=== PATIENT | male | born 1980 | race Caucasian/White ===

== ENCOUNTER 2021-08-11 08:06 | Emergency (ER) | payer MEDICAID, SELFPAY ==
--- NOTE | ~2021-08-11 | CT_ITS ---
EXAMINATION: CT ABDOMEN AND PELVIS WITHOUT CONTRAST CLINICAL INFORMATION: Evaluate for colovesicular fistula or abscess COMPARISON: None TECHNIQUE: Multidetector volumetric imaging was performed from the superior aspect of the liver through the pubic symphysis. Sagittal and coronal reformatted images were obtained on the technologist's workstation. This CT examination was performed using dose optimization techniques as appropriate, variously including the following: *Automated exposure control *Adjustment of mA and/or kV according to patient size (this includes techniques or standardized protocols for targeted exams where dose is matched to indication/reason for exam; i.e. extremities or head) *Use of iterative reconstruction technique DLP: 367 mGy-cm FINDINGS: LUNG BASES: The visualized lung bases are unremarkable. LIVER, GALLBLADDER, AND BILIARY TREE: The liver is normal in size, shape, and attenuation. No focal hepatic lesion or biliary ductal dilatation is present. The gallbladder is unremarkable with no evidence of radiopaque gallstones, gallbladder wall thickening, or obvious pericholecystic inflammatory changes. PANCREAS: Unremarkable. SPLEEN: Unremarkable. ADRENAL GLANDS: Unremarkable. KIDNEYS AND URETERS: The kidneys are normal in size, shape, and attenuation. No hydronephrosis, hydroureter, or calculi seen. No perinephric stranding. BLADDER: There is focal abnormal wall thickening of the left dome of the bladder. This is continuous with a 3.5 cm air-fluid level questionable for an abscess that abuts the proximal left colon. There is air in the bladder concerning for colovesicular fistula. GASTROINTESTINAL TRACT: There is abnormal wall thickening of the proximal sigmoid colon, for example axial image 56 series 3.. There is stranding of the surrounding fat. This abuts the left dome of the bladder. There is an air or air fluid collection seen in this region measuring 3.5 cm for example axial image 60 series 3 questionable for an abscess or contained perforation. This has a linear tract that extends anteriorly abutting the left rectus muscle, for example axial image 58 series 3. There is stool throughout the colon suggestive of constipation. The appendix is normal. The stomach and small bowel are normal. This is continuous with abnormal wall thickening of the left superior bladder wall. There is a small amount of air in the bladder suggestive of a colovesicular fistula. No free air. No ascites. ABDOMINAL WALL: No significant hernia is appreciated. LYMPH NODES: Normal. VASCULAR: Unremarkable. PELVIC VISCERA: Unremarkable. OSSEOUS STRUCTURES: There is spondylolysis and mild grade 1 spondylolisthesis at L5-S1. CT/CT abdomen pelvis wo con IMPRESSION: Abnormal wall thickening of the sigmoid colon. Colitis, diverticulitis and colon mass should be considered. Adjacent 3.5 cm likely abscess or contained perforation which abuts the left dome of the bladder. There is focal wall thickening of the left dome of the bladder and upper left lateral bladder wall and small amount of air in the bladder suggestive of a colovesicular fistula. Constipation. Fleischner guidelines were followed.
[2021-08-11 08:29] VITALS: BP 137/91; PULSE 105; RESP 16; O2SAT 98
[2021-08-11 09:27] VITALS: BP 120/90; PULSE 105; RESP 20; TEMP 36.8; O2SAT 99; BMI 20.7
[2021-08-11 09:40] LABS: Appearance Urine CLOUDY; Color Urine YELLOW; Glucose Urine UA NEG (NEG); Leukocyte Esterase Urine 3+ (NEG); Nitrite Urine POS (NEG); PH 6.5 (5.0-8.0); Specific Gravity - Urine 1.025 (1.005-1.025); UACC Culture Trigger YES; Urine Blood 3+ (NEG); Urine Ketones NEG (NEG); Urine Protein 2+ MG/DL (NEG-TRACE)
[2021-08-11] MEDS: 0.9 % Sodium Chloride 1,000 ML 999 ML IV (09:41)
--- NOTE | 2021-08-11 09:45 | ED.GENADULT ---
HPI - General Adult General Chief complaint: Skin/Abscess/Foreign Body Stated complaint: abscess Time Seen by Provider: 08/11/21 08:45 Source: patient Mode of arrival: ambulatory History of Present Illness HPI narrative: 41-year-old male with a past medical history of colon-bladder fistula S/P drainage in [place], [place] on 08/02/2021, presenting to ED complaining of persistent/worsening abdominal pain, and subjective fever last night. Admits arrived home from [place] on Tuesday, has been noncompliant with antibiotics and pain medication as lost in transit. Denies chills, nausea/vomiting, diarrhea, bloody BMs, melena, dysuria/hematuria Onset (ago): day(s) Related Data Previous Rx's Medication Instructions Recorded amoxicillin 875 mg-potassium 1 tab PO BID 7 Days #14 tab 08/11/21 clavulanate 125 mg tablet Allergies Allergy/AdvReac Type Severity Reaction Status Date / Time No Known Allergies Allergy Verified 08/11/21 08:54 Review of Systems Review of Systems: Constitutional: +subj Fever, No Chills, No Fatigue, No Malaise ENT/Mouth: No Hearing loss, No Ear Pain, No Nasal Congestion, No sore throat, No Rhinorrhea, No Swallowing Difficulty Eyes: No Eye Pain, No Swelling, No Redness Cardiovascular: No Chest Pain, No SOB, No Edema, No Palpitations Respiratory: No Cough, No Sputum, No Wheezing, No Smoke Exposure, No Dyspnea Gastrointestinal: No Nausea, No Vomiting, No Diarrhea, No Constipation, + Abdominal pain, No Hematochezia, No Melena Genitourinary: No irregular bleeding, No Dysuria, No Urinary Frequency, No Hematuria, No Urinary Incontinence/retention, No Flank Pain, No Urinary Flow Changes Musculoskeletal: No joint pain, No Myalgias, No Joint Swelling Skin: No Skin Lesions, No rash Neuro: No Weakness, No Numbness, No Headache Yes all other systems are reviewed and are negative PMFSH Past Medical History Attestation statement: The following information was validated with the patient. Social History Social History Patient Tobacco Use Status: Current everyday Tobacco user Smoked in Last 30 Days: Yes Advance Directives: No Advance Directives Information Provided: No Physical Exam ED Vital Signs: Vital Signs - 24 hr 08/11/21 08:29 05/17/22 09:27 Temperature 98.2 F Pulse Rate 105 H 105 H Respiratory Rate 16 20 Blood Pressure 137/91 H 120/90 H Pulse Oximetry 98 99 BMI result Body Mass Index 20.7 Const General: cooperative, healthy appearing and no acute distress Orientation/consciousness: patient oriented x3 Limitations: no limitations HENMT Head: Yes normal to inspection and Yes atraumatic Ears: hearing grossly normal bilaterally General nose exam: Normal external nose present Face and sinus: Yes normal facial exam Eyes General: appearance normal, both eyes and all related structures EOM: EOMs intact bilaterally Neck Neck: Yes normal visual inspection and Yes no meningeal signs Resp Effort & Inspection: normal respiratory effort and no respiratory distress Auscultation: clear to auscultation bilaterally Cardio Rate: regular rate Heart sounds: S1 normal heart sound present and S2 normal heart sound present GI Other: + small healing surgical site noted to right suprapubic region without surrounding erythema/fluctuance or induration Inspection: Yes normal to inspection Palpation (GI): Soft to palpation, Tenderness to palpation present (GI) suprapubicly; Negative for with no rebound tenderness, no guarding and not rigid General: Yes no CVA tenderness Back/Spine/Pelvis Back: no CVA tenderness Skin Rashes: no rashes Wounds: no wounds Neuro General: patient oriented x3, tone normal and no meningeal signs Gait exam (Neuro): Normal gait present Extrem General: Yes normal to inspection Course Course Course Narrative: -1023--obtain records from [facility], patient presented on 07/23/2021 with abdominal pain, history of diverticular disease and ETOH, 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 Concurrently was treated for EtOH withdrawal. Patient was taken to or for IR drainage on 07/24, cultures grew E coli, Clostridium tertium and strepanginosus and was kramer positive. Repeat CT on 07/29 showed resolution of pelvic fluid collection. ASIA drain was removed on 07/30 and he was transition to Augmentin on 07/31. General surgery recommended outpatient colorectal surgery follow-up for resection of the sigmoid colon and closure of colorectal fistula. Patient was discharged on 08/02 -noted leukocytosis 15.3 (WBC count 9.8 on 08/01). Lactic acid negative. Labs otherwise unremarkable. -UA infected CT abdomen pelvis wo con IMPRESSION: Abnormal wall thickening of the sigmoid colon. Colitis, diverticulitis and colon mass should be considered. Adjacent 3.5 cm likely abscess or contained perforation which abuts the left dome of the bladder. There is focal wall thickening of the left dome of the bladder and upper left lateral bladder wall and small amount of air in the bladder suggestive of a colovesicular fistula. Constipation. ? >> surgery Dr. Cooper consulted -Dr. Cooper spoke with radiologist Dr. Jimenez who thinks more IBD/ inflammatory related without drainable collection at this time. Will admit to hospitalist for GI consultation/ colonoscopy for further diagnosis -[id number]-- patient refusing to stay as wants to go smoke cigarette, had lengthy discussion with patient & mother about risks of leaving including , permanent damage/ disability, pain and sepsis, etc. He is A&O x3 competent to make decisions and will sign out AMA. States he will to return tomorrow. Will discharge with Augmentin in the meantime Medical Decision Making MDM Narrative Medical decision making narrative: 41-year-old male with a past medical history of colon-bladder fistula S/P drainage in [place], [place] on 08/02/2021, presenting to ED complaining of persistent/worsening abdominal pain, and subjective fever last night. On exam tachycardic likely from pain, abdomen soft with suprapubic tenderness, no rebound or guarding. No evidence of infection to surgical area. Concern for reaccumulation of abscess/fistula vs post surgical issue vs UTI vs ?diverticulitis or appendicitis. Will request records from [facility] in [place] Plan: Labs, UA, lactic/blood cultures, IVF, pain medication, CT AP Medical Records Medical records reviewed: Yes I reviewed the patient's medical records. Lab Data Lab results reviewed: Yes I reviewed the patient's lab results. Result diagrams: 08/11/21 09:42 08/11/21 09:42 Labs: Lab Results 08/11/21 08/11/21 08/11/21 Range/Units 09:08 09:30 09:30 WBC (4.8-10.8) X10*3/uL RBC (4.60-5.80) X10*6/uL Hgb (14.0-18.0) g/dl Hct (42.0-52.0) % MCV (80.0-98.0) fL MCH (27.0-33.0) pg MCHC (31.0-36.0) g/dl RDW (11.0-16.0) % Plt Count (160-400) X10*3/uL MPV (9.4-12.4) fL Immature Gran % (Auto) (0.0-0.4) % Neut % (Auto) (45-73) % Lymph % (Auto) (20-40) % [place] % (Auto) (2-11) % Eos % (Auto) (0-4) % Baso % (Auto) (0-2) % Lymph # (Auto) (1.2-4.9) X10*3/uL [place] # (Auto) (0.1-1.2) X10*3/uL Eos # (Auto) (0.0-0.4) X10*3/uL Baso # (Auto) (0.0-0.2) X10*3/uL Abs Immat Gran (auto) (0.00-0.03) X10*3/uL Absolute Neuts (auto) (2.0-8.3) x10*3/uL Absolute Nucleated RBC (0.0-0.012) X10*3/uL Nucleated RBC % (auto) (0.0-0.2) /100WBC Sodium (135-145) mmol/L Potassium (3.3-5.1) mmol/L Chloride (96-108) mmol/L Carbon Dioxide (22-29) mmol/L Anion Gap (12-20) BUN (9-16) mg/dL Creatinine (0.5-1.4) mg/dL Estim Creat Clear Calc Estimated GFR Random Glucose (60-115) mg/dL Lactic Acid 1.0 (0.5-2.0) mmol/L Calcium (8.4-10.2) mg/dL Magnesium (1.6-2.6) mg/dL Total Bilirubin (0.0-1.0) mg/dL Direct Bilirubin (0.0-0.5) mg/dL AST (5-37) U/L ALT (0-40) U/L Alkaline Phosphatase (39-117) U/L Total Protein (6.5-8.0) g/dL Albumin (3.5-5.0) g/dL Lipase (8-78) U/L Urine Color YELLOW Urine Appearance CLOUDY Urine pH 6.5 (5.0-8.0) Ur Specific [place] 1.025 (1.005-1.025) Urine Protein 2+ H (NEG-TRACE) MG/DL Urine Glucose (UA) NEG (NEG) MG/DL Urine Ketones NEG (NEG) MG/DL Urine Blood 3+ H (NEG) Urine Nitrite POS H (NEG) Ur Leukocyte Esterase 3+ H (NEG) Urine RBC TNTC H (0) /HPF Urine WBC TNTC H (0-4) /HPF Ur Squamous Epith Cells NONE /LPF Urine Bacteria TRACE /LPF Urine Opiates Screen (Not Detect) Urine Fentanyl Screen (Not Detect) Ur Barbiturates Screen (Not Detect) Ur Phencyclidine Scrn (Not Detect) Ur Amphetamines Screen (Not Detect) U Benzodiazepines Scrn (Not Detect) Urine Cocaine Screen (Not Detect) U Marijuana (THC) Screen (Not Detect) Ethyl Alcohol mg/dL COVID-19 (SAFIA) Negative (Negative) COVID-19 Clin Com See Note 08/11/21 08/11/21 08/11/21 Range/Units 09:30 09:42 09:42 WBC 15.3 H (4.8-10.8) X10*3/uL RBC 4.48 L (4.60-5.80) X10*6/uL Hgb 12.8 L (14.0-18.0) g/dl Hct 38.3 L (42.0-52.0) % MCV 85.5 (80.0-98.0) fL MCH 28.6 (27.0-33.0) pg MCHC 33.4 (31.0-36.0) g/dl RDW 15.0 (11.0-16.0) % Plt Count 398 (160-400) X10*3/uL MPV 9.7 (9.4-12.4) fL Immature Gran % (Auto) 0.4 (0.0-0.4) % Neut % (Auto) 79.4 H (45-73) % Lymph % (Auto) 10.2 L (20-40) % [place] % (Auto) 9.1 (2-11) % Eos % (Auto) 0.7 (0-4) % Baso % (Auto) 0.2 (0-2) % Lymph # (Auto) 1.6 (1.2-4.9) X10*3/uL [place] # (Auto) 1.4 H (0.1-1.2) X10*3/uL Eos # (Auto) 0.1 (0.0-0.4) X10*3/uL Baso # (Auto) 0.0 (0.0-0.2) X10*3/uL Abs Immat Gran (auto) 0.06 H (0.00-0.03) X10*3/uL Absolute Neuts (auto) 12.2 H (2.0-8.3) x10*3/uL Absolute Nucleated RBC 0.000 (0.0-0.012) X10*3/uL Nucleated RBC % (auto) 0.0 (0.0-0.2) /100WBC Sodium 136 (135-145) mmol/L Potassium 4.3 (3.3-5.1) mmol/L Chloride 104 (96-108) mmol/L Carbon Dioxide 23 (22-29) mmol/L Anion Gap 13 (12-20) BUN 6 L (9-16) mg/dL Creatinine 0.64 (0.5-1.4) mg/dL Estim Creat Clear Calc 139.1 Estimated GFR > 60 Random Glucose 123 H (60-115) mg/dL Lactic Acid (0.5-2.0) mmol/L Calcium 9.3 (8.4-10.2) mg/dL Magnesium 2.2 (1.6-2.6) mg/dL Total Bilirubin 0.8 (0.0-1.0) mg/dL Direct Bilirubin 0.2 (0.0-0.5) mg/dL AST 14 (5-37) U/L ALT 15 (0-40) U/L Alkaline Phosphatase 96 (39-117) U/L Total Protein 6.9 (6.5-8.0) g/dL Albumin 3.6 (3.5-5.0) g/dL Lipase 44 (8-78) U/L Urine Color Urine Appearance Urine pH (5.0-8.0) Ur Specific [place] (1.005-1.025) Urine Protein (NEG-TRACE) MG/DL Urine Glucose (UA) (NEG) MG/DL Urine Ketones (NEG) MG/DL Urine Blood (NEG) Urine Nitrite (NEG) Ur Leukocyte Esterase (NEG) Urine RBC (0) /HPF Urine WBC (0-4) /HPF Ur Squamous Epith Cells /LPF Urine Bacteria /LPF Urine Opiates Screen Not Detected (Not Detect) Urine Fentanyl Screen Not Detected (Not Detect) Ur Barbiturates Screen Not Detected (Not Detect) Ur Phencyclidine Scrn Not Detected (Not Detect) Ur Amphetamines Screen Not Detected (Not Detect) U Benzodiazepines Scrn Not Detected (Not Detect) Urine Cocaine Screen Not Detected (Not Detect) U Marijuana (THC) Screen POSITIVE H (Not Detect) Ethyl Alcohol mg/dL COVID-19 (SAFIA) (Negative) COVID-19 Clin Com 08/11/21 Range/Units 09:42 WBC (4.8-10.8) X10*3/uL RBC (4.60-5.80) X10*6/uL Hgb (14.0-18.0) g/dl Hct (42.0-52.0) % MCV (80.0-98.0) fL MCH (27.0-33.0) pg MCHC (31.0-36.0) g/dl RDW (11.0-16.0) % Plt Count (160-400) X10*3/uL MPV (9.4-12.4) fL Immature Gran % (Auto) (0.0-0.4) % Neut % (Auto) (45-73) % Lymph % (Auto) (20-40) % [place] % (Auto) (2-11) % Eos % (Auto) (0-4) % Baso % (Auto) (0-2) % Lymph # (Auto) (1.2-4.9) X10*3/uL [place] # (Auto) (0.1-1.2) X10*3/uL Eos # (Auto) (0.0-0.4) X10*3/uL Baso # (Auto) (0.0-0.2) X10*3/uL Abs Immat Gran (auto) (0.00-0.03) X10*3/uL Absolute Neuts (auto) (2.0-8.3) x10*3/uL Absolute Nucleated RBC (0.0-0.012) X10*3/uL Nucleated RBC % (auto) (0.0-0.2) /100WBC Sodium (135-145) mmol/L Potassium (3.3-5.1) mmol/L Chloride (96-108) mmol/L Carbon Dioxide (22-29) mmol/L Anion Gap (12-20) BUN (9-16) mg/dL Creatinine (0.5-1.4) mg/dL Estim Creat Clear Calc Estimated GFR Random Glucose (60-115) mg/dL Lactic Acid (0.5-2.0) mmol/L Calcium (8.4-10.2) mg/dL Magnesium (1.6-2.6) mg/dL Total Bilirubin (0.0-1.0) mg/dL Direct Bilirubin (0.0-0.5) mg/dL AST (5-37) U/L ALT (0-40) U/L Alkaline Phosphatase (39-117) U/L Total Protein (6.5-8.0) g/dL Albumin (3.5-5.0) g/dL Lipase (8-78) U/L Urine Color Urine Appearance Urine pH (5.0-8.0) Ur Specific [place] (1.005-1.025) Urine Protein (NEG-TRACE) MG/DL Urine Glucose (UA) (NEG) MG/DL Urine Ketones (NEG) MG/DL Urine Blood (NEG) Urine Nitrite (NEG) Ur Leukocyte Esterase (NEG) Urine RBC (0) /HPF Urine WBC (0-4) /HPF Ur Squamous Epith Cells /LPF Urine Bacteria /LPF Urine Opiates Screen (Not Detect) Urine Fentanyl Screen (Not Detect) Ur Barbiturates Screen (Not Detect) Ur Phencyclidine Scrn (Not Detect) Ur Amphetamines Screen (Not Detect) U Benzodiazepines Scrn (Not Detect) Urine Cocaine Screen (Not Detect) U Marijuana (THC) Screen (Not Detect) Ethyl Alcohol < 10 mg/dL COVID-19 (SAFIA) (Negative) COVID-19 Clin Com Critical Care Time Critical Care Time Critical Care Time: Yes Total Critical Care Time: 35 Attestation: I have personally provided critical care time exclusive of time spent on separately billable procedures. Time includes review of lab data, radiology results, discussion with consultants, and monitoring for potential decompensation. Intervention performed as documented. Discharge Plan Discharge Clinical Impression: [place]-vesical fistula, Acute UTI, Abscess Patient Disposition: Home, Self-Care Instructions: Gastrointestinal Fistula (DC) Additional Instructions: You have a fistula from your colon to her bladder which you are aware of. There was concern for extending infection. It was recommended that he be admitted to the hospital for further management/imaging studies. You are leaving against medical advice, the risks of leaving include permanent damage, , sepsis, permanent disability, and pain. Your always welcome to return to the emergency department. I encourage you to take the antibiotic sent to the pharmacy. If symptoms persist or worsen please return to the ED immediately Prescriptions: New amoxicillin-pot clavulanate 875-125 mg tablet 1 tab PO BID 7 Days Qty: 14 0RF Referrals: Manuel Cooper MD [Physician] - Sara Chavez MD [Physician] - Stand Alone Forms: Against Medical Advice
[2021-08-11 09:49] LABS: MANUAL DIFF FLAG NO
[2021-08-11 09:51] LABS: Basophils Percent Auto 0.2 % (0-2); Eosinophils Absolute Auto 0.1 X10*3/uL (0.0-0.4); Eosinophils Percent Auto 0.7 % (0-4); Hematocrit 38.3 % (42.0-52.0); Hemoglobin 12.8 g/dl (14.0-18.0); Imm Gran Abs Auto 0.06 X10*3/uL (0.00-0.03); Imm Gran Pct Auto 0.4 % (0.0-0.4); Lymphocytes Absolute Auto 1.6 X10*3/uL (1.2-4.9); Lymphocytes Percent Auto 10.2 % (20-40); Mean Corpuscular HGB Conc 33.4 g/dl (31.0-36.0); Mean Corpuscular Hemoglobin 28.6 pg (27.0-33.0); Mean Corpuscular Volume 85.5 fL (80.0-98.0); Mean Platelet Volume 9.7 fL (9.4-12.4); Monocytes Absolute Auto 1.4 X10*3/uL (0.1-1.2); Monocytes Percent Auto 9.1 % (2-11); Neutrophils Absolute Auto 12.2 x10*3/uL (2.0-8.3); Neutrophils Percent Auto 79.4 % (45-73); Platelet Count 398 X10*3/uL (160-400); Red Blood Count 4.48 X10*6/uL (4.60-5.80); White Blood Count 15.3 X10*3/uL (4.8-10.8)
[2021-08-11 09:54] LABS: RBC Urine TNTC /HPF (0); WBC Urine TNTC /HPF (0-4)
[2021-08-11 09:55] LABS: Bacteria Urine TRACE /LPF
[2021-08-11] MEDS: Morphine Sulfate 2 MG/ML CARTRIDGE IVPUSH (09:55)
[2021-08-11] MEDS: Piperacillin Sodium/Tazobactam 3.375 GM in 0.9 % Sodium Chloride 50 ML IV (09:55)
[2021-08-11 09:56] LABS: COVID-19 Test Negative (Negative); IDNOW Serial# 16C4AD1C
[2021-08-11 10:07] LABS: Alanine Aminotransferase 15 U/L (0-40); Albumin Level 3.6 g/dL (3.5-5.0); Alkaline Phosphatase 96 U/L (39-117); Anion Gap 13 (12-20); Aspartate Amino Transferase 14 U/L (5-37); Bilirubin Direct 0.2 mg/dL (0.0-0.5); Bilirubin Total 0.8 mg/dL (0.0-1.0); Blood Urea Nitrogen 6 mg/dL (9-16); Calcium 9.3 mg/dL (8.4-10.2); Carbon Dioxide 23 mmol/L (22-29); Chloride 104 mmol/L (96-108); Creatinine Clr Calc Pharmacy 139.1; Estimated Glomerular Filt Rate > 60; Glucose Random 123 mg/dL (60-115); Lipase 44 U/L (8-78); Magnesium 2.2 mg/dL (1.6-2.6); Potassium 4.3 mmol/L (3.3-5.1); Sodium 136 mmol/L (135-145); Total Protein 6.9 g/dL (6.5-8.0)
[2021-08-11 10:40] LABS: Ethanol < 10 mg/dL
[2021-08-11 10:57] LABS: Amphetamine Screen Urine Not Detected (Not Detect); Barbiturates, Urine Not Detected (Not Detect); Benzodiazepines Screen Urine Not Detected (Not Detect); Cannabinoid Screen Urine POSITIVE (Not Detect); Cocaine Screen Urine Not Detected (Not Detect); Fentanyl, urine Not Detected (Not Detect); Opiate Screen Urine Not Detected (Not Detect); Phencyclidine Screen Urine Not Detected (Not Detect)
[2021-08-11] MEDS: Nicotine 14 MG PATCH.TD24 TRANSDERMA (11:00)
--- NOTE | 2021-08-11 11:06 | PHA.MEDREC ---
Pharmacy Consult ? Medication Reconciliation Pharmacy has completed the medication reconciliation. Patient reports no medications at home. Maty Lanier, AureaD
== END 2021-08-11 14:00 | disposition left against medical advice (07) ==
PROVIDERS: Physician Assistant; Emergency Provider Emergency Medicine
DX: N39.0 Urinary tract infection, site not specified (principal); N32.1 Vesicointestinal fistula; R10.9 Unspecified abdominal pain; Z20.822 Contact with and (suspected) exposure to COVID-19; Z79.899 Other long term (current) drug therapy
CPT/HCPCS: 74176; 80048; 80076; 80307; 81001; 82077; 83605; 83690; 83735; 85025; 87040; 87086; 87088; 87186; 87635; 96365; 96375; 99284; 99291; J2270; J2543

== ENCOUNTER 2021-08-11 19:46 | Inpatient (IN) | payer MEDICAID, SELFPAY ==
--- NOTE | ~2021-08-11 | US_ITS ---
EXAMINATION: US SCROTUM CLINICAL INFORMATION: Pain and swelling. COMPARISON: None TECHNIQUE: A sonogram of the scrotum was performed assessing villagomez-scale appearance and color Doppler flow. Spectral Doppler analysis of the arterial and venous flow were performed in the testes bilaterally. FINDINGS: RIGHT: Right testicle measures 4.7 x 1.9 x 2.8 cm, volume 13.3 mL. No focal testicular parenchymal lesions are visualized. Spectral Doppler analysis of the arterial and venous flow is normal in the right testis. Right epididymal head is normal in size. Epididymal head cyst measures 0.2 cm. No right hydrocele or varicocele is seen. Right epididymal Doppler flow is normal. LEFT: Left testicle measures 4.5 x 2.8 x 2.9 cm, volume 18.3 mL. No focal testicular parenchymal lesions are visualized. Spectral Doppler analysis of the arterial and venous flow is normal in the left testis. Left epididymal head is normal in size. No varicocele. Small hydrocele is seen. Left epididymal Doppler flow is increased. US/US scrotum IMPRESSION: Left-sided epididymitis. No testicular torsion.
--- NOTE | ~2021-08-11 | US_ITS ---
EXAMINATION: US SCROTUM CLINICAL INFORMATION: Pain and swelling. COMPARISON: None TECHNIQUE: A sonogram of the scrotum was performed assessing villagomez-scale appearance and color Doppler flow. Spectral Doppler analysis of the arterial and venous flow were performed in the testes bilaterally. FINDINGS: RIGHT: Right testicle measures 4.7 x 1.9 x 2.8 cm, volume 13.3 mL. No focal testicular parenchymal lesions are visualized. Spectral Doppler analysis of the arterial and venous flow is normal in the right testis. Right epididymal head is normal in size. Epididymal head cyst measures 0.2 cm. No right hydrocele or varicocele is seen. Right epididymal Doppler flow is normal. LEFT: Left testicle measures 4.5 x 2.8 x 2.9 cm, volume 18.3 mL. No focal testicular parenchymal lesions are visualized. Spectral Doppler analysis of the arterial and venous flow is normal in the left testis. Left epididymal head is normal in size. No varicocele. Small hydrocele is seen. Left epididymal Doppler flow is increased. US/US scrotum doppler IMPRESSION: Left-sided epididymitis. No testicular torsion.
--- NOTE | ~2021-08-11 | CT_ITS ---
EXAMINATION: CT-GUIDED NEEDLE PLACEMENT FOR DRAINAGE CLINICAL INFORMATION: Air collection in the rectus muscle and pelvis adjacent to the urinary bladder. COMPARISON: CT abdomen AND pelvis 08/14/2021. TECHNIQUE: Following explaining CT fluoroscopy-guided abscess drainage procedure, benefits and risks, a written consent was obtained. Patient was placed supine on fluoroscopy table and preliminary CT imaging was obtained through the pelvis. An optimal site was selected along the previous catheter placement. The area was cleaned and draped in usual sterile manner. 1% lidocaine was injected at puncture site. A 5 [place] Yueh catheter was advanced into what appeared to be an abscess in the left pelvis. However, following small skin incisions with the Yueh catheter the needle tip appears to be along inferior tract of the previous catheter placement/linear gas. However, most of the abscess has not decompressed into the bladder with urine appearing murky with significant brown sediment. I presume the abscess decompressed into the bladder. Patient had significant pain in spite of conscious sedation. Placement of catheter was aborted as there was no abscess seen at the site of the tip of the catheter. Only a small amount of gas was seen. The bladder is decompressed following insertion of a Gold catheter. The exam was terminated. Simple dressing was applied at the puncture site. FINDINGS: Previously visualized small left pelvic abscess has spontaneously significantly improved or reduced into the urinary bladder. There is a small amount of gas seen in the previously noted abscess. The bladder is decompressed with a Gold catheter. CT/CT guided needle placement IMPRESSION: CT fluoroscopy-guided insertion of abscess drainage was aborted as the abscess had spontaneously reduced likely within the urinary bladder. The case was discussed with Dr. Manuel Cooper after the procedure.
--- NOTE | ~2021-08-11 | XR_ITS ---
EXAMINATION: XR CHEST CLINICAL INFORMATION: NG tube placement COMPARISON: CT abdomen from earlier today TECHNIQUE: Frontal view of the chest was obtained. FINDINGS: Enteric tube tip lies in the fundus of the stomach. Lung volumes are symmetric. There is streaky retrocardiac left basilar opacity favoring atelectasis. No additional consolidation bilaterally. No evidence of pneumothorax, pleural effusion, or pulmonary edema. The cardiomediastinal contour is unremarkable. No acute osseous findings are seen. XR/XR chest 1V IMPRESSION: Enteric tube tip in the fundus of the stomach.
--- NOTE | ~2021-08-11 | CT_ITS ---
EXAMINATION: CT ABDOMEN AND PELVIS WITHOUT CONTRAST CLINICAL INFORMATION: Pain post surgery COMPARISON: 08/14/2021 TECHNIQUE: Multidetector volumetric imaging was performed from the superior aspect of the liver through the pubic symphysis. Sagittal and coronal reformatted images were obtained on the technologist's workstation. This CT examination was performed using dose optimization techniques as appropriate, variously including the following: *Automated exposure control *Adjustment of mA and/or kV according to patient size (this includes techniques or standardized protocols for targeted exams where dose is matched to indication/reason for exam; i.e. extremities or head) *Use of iterative reconstruction technique DLP: 393 mGy-cm FINDINGS: LUNG BASES: Bibasilar subsegmental atelectasis. LIVER, GALLBLADDER, AND BILIARY TREE: The liver is normal in size, shape, and attenuation. No focal hepatic lesion or biliary ductal dilatation is present. Small amount of perihepatic fluid. The gallbladder is unremarkable with no evidence of radiopaque gallstones, gallbladder wall thickening, or obvious pericholecystic inflammatory changes. PANCREAS: Unremarkable. SPLEEN: Relatively diminutive in size, with small calcification noted. ADRENAL GLANDS: Unremarkable. KIDNEYS AND URETERS: The kidneys are normal in size, shape, and attenuation. No hydronephrosis, hydroureter, or calculi seen. No perinephric stranding. BLADDER: Decompressed with a Gold catheter and not adequately evaluated. GASTROINTESTINAL TRACT: There is prominent fluid distention of the stomach. Suture lines are identified in the small bowel of the central and right abdomen as well as in the sigmoid colon. There are multiple fluid-filled, dilated small bowel loops throughout much of the abdomen, with some interspersed loops which appear more collapsed. There are multiple foci of free air in keeping with recent surgery. Small amount of fluid is present in the dependent pelvis and paracolic gutters. Appendix appears nondilated. ABDOMINAL WALL: Right lower quadrant ileostomy noted. Postsurgical changes of the anterior abdominal wall with midline skin francesco. Small amount of gas is present along the rectus abdominis muscle, decreased from 08/14/2021. Underlying fluid is seen extending into the pelvis superior to the urinary bladder; on axial image 74/97 this measures approximately 9.4 x 4.6 cm. LYMPH NODES: No lymphadenopathy is seen, though assessment is limited in the absence of intravenous contrast. VASCULAR: Unremarkable. PELVIC VISCERA: Unremarkable. OSSEOUS STRUCTURES: Bilateral L5 pars defects. CT/CT abdomen pelvis wo con IMPRESSION: 1. Multiple dilated fluid-filled loops of small bowel. There are several interspersed loops of collapsed small bowel, with overall configuration raising concern for small bowel obstruction. 2. Region of fluid just deep to the lower anterior abdominal wall and extending superior to the urinary bladder measuring up to 9.4 cm. This may represent an abscess collection, with evaluation limited in the absence of intravenous contrast.
--- NOTE | ~2021-08-11 | CT_ITS ---
EXAMINATION: CT ABDOMEN AND PELVIS WITHOUT CONTRAST CLINICAL INFORMATION: Diverticulitis with increasing pain. Question perforation. Complaining of testicular pain. COMPARISON: 08/11/2021 TECHNIQUE: Multidetector volumetric imaging was performed from the superior aspect of the liver through the pubic symphysis. Sagittal and coronal reformatted images were obtained on the technologist's workstation. This CT examination was performed using dose optimization techniques as appropriate, variously including the following: *Automated exposure control *Adjustment of mA and/or kV according to patient size (this includes techniques or standardized protocols for targeted exams where dose is matched to indication/reason for exam; i.e. extremities or head) *Use of iterative reconstruction technique DLP: 463 mGy-cm FINDINGS: LUNG BASES: The visualized lung bases are unremarkable. LIVER, GALLBLADDER, AND BILIARY TREE: The liver is normal in size, shape, and attenuation. No focal hepatic lesion or biliary ductal dilatation is present. The gallbladder is unremarkable with no evidence of radiopaque gallstones, gallbladder wall thickening, or obvious pericholecystic inflammatory changes. PANCREAS: Unremarkable. SPLEEN: Calcified granuloma in the spleen. Normal size. ADRENAL GLANDS: Unremarkable. KIDNEYS AND URETERS: The kidneys are normal in size, shape, and attenuation. No hydronephrosis, hydroureter, or calculi seen. No perinephric stranding. BLADDER: Normally distended with wall thickening at the dome. Gas noted in the bladder lumen. GASTROINTESTINAL TRACT: The stomach is unremarkable. Normal caliber small bowel. There is no obstruction. What dilated: . This extends to an abnormal area in the sigmoid colon, where there is increased wall thickening from prior. Inferior to this abnormal segment of sigmoid colon there is again noted a collection which is incorporated to the superior aspect of the bladder wall. This measures approximately 3.6 x 2.6 x 3 cm. There is an air-fluid level. Tracking anteriorly from this collection there is a linear band of gas extending toward the anterior abdominal wall. This appearance is fairly similar to prior, although the anterior extension of gas now extends into the left rectus muscle, further progressed since previous. No free intraperitoneal air. Normal appendix. ABDOMINAL WALL: As stated above, tract of gas extending into the left rectus muscle. No abdominal wall hernia. LYMPH NODES: Normal. VASCULAR: Unremarkable. PELVIC VISCERA: The prostate and seminal vesicles are unremarkable. OSSEOUS STRUCTURES: No acute or suspicious osseous abnormality. Bilateral L5 pars defects. CT/CT abdomen pelvis wo con IMPRESSION: As seen previously, abnormal appearance of the sigmoid colon with focal prominent wall thickening. This may represent diverticulitis, although colonic mass is also a consideration. Adjacent fluid collection which involves the dome of the bladder. Gas within the bladder lumen suggests fistulization. There is increased gas tracking anteriorly into the rectus muscle. This could be associated with a draining tract if there was previous intervention. Fleischner guidelines were followed.
[2021-08-11 20:07] VITALS: BP 128/77; PULSE 118; RESP 20; TEMP 37; O2SAT 96; BMI 21.4
[2021-08-12 04:00] VITALS: BP 116/79; PULSE 65; RESP 16; TEMP 36.7; O2SAT 98
--- NOTE | 2021-08-12 05:18 | ED_ITS ---
HPI - Abdominal Pain General Chief Complaint: Abdominal Pain Stated Complaint: abd pain, lwt earlier Time Seen by Provider: 08/12/21 05:17 Source: patient Mode of arrival: ambulatory History of Present Illness HPI narrative: 41-year-old male re-presented after in entire workup yesterday and found to have an abscess within his abdomen, has been noncompliant with antibiotics, is an everyday drinker with his last drink yesterday. Patient said chills and worsening abdominal pain and plans to stick with definitive treatment through admission. Related Data Previous Rx's Medication Instructions Recorded amoxicillin 875 mg-potassium 1 tab PO BID 7 Days #14 tab 08/11/21 clavulanate 125 mg tablet Allergies Allergy/AdvReac Type Severity Reaction Status Date / Time No Known Allergies Allergy Verified 08/11/21 08:54 Review of Systems Review of Systems Pertinent positives and negatives as stated in HPI 10 point review of systems is otherwise negative. PMFSH Past Medical History Source: nursing notes reviewed Social History Social History Alcohol intake: current Alcohol intake frequency: 3 or more drinks per day Patient Tobacco Use Status: Current everyday Tobacco user Use of substances other than those prescribed or required for medical reasons: No Advance Directives: No Advance Directives Information Provided: Yes Physical Exam ED Vital Signs: Vital Signs - 24 hr 08/11/21 20:07 08/12/21 04:00 08/12/21 06:34 Temperature 98.6 F 98.1 F Pulse Rate 118 H 65 Respiratory Rate 20 16 15 Blood Pressure 128/77 116/79 Pulse Oximetry 96 98 BMI result Body Mass Index 21.4 Course Course Course Narrative: 41-year-old male who as decided to come in for definitive treatment of his intra-abdominal infection/urinary tract infection. He was given antibiotics and documentation was reviewed from prior visit yesterday. He was placed on a CIWA scale as well as an Ativan protocol and case was discussed with the inpatient hospitalist who accepts admission. I also reviewed the case briefly with Dr. Cooper who recommends evaluation for IBD. Patient was started on antibiotics and pain medication. 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 Concurrently was treated for EtOH withdrawal.? Patient was taken to or for IR drainage on 07/24, cultures grew E coli, Clostridium tertium and strepanginosus and was kramer positive.? Repeat CT on 07/29 showed resolution of pelvic fluid collection.? ASIA drain was removed on 07/30 and he was transition to Augmentin on 07/31.? General surgery recommended outpatient colorectal surgery follow-up for resection of the sigmoid colon and closure of colorectal fistula.? Patient was discharged on 08/02 0717: I spoke with Dr Asutin who accepts admission. Reevaluation(s) Reevaluation #1: Spoke with Dr Chavez and he will see patient and recommends CT enterogram. Time: 07:11 MDM - Abdominal Pain Lab Data Labs: Lab Results 08/12/21 08/12/21 08/12/21 Range/Units 05:39 05:39 05:42 Lactic Acid 0.7 (0.5-2.0) mmol/L COVID-19 (SAFIA) Negative (Negative) COVID-19 Clin Com See Note Influenza Type A (ELLEN) Negative (Negative) Influenza Type B (ELLEN) Negative (Negative) Influenza A & B Note See Note Discharge Plan Discharge Clinical Impression: Diverticulitis, Fistula, Abscess, Acute UTI Patient Disposition: Admitted As Inpatient Interventions: LWBS Worksheet Last Done: 08/12/21 02:34
[2021-08-12 05:59] LABS: Lactic Acid 0.7 mmol/L (0.5-2.0)
[2021-08-12 06:11] LABS: COVID-19 Test Negative (Negative); IDNOW Serial# 16C4AD1C; Influenza A Negative (Negative); Influenza B2 Negative (Negative)
[2021-08-12 06:34] VITALS: RESP 15
[2021-08-12] MEDS: HYDROmorphone HCl 0.5 MG/0.5 ML SYRINGE IVPUSH (06:34)
[2021-08-12] MEDS: 0.9 % Sodium Chloride 1,000 ML 999 ML IV (06:35)
[2021-08-12] MEDS: Piperacillin Sodium/Tazobactam 3.375 GM in 0.9 % Sodium Chloride 50 ML IV ×3 (06:35→18:16)
[2021-08-12 08:32] VITALS: BP 128/84; PULSE 88; O2SAT 98
[2021-08-12 09:00] LABS: MANUAL DIFF FLAG NO
--- NOTE | 2021-08-12 09:00 | P.HPHOSP_ITS ---
History of Present Illness Date of Service: 08/12/21 Chief Complaint: abdominal pain This is a 41 yo M with no prior medical history who presents to the hospital with on going abdominal pain of weeks to months duration but acutely worsened over the last several days. The patient describes the pain as diffuse but most prononuced below the umbilicus. He reports associated chills. He denies any nausea/vomiting/diarrhea but rather reports constipation. He also reports intermittent bloody stools but no hematemesis. He reports intermittent hemturia and frequent air after urnation. The patient presented to the ED on 08/11/21 and left AMA. He reports that he was not ready for admission at that time. In regards to the patient's symptoms, he reports that he initially started with urinary symptoms in May of this year. However, he ignored these initially. When he sought medical care -- he was diagnosed with a UTI and prescribed antibiotics which he took. However, his symptoms slowly progressed to abdomi nal symptoms and he began having persistent pain. Ultimately, at some point in June he was diagnosed to colovesciular fistula. This was in [facility]. 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 Concurrently was treated for EtOH withdrawal.? Patient was taken to or for IR drainage on 07/24, cultures grew E coli, Clostridium tertium and strepanginosus and was kramer positive.? Repeat CT on 07/29 showed resolution of pelvic fluid collection.? ASIA drain was removed on 07/30 and he was transition to Augmentin on 07/31.? General surgery recommended outpatient colorectal surgery follow-up for resection of the sigmoid colon and closure of colorectal fistula.? Patient was discharged on 08/02 Review of Systems Review of Systems: negative except HPI [facility] Medical History (Updated 08/12/21 @ 09:46 by Jb Mosley MD) Alcohol withdrawal seizure History of drainage of abscess Pertinent family history: No history of IBD in family Social History (Updated 08/12/21 @ 09:47 by Jb Mosley MD) Alcohol intake: current Alcohol intake frequency: 3 or more drinks per day Patient Tobacco Use Status: Current everyday Tobacco user Use of substances other than those prescribed or required for medical reasons: No Substance Use Type: Marijuana Advance Directives: No Advance Directives Information Provided: Yes Meds Allergies Allergy/AdvReac Type Severity Reaction Status Date / Time No Known Allergies Allergy Verified 08/11/21 08:54 Active Medications: Current Medications Acetaminophen (Acetaminophen 325 Mg Tablet) 650 mg PO Q6H PRN PRN Reason: Pain, Mild (Pain Scale 1-3) Enoxaparin Sodium (Enoxaparin Sodium 40 Mg/0.4 Ml Syringe) 40 mg SUBCUT Q24H KASHMIR Hydromorphone HCl (Hydromorphone Hcl 1 Mg/Ml Syringe) 1 mg IVPUSH Q4H PRN; Protocol PRN Reason: Pain, Severe (Pain Scale 7-10) Dextrose/Sodium Chloride (D5ns) 1,000 mls @ 100 mls/hr IVCONT .Q10H KASHMIR Piperacillin Sod/Tazobactam (Sod 3.375 gm/ Sodium Chloride) 50 mls @ 100 mls/hr IV Q6H [facility] Pharmacy Consult (Consult Rx Etoh Phenob Po Dose) 1 each MISCELLANE ONCE PRN; Protocol PRN Reason: Consult order Sodium Chloride (0.9 % Sodium Chloride Flush 3 Ml Syringe) 3 ml IVFLUSH QSHIFT [facility] Home Medications Medication Instructions Recorded Confirmed Last Taken Type No Known Home Meds 08/12/21 08/12/21 Unknown History Physical Exam Vital Signs and Narrative: Vital Signs: Last Vital Signs Temp 98.1 F 08/12/21 04:00 Pulse 88 08/12/21 08:32 Resp 15 08/12/21 06:34 BP 128/84 08/12/21 08:32 Pulse Ox 98 08/12/21 08:32 BMI result Body Mass Index 21.4 Const: Other: Constitutional - Awake and Alert, appears older than stated age Eyes - PERRLA, EOMI Cardiovascular - S1S2, RRR, No edema Respiratory - Normal lung expansion, Normal respiratory effort, No respiratory distress, CTA bilaterally Gastrointestinal - Diffusely tender without rebound or guarding - No CVA tenderness Extremities - no calf tenderness bilaterally, no swelling Musculoskeletal - Normal inspection, normal ROM Skin - Warm/Dry Neurological - Alert & oriented x3, No focal deficit Psychological - Appropriate affect Results Labs CBC and Chem 7: 08/12/21 08:55 08/12/21 08:55 Labs: Laboratory Results - last 24 hr 08/12/21 08/12/21 08/12/21 05:39 05:39 05:42 Lactic Acid 0.7 COVID-19 (SAFIA) Negative COVID-19 Clin Com See Note Influenza Type A (ELLEN) Negative Influenza Type B (ELLEN) Negative Influenza A & B Note See Note Assessment and Plan (1) Diverticulitis: Status: Acute Plan This is a 41 yo M with a recently history of intraabdominal abscess / colo- vesicular fistula treated with IV antibiotics / IR drainage (in [place], [place]) who presents today with worsening abdominal pain. His CT scan from 08/11 shows reaccumulation of his fluid collection. He will now be admitted for further treatment and management. 1. Intraabdominal fluid collection and likely colo-vesicular fistula evaluated by Gen surg with recs to eval for IBD empiric IV zosyn for now GI consult -- d/w Dr Lundberg -- recs IV abx/surg consult/npo; findings on CT unlik rowdy to represent Crohn's NPO - D5NS for now follow cultures d/w Gen surg -- will be evaluated by Dr. Yip 2. Alcohol abuse and dependence Reports he drinks as much as he can daily, with last drink the day prior to admission He has a prior history of withdrawal seizures Given ativan in the ED, will change to Phenobarbital -- 10mg/kg monitor lytes Full Code DVT pptx, Lovenox In light of the patient's complicated GI picture requiring treatment with IV antibiotics, IVF, NPO status + specialty consultation + concurrent treatment to prevent alcohol withdrawal, I anticipate the patient will need a medically necessary inpatient hospitalization which is likely to span at least 2 midnights. This cannot be completed in a less acute setting. Quality Stroke Does the patient have a stroke diagnosis?: No VTE Prior VTE?: No VTE Risk Level:: Medical - moderate - high VTE Device Contraindication: Treatment Not Indicated VTE Drug Contraindication: N/A - Med Ordered
[2021-08-12 09:02] LABS: Basophils Percent Auto 0.3 % (0-2); Eosinophils Absolute Auto 0.2 X10*3/uL (0.0-0.4); Hematocrit 37.4 % (42.0-52.0); Hemoglobin 12.1 g/dl (14.0-18.0); Imm Gran Abs Auto 0.04 X10*3/uL (0.00-0.03); Imm Gran Pct Auto 0.4 % (0.0-0.4); Lymphocytes Absolute Auto 1.4 X10*3/uL (1.2-4.9); Lymphocytes Percent Auto 14.6 % (20-40); Mean Corpuscular HGB Conc 32.4 g/dl (31.0-36.0); Mean Corpuscular Hemoglobin 28.1 pg (27.0-33.0); Mean Corpuscular Volume 86.8 fL (80.0-98.0); Mean Platelet Volume 9.1 fL (9.4-12.4); Monocytes Percent Auto 10.5 % (2-11); Neutrophils Absolute Auto 7.1 x10*3/uL (2.0-8.3); Neutrophils Percent Auto 72.2 % (45-73); Platelet Count 381 X10*3/uL (160-400); Red Blood Count 4.31 X10*6/uL (4.60-5.80); White Blood Count 9.9 X10*3/uL (4.8-10.8)
--- NOTE | 2021-08-12 09:02 | PHA.MEDREC ---
Pharmacy Consult ? Medication Reconciliation Pharmacy has completed the medication reconciliation Patient left and came back, never start the Augmentin. Maty Lanier, AureaD
[2021-08-12 09:22] LABS: Anion Gap 9 (12-20); Blood Urea Nitrogen 5 mg/dL (9-16); Calcium 8.9 mg/dL (8.4-10.2); Carbon Dioxide 28 mmol/L (22-29); Chloride 104 mmol/L (96-108); Creatinine Clr Calc Pharmacy 141.9; Estimated Glomerular Filt Rate > 60; Glucose Random 97 mg/dL (60-115); Potassium 4.2 mmol/L (3.3-5.1); Sodium 137 mmol/L (135-145)
[2021-08-12] MEDS: HYDROmorphone HCl 1 MG/ML SYRINGE IVPUSH ×3 (10:24→19:17)
[2021-08-12] MEDS: Enoxaparin Sodium 40 MG/0.4 ML SYRINGE SUBCUT (10:26)
[2021-08-12] MEDS: Dextrose 5 % and 0.9 % NaCl 1,000 ML 100 ML IVCONT ×2 (11:13→21:07)
--- NOTE | 2021-08-12 13:04 | PM.EVENT ---
Event Note Date of Service: 08/12/21 Event Note: GI Consult-Full note dictated-Hx via patient and EMR, CT reviewed with Dr. Jimenez Imp:Diverticulitis with colovesical fistula, previous abscess s/p recent percutaneous drainage, and residual inflammatory changes in the sigmoid colon. He continues with abdominal pain and significant tenderness on his exam. I suspect this represents diverticular disease with associated complicated diverticulitis. Given the clinical history and the remainder of the GI tract appearing normal, I doubt this represents Crohn's disease. Rec: IV antibiotics, NPO, surgery/ consult. Would not recommend any endoscopic intervention at this time. D/W Dr. Mosley. D/W patient. Please advise if I can be of any further assistance.Thanks
[2021-08-12 13:08] VITALS: BP 130/86; PULSE 87; RESP 13; O2SAT 99
[2021-08-12] MEDS: PHENobarbitaL 200 MG, PHENobarbitaL 15 MG 215 MG PO ×2 (13:10→17:04)
[2021-08-12 17:03] VITALS: BP 122/81; PULSE 93; RESP 18; TEMP 36.6; O2SAT 98
[2021-08-12] MEDS: 0.9 % Sodium Chloride Flush 3 ML SYRINGE IVFLUSH (17:04)
[2021-08-12] MEDS: Nicotine 21 MG PATCH.TD24 TRANSDERMA (19:17)
[2021-08-12] MEDS: PHENobarbitaL 15 MG TABLET 45 MG PO (21:09)
[2021-08-12 23:44] VITALS: BP 124/76; PULSE 78; RESP 18; TEMP 36.6; O2SAT 100
[2021-08-13] VITALS (7 sets, daily range): BP systolic 113–136; BP diastolic 78–91; PULSE 92–245; RESP 16–20; TEMP 36.3–37.1; O2SAT 96–100
[2021-08-13] MEDS: Piperacillin Sodium/Tazobactam 3.375 GM in 0.9 % Sodium Chloride 50 ML IV ×4 (00:06→16:53)
[2021-08-13] MEDS: HYDROmorphone HCl 1 MG/ML SYRINGE IVPUSH ×6 (00:12→20:30)
[2021-08-13] MEDS: Dextrose 5 % and 0.9 % NaCl 1,000 ML 100 ML IVCONT ×2 (06:25→17:07)
--- NOTE | 2021-08-13 06:37 | CONS_ITS ---
DATE OF SERVICE: 08/12/2021 REASON FOR CONSULTATION: Abdominal pain and diverticulitis. HISTORY OF PRESENT ILLNESS: This has been obtained from the patient and the medical record. The patient is a 41-year-old male with an underlying history of alcohol abuse, who had been hospitalized for the development of abdominal pain, a colovesical fistula, intraabdominal abscess, and apparent diverticulitis while in [place] in the latter part of June. He describes developing pneumaturia as well as some foul appearing urine. He initially was treated with outpatient antibiotics for a possible UTI. Due to the persistence of those symptoms as well as lower abdominal pain, he went to the local hospital in [place] and describes being medflighted to a larger hospital in [place], [place]. He describes a hospitalization there involving a percutaneous drainage for an abscess and 10 days in the hospital for treatment with antibiotics. He was seen by surgery and was then discharged on oral antibiotics. Their recommendation was that he should follow up with surgery for possible surgical resection of the sigmoid colon. The patient is originally from this area and he opted to take a 5 day bus trip from [place] back home and came to the ER here due to worsening abdominal pain and persistent symptoms including pneumaturia. He describes he has not been using the antibiotics that were given to him when he left the hospital in [place]. Prior to the past month or so, he denies having any particular GI problems. He does describe intermittent loose stool in relation to heavy drinking, but no other chronic diarrhea, hematochezia, nor melena. He denies any history of Crohn's disease in himself nor family members. He denies any other family history of inflammatory bowel disease nor GI malignancy. The patient describes a fairly good appetite in general prior to becoming ill. He denies any significant heartburn nor dysphagia. He denies any hematemesis nor coffee-grounds emesis. He does describe that his mother had diverticulitis. There is no other family history of diverticulitis, inflammatory bowel disease, nor GI malignancy. He denies any rashes, red or swollen joints, nor any eye problems. PRESENT MEDICATIONS: IV Zosyn, acetaminophen, Lovenox, Dilaudid p.r.n., lorazepam, phenobarbital, nicotine patch. PAST MEDICAL HISTORY: He denies any surgeries. Alcohol abuse. He denies any history of heart disease, diabetes, stroke. No lung disease. Recent problem with colovesical fistula and intraabdominal abscess in relation to what appears to be diverticulitis as described above. SOCIAL HISTORY: Alcohol abuse. He is a smoker. He does not use any drugs currently, but does describe a history of substance abuse including IV drugs in the past. FAMILY HISTORY: Mother with diverticulitis and alcohol abuse. There is no family history of Crohn's disease nor ulcerative colitis. REVIEW OF SYSTEMS: CONSTITUTIONAL: He has been feeling somewhat poorly in general with a diminished appetite. SKIN: No rash. No pruritus. CARDIAC: No chest pain. PULMONARY: No cough, no hemoptysis. GI: As above. URINARY: As above. PHYSICAL EXAMINATION: GENERAL: The patient is a thin, pleasant, alert, cooperative male. SKIN: Warm and dry. HEENT: Anicteric sclerae. NECK: Supple. CARDIAC: Tones S1, S2. ABDOMEN: Soft, nondistended. Bowel sounds are somewhat diminished. He does have a fairly diffuse tenderness in the lower abdomen with guarding and mild rebound, particularly in the suprapubic area. EXTREMITIES: Without edema. LABORATORY DATA: White blood cell count yesterday was 15.3 and today is 9.9. Hemoglobin 12.1, platelets 281,000. Normal electrolytes. BUN 5, creatinine 0.7. Total bilirubin 0.8, AST 14, ALT 15, alkaline phosphatase 96, albumin 3.6, lipase 44. COVID test is negative. IMAGING DATA: His CT scan of the abdomen from yesterday describes a normal-appearing liver without any sign of focal liver lesion or biliary disease. Gallbladder, pancreas, and spleen all appeared unremarkable. His kidneys appeared normal. There is abnormal wall thickening on the left side of the bladder that is adjacent to a 3.5 cm air fluid level, questionable for an abscess. There is air in the bladder raising the suspicion of a colovesical fistula. There was abnormal wall thickening in the proximal sigmoid colon with some surrounding stranding of the fat, raising suspicion for at least an abscess or contained perforation. The remainder of the GI tract including the more proximal colon, small bowel, and stomach all appeared normal. The appendix appeared normal. IMPRESSION: The patient is a 41-year-old male presenting with what appears to be a complicated diverticulitis including a colovesical fistula and intraabdominal abscess. Based on his clinical history and the CT scan finding revealing an otherwise normal-appearing GI tract including the the small bowel and proximal colon, I do not think we are dealing with Crohn's disease or any other inflammatory bowel disease. I do suspect this represents complicated diverticulitis. At this point, I would continue IV antibiotics and continue to keep him n.p.o. I would, however, obtain a consult from General Surgery as well as from Urology. I do suspect this will need some type of surgical intervention, possibly sooner than later given the abdominal tenderness on his exam and the severity of the findings on the CT scan. I would continue supportive care, otherwise and await the opinions from the Surgery and Urology. I would not recommend any type of endoscopic intervention at this time. This has been discussed with the patient in detail. This has been discussed with Dr. Mosley. Please advise if I can be of any further assistance during the hospitalization. Thank you for the consultation. MD JODY Lin/HEBER / [phone] [email or web address]
[2021-08-13 07:16] LABS: Hematocrit 37.1 % (42.0-52.0); Mean Corpuscular HGB Conc 32.3 g/dl (31.0-36.0); Mean Corpuscular Hemoglobin 28.2 pg (27.0-33.0); Mean Corpuscular Volume 87.1 fL (80.0-98.0); Mean Platelet Volume 9.6 fL (9.4-12.4); Platelet Count 424 X10*3/uL (160-400); Red Blood Count 4.26 X10*6/uL (4.60-5.80); Red Cell Distribution Width 14.6 % (11.0-16.0); White Blood Count 9.7 X10*3/uL (4.8-10.8)
[2021-08-13 07:23] LABS: Anion Gap 10 (12-20); Blood Urea Nitrogen 3 mg/dL (9-16); Calcium 9.2 mg/dL (8.4-10.2); Carbon Dioxide 28 mmol/L (22-29); Chloride 103 mmol/L (96-108); Creatinine Clr Calc Pharmacy 146.4; Estimated Glomerular Filt Rate > 60; Glucose Random 89 mg/dL (60-115); Potassium 4.7 mmol/L (3.3-5.1); Sodium 136 mmol/L (135-145)
--- NOTE | 2021-08-13 08:27 | P.CONGS_ITS ---
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 He was subsequently hospitalized on 08/02/2021 and underwent an interventional radiology drainage procedure of an abscess over the bladder on the left side. The patient was presumed to have had a perforated diverticulitis with abscess subsequent fistulization to the bladder. After proximally 4-5 days the drain was removed he was subsequently discharged home on oral antibiotics. Patient subsequently took a bus trip from [place] to [place]. During the trip however he lost his antibiotics was unable to continue the antibiotic therapy. He presented to the emergency department yesterday for further evaluation due to increased abdominal pain. Admission was recommended for IV antibiotics and possible surgical management however he subsequently signed out AMA. He agreed to take oral antibiotics but subsequently returned today with increased abdominal pain. He continues to report some gas per urine. He denies fever, chills, nausea, or vomiting. The pain is mainly in the left lower quadrant. His bowels have been moving any denies any bloody stools. CT of the abdomen and pelvis reveals a thickened segment of sigmoid colon with a air-fluid collection over the left dome of the bladder. He denies a previous history of colonoscopies or or other bowel problems. He denies a previous history of abdominal surgeries. Review of Systems Constitutional: Constitutional: Denies chills, Denies fever(s), Denies headache(s) and Denies poor appetite ENT: Denies dizziness and Denies headache(s) Cardiovascular: Cardiovascular: Denies chest pain, Denies rapid heart rate, Denies palpitations and Denies slow heart rate Respiratory: Respiratory: Denies chest congestion, Denies cough, Denies pain on inspiration and Denies wheezing Gastrointestinal: Gastrointestinal: Reports abdominal pain, Denies bloating, Denies change in stool character, Denies constipation, Denies diarrhea, Denies nausea, Denies vomiting and Denies hematemesis Genitourinary: Genitourinary: Reports dysuria Comments: Pneumaturia Musculoskeletal: Musculoskeletal: Denies back pain, Denies arthralgias, Denies joint swelling and Denies numbness Integumentary/Breasts: Skin/Breast: Denies change in pigmentation, Denies erythema and Denies rash Neurologic: Denies dizziness, Denies headache(s) and Denies numbness Psychiatric: Psychiatric: Denies anxiety and Denies depression Endocrine: Endocrine: Denies palpitations Hematologic/Lymphatic: Hematologic/Lymphatic: Denies easy bleeding, Denies easy bruising and Denies lymphadenopathy Allergic/Immunologic: Allergic/Immunologic: Denies wheezing PMFSH Past Medical History Medical History Alcohol withdrawal seizure History of drainage of abscess Social History Social History Household Members: None Housing: Homeless Do you presently have visiting nurse or other home services: No Alcohol intake: current Alcohol intake frequency: 3 or more drinks per day Patient Tobacco Use Status: Current everyday Tobacco user Tobacco use type: Cigarette Cigarette Packs Per Day: 2 Cigarettes Per Day: 40.0 Substance Use Type: Marijuana Meds Allergies Allergy/AdvReac Type Severity Reaction Status Date / Time No Known Allergies Allergy Verified 08/11/21 08:54 Active Medications: Current Medications Acetaminophen (Acetaminophen 325 Mg Tablet) 650 mg PO Q6H PRN PRN Reason: Pain, Mild (Pain Scale 1-3) Enoxaparin Sodium (Enoxaparin Sodium 40 Mg/0.4 Ml Syringe) 40 mg SUBCUT Q24H [facility] Last Admin: 08/12/21 10:26 Dose: 40 mg Documented by: Hydromorphone HCl (Hydromorphone Hcl 1 Mg/Ml Syringe) 1 mg IVPUSH Q4H PRN; Protocol PRN Reason: Pain, Severe (Pain Scale 7-10) Last Admin: 08/13/21 04:12 Dose: 1 mg Documented by: Dextrose/Sodium Chloride (D5ns) 1,000 mls @ 100 mls/hr IVCONT .Q10H [facility] Last Admin: 08/13/21 06:25 Dose: 100 mls/hr Documented by: Piperacillin Sod/Tazobactam (Sod 3.375 gm/ Sodium Chloride) 50 mls @ 100 mls/hr IV Q6H [facility] Last Infusion: 08/13/21 06:28 Dose: Infused Documented by: Nicotine (Nicotine 21 Mg Patch.Td24) 21 mg TRANSDERMA DAILY [facility] Last Admin: 08/12/21 19:17 Dose: 21 mg Documented by: Pharmacy Consult (Consult Rx Etoh Phenob Po Dose) 1 each MISCELLANE ONCE PRN; Protocol PRN Reason: Consult order Phenobarbital (Phenobarbital 15 Mg Tablet) 45 mg PO BID [facility]; Protocol Stop: 08/14/21 09:01 Last Admin: 08/12/21 21:09 Dose: 45 mg Documented by: Phenobarbital (Phenobarbital 30 Mg Tablet) 30 mg PO BID [facility]; Protocol Stop: 08/16/21 09:01 Phenobarbital (Phenobarbital 15 Mg Tablet) 15 mg PO DAILY [facility]; Protocol Stop: 08/18/21 09:01 Sodium Chloride (0.9 % Sodium Chloride Flush 3 Ml Syringe) 3 ml IVFLUSH QSHIFT [facility] Last Admin: 08/13/21 00:07 Dose: Not Given Documented by: Home Medications Medication Instructions Recorded Confirmed Last Taken Type No Known Home Meds 08/12/21 08/12/21 Unknown History Physical Exam Vital Signs: Vital Signs: Last Vital Signs Temp 98.7 F 08/13/21 07:08 Pulse 92 08/13/21 07:08 Resp 18 08/13/21 07:08 BP 133/84 08/13/21 07:08 Pulse Ox 99 08/13/21 07:08 BMI result Body Mass Index 21.4 Const: General: cooperative, comfortable and well developed Nutritional Appearance: well nourished Orientation/consciousness: patient oriented x3 Eyes: Sclerae: sclerae normal EOM: EOMs intact bilaterally Neck: Neck: Yes normal visual inspection Resp: Effort & Inspection: normal respiratory effort, no cough, no respiratory distress and no stridor Cardio: Jugular venous distension: no JVD GI: Inspection: Yes normal to inspection Palpation (GI): Soft to palpation, Tenderness to palpation present (GI) in the RLQ, no guarding, not rigid and no masses Percussion: Yes normal to percussion Auscultation: normal bowel sounds Rectal Exam - Male: Yes deferred Skin: General skin exam: no rashes or lesions noted Neuro: General: patient oriented x3 and no focal motor deficits Extrem: General: Yes full ROM and Yes no clubbing, cyanosis or edema Psych: Appearance: grossly normal Results Labs Result diagrams: 08/13/21 06:40 08/13/21 06:40 Labs: Abnormal lab results 08/12/21 08/12/21 08/13/21 Range/Units 08:55 08:55 06:40 RBC 4.31 L 4.26 L (4.60-5.80) X10*6/uL Hgb 12.1 L 12.0 L (14.0-18.0) g/dl Hct 37.4 L 37.1 L (42.0-52.0) % Plt Count 424 H (160-400) X10*3/uL MPV 9.1 L (9.4-12.4) fL Lymph % (Auto) 14.6 L (20-40) % Abs Immat Gran (auto) 0.04 H (0.00-0.03) X10*3/uL Anion Gap 9 L (12-20) BUN 5 L (9-16) mg/dL 08/13/21 Range/Units 06:40 RBC (4.60-5.80) X10*6/uL Hgb (14.0-18.0) g/dl Hct (42.0-52.0) % Plt Count (160-400) X10*3/uL MPV (9.4-12.4) fL Lymph % (Auto) (20-40) % Abs Immat Gran (auto) (0.00-0.03) X10*3/uL Anion Gap 10 L (12-20) BUN 3 L (9-16) mg/dL Short CBC 08/12/21 08/13/21 Range/Units 08:55 06:40 WBC 9.9 9.7 (4.8-10.8) X10*3/uL Hgb 12.1 L 12.0 L (14.0-18.0) g/dl Hct 37.4 L 37.1 L (42.0-52.0) % Plt Count 381 424 H (160-400) X10*3/uL BMP 08/12/21 08/13/21 08:55 06:40 Sodium 137 136 Potassium 4.2 4.7 Chloride 104 103 Carbon Dioxide 28 28 BUN 5 L 3 L Creatinine 0.65 0.63 Calcium 8.9 9.2 All other labs normal. Assessment and Plan (1) Diverticulitis: Status: Acute (2) [place]-vesical fistula: Status: Acute Plan 41-year-old male patient presenting with a colovesical fistula previously treated with a drainage procedure in [place], [place]. Patient continues to have a fistula with possible abscess in the abdominal cavity. Concern was raised by Dr. Jimenez guarding a segment of colon which appeared thickened possibly suggestive of colitis or GI malignancy. Appreciate input from Dr. Lundberg who feels this is diverticulitis with fistula. Patient will need a sigmoid colectomy with closure of colovesical fistula, which may need to be coordinated with Urology. I discussed the possibility surgery with the patient he is willing to proceed. I would anticipate scheduling the surgery early next week. Would continue IV antibiotics in the meantime. Procedures Date of Service Date of Service: 08/13/21
[2021-08-13] MEDS: Nicotine 21 MG PATCH.TD24 TRANSDERMA (08:28)
[2021-08-13] MEDS: PHENobarbitaL 15 MG TABLET 45 MG PO ×2 (08:30→20:30)
[2021-08-13] MEDS: Enoxaparin Sodium 40 MG/0.4 ML SYRINGE SUBCUT (08:30)
--- NOTE | 2021-08-13 10:14 | MHC.CM.PN ---
NURSE AGRONOMY INSTRUCTOR NOTE ELECTRONIC MEDICAL RECORD REVIEWED ALONG WITH CASE DISCUSSED WITH STAFF NURSE . MET WITH PATIENT , HE REPORTED HE CAM JAIME BUS FROM [place] TO [facility] TO STAY WITH HIS MOTHER , REPORTS HAVE BEED INCORRECLT DIAGNOSSED IN [place] AND CAME TO [facility] . HE HAS NO COVID VACCINATIONS, AND NEVER HAD COVID HIMSELF . HE REPORT HE HAS HAD A DRUG SUBSTANCE ABUSE IN THE PAST 10 YEARS AGO AND WAS ON SUBOXONE , BUT HAS BEEN OFF SUBOXONE FOR 5 YEARS NOW HE DOES TAKE MARIJUANA AND DRINKS DAILY ETOH MUCH HE CAN GET , HE REPORTED HE HAS HAD WITHDRAWLS FROM ETOH AND SEIZURES . HE REPORTES HE UNDERSTANDS WHY HE HAS PADDED BED RAILS AND [place]. HE IS ACTIVE AND INDEPENDENT IN ALL ADLS AND MOBILITY AND HAD NO SERVICES AND \ DISCHARGE PLAN TO BE FURTHER DETERMINED POST WORKUP 1. NEW TO AREA NO PCP 2. INS [facility] REFERRAL TO [facility] FINANCIAL COUNSELORS TO APPLY FOR [facility] AND CHECK ELIGEABILITY. REFERRAL SENT. 3, ETOH -PATIENT IS AWARE OF REFERRAL TO THE [facility] CARE TEAM FOR COMMUNITY SUPPORTS 4. HAS NEVER \BEEN COVID VACNINATED AND IS NNOT INTERESTED, ON ADMISSION COVID NEG 5 NO HEALTHCARE PROXY EDUCATED AND WIULL TRY AGAIN LATER TODAY TO OBTAIN ONE AGRONOMY INSTRUCTOR TO [facility] TO FOLLOW FOR DISCHARGE NEEDS
--- NOTE | 2021-08-13 12:35 | P.PNIM_ITS ---
Subjective Subjective Date of Service: 08/13/21 Interval History: the patient was seen and evaluated this morning Laying in bed, feels comfortable overall complaining of abdominal pain and burning urination low score on CIWA Denies any fever, chills or shortness of breath No reported other overnight events. Systemic review: No fever, chills or weakness No chest pain, palpitation No shortness of breath or coughing lower abdominal pain, with no nausea or vomiting burning with urine No any rash or wounds Physical Exam Vital Signs: Vital Signs: Last Vital Signs Temp 98.3 F 08/13/21 11:14 Pulse 94 08/13/21 11:14 Resp 16 08/13/21 11:14 BP 113/85 08/13/21 11:14 Pulse Ox 99 08/13/21 11:14 BMI result Body Mass Index 21.4 Const: Other: Constitutional : Alert, oriented, not in distress Neck : Normal inspection, Supple Cardiovascular : RRR, no JVP, no lower extremity edema Respiratory : fair bilateral air entry, no crackles, wheezes or rhonchi Gastrointestinal: soft, lax, Normal bowel sounds, suprapubic abdominal tenderness with no surgical signs Skin : Warm, Dry Neurological : Alert & oriented x3, No focal deficit , CN 2-12 within normal Objective Data Active Medications Acetaminophen (Acetaminophen 325 Mg Tablet) 650 mg PO Q6H PRN PRN Reason: Pain, Mild (Pain Scale 1-3) Enoxaparin Sodium (Enoxaparin Sodium 40 Mg/0.4 Ml Syringe) 40 mg SUBCUT Q24H [facility] Last Admin: 08/13/21 08:30 Dose: 40 mg Documented by: CHELY Hydromorphone HCl (Hydromorphone Hcl 1 Mg/Ml Syringe) 1 mg IVPUSH Q4H PRN; Protocol PRN Reason: Pain, Severe (Pain Scale 7-10) Last Admin: 08/13/21 08:28 Dose: 1 mg Documented by: CHELY Dextrose/Sodium Chloride (D5ns) 1,000 mls @ 100 mls/hr IVCONT .Q10H [facility] Last Admin: 08/13/21 06:25 Dose: 100 mls/hr Documented by: NISSA Piperacillin Sod/Tazobactam (Sod 3.375 gm/ Sodium Chloride) 50 mls @ 100 mls/hr IV Q6H [facility] Last Infusion: 08/13/21 06:28 Dose: 0 mls/hr Documented by: NISSA Nicotine (Nicotine 21 Mg Patch.Td24) 21 mg TRANSDERMA DAILY [facility] Last Admin: 08/13/21 08:28 Dose: 21 mg Documented by: CHELY Pharmacy Consult (Consult Rx Etoh Phenob Po Dose) 1 each MISCELLANE ONCE PRN; Protocol PRN Reason: Consult order Phenobarbital (Phenobarbital 15 Mg Tablet) 45 mg PO BID [facility]; Protocol Stop: 08/14/21 09:01 Last Admin: 08/13/21 08:30 Dose: 45 mg Documented by: CHELY Phenobarbital (Phenobarbital 30 Mg Tablet) 30 mg PO BID [facility]; Protocol Stop: 08/16/21 09:01 Phenobarbital (Phenobarbital 15 Mg Tablet) 15 mg PO DAILY [facility]; Protocol Stop: 08/18/21 09:01 Sodium Chloride (0.9 % Sodium Chloride Flush 3 Ml Syringe) 3 ml IVFLUSH QSHIFT [facility] Last Admin: 08/13/21 08:49 Dose: Not Given Documented by: CHELY Non-Admin Reason: IV Running Labs CBC & Chem 7: 08/13/21 06:40 08/13/21 06:40 Labs: Laboratory Results - last 24 hr 08/13/21 08/13/21 06:40 06:40 MCV 87.1 MCH 28.2 MCHC 32.3 RDW 14.6 Plt Count 424 H MPV 9.6 Absolute Nucleated RBC 0.000 Nucleated RBC % (auto) 0.0 Anion Gap 10 L Estim Creat Clear Calc 146.4 Estimated GFR > 60 Random Glucose 89 Calcium 9.2 Microbiology Microbiology Results: Microbiology 08/12/21 05:42 Blood Culture - Preliminary Blood - Venous No growth after 24 hours. 08/12/21 05:41 Blood Culture - Preliminary Blood - Venous No growth after 24 hours. Assessment and Plan (1) [place]-vesical fistula: Status: Acute (2) Diverticulitis: Status: Acute (3) Acute UTI: Status: Acute (4) Abscess: Status: Acute (5) Alcohol withdrawal: Status: Acute Plan This is a 41 yo M with a recently history of intraabdominal abscess / colo- vesicular fistula treated with IV antibiotics / IR drainage (in [place]) who presents today with worsening abdominal pain. His CT scan from 08/11 shows reaccumulation of his fluid collection. He will now be admitted for further festus tment and management. colo-vesicular fistula suspected abscess GI input appreciated, no evidence of IBD, likely complicated diverticular disease continue empiric IV zosyn for now continue D5NS for now follow cultures general surgery input appreciated, plan for surgery by next week Get urology evaluation Alcohol abuse and dependence Reports he drinks as much as he can daily, with last drink the day prior to admission He has a prior history of withdrawal seizures continue Phenobarbital protocol monitor lytes Full Code DVT pptx, Lovenox patient requiring treatment with IV antibiotics, IVF, + specialty consultation + concurrent treatment to prevent alcohol withdrawal, I anticipate the patient will need a medically necessary inpatient hospitalization overnight and for the next few days until surgery is done to prevent possible decompensation in to severe sepsis. Quality Stroke Does the patient have a stroke diagnosis?: No VTE Prior VTE?: No VTE Risk Level:: Medical - moderate - high VTE Device Contraindication: Treatment Not Indicated VTE Drug Contraindication: N/A - Med Ordered
--- NOTE | 2021-08-13 16:13 | PC.NURSE ---
1200 pt conversing with Urology, r/t antic surgery involving bladder.
[2021-08-13] MEDS: 0.9 % Sodium Chloride Flush 3 ML SYRINGE IVFLUSH (16:54)
--- NOTE | 2021-08-13 22:10 | PC.NURSE ---
1934 called to room for patient hr 245 on monitor, patient shaking leg in bed causing HR to appear fast, instructed VASCULAR MANAGER to manually check pulse and verify is correct. PULSE CHECK HR 104
[2021-08-14] VITALS (10 sets, daily range): BP systolic 101–119; BP diastolic 62–74; PULSE 100–126; RESP 14–20; TEMP 36.7–39.5; O2SAT 95–100
[2021-08-14] MEDS: 0.9 % Sodium Chloride Flush 3 ML SYRINGE IVFLUSH (00:40)
[2021-08-14] MEDS: HYDROmorphone HCl 1 MG/ML SYRINGE IVPUSH ×3 (00:40→02:48)
[2021-08-14] MEDS: Piperacillin Sodium/Tazobactam 3.375 GM in 0.9 % Sodium Chloride 50 ML IV ×3 (00:40→18:45)
--- NOTE | 2021-08-14 01:27 | PM.EVENT ---
Event Note Date of Service: 08/14/21 Event Note: Reporting worst abd pain /, exam: voluntary guarding, no rebound.. IV dilaudid and get another CT. NPO
[2021-08-14] MEDS: Dextrose 5 % and 0.9 % NaCl 1,000 ML 100 ML IVCONT ×2 (01:41→20:29)
[2021-08-14] MEDS: Acetaminophen 325 MG TABLET 650 MG PO (02:32)
[2021-08-14] MEDS: vancomycin HCL 1,000 MG in 0.9 % Sodium Chloride 250 ML 270 MG IV (03:53)
--- NOTE | 2021-08-14 05:21 | PC.NURSE ---
PATIENT ALERT AND ORIENTED, LUNG SHEN CLEAR, VOIDING CLOUDY URINE TO BEDSIDE URINAL, IVF AND IVABX ORDERED. PT HOWEVER, STATING INCREASED ABDOMINAL PAIN 10 PLUS. MEDICATED WITH DILAUDID DOSE ORDERED AT 0045 WITH LITTLE TO NO EFFECT. HOSPITALIST ON DUTY ALERTED AND CAME TO SEE PT. EXTRA DOSE DILAUDID ORDERED AND GIVEN AT 0140, ALSO CAT SCAN ORDERED AND PT TO TEST VIA HIS BED BY [facility] AND ESL TEACHER. RETURNED AND STILL IN PAIN 01/04. THEREFORE, ORDERED ADDITIONAL DOSE AND GIVEN AT 0300. PT ALSO LEFT UNIT FOR ULTRASOUND TO SCROTUM AT 0305, AGAIN IN HIS BED AND TRANSPORTED BY [facility] AND [facility]SL TE[employer]. HOSPITALIST ON UNIT AND SPOKE AGAIN TO PATIENT TEMP NOTED AFTER PT FELT WARM AND RECTALLY 103.1 WITH APAP PO GIVEN AND DECREASED TO 100. VANCOMYCIN DOSE ORDERED AND ADMINISTERED AND MD INFORMED PT HE WILL REMAIN NPO AND SURGICAL CONSULT FOR A.M. PT CONTINUES TO VOID TO BEDSIDE URINAL, CLOUDY AND HE STATES FEELS PRESSURE AT TIMES BUT NO NOTED HEMATURIA OR FECAL LEAKAGE PT STATES HE HAS HAD THAT PRIOR TO HIS ADMISSION. NOTED LEFT TESTICLE IS WITH EDEMA AND TENDERNESS. AWARE AND STATED DID RECEIVE ULTRASOUND TEST. PT MONITORED CLOSELY IN BED, VERBALIZING STILL WITH PAIN BUT FINALLY SETTLED AND WATCHED TV WITH SHORT NAPS. CIWA MONITORING IN USE AND PT SCORING 1 AND A 2. WILL CONT TO MONITOR CLOSELY.
[2021-08-14 05:50] LABS: Anion Gap 11 (12-20); Blood Urea Nitrogen 5 mg/dL (9-16); Calcium 8.9 mg/dL (8.4-10.2); Carbon Dioxide 26 mmol/L (22-29); Chloride 100 mmol/L (96-108); Creatinine Clr Calc Pharmacy 135.6; Estimated Glomerular Filt Rate > 60; Glucose Random 95 mg/dL (60-115); Potassium 3.9 mmol/L (3.3-5.1); Sodium 133 mmol/L (135-145)
--- NOTE | 2021-08-14 06:21 | PM.EVENT ---
Event Note Date of Service: 10/04/21 Event Note: Patient c/o increasing pain in left testicle that that has been been swelling for 2 to 3 days and overnight was excruciating pain. CT of abdomen and pelvis repeat show
[2021-08-14] MEDS: HYDROmorphone HCl 1 MG/ML SYRINGE 2 MG IVPUSH ×5 (06:43→23:34)
[2021-08-14 07:07] LABS: Hemoglobin 12.2 g/dl (14.0-18.0); Mean Corpuscular Hemoglobin 28.4 pg (27.0-33.0); Mean Platelet Volume 9.3 fL (9.4-12.4); Platelet Count 466 X10*3/uL (160-400); Red Cell Distribution Width 14.6 % (11.0-16.0); White Blood Count 12.6 X10*3/uL (4.8-10.8)
[2021-08-14 07:23] LABS: Anion Gap 12 (12-20); Blood Urea Nitrogen 4 mg/dL (9-16); Calcium 8.9 mg/dL (8.4-10.2); Carbon Dioxide 26 mmol/L (22-29); Chloride 101 mmol/L (96-108); Creatinine Clr Calc Pharmacy 129.9; Estimated Glomerular Filt Rate > 60; Glucose Random 97 mg/dL (60-115); Potassium 4.1 mmol/L (3.3-5.1); Sodium 135 mmol/L (135-145)
--- NOTE | 2021-08-14 07:52 | PHA.PROG ---
Admission Date/Time: August 12, 2021 08:57 Indication: Other Weight in k.771 kg Adjusted body weight in Kg: [place] body weight in Kg: Obesity Dosing Indication % IBW: Serum Creatinine - Last 168 Hours 08/12/21 08/13/21 08/14/21 08:55 06:40 04:32 Creatinine 0.65 0.63 0.68 08/14/21 06:57 Creatinine 0.71 Estimated CrCl and GFR - Last 168 Hours 08/12/21 08/13/21 08/14/21 08:55 06:40 04:32 Estim Creat Clear Calc 141.9 146.4 135.6 Estimated GFR > 60 > 60 > 60 08/14/21 06:57 Estim Creat Clear Calc 129.9 Estimated GFR > 60 Vancomycin Loading Dose: 1500mg X 1 Current Vancomycin Dosing Regimen: 1250mg Q12H Vancomycin Monitoring using AUC goal of 400 - 600 range with trough as surrogate marker: 501mg/L Date and Time for next Vancomycin Level to be drawn: 08/15/21 @1800 Pharmacist Comments on Vancomycin Plan: Pt given 1000mg today with an extra 500mg for a load per Dr. Smith, will be putting in 1250mg Q12H with expected AUC of 501mg/L. Will continue to monitor Vancomycin dosing will take advantage of [employer] as a clinical decision support tool that uses Bayesian modeling to calculate individual patient's pharmacokinetic parameters and forecast the patient's drug concentration time course with the target goal AUC 24 range of 400 - 600 mg/L/hr.
[2021-08-14] MEDS: PHENobarbitaL 15 MG TABLET 45 MG PO (08:50)
[2021-08-14] MEDS: Nicotine 21 MG PATCH.TD24 TRANSDERMA (08:51)
[2021-08-14] MEDS: metroNIDAZOLE/NS 500 MG/100 ML PIGGYBACK 100 MG IV ×3 (08:52→23:49)
[2021-08-14 09:24] LABS: INTERNATIONAL NORM RATIO 1.1 (0.9-1.1); Prothrombin Time 12.6 SEC (9.9-13.0)
--- NOTE | 2021-08-14 10:13 | P.PNIM_ITS ---
Subjective Subjective Date of Service: 08/14/21 Interval History: the patient was seen and evaluated this morning Laying in bed, complaining of worsening pain in his scrotum Became septic overnight requiring broadening of his antibiotics low score on CIWA Denies any fever, chills or shortness of breath No reported other overnight events. Systemic review: No fever, chills or weakness No chest pain, palpitation No shortness of breath or coughing lower abdominal pain, with no nausea or vomiting burning with urine, swelling in the scrotum with tenderness No any rash or wounds Physical Exam Vital Signs: Vital Signs: Last Vital Signs Temp 98.1 F 08/14/21 08:00 Pulse 100 08/14/21 08:00 Resp 20 08/14/21 08:00 BP 104/62 08/14/21 08:00 Pulse Ox 100 08/14/21 08:00 BMI result Body Mass Index 21.4 Const: Other: Constitutional : Alert, interact, mild distress from pain Neck : Normal inspection, Supple Cardiovascular : RRR, no JVP, no lower extremity edema Respiratory : fair bilateral air entry, no crackles, wheezes or rhonchi Gastrointestinal: soft, lax, Normal bowel sounds, suprapubic abdominal tenderness with no surgical signs Skin : Warm, Dry Urology: enlarged scrotum with erythema and tenderness over the left testicle Neurological : Alert & oriented x3, No focal deficit , CN 2-12 within normal Objective Data Active Medications Acetaminophen (Acetaminophen 325 Mg Tablet) 650 mg PO Q6H PRN PRN Reason: Pain, Mild (Pain Scale 1-3) Last Admin: 08/14/21 02:32 Dose: 650 mg Documented by: LUDA Enoxaparin Sodium (Enoxaparin Sodium 40 Mg/0.4 Ml Syringe) 40 mg SUBCUT Q24H [facility] Last Admin: 08/13/21 08:30 Dose: 40 mg Documented by: TYBURL Hydromorphone HCl (Hydromorphone Hcl 1 Mg/Ml Syringe) 2 mg IVPUSH Q4H PRN; Protocol PRN Reason: Pain, Severe (Pain Scale 7-10) Last Admin: 08/14/21 06:43 Dose: 2 mg Documented by: LUDA Hydroxyzine HCl (Hydroxyzine Hcl 25 Mg Tablet) 25 mg PO Q6H PRN PRN Reason: anxiety/restlessness Dextrose/Sodium Chloride (D5ns) 1,000 mls @ 100 mls/hr IVCONT .Q10H [facility] Last Infusion: 08/14/21 06:49 Dose: 100 mls/hr Documented by: LUDA Piperacillin Sod/Tazobactam (Sod 3.375 gm/ Sodium Chloride) 50 mls @ 100 mls/hr IV Q6H [facility] Last Infusion: 08/14/21 06:48 Dose: 0 mls/hr Documented by: LUDA Metronidazole (Flagyl) 500 mg in 100 mls @ 100 mls/hr IV Q8H [facility] Last Admin: 08/14/21 08:52 Dose: 100 mls/hr Documented by: CHELY Vancomycin HCl 1,250 mg/ (Sodium Chloride) 250 mls @ 166.667 mls/hr IV Q12H [facility] Naloxone HCl (Naloxone Hcl 0.4 Mg/Ml Vial) 0.2 mg IVPUSH Q2M PRN PRN Reason: Opiate Reversal Nicotine (Nicotine 21 Mg Patch.Td24) 21 mg TRANSDERMA DAILY [facility] Last Admin: 08/14/21 08:51 Dose: 21 mg Documented by: CHELY Pharmacy Consult (Consult Rx Etoh Phenob Po Dose) 1 each MISCELLANE ONCE PRN; Protocol PRN Reason: Consult order Pharmacy Consult (Consult Rx Vancomycin Dosing) 1 each MISCELLANE DAILY PRN PRN Reason: Consult order Phenobarbital (Phenobarbital 30 Mg Tablet) 30 mg PO BID [facility]; Protocol Stop: 08/16/21 09:01 Phenobarbital (Phenobarbital 15 Mg Tablet) 15 mg PO DAILY [facility]; Protocol Stop: 08/18/21 09:01 Sodium Chloride (0.9 % Sodium Chloride Flush 3 Ml Syringe) 3 ml IVFLUSH QSHIFT [facility] Last Admin: 08/14/21 09:10 Dose: Not Given Documented by: CHELY Non-Admin Reason: IV Running Labs CBC & Chem 7: 08/14/21 06:57 08/14/21 06:57 Labs: Laboratory Results - last 24 hr 08/14/21 08/14/21 08/14/21 04:32 06:57 06:57 MCV 86.0 MCH 28.4 MCHC 33.0 RDW 14.6 Plt Count 466 H MPV 9.3 L Absolute Nucleated RBC 0.000 Nucleated RBC % (auto) 0.0 PT INR Anion Gap 11 L Estim Creat Clear Calc 135.6 Estimated GFR > 60 Random Glucose 95 Lactic Acid 1.0 Calcium 8.9 08/14/21 08/14/21 06:57 09:07 MCV MCH MCHC RDW Plt Count MPV Absolute Nucleated RBC Nucleated RBC % (auto) PT 12.6 INR 1.1 Anion Gap 12 Estim Creat Clear Calc 129.9 Estimated GFR > 60 Random Glucose 97 Lactic Acid Calcium 8.9 Microbiology Microbiology Results: Microbiology 08/12/21 05:41 Blood Culture - Preliminary Blood - Venous No growth after 48 hours. 08/12/21 05:42 Blood Culture - Preliminary Blood - Venous No growth after 48 hours. Assessment and Plan (1) Alcohol withdrawal: Status: Acute (2) [place]-vesical fistula: Status: Acute (3) Diverticulitis: Status: Acute (4) Acute UTI: Status: Acute (5) Abscess: Status: Acute (6) Sepsis: Status: Acute (7) Epididymitis: Status: Acute Plan This is a 41 yo M with a recently history of intraabdominal abscess / colo- vesicular fistula treated with IV antibiotics / IR drainage (in [place], [place]) who pr esents today with worsening abdominal pain. His CT scan from 08/11 shows reaccumulation of his fluid collection. He will now be admitted for further treatment and management. colo-vesicular fistula abdominal abscess GI input appreciated, no evidence of IBD, likely complicated diverticular disease IR drainage on 07/24, cultures grew E coli, Clostridium tertium and strepanginosus follow cultures plan to do CT-guided drainage today continue empiric IV zosyn continue IVF general surgery input appreciated, plan for surgery by next week Sepsis secondary to acute left epididymitis had fever, elevated WBCs and tachycardia Confirmed byUltrasound images Blood culture sent, normal lactic acid Broaden antibiotic to vancomycin and addition of Flagyl pending urology evaluation UTI Growing E coli in the urine Continue antibiotic for now Alcohol abuse and dependence last drink the day prior to admission He has a prior history of withdrawal seizures continue Phenobarbital protocol monitor lytes Full Code DVT pptx, Lovenox patient requiring treatment with IV antibiotics, IVF, + specialty consultation + concurrent treatment to prevent alcohol withdrawal, I anticipate the patient will need a medically necessary inpatient hospitalization overnight and for the next few days until surgery is done to prevent possible decompensation in to severe sepsis. Quality Stroke Does the patient have a stroke diagnosis?: No VTE Prior VTE?: No VTE Risk Level:: Medical - moderate - high VTE Device Contraindication: Treatment Not Indicated VTE Drug Contraindication: N/A - Med Ordered
--- NOTE | 2021-08-14 13:59 | MHC.CM.PN ---
EMR REVIEWED, PT W/RECENT COLO-VESICULAR FISTULA AND TX'D IN [place], [place] W/DRAINAGE NAD IV ABX, PER HOSPITALIST PLAN FOR I&D TODAY, PT WILL REMAIN INPT ON IVF AND IV ABX, ANTIC PT WILL REMAIN INPT THROUGH W/E, ANTIC D/C BACK TO MOTHERS HOME W/NO SERVICES.
--- NOTE | 2021-08-14 14:40 | P.PNGS_ITS ---
Subjective Subjective Date of Service: 08/14/21 Interval history: Patient developed increased abdominal and scrotal pain overnight and a CT of the abdomen and pelvis as well as an ultrasound of the testicle was obtained. Ultrasound revealed epididymitis on the left side. CT revealed an increased air collection from the previous CT extending up into the rectus muscle on the left side. Air collection appears to correspond to the previous drain placement performed in [place], [place]. A collection is noted over the left side of the bladder as well. Physical Exam Vital Signs: Vital Signs: Last Vital Signs Temp 99.6 F 08/14/21 11:37 Pulse 100 08/14/21 11:37 Resp 20 08/14/21 11:37 BP 112/69 08/14/21 11:37 Pulse Ox 99 08/14/21 11:37 BMI result Body Mass Index 21.4 Const General: cooperative, comfortable and well developed Nutritional Appearance: well nourished Orientation/consciousness: patient oriented x3 Eyes Sclerae: sclerae normal EOM: EOMs intact bilaterally Neck Neck: Yes normal visual inspection Resp Effort & Inspection: normal respiratory effort, no cough, no respiratory distress and no stridor Cardio Jugular venous distension: no JVD GI Inspection: Yes normal to inspection Palpation (GI): Soft to palpation, Tenderness to palpation present (GI) in the left lower quadrant, no guarding, not rigid and no masses Percussion: Yes normal to percussion Auscultation: normal bowel sounds Rectal Exam - Male: Yes deferred Skin General skin exam: no rashes or lesions noted Neuro General: patient oriented x3 and no focal motor deficits Extrem General: Yes full ROM and Yes no clubbing, cyanosis or edema Psych Appearance: grossly normal Objective Data Active Medications Acetaminophen (Acetaminophen 325 Mg Tablet) 650 mg PO Q6H PRN PRN Reason: Pain, Mild (Pain Scale 1-3) Last Admin: 08/14/21 02:32 Dose: 650 mg Documented by: LUDA Enoxaparin Sodium (Enoxaparin Sodium 40 Mg/0.4 Ml Syringe) 40 mg SUBCUT Q24H [facility] Last Admin: 08/14/21 10:54 Dose: Not Given Documented by: CHELY Non-Admin Reason: Physician Held Med Hydromorphone HCl (Hydromorphone Hcl 1 Mg/Ml Syringe) 2 mg IVPUSH Q4H PRN; Protocol PRN Reason: Pain, Severe (Pain Scale 7-10) Last Admin: 08/14/21 11:01 Dose: 2 mg Documented by: CHELY Hydroxyzine HCl (Hydroxyzine Hcl 25 Mg Tablet) 25 mg PO Q6H PRN PRN Reason: anxiety/restlessness Dextrose/Sodium Chloride (D5ns) 1,000 mls @ 100 mls/hr IVCONT .Q10H [facility] Last Infusion: 08/14/21 06:49 Dose: 100 mls/hr Documented by: LUDA Piperacillin Sod/Tazobactam (Sod 3.375 gm/ Sodium Chloride) 50 mls @ 100 mls/hr IV Q6H [facility] Last Admin: 08/14/21 13:40 Dose: Not Given Documented by: CHELY Non-Admin Reason: Off Unit: Surgery Metronidazole (Flagyl) 500 mg in 100 mls @ 100 mls/hr IV Q8H [facility] Last Infusion: 08/14/21 10:58 Dose: 100 mls/hr Documented by: CHELY Vancomycin HCl 1,250 mg/ (Sodium Chloride) 250 mls @ 166.667 mls/hr IV Q12H [facility] Naloxone HCl (Naloxone Hcl 0.4 Mg/Ml Vial) 0.2 mg IVPUSH Q2M PRN PRN Reason: Opiate Reversal Nicotine (Nicotine 21 Mg Patch.Td24) 21 mg TRANSDERMA DAILY [facility] Last Admin: 08/14/21 08:51 Dose: 21 mg Documented by: CHELY Pharmacy Consult (Consult Rx Etoh Phenob Po Dose) 1 each MISCELLANE ONCE PRN; Protocol PRN Reason: Consult order Pharmacy Consult (Consult Rx Vancomycin Dosing) 1 each MISCELLANE DAILY PRN PRN Reason: Consult order Phenobarbital (Phenobarbital 30 Mg Tablet) 30 mg PO BID [facility]; Protocol Stop: 08/16/21 09:01 Phenobarbital (Phenobarbital 15 Mg Tablet) 15 mg PO DAILY [facility]; Protocol Stop: 08/18/21 09:01 Sodium Chloride (0.9 % Sodium Chloride Flush 3 Ml Syringe) 3 ml IVFLUSH QSHIFT [facility] Last Admin: 08/14/21 09:10 Dose: Not Given Documented by: CHELY Non-Admin Reason: IV Running Labs CBC & Chem 7: 08/14/21 06:57 08/14/21 06:57 Labs: Laboratory Results - last 24 hr 08/14/21 08/14/21 08/14/21 04:32 06:57 06:57 MCV 86.0 MCH 28.4 MCHC 33.0 RDW 14.6 Plt Count 466 H MPV 9.3 L Absolute Nucleated RBC 0.000 Nucleated RBC % (auto) 0.0 PT INR Anion Gap 11 L Estim Creat Clear Calc 135.6 Estimated GFR > 60 Random Glucose 95 Lactic Acid 1.0 Calcium 8.9 08/14/21 08/14/21 06:57 09:07 MCV MCH MCHC RDW Plt Count MPV Absolute Nucleated RBC Nucleated RBC % (auto) PT 12.6 INR 1.1 Anion Gap 12 Estim Creat Clear Calc 129.9 Estimated GFR > 60 Random Glucose 97 Lactic Acid Calcium 8.9 Microbiology Microbiology Results: Microbiology 08/12/21 05:41 Blood Culture - Preliminary Blood - Venous No growth after 48 hours. 08/12/21 05:42 Blood Culture - Preliminary Blood - Venous No growth after 48 hours. Procedures Date of Service Date of Service: 08/14/21 Progress Note: A&P Assessment and plan (1) [place]-vesical fistula: Status: Acute (2) Diverticulitis: Status: Acute Plan 41-year-old male patient presenting with a colovesical fistula previously drained in [place] now presenting with a recurrent collection over the bladder. There is an air pocket which extends into the rectus muscle on the left side which corresponds to the previous drain site. Fistula appears to come from the sigmoid colon which demonstrates a thickened segment possibly due to diverticu litis. Air collection is extending from the previous CT and should be a minimal to IR drainage. Plan for hand assisted laparoscopic or possible open sigmoid colectomy with closure of colovesical fistula and possible ileostomy/colostomy, tentatively scheduled for Tuesday. Will need a bowel prep on Tuesday. Time Spent With Patient Time: Total time spent is greater than 50% in coordination of care (as documented) at patient's floor/unit and/or counseling patient: Quality Stroke Does the patient have a stroke diagnosis?: No VTE Prior VTE?: No VTE Risk Level:: Medical - moderate - high VTE Device Contraindication: Treatment Not Indicated VTE Drug Contraindication: N/A - Med Ordered
[2021-08-14] MEDS: vancomycin HCL 1,250 MG in 0.9 % Sodium Chloride 250 ML 166.67 MG IV (19:54)
[2021-08-14] MEDS: PHENobarbitaL 30 MG TABLET PO (19:55)
[2021-08-15] VITALS (8 sets, daily range): BP systolic 96–132; BP diastolic 56–81; PULSE 72–101; RESP 14–20; TEMP 36.5–37.1; O2SAT 96–98
[2021-08-15] MEDS: Piperacillin Sodium/Tazobactam 3.375 GM in 0.9 % Sodium Chloride 50 ML IV ×4 (00:49→22:31)
[2021-08-15] MEDS: HYDROmorphone HCl 1 MG/ML SYRINGE 2 MG IVPUSH ×6 (02:39→22:28)
[2021-08-15 06:32] LABS: Hematocrit 32.5 % (42.0-52.0); Hemoglobin 10.5 g/dl (14.0-18.0); Mean Corpuscular HGB Conc 32.3 g/dl (31.0-36.0); Mean Corpuscular Hemoglobin 28.3 pg (27.0-33.0); Mean Corpuscular Volume 87.6 fL (80.0-98.0); Mean Platelet Volume 9.6 fL (9.4-12.4); Platelet Count 460 X10*3/uL (160-400); Red Blood Count 3.71 X10*6/uL (4.60-5.80); Red Cell Distribution Width 14.8 % (11.0-16.0); White Blood Count 8.8 X10*3/uL (4.8-10.8)
[2021-08-15] MEDS: Dextrose 5 % and 0.9 % NaCl 1,000 ML 100 ML IVCONT (06:51)
[2021-08-15 06:54] LABS: Anion Gap 10 (12-20); Blood Urea Nitrogen 9 mg/dL (9-16); Calcium 8.4 mg/dL (8.4-10.2); Carbon Dioxide 25 mmol/L (22-29); Chloride 103 mmol/L (96-108); Creatinine Clr Calc Pharmacy 144.1; Estimated Glomerular Filt Rate > 60; Glucose Random 119 mg/dL (60-115); Potassium 4.3 mmol/L (3.3-5.1); Sodium 134 mmol/L (135-145)
[2021-08-15] MEDS: vancomycin HCL 1,250 MG in 0.9 % Sodium Chloride 250 ML 166.67 MG IV ×2 (09:00→16:17)
[2021-08-15] MEDS: metroNIDAZOLE/NS 500 MG/100 ML PIGGYBACK 100 MG IV ×2 (09:02→16:33)
[2021-08-15] MEDS: Nicotine 21 MG PATCH.TD24 TRANSDERMA (09:05)
[2021-08-15] MEDS: Enoxaparin Sodium 40 MG/0.4 ML SYRINGE SUBCUT (09:06)
[2021-08-15] MEDS: PHENobarbitaL 30 MG TABLET PO ×2 (10:32→20:09)
--- NOTE | 2021-08-15 10:33 | P.PNIM_ITS ---
Subjective Subjective Date of Service: 08/15/21 Interval History: the patient was seen and evaluated this morning Laying in bed, pain has improved in his abdomen and scrotum had drainage attempt to the abscess yesterday Denies any fever, chills or shortness of breath No reported other overnight events. Systemic review: No fever, chills or weakness No chest pain, palpitation No shortness of breath or coughing lower abdominal pain, with no nausea or vomiting improved burning with urine, decreased swelling in the scrotum with tenderness No any rash or wounds Physical Exam Vital Signs: Vital Signs: Last Vital Signs Temp 97.7 F 08/15/21 08:00 Pulse 99 08/15/21 08:00 Resp 20 08/15/21 08:00 BP 132/69 08/15/21 08:00 Pulse Ox 97 08/15/21 08:00 BMI result Body Mass Index 21.4 Const: Other: Constitutional : Alert, interact, mild distress from pain Neck : Normal inspection, Supple Cardiovascular : RRR, no JVP, no lower extremity edema Respiratory : fair bilateral air entry, no crackles, wheezes or rhonchi Gastrointestinal: soft, lax, Normal bowel sounds, suprapubic abdominal tenderness mildly improved with no surgical signs Skin : Warm, Dry Urology: enlarged scrotum with erythema and tenderness over the left testicle mildly better Neurological : Alert & oriented x3, No focal deficit , CN 2-12 within normal Objective Data Active Medications Acetaminophen (Acetaminophen 325 Mg Tablet) 650 mg PO Q6H PRN PRN Reason: Pain, Mild (Pain Scale 1-3) Last Admin: 08/14/21 02:32 Dose: 650 mg Documented by: LUDA Enoxaparin Sodium (Enoxaparin Sodium 40 Mg/0.4 Ml Syringe) 40 mg SUBCUT Q24H [facility] Last Admin: 08/15/21 09:06 Dose: 40 mg Documented by: CHELY Erythromycin (Erythromycin Base 250 Mg Tablet) 1,000 mg PO ,, [facility] Stop: 08/17/21 14:01 Hydromorphone HCl (Hydromorphone Hcl 1 Mg/Ml Syringe) 2 mg IVPUSH Q3H PRN; Protocol PRN Reason: Pain, Severe (Pain Scale 7-10) Last Admin: 08/15/21 09:33 Dose: 2 mg Documented by: CHELY Hydroxyzine HCl (Hydroxyzine Hcl 25 Mg Tablet) 25 mg PO Q6H PRN PRN Reason: anxiety/restlessness Dextrose/Sodium Chloride (D5ns) 1,000 mls @ 100 mls/hr IVCONT .Q10H [facility] Last Admin: 08/15/21 06:51 Dose: 100 mls/hr Documented by: SAMUEL Piperacillin Sod/Tazobactam (Sod 3.375 gm/ Sodium Chloride) 50 mls @ 100 mls/hr IV Q6H [facility] Last Infusion: 08/15/21 07:39 Dose: 0 mls/hr Documented by: CHELY Metronidazole (Flagyl) 500 mg in 100 mls @ 100 mls/hr IV Q8H [facility] Last Admin: 08/15/21 09:02 Dose: 100 mls/hr Documented by: CHELY Vancomycin HCl 1,250 mg/ (Sodium Chloride) 250 mls @ 166.667 mls/hr IV Q12H [facility] Last Admin: 08/15/21 09:00 Dose: 166.67 mls/hr Documented by: CHELY Cefotetan Disodium 2 gm/ (Sodium Chloride) 50 mls @ 100 mls/hr IV PREOP ONE Stop: 08/17/21 12:29 Magnesium Citrate (Magnesium Citrate 300 Ml Solution) 300 ml PO ONCE ONE Stop: 08/16/21 09:01 Naloxone HCl (Naloxone Hcl 0.4 Mg/Ml Vial) 0.2 mg IVPUSH Q2M PRN PRN Reason: Opiate Reversal Neomycin Sulfate (Neomycin Sulfate 500 Mg Tablet) 1,000 mg PO , [facility] Stop: 08/17/21 14:01 Nicotine (Nicotine 21 Mg Patch.Td24) 21 mg TRANSDERMA DAILY [facility] Last Admin: 08/15/21 09:05 Dose: 21 mg Documented by: CHELY Pharmacy Consult (Consult Rx Etoh Phenob Po Dose) 1 each MISCELLANE ONCE PRN; Protocol PRN Reason: Consult order Pharmacy Consult (Consult Rx Vancomycin Dosing) 1 each MISCELLANE DAILY PRN PRN Reason: Consult order Phenobarbital (Phenobarbital 30 Mg Tablet) 30 mg PO BID [facility]; Protocol Stop: 08/16/21 09:01 Last Admin: 08/14/21 19:55 Dose: 30 mg Documented by: SAMUEL Phenobarbital (Phenobarbital 15 Mg Tablet) 15 mg PO DAILY [facility]; Protocol Stop: 08/18/21 09:01 Sodium Chloride (0.9 % Sodium Chloride Flush 3 Ml Syringe) 3 ml IVFLUSH QSHIFT [facility] Last Admin: 08/15/21 09:07 Dose: Not Given Documented by: CHELY Non-Admin Reason: IV Running Labs CBC & Chem 7: 08/15/21 05:39 08/15/21 05:39 Labs: Laboratory Results - last 24 hr 08/15/21 08/15/21 05:39 05:39 MCV 87.6 MCH 28.3 MCHC 32.3 RDW 14.8 Plt Count 460 H MPV 9.6 Absolute Nucleated RBC 0.000 Nucleated RBC % (auto) 0.0 Anion Gap 10 L Estim Creat Clear Calc 144.1 Estimated GFR > 60 Random Glucose 119 H Calcium 8.4 Microbiology Microbiology Results: Microbiology 08/14/21 08:01 Blood Culture - Preliminary Blood - Venous No growth after 24 hours. 08/14/21 08:01 Blood Culture - Preliminary Blood - Venous No growth after 24 hours. 08/12/21 05:41 Blood Culture - Preliminary Blood - Venous No growth after 48 hours. 08/12/21 05:42 Blood Culture - Preliminary Blood - Venous No growth after 48 hours. Assessment and Plan (1) Epididymitis: Status: Acute (2) Sepsis: Status: Acute (3) Alcohol withdrawal: Status: Acute (4) [place]-vesical fistula: Status: Acute (5) Acute UTI: Status: Acute Plan This is a 41 yo M with a recently history of intraabdominal abscess / colo- vesicular fistula treated with IV antibiotics / IR drainage (in [place], [place]) who presents today with worsening abdominal pain. His CT scan from 08/11 shows reaccumulation of his fluid collection. He will now be admitted for further treatment and management. colo-vesicular fistula abdominal abscess GI input appreciated, no evidence of IBD, likely complicated diverticular disease IR drainage on 07/24, cultures grew E coli, Clostridium tertium and strepanginosus follow cultures Remains negative CT-guided drainage was attempt, abscess auto-drain into the bladder during the procedure continue empiric IV zosyn discontinue IVF general surgery input appreciated, plan for surgery by Tuesday Sepsis, resolved secondary to acute left epididymitis Confirmed by Ultrasound images Blood culture sent, normal lactic acid Broaden antibiotic to vancomycin and addition of Flagyl pending urology evaluation UTI Growing E coli in the urine Continue antibiotic for now Alcohol abuse and dependence last drink the day prior to admission He has a prior history of withdrawal seizures continue Phenobarbital protocol monitor lytes Full Code DVT pptx, Lovenox patient requiring treatment with IV antibiotics, IVF, + specialty consultation + concurrent treatment to prevent alcohol withdrawal, I anticipate the patient will need a medically necessary inpatient hospitalization overnight and for the next few days until surgery is done to prevent possible decompensation in to severe sepsis. Quality Stroke Does the patient have a stroke diagnosis?: No VTE Prior VTE?: No VTE Risk Level:: Medical - moderate - high VTE Device Contraindication: Treatment Not Indicated VTE Drug Contraindication: N/A - Med Ordered
--- NOTE | 2021-08-15 14:07 | P.PNGS_ITS ---
Subjective Subjective Date of Service: 08/15/21 Interval history: pt feels good. abdo sore but able to eat no new issues Physical Exam Vital Signs: Vital Signs: Last Vital Signs Temp 98.0 F 08/15/21 11:04 Pulse 94 08/15/21 11:04 Resp 19 08/15/21 11:04 BP 102/63 08/15/21 11:04 Pulse Ox 96 08/15/21 11:04 BMI result Body Mass Index 21.4 GI: Other: soft mild tenderness llq area Objective Data Active Medications Acetaminophen (Acetaminophen 325 Mg Tablet) 650 mg PO Q6H PRN PRN Reason: Pain, Mild (Pain Scale 1-3) Last Admin: 08/14/21 02:32 Dose: 650 mg Documented by: LUDA Enoxaparin Sodium (Enoxaparin Sodium 40 Mg/0.4 Ml Syringe) 40 mg SUBCUT Q24H [facility] Last Admin: 08/15/21 09:06 Dose: 40 mg Documented by: CHELY Erythromycin (Erythromycin Base 250 Mg Tablet) 1,000 mg PO , [facility] Stop: 08/17/21 14:01 Hydromorphone HCl (Hydromorphone Hcl 1 Mg/Ml Syringe) 2 mg IVPUSH Q3H PRN; Protocol PRN Reason: Pain, Severe (Pain Scale 7-10) Last Admin: 08/15/21 09:33 Dose: 2 mg Documented by: CHELY Hydroxyzine HCl (Hydroxyzine Hcl 25 Mg Tablet) 25 mg PO Q6H PRN PRN Reason: anxiety/restlessness Piperacillin Sod/Tazobactam (Sod 3.375 gm/ Sodium Chloride) 50 mls @ 100 mls/hr IV Q6H [facility] Last Infusion: 08/15/21 07:39 Dose: 0 mls/hr Documented by: CHELY Metronidazole (Flagyl) 500 mg in 100 mls @ 100 mls/hr IV Q8H [facility] Last Infusion: 08/15/21 10:36 Dose: 100 mls/hr Documented by: CHELY Vancomycin HCl 1,250 mg/ (Sodium Chloride) 250 mls @ 166.667 mls/hr IV Q12H [facility] Last Infusion: 08/15/21 12:55 Dose: 150 mls/hr Documented by: CHELY Cefotetan Disodium 2 gm/ (Sodium Chloride) 50 mls @ 100 mls/hr IV PREOP ONE Stop: 08/17/21 12:29 Magnesium Citrate (Magnesium Citrate 300 Ml Solution) 300 ml PO ONCE ONE Stop: 08/16/21 09:01 Naloxone HCl (Naloxone Hcl 0.4 Mg/Ml Vial) 0.2 mg IVPUSH Q2M PRN PRN Reason: Opiate Reversal Neomycin Sulfate (Neomycin Sulfate 500 Mg Tablet) 1,000 mg PO , [facility] Stop: 08/17/21 14:01 Nicotine (Nicotine 21 Mg Patch.Td24) 21 mg TRANSDERMA DAILY [facility] Last Admin: 08/15/21 09:05 Dose: 21 mg Documented by: CHELY Pharmacy Consult (Consult Rx Etoh Phenob Po Dose) 1 each MISCELLANE ONCE PRN; Protocol PRN Reason: Consult order Pharmacy Consult (Consult Rx Vancomycin Dosing) 1 each MISCELLANE DAILY PRN PRN Reason: Consult order Phenobarbital (Phenobarbital 30 Mg Tablet) 30 mg PO BID [facility]; Protocol Stop: 08/16/21 09:01 Last Admin: 08/15/21 10:32 Dose: 30 mg Documented by: CHELY Phenobarbital (Phenobarbital 15 Mg Tablet) 15 mg PO DAILY [facility]; Protocol Stop: 08/18/21 09:01 Sodium Chloride (0.9 % Sodium Chloride Flush 3 Ml Syringe) 3 ml IVFLUSH QSHIFT [facility] Last Admin: 08/15/21 09:07 Dose: Not Given Documented by: CHELY Non-Admin Reason: IV Running Labs CBC & Chem 7: 08/15/21 05:39 08/15/21 05:39 Labs: Laboratory Results - last 24 hr 08/15/21 08/15/21 05:39 05:39 MCV 87.6 MCH 28.3 MCHC 32.3 RDW 14.8 Plt Count 460 H MPV 9.6 Absolute Nucleated RBC 0.000 Nucleated RBC % (auto) 0.0 Anion Gap 10 L Estim Creat Clear Calc 144.1 Estimated GFR > 60 Random Glucose 119 H Calcium 8.4 Microbiology Microbiology Results: Microbiology 08/14/21 08:01 Blood Culture - Preliminary Blood - Venous No growth after 24 hours. 08/14/21 08:01 Blood Culture - Preliminary Blood - Venous No growth after 24 hours. Procedures Date of Service Date of Service: 08/15/21 Progress Note: A&P Assessment and plan (1) [place]-vesical fistula: Status: Acute Assessment and Plan: pt is a 41 year old male with colovesicular fistula - doing better, [place] with clear urine not too tender on exam plan for surgery on tuesday and for tomorrow will be on clear liquids and bowel prep and colo antibx regimen. pt understands and agrees with plan Time Spent With Patient Time: Total time spent is greater than 50% in coordination of care (as documented) at patient's floor/unit and/or counseling patient: Quality Stroke Does the patient have a stroke diagnosis?: No VTE Prior VTE?: No VTE Risk Level:: Medical - moderate - high VTE Device Contraindication: Treatment Not Indicated VTE Drug Contraindication: N/A - Med Ordered
--- NOTE | 2021-08-15 16:23 | PC.NURSE ---
1300 Vanco not infused, r/t infiltration to left A/C. New line started, right hand. Antbx retimed by pharmacy.
[2021-08-15] MEDS: Nicotine Polacrilex 2 MG GUM BUCCAL ×2 (20:09→22:33)
[2021-08-16] MEDS: metroNIDAZOLE/NS 500 MG/100 ML PIGGYBACK 100 MG IV ×2 (00:11→08:24)
[2021-08-16] MEDS: 0.9 % Sodium Chloride Flush 3 ML SYRINGE IVFLUSH ×4 (00:11→22:11)
[2021-08-16] MEDS: HYDROmorphone HCl 1 MG/ML SYRINGE 2 MG IVPUSH ×8 (01:22→23:32)
[2021-08-16 02:28] LABS: Hematocrit 36.5 % (42.0-52.0); Hemoglobin 11.9 g/dl (14.0-18.0); Mean Corpuscular HGB Conc 32.6 g/dl (31.0-36.0); Mean Corpuscular Hemoglobin 28.2 pg (27.0-33.0); Mean Corpuscular Volume 86.5 fL (80.0-98.0); Mean Platelet Volume 9.1 fL (9.4-12.4); Platelet Count 470 X10*3/uL (160-400); Red Blood Count 4.22 X10*6/uL (4.60-5.80); Red Cell Distribution Width 14.8 % (11.0-16.0); White Blood Count 7.6 X10*3/uL (4.8-10.8)
[2021-08-16 02:44] LABS: Anion Gap 14 (12-20); Blood Urea Nitrogen 6 mg/dL (9-16); Calcium 9.3 mg/dL (8.4-10.2); Carbon Dioxide 28 mmol/L (22-29); Chloride 100 mmol/L (96-108); Creatinine Clr Calc Pharmacy 139.7; Estimated Glomerular Filt Rate > 60; Glucose Random 101 mg/dL (60-115); Potassium 4.8 mmol/L (3.3-5.1); Sodium 137 mmol/L (135-145)
[2021-08-16 03:17] LABS: Vancomycin Trough 4.9 mcg/mL (10.0-20.0)
[2021-08-16 03:39] VITALS: BP 112/66; PULSE 88; RESP 16; TEMP 36.9; O2SAT 97
[2021-08-16] MEDS: Piperacillin Sodium/Tazobactam 3.375 GM in 0.9 % Sodium Chloride 50 ML IV ×4 (04:19→22:02)
--- NOTE | 2021-08-16 04:48 | PC.NURSE ---
VANCOMYCIN TROUGH RESULTS PRIOR TO 0400 DOSE CAME BACK LOW AT 4.9. HOSPITALIST ON DUTY ALERTED AND STATED TO LET PHARMACY KNOW. [facility] CALLED AND FEMALE ON DUTY STATED THAT [facility] CAN HOLD A DOSE FOR HIGH RESULTS BUT PER POLICY THEY DO NOT ADJUST FOR LOW TROUGH. SHE SUGGESTED TO ADMINISTERING 1250MG DOSE AND SHE WILL LEAVE MESSAGE FOR DAY PHARMACISTS TO ADJUST DOSE IF WARRANTED. THIS MESSAGE FORWARDED TO HOSPITALIST AND HE IS IN AGREEMENT WITH THIS PLAN. THEREFORE, 1250MG DOSE ADMINISTERED ORDERED AT 0455.
[2021-08-16] MEDS: vancomycin HCL 1,250 MG in 0.9 % Sodium Chloride 250 ML 166.67 MG IV (04:55)
--- NOTE | 2021-08-16 06:35 | HE.PHANOTE ---
Patients 0900 dose wanst given until 1600 yesterday. Without level from 08/16@0200, predicted auc is 491. Will add another trough for 08/17@0200
[2021-08-16 07:51] VITALS: BP 113/65; PULSE 74; RESP 18; TEMP 36.4; O2SAT 97
[2021-08-16] MEDS: Enoxaparin Sodium 40 MG/0.4 ML SYRINGE SUBCUT (08:24)
[2021-08-16] MEDS: PHENobarbitaL 30 MG TABLET PO (08:24)
[2021-08-16] MEDS: Nicotine 21 MG PATCH.TD24 TRANSDERMA (08:24)
[2021-08-16] MEDS: Nicotine Polacrilex 2 MG GUM BUCCAL ×2 (09:42→15:31)
[2021-08-16] MEDS: Magnesium Citrate 300 ML SOLUTION PO (10:21)
--- NOTE | 2021-08-16 11:09 | P.PNIM_ITS ---
Subjective Subjective Date of Service: 08/16/21 Interval History: the patient was seen and evaluated this morning Laying in bed, pain has has been improving in abdomen and scrotum but still requiring high dose of pain medication urine growing E coli Denies any fever, chills or shortness of breath No reported other overnight events. Systemic review: No fever, chills or weakness No chest pain, palpitation No shortness of breath or coughing lower abdominal pain, with no nausea or vomiting improved burning with urine, decreased swelling in the scrotum with tenderness No any rash or wounds Physical Exam Vital Signs: Vital Signs: Last Vital Signs Temp 97.5 F 08/16/21 07:51 Pulse 74 08/16/21 07:51 Resp 18 08/16/21 07:51 BP 113/65 08/16/21 07:51 Pulse Ox 97 08/16/21 07:51 BMI result Body Mass Index 21.4 Const: Other: Constitutional : Alert, interact, mild distress from pain Neck : Normal inspection, Supple Cardiovascular : RRR, no JVP, no lower extremity edema Respiratory : fair bilateral air entry, no crackles, wheezes or rhonchi Gastrointestinal: soft, lax, Normal bowel sounds, suprapubic abdominal tenderness mildly improved with no surgical signs Skin : Warm, Dry Urology: less erythematous scrotum with less tenderness over the left testicle mildly better Neurological : Alert & oriented x3, No focal deficit , CN 2-12 within normal Objective Data Active Medications Acetaminophen (Acetaminophen 325 Mg Tablet) 650 mg PO Q6H PRN PRN Reason: Pain, Mild (Pain Scale 1-3) Last Admin: 08/14/21 02:32 Dose: 650 mg Documented by: LUDA Enoxaparin Sodium (Enoxaparin Sodium 40 Mg/0.4 Ml Syringe) 40 mg SUBCUT Q24H [facility] Last Admin: 08/16/21 08:24 Dose: 40 mg Documented by: ELIU Erythromycin (Erythromycin Base 250 Mg Tablet) 1,000 mg PO ,, [facility] Stop: 08/16/21 22:01 Hydromorphone HCl (Hydromorphone Hcl 1 Mg/Ml Syringe) 2 mg IVPUSH Q3H PRN; Protocol PRN Reason: Pain, Severe (Pain Scale 7-10) Last Admin: 08/16/21 08:24 Dose: 2 mg Documented by: ELIU Hydroxyzine HCl (Hydroxyzine Hcl 25 Mg Tablet) 25 mg PO Q6H PRN PRN Reason: anxiety/restlessness Cefotetan Disodium 2 gm/ (Sodium Chloride) 50 mls @ 100 mls/hr IV PREOP ONE Stop: 08/17/21 12:29 Piperacillin Sod/Tazobactam (Sod 3.375 gm/ Sodium Chloride) 50 mls @ 100 mls/hr IV Q6H [facility] Last Infusion: 08/16/21 10:23 Dose: 0 mls/hr Documented by: ELIU Doxycycline Hyclate 100 mg/ (Sodium Chloride) 250 mls @ 166.67 mls/hr IV Q12H [facility] Naloxone HCl (Naloxone Hcl 0.4 Mg/Ml Vial) 0.2 mg IVPUSH Q2M PRN PRN Reason: Opiate Reversal Neomycin Sulfate (Neomycin Sulfate 500 Mg Tablet) 1,000 mg PO ,, [facility] Stop: 08/16/21 22:01 Nicotine (Nicotine 21 Mg Patch.Td24) 21 mg TRANSDERMA DAILY [facility] Last Admin: 08/16/21 08:24 Dose: 21 mg Documented by: ELIU Nicotine Polacrilex (Nicotine Polacrilex 2 Mg Gum) 2 mg BUCCAL Q2H PRN PRN Reason: smoking Last Admin: 08/16/21 09:42 Dose: 2 mg Documented by: ELIU Pharmacy Consult (Consult Rx Etoh Phenob Po Dose) 1 each MISCELLANE ONCE PRN; Protocol PRN Reason: Consult order Pharmacy Consult (Consult Rx Vancomycin Dosing) 1 each MISCELLANE DAILY PRN PRN Reason: Consult order Phenobarbital (Phenobarbital 15 Mg Tablet) 15 mg PO DAILY [facility]; Protocol Stop: 08/18/21 09:01 Sodium Chloride (0.9 % Sodium Chloride Flush 3 Ml Syringe) 3 ml IVFLUSH QSHIFT [facility] Last Admin: 08/16/21 08:25 Dose: 3 ml Documented by: ELIU Labs CBC & Chem 7: 08/16/21 02:10 08/16/21 02:10 Labs: Laboratory Results - last 24 hr 08/16/21 08/16/21 08/16/21 02:10 02:10 02:10 MCV 86.5 MCH 28.2 MCHC 32.6 RDW 14.8 Plt Count 470 H MPV 9.1 L Absolute Nucleated RBC 0.000 Nucleated RBC % (auto) 0.0 Anion Gap 14 Estim Creat Clear Calc 139.7 Estimated GFR > 60 Random Glucose 101 Calcium 9.3 D Vancomycin Trough 4.9 L Microbiology Microbiology Results: Microbiology 08/14/21 08:01 Blood Culture - Preliminary Blood - Venous No growth after 48 hours. 08/14/21 08:01 Blood Culture - Preliminary Blood - Venous No growth after 48 hours. Assessment and Plan (1) Epididymitis: Status: Acute (2) Alcohol withdrawal: Status: Acute (3) [place]-vesical fistula: Status: Acute (4) Diverticulitis: Status: Acute (5) Acute UTI: Status: Acute Plan This is a 41 yo M with a recently history of intraabdominal abscess / colo- vesicular fistula treated with IV antibiotics / IR drainage (in [place], [place]) who presents today with worsening abdominal pain. His CT scan from 08/11 shows reaccumulation of his fluid collection. He will now be admitted for further treatment and management. colo-vesicular fistula abdominal abscess GI input appreciated, no evidence of IBD, likely complicated diverticular disease IR drainage on 07/24, cultures grew E coli, Clostridium tertium and strepanginosus follow cultures Remains negative CT-guided drainage was attempt, abscess auto-drain into the bladder during the procedure continue empiric IV zosyn general surgery input appreciated, plan for surgery by Tuesday Sepsis, resolved secondary to acute left epididymitis Confirmed by Ultrasound images Blood culture negative DC vancomycin and Flagyl, start doxycycline urology consult UTI Growing E coli in the urine Continue antibiotic for now Alcohol abuse and dependence history of withdrawal seizures stable, resolving continue Phenobarbital protocol monitor lytes Full Code DVT pptx, Lovenox patient requiring treatment with IV antibiotics, IVF pending surgical intervention I anticipate the patient will need a medically necessary inpatient hospitalization overnight and for the next few days until surgery is done to prevent possible decompensation in to severe sepsis. Quality Stroke Does the patient have a stroke diagnosis?: No VTE Prior VTE?: No VTE Risk Level:: Medical - moderate - high VTE Device Contraindication: Treatment Not Indicated VTE Drug Contraindication: N/A - Med Ordered
[2021-08-16] MEDS: Doxycycline Hyclate 100 MG in 0.9 % Sodium Chloride 250 ML 166.67 MG IV ×2 (11:31→22:43)
[2021-08-16 11:55] VITALS: BP 121/73; PULSE 93; RESP 18; TEMP 36.7; O2SAT 97
[2021-08-16] MEDS: Erythromycin Base 250 MG TABLET 1000 MG PO ×3 (14:23→22:02)
[2021-08-16] MEDS: neoMYCIN Sulfate 500 MG TABLET 1000 MG PO ×3 (14:23→22:02)
[2021-08-16 15:34] VITALS: BP 130/81; PULSE 72; RESP 18; TEMP 37.1; O2SAT 99
--- NOTE | 2021-08-16 16:02 | PM.PNGS ---
Subjective Subjective Date of Service: 08/16/21 Interval history: feeling fine - ate solid food this am and lunch time no nausea Physical Exam Vital Signs: Vital Signs: Last Vital Signs Temp 98.7 F 08/16/21 15:34 Pulse 72 08/16/21 15:34 Resp 18 08/16/21 15:34 BP 130/81 08/16/21 15:34 Pulse Ox 99 08/16/21 15:34 BMI result Body Mass Index 21.4 GI: Other: abdo benign Objective Data Active Medications Acetaminophen (Acetaminophen 325 Mg Tablet) 650 mg PO Q6H PRN PRN Reason: Pain, Mild (Pain Scale 1-3) Last Admin: 08/14/21 02:32 Dose: 650 mg Documented by: LUDA Enoxaparin Sodium (Enoxaparin Sodium 40 Mg/0.4 Ml Syringe) 40 mg SUBCUT Q24H [facility] Last Admin: 08/16/21 08:24 Dose: 40 mg Documented by: ELIU Erythromycin (Erythromycin Base 250 Mg Tablet) 1,000 mg PO [facility] Stop: 08/16/21 22:01 Last Admin: 08/16/21 15:50 Dose: 1,000 mg Documented by: ELIU Hydromorphone HCl (Hydromorphone Hcl 1 Mg/Ml Syringe) 2 mg IVPUSH Q3H PRN; Protocol PRN Reason: Pain, Severe (Pain Scale 7-10) Last Admin: 08/16/21 14:27 Dose: 2 mg Documented by: ELIU Hydroxyzine HCl (Hydroxyzine Hcl 25 Mg Tablet) 25 mg PO Q6H PRN PRN Reason: anxiety/restlessness Cefotetan Disodium 2 gm/ (Sodium Chloride) 50 mls @ 100 mls/hr IV PREOP ONE Stop: 08/17/21 12:29 Piperacillin Sod/Tazobactam (Sod 3.375 gm/ Sodium Chloride) 50 mls @ 100 mls/hr IV Q6H [facility] Last Admin: 08/16/21 15:50 Dose: 100 mls/hr Documented by: ELIU Doxycycline Hyclate 100 mg/ (Sodium Chloride) 250 mls @ 166.67 mls/hr IV Q12H [facility] Last Infusion: 08/16/21 13:47 Dose: 0 mls/hr Documented by: ELIU Naloxone HCl (Naloxone Hcl 0.4 Mg/Ml Vial) 0.2 mg IVPUSH Q2M PRN PRN Reason: Opiate Reversal Neomycin Sulfate (Neomycin Sulfate 500 Mg Tablet) 1,000 mg PO , [facility] Stop: 08/16/21 22:01 Last Admin: 08/16/21 15:50 Dose: 1,000 mg Documented by: ELIU Nicotine (Nicotine 21 Mg Patch.Td24) 21 mg TRANSDERMA DAILY [facility] Last Admin: 08/16/21 08:24 Dose: 21 mg Documented by: ELIU Nicotine Polacrilex (Nicotine Polacrilex 2 Mg Gum) 2 mg BUCCAL Q2H PRN PRN Reason: smoking Last Admin: 08/16/21 15:31 Dose: 2 mg Documented by: GERSON Pharmacy Consult (Consult Rx Etoh Phenob Po Dose) 1 each MISCELLANE ONCE PRN; Protocol PRN Reason: Consult order Pharmacy Consult (Consult Rx Vancomycin Dosing) 1 each MISCELLANE DAILY PRN PRN Reason: Consult order Phenobarbital (Phenobarbital 15 Mg Tablet) 15 mg PO DAILY [facility]; Protocol Stop: 08/18/21 09:01 Polyethylene Glycol/Electrolytes (Peg 3350/Na Sulf,Bicarb,Cl/Kcl 4,000 Ml Soln.Recon) 240 ml PO Q10M [facility] Stop: 08/16/21 18:41 Sodium Chloride (0.9 % Sodium Chloride Flush 3 Ml Syringe) 3 ml IVFLUSH QSHIFT [facility] Last Admin: 08/16/21 14:24 Dose: 3 ml Documented by: ELIU Labs CBC & Chem 7: 08/16/21 02:10 08/16/21 02:10 Labs: Laboratory Results - last 24 hr 08/16/21 08/16/21 08/16/21 02:10 02:10 02:10 MCV 86.5 MCH 28.2 MCHC 32.6 RDW 14.8 Plt Count 470 H MPV 9.1 L Absolute Nucleated RBC 0.000 Nucleated RBC % (auto) 0.0 Anion Gap 14 Estim Creat Clear Calc 139.7 Estimated GFR > 60 Random Glucose 101 Calcium 9.3 D Vancomycin Trough 4.9 L Microbiology Microbiology Results: Microbiology 08/14/21 08:01 Blood Culture - Preliminary Blood - Venous No growth after 48 hours. 08/14/21 08:01 Blood Culture - Preliminary Blood - Venous No growth after 48 hours. Procedures Date of Service Date of Service: 08/16/21 Progress Note: A&P Assessment and plan (1) [place]-vesical fistula: Status: Acute Assessment and Plan: 41 elvira old male with colovesicular fistula set for surgery tomorrow - will make clear iquids then npo after midnight will change prep to golytely he has neomycin etc ordered. pt agrees with plan Time Spent With Patient Time: Total time spent is greater than 50% in coordination of care (as documented) at patient's floor/unit and/or counseling patient: Quality Stroke Does the patient have a stroke diagnosis?: No VTE Prior VTE?: No VTE Risk Level:: Medical - moderate - high VTE Device Contraindication: Treatment Not Indicated VTE Drug Contraindication: N/A - Med Ordered
[2021-08-16] MEDS: Acetaminophen 325 MG TABLET 650 MG PO (16:40)
[2021-08-16] MEDS: PEG 3350/Na Sulf,Bicarb,Cl/KCL 4,000 ML SOLN.RECON 4000 ML PO (18:59)
[2021-08-16 19:27] VITALS: BP 129/87; PULSE 102; RESP 18; TEMP 36.8; O2SAT 96
[2021-08-16 23:12] VITALS: BP 118/75; PULSE 85; RESP 18; TEMP 36.4; O2SAT 95
[2021-08-17] VITALS (27 sets, daily range): BP systolic 115–150; BP diastolic 73–100; PULSE 94–114; RESP 7–101; TEMP 36.3–37.7; O2SAT 90–100; BMI 21.4
[2021-08-17] MEDS: HYDROmorphone HCl 1 MG/ML SYRINGE 2 MG IVPUSH ×3 (02:23→08:24)
[2021-08-17 03:04] LABS: Vancomycin Trough < 3.0 mcg/mL (10.0-20.0)
[2021-08-17] MEDS: Piperacillin Sodium/Tazobactam 3.375 GM in 0.9 % Sodium Chloride 50 ML IV ×2 (04:05→22:02)
[2021-08-17 07:33] LABS: Anion Gap 14 (12-20); Blood Urea Nitrogen 7 mg/dL (9-16); Calcium 8.9 mg/dL (8.4-10.2); Carbon Dioxide 25 mmol/L (22-29); Chloride 100 mmol/L (96-108); Creatinine Clr Calc Pharmacy 146.4; Estimated Glomerular Filt Rate > 60; Glucose Random 93 mg/dL (60-115); Potassium 4.5 mmol/L (3.3-5.1); Sodium 134 mmol/L (135-145)
[2021-08-17] MEDS: PHENobarbitaL 15 MG TABLET PO (08:24)
[2021-08-17] MEDS: 0.9 % Sodium Chloride Flush 3 ML SYRINGE IVFLUSH ×2 (08:24→23:31)
[2021-08-17] MEDS: Nicotine 21 MG PATCH.TD24 TRANSDERMA (08:32)
--- NOTE | 2021-08-17 08:41 | MHC.RECOVSUP ---
Recovery Support note: Patient is a 41 year old [place]odian speaking male who presented to [facility] due to abdominal pain. This ad copy writer met with patient in 363 to discuss alcohol use and recovery supports. Patient reports drinking 1-2 sleeves of nips prior to hospitalization. Patient reports he plans to maintain sobriety after discharge and that he is optimistic he will be able to manage this on his own. Patient reports I feel better about it than I have in the last fifteen years. Patient reports his previous attempts at sobriety were started because other people told him to and that he finally feels that he wants to do it for himself. Patient also feels his alcohol use contributed to the medical situation that lead to his hospitalization. Patient reports he is supported by friends and family and that he has rekindled relationships with his family recently. Discussed recovery supports including AA, [facility] [place] and medications for alcohol use disorder. Patient was receptive of the information provided. Patient has contact information for this ad copy writer in the event that patient has questions or concerns after discharge.
--- NOTE | 2021-08-17 09:54 | MHC.SHP ---
Pre-Procedural Eval Section A Date of Service: 08/17/21 The patient is an INPATIENT: Yes Section B Chief Complaint: abdominal pain Allergies: Allergies Allergy/AdvReac Type Severity Reaction Status Date / Time cranberry Allergy Hives Verified 08/14/21 12:54 Plan Diagnosis/Plan: Unchanged I have reviewed the history and physical and performed a pertinent physical examination on my patient. No changes have occurred unless specified.
--- NOTE | 2021-08-17 10:13 | MHC.CM.PN ---
EMR REVIEWED, PER SURGICAL NOTES PLAN FOR SIGMOID COLLECTOMY W/CLOSURE OF COLOVESICAL FISTULA, NO D/C PLANNED FOR TODAY. ONCE [place], CM FABRIC MACHINE OPERATOR WILL SET UP PCP AP[facility]. CM WILL CONT TO FOLLOW D/C NEEDS.
--- NOTE | 2021-08-17 10:20 | PC.NURSE ---
patient complaining of 10/10 pain on arrival to [facility]. states i was waiting on pain medication when i was brought down. patient instructed that anesthesia will assess and prescribe pain medication if indicated. patient verbalized understanding. patient now resting/sleeping with no signs of distress. skin pink warm dry.
--- NOTE | 2021-08-17 10:28 | HO.PM.IMPN ---
Subjective Subjective Date of Service: 08/17/21 Interval History: Laying in bed, Girlfriend at the bedside pain has has been improving in abdomen and scrotum but still requiring high dose of pain medication had bowel prep overnight Plan for surgery today No reported other overnight events. Systemic review: No fever, chills or weakness No chest pain, palpitation No shortness of breath or coughing lower abdominal pain, with no nausea or vomiting improved burning with urine, decreased swelling in the scrotum with tenderness No any rash or wounds Physical Exam Vital Signs: Vital Signs: Last Vital Signs Temp 99.9 F 08/17/21 10:15 Pulse 97 08/17/21 10:15 Resp 16 08/17/21 10:15 BP 121/86 08/17/21 10:15 Pulse Ox 97 08/17/21 10:15 BMI result Body Mass Index 21.4 Const: Other: Constitutional : Alert, interact, mild distress from pain Neck : Normal inspection, Supple Cardiovascular : RRR, no JVP, no lower extremity edema Respiratory : fair bilateral air entry, no crackles, wheezes or rhonchi Gastrointestinal: soft, lax, Normal bowel sounds, suprapubic abdominal tenderness mildly improved with no surgical signs Skin : Warm, Dry Urology: less erythematous scrotum with less tenderness over the left testicle mildly better Neurological : Alert & oriented x3, No focal deficit , CN 2-12 within normal Objective Data Active Medications Acetaminophen (Acetaminophen 325 Mg Tablet) 650 mg PO Q6H PRN PRN Reason: Pain, Mild (Pain Scale 1-3) Last Admin: 08/16/21 16:40 Dose: 650 mg Documented by: ELIU Enoxaparin Sodium (Enoxaparin Sodium 40 Mg/0.4 Ml Syringe) 40 mg SUBCUT Q24H [facility] Last Admin: 08/16/21 08:24 Dose: 40 mg Documented by: ELIU Hydromorphone HCl (Hydromorphone Hcl 1 Mg/Ml Syringe) 2 mg IVPUSH Q3H PRN; Protocol PRN Reason: Pain, Severe (Pain Scale 7-10) Last Admin: 08/17/21 08:24 Dose: 2 mg Documented by: DOROTHEA Hydroxyzine HCl (Hydroxyzine Hcl 25 Mg Tablet) 25 mg PO Q6H PRN PRN Reason: anxiety/restlessness Cefotetan Disodium 2 gm/ (Sodium Chloride) 50 mls @ 100 mls/hr IV PREOP ONE Stop: 08/17/21 12:29 Piperacillin Sod/Tazobactam (Sod 3.375 gm/ Sodium Chloride) 50 mls @ 100 mls/hr IV Q6H [facility] Last Infusion: 08/17/21 04:54 Dose: 0 mls/hr Documented by: JOSEPH Doxycycline Hyclate 100 mg/ (Sodium Chloride) 250 mls @ 166.67 mls/hr IV Q12H [facility] Last Infusion: 08/17/21 00:48 Dose: 0 mls/hr Documented by: JOSEPH Naloxone HCl (Naloxone Hcl 0.4 Mg/Ml Vial) 0.2 mg IVPUSH Q2M PRN PRN Reason: Opiate Reversal Nicotine (Nicotine 21 Mg Patch.Td24) 21 mg TRANSDERMA DAILY [facility] Last Admin: 08/17/21 08:32 Dose: 21 mg Documented by: DOROTHEA Nicotine Polacrilex (Nicotine Polacrilex 2 Mg Gum) 2 mg BUCCAL Q2H PRN PRN Reason: smoking Last Admin: 08/16/21 15:31 Dose: 2 mg Documented by: GERSON Pharmacy Consult (Consult Rx Etoh Phenob Po Dose) 1 each MISCELLANE ONCE PRN; Protocol PRN Reason: Consult order Pharmacy Consult (Consult Rx Vancomycin Dosing) 1 each MISCELLANE DAILY PRN PRN Reason: Consult order Phenobarbital (Phenobarbital 15 Mg Tablet) 15 mg PO DAILY [facility]; Protocol Stop: 08/18/21 09:01 Last Admin: 08/17/21 08:24 Dose: 15 mg Documented by: DOROTHEA Sodium Chloride (0.9 % Sodium Chloride Flush 3 Ml Syringe) 3 ml IVFLUSH QSHIFT [facility] Last Admin: 08/17/21 08:24 Dose: 3 ml Documented by: DOROTHEA Labs CBC & Chem 7: 08/16/21 02:10 08/17/21 06:35 Labs: Laboratory Results - last 24 hr 08/17/21 08/17/21 01:54 06:35 Anion Gap 14 Estim Creat Clear Calc 146.4 Estimated GFR > 60 Random Glucose 93 Calcium 8.9 Vancomycin Trough < 3.0 L Microbiology Microbiology Results: Microbiology 08/12/21 05:41 Blood Culture - Final Blood - Venous No growth after 5 days. 08/12/21 05:42 Blood Culture - Final Blood - Venous No growth after 5 days. 08/14/21 08:01 Blood Culture - Preliminary Blood - Venous No growth after 48 hours. 08/14/21 08:01 Blood Culture - Preliminary Blood - Venous No growth after 48 hours. Assessment and Plan (1) Epididymitis: Status: Acute (2) Sepsis: Status: Acute (3) Alcohol withdrawal: Status: Acute (4) [place]-vesical fistula: Status: Acute (5) Fistula: Status: Acute (6) Diverticulitis: Status: Acute Plan This is a 41 yo M with a recently history of intraabdominal abscess / colo-vesicular fistula treated with IV antibiotics / IR drainage (in [place]) who presents today with worsening abdominal pain. His CT scan from 08/11 shows reaccumulation of his fluid collection. He will now be admitted for further treatment and management. colo-vesicular fistula abdominal abscess GI input appreciated, no evidence of IBD, likely complicated diverticular disease IR drainage on 07/24, cultures grew E coli, Clostridium tertium and strepanginosus follow cultures Remains negative CT-guided drainage was attempt, abscess auto-drain into the bladder during the procedure continue empiric IV zosyn general surgery input appreciated, plan for surgery by Tuesday Sepsis, resolved secondary to acute left epididymitis Confirmed by Ultrasound images Blood culture negative DC vancomycin and Flagyl, Continue doxycycline urology consult UTI Growing E coli in the urine Continue antibiotic for now Alcohol abuse and dependence history of withdrawal seizures stable, resolving continue Phenobarbital protocol monitor lytes Full Code DVT pptx, Lovenox patient requiring treatment with IV antibiotics, IVF pending surgical intervention I anticipate the patient will need a medically necessary inpatient hospitalization overnight and for the next few days until surgery is done to prevent possible decompensation in to severe sepsis. Quality Stroke Does the patient have a stroke diagnosis?: No VTE Prior VTE?: No VTE Risk Level:: Medical - moderate - high VTE Device Contraindication: Treatment Not Indicated VTE Drug Contraindication: N/A - Med Ordered
--- NOTE | 2021-08-17 11:03 | P.CONAN_ITS ---
HPI - Anesthesia Eval Consult details Narrative: [place]-vesical fistula PMFSH Active Problems Active Problems: All Active Problems (Updated 08/14/21 @ 10:41 by Ashanti Smith MD) Epididymitis (Acute) Sepsis (Acute) Alcohol withdrawal (Acute) [place]-vesical fistula (Acute) Diverticulitis (Acute) Fistula (Acute) Abscess (Acute) Acute UTI (Acute) Past Medical History Medical History Alcohol withdrawal seizure History of drainage of abscess Family History Family history of problems with anesthesia: No Surgical History History of Problems with Anesthesia: No Social History Social History Household Members: None Housing: Homeless Do you presently have visiting nurse or other home services: No Alcohol intake: current Alcohol intake frequency: 3 or more drinks per day Patient Tobacco Use Status: Current everyday Tobacco user Tobacco use type: Cigarette Cigarette Packs Per Day: 2 Cigarettes Per Day: 40.0 Substance Use Type: Marijuana service: No Current occupational status: unemployed Meds Allergies Allergy/AdvReac Type Severity Reaction Status Date / Time cranberry Allergy Hives Verified 08/14/21 12:54 Active Medications: Current Medications Acetaminophen (Acetaminophen 325 Mg Tablet) 650 mg PO Q6H PRN PRN Reason: Pain, Mild (Pain Scale 1-3) Last Admin: 08/16/21 16:40 Dose: 650 mg Documented by: Enoxaparin Sodium (Enoxaparin Sodium 40 Mg/0.4 Ml Syringe) 40 mg SUBCUT Q24H KASHMIR Last Admin: 08/16/21 08:24 Dose: 40 mg Documented by: Hydromorphone HCl (Hydromorphone Hcl 1 Mg/Ml Syringe) 2 mg IVPUSH Q3H PRN; Protocol PRN Reason: Pain, Severe (Pain Scale 7-10) Last Admin: 08/17/21 08:24 Dose: 2 mg Documented by: Hydroxyzine HCl (Hydroxyzine Hcl 25 Mg Tablet) 25 mg PO Q6H PRN PRN Reason: anxiety/restlessness Cefotetan Disodium 2 gm/ (Sodium Chloride) 50 mls @ 100 mls/hr IV PREOP ONE Stop: 08/17/21 12:29 Piperacillin Sod/Tazobactam (Sod 3.375 gm/ Sodium Chloride) 50 mls @ 100 mls/hr IV Q6H [facility] Last Infusion: 08/17/21 04:54 Dose: Infused Documented by: Doxycycline Hyclate 100 mg/ (Sodium Chloride) 250 mls @ 166.67 mls/hr IV Q12H [facility] Last Infusion: 08/17/21 00:48 Dose: Infused Documented by: Naloxone HCl (Naloxone Hcl 0.4 Mg/Ml Vial) 0.2 mg IVPUSH Q2M PRN PRN Reason: Opiate Reversal Nicotine (Nicotine 21 Mg Patch.Td24) 21 mg TRANSDERMA DAILY [facility] Last Admin: 08/17/21 08:32 Dose: 21 mg Documented by: Nicotine Polacrilex (Nicotine Polacrilex 2 Mg Gum) 2 mg BUCCAL Q2H PRN PRN Reason: smoking Last Admin: 08/16/21 15:31 Dose: 2 mg Documented by: Pharmacy Consult (Consult Rx Etoh Phenob Po Dose) 1 each MISCELLANE ONCE PRN; Protocol PRN Reason: Consult order Pharmacy Consult (Consult Rx Vancomycin Dosing) 1 each MISCELLANE DAILY PRN PRN Reason: Consult order Phenobarbital (Phenobarbital 15 Mg Tablet) 15 mg PO DAILY [facility]; Protocol Stop: 08/18/21 09:01 Last Admin: 08/17/21 08:24 Dose: 15 mg Documented by: Sodium Chloride (0.9 % Sodium Chloride Flush 3 Ml Syringe) [facility] Last Admin: 08/17/21 08:24 Dose: 3 ml Documented by: Home Medications Medication Instructions Recorded Confirmed Last Taken Type No Known Home Meds 08/12/21 08/12/21 Unknown History Exam Exam Date and Time: August 17, 2021 1103 Height,Weight and Vital Signs: Height 5 ft 9 in Weight 65.771 kg Last Vital Signs Temp 99.9 F 08/17/21 10:15 Pulse 97 08/17/21 10:15 Resp 16 08/17/21 10:15 BP 121/86 08/17/21 10:15 Pulse Ox 97 08/17/21 10:15 Pertinent Lab Results Pertinent Lab Results: Laboratory Tests 08/12/21 08/12/21 08/12/21 05:39 05:39 05:42 WBC RBC Hgb Hct MCV MCH MCHC RDW Plt Count MPV Immature Gran % (Auto) Neut % (Auto) Lymph % (Auto) [place] % (Auto) Eos % (Auto) Baso % (Auto) Lymph # (Auto) [place] # (Auto) Eos # (Auto) Baso # (Auto) Abs Immat Gran (auto) Absolute Neuts (auto) Absolute Nucleated RBC Nucleated RBC % (auto) PT INR Sodium Potassium Chloride Carbon Dioxide Anion Gap BUN Creatinine Estim Creat Clear Calc Estimated GFR Random Glucose Lactic Acid 0.7 Calcium Vancomycin Trough COVID-19 (SAFIA) Negative COVID-19 Clin Com See Note Influenza Type A (ELLEN) Negative Influenza Type B (ELLEN) Negative Influenza A & B Note See Note 08/12/21 08/12/21 08/13/21 08:55 08:55 06:40 WBC 9.9 9.7 RBC 4.31 L 4.26 L Hgb 12.1 L 12.0 L Hct 37.4 L 37.1 L MCV 86.8 87.1 MCH 28.1 28.2 MCHC 32.4 32.3 RDW 15.0 14.6 Plt Count 381 424 H MPV 9.1 L 9.6 Immature Gran % (Auto) 0.4 Neut % (Auto) 72.2 Lymph % (Auto) 14.6 L [place] % (Auto) 10.5 Eos % (Auto) 2.0 Baso % (Auto) 0.3 Lymph # (Auto) 1.4 [place] # (Auto) 1.0 Eos # (Auto) 0.2 Baso # (Auto) 0.0 Abs Immat Gran (auto) 0.04 H Absolute Neuts (auto) 7.1 Absolute Nucleated RBC 0.000 0.000 Nucleated RBC % (auto) 0.0 0.0 PT INR Sodium 137 Potassium 4.2 Chloride 104 Carbon Dioxide 28 Anion Gap 9 L BUN 5 L Creatinine 0.65 Estim Creat Clear Calc 141.9 Estimated GFR > 60 Random Glucose 97 Lactic Acid Calcium 8.9 Vancomycin Trough COVID-19 (SAFIA) COVID-19 Clin Com Influenza Type A (ELLEN) Influenza Type B (ELLEN) Influenza A & B Note 08/13/21 08/14/21 08/14/21 06:40 04:32 06:57 WBC 12.6 H RBC 4.30 L Hgb 12.2 L Hct 37.0 L MCV 86.0 MCH 28.4 MCHC 33.0 RDW 14.6 Plt Count 466 H MPV 9.3 L Immature Gran % (Auto) Neut % (Auto) Lymph % (Auto) [place] % (Auto) Eos % (Auto) Baso % (Auto) Lymph # (Auto) [place] # (Auto) Eos # (Auto) Baso # (Auto) Abs Immat Gran (auto) Absolute Neuts (auto) Absolute Nucleated RBC 0.000 Nucleated RBC % (auto) 0.0 PT INR Sodium 136 133 L Potassium 4.7 3.9 Chloride 103 100 Carbon Dioxide 28 26 Anion Gap 10 L 11 L BUN 3 L 5 L D Creatinine 0.63 0.68 Estim Creat Clear Calc 146.4 135.6 Estimated GFR > 60 > 60 Random Glucose 89 95 Lactic Acid Calcium 9.2 8.9 Vancomycin Trough COVID-19 (SAFIA) COVID-19 Clin Com Influenza Type A (ELLEN) Influenza Type B (ELLEN) Influenza A & B Note 08/14/21 08/14/21 08/14/21 06:57 06:57 09:07 WBC RBC Hgb Hct MCV MCH MCHC RDW Plt Count MPV Immature Gran % (Auto) Neut % (Auto) Lymph % (Auto) [place] % (Auto) Eos % (Auto) Baso % (Auto) Lymph # (Auto) [place] # (Auto) Eos # (Auto) Baso # (Auto) Abs Immat Gran (auto) Absolute Neuts (auto) Absolute Nucleated RBC Nucleated RBC % (auto) PT 12.6 INR 1.1 Sodium 135 Potassium 4.1 Chloride 101 Carbon Dioxide 26 Anion Gap 12 BUN 4 L Creatinine 0.71 Estim Creat Clear Calc 129.9 Estimated GFR > 60 Random Glucose 97 Lactic Acid 1.0 Calcium 8.9 Vancomycin Trough COVID-19 (SAFIA) COVID-19 Clin Com Influenza Type A (ELLEN) Influenza Type B (ELLEN) Influenza A & B Note 08/15/21 08/15/21 08/16/21 05:39 05:39 02:10 WBC 8.8 7.6 RBC 3.71 L 4.22 L Hgb 10.5 L 11.9 L Hct 32.5 L 36.5 L MCV 87.6 86.5 MCH 28.3 28.2 MCHC 32.3 32.6 RDW 14.8 14.8 Plt Count 460 H 470 H MPV 9.6 9.1 L Immature Gran % (Auto) Neut % (Auto) Lymph % (Auto) [place] % (Auto) Eos % (Auto) Baso % (Auto) Lymph # (Auto) [place] # (Auto) Eos # (Auto) Baso # (Auto) Abs Immat Gran (auto) Absolute Neuts (auto) Absolute Nucleated RBC 0.000 0.000 Nucleated RBC % (auto) 0.0 0.0 PT INR Sodium 134 L Potassium 4.3 Chloride 103 Carbon Dioxide 25 Anion Gap 10 L BUN 9 D Creatinine 0.64 Estim Creat Clear Calc 144.1 Estimated GFR > 60 Random Glucose 119 H Lactic Acid Calcium 8.4 Vancomycin Trough COVID-19 (SAFIA) COVID-19 Clin Com Influenza Type A (ELLEN) Influenza Type B (ELLEN) Influenza A & B Note 08/16/21 08/16/21 08/17/21 02:10 02:10 01:54 WBC RBC Hgb Hct MCV MCH MCHC RDW Plt Count MPV Immature Gran % (Auto) Neut % (Auto) Lymph % (Auto) [place] % (Auto) Eos % (Auto) Baso % (Auto) Lymph # (Auto) [place] # (Auto) Eos # (Auto) Baso # (Auto) Abs Immat Gran (auto) Absolute Neuts (auto) Absolute Nucleated RBC Nucleated RBC % (auto) PT INR Sodium 137 Potassium 4.8 Chloride 100 Carbon Dioxide 28 Anion Gap 14 BUN 6 L Creatinine 0.66 Estim Creat Clear Calc 139.7 Estimated GFR > 60 Random Glucose 101 Lactic Acid Calcium 9.3 D Vancomycin Trough 4.9 L < 3.0 L COVID-19 (SAFIA) COVID-19 Clin Com Influenza Type A (ELLEN) Influenza Type B (ELLEN) Influenza A & B Note 08/17/21 06:35 WBC RBC Hgb Hct MCV MCH MCHC RDW Plt Count MPV Immature Gran % (Auto) Neut % (Auto) Lymph % (Auto) [place] % (Auto) Eos % (Auto) Baso % (Auto) Lymph # (Auto) [place] # (Auto) Eos # (Auto) Baso # (Auto) Abs Immat Gran (auto) Absolute Neuts (auto) Absolute Nucleated RBC Nucleated RBC % (auto) PT INR Sodium 134 L Potassium 4.5 Chloride 100 Carbon Dioxide 25 Anion Gap 14 BUN 7 L Creatinine 0.63 Estim Creat Clear Calc 146.4 Estimated GFR > 60 Random Glucose 93 Lactic Acid Calcium 8.9 Vancomycin Trough COVID-19 (SAFIA) COVID-19 Clin Com Influenza Type A (ELLEN) Influenza Type B (ELLEN) Influenza A & B Note Airway Mallampati Class: II TM Dist: >3cm Neck ROM: Full Loose/Missing/Broken Teeth: Yes (extremely poor dentition with many loose teeth upper and lower. Patient states almost all teeth are somewhst loose) Heart: [id number] Lungs: cta b/l Assessment and Plan Assessment Anesthesia Assessment: Anesthesia Plan Discussed and Chart Reviewed Final Anesthetic Review Family History of Problems with Anesthesia: No History of Problems with Anesthesia: No NPO: Yes ASA Class: III Final Preanesthetic Review: No Changes in Pt Med Stat, Meds/Allgs Chart Reviewed, Consent Obtained/Reviewed and Anes Risks/Benef Reviewed Patient Risk: Intermediate Procedure Risk: Intermediate Assessment/Block/Sedation in SS: Assess/Block/Sedation-SS Anesthetic Plan Anesthetic Plan: GA and Agree w/ Assess. and Plan Disposition: Standard PACU
--- NOTE | 2021-08-17 15:15 | W.PM.OPN ---
Operative Note Operative Note Date of Service: 08/17/21 Narrative: Preoperative diagnosis: Colovesical fistula Postoperative diagnosis: Same Procedure: Sigmoid colectomy, closure of colovesical fistula, diverting loop ileostomy Surgeon: Manuel Cooper MD; Ezequiel Yip MD; Sampson Benitez MD Recovery Unit Operator: Dulce Kevin PA-C Anesthesia: General endotracheal Indications for procedure: 41-year-old male patient presenting with complaints of pain in the left lower quadrant found to have an abscess with a colovesical fistula. He was treated initially in [place] with the drain placement the presented to the emergency department with pain in the right lower quadrant after removal of the drain. Workup revealed colovesical fistula with probable diverticulitis. Operative findings: Thickened segment of sigmoid colon which was very hard with tight communication to the bladder. Abscess containing stool was identified adjacent to the bladder. No leakage was noted in the bladder with instillation of methylene blue. No obvious diverticulum above and below the area of perforation. Specimen: Sigmoid colon, wound culture Estimated blood loss: 50 mL Complications: None Procedure details: Patient was brought to the OR placed in a supine position. After administering general anesthesia the patient was placed in a lithotomy position. The perianal skin was prepped Betadine in the abdomen prepped with ChloraPrep. This was then draped in a sterile fashion. A surgical time-out was called the consent confirmed. Patient received preoperative antibiotics and Venodyne boots were in place. Local anesthesia consisting of 0.25% Sensorcaine was then infiltrated in the lower midline. Incision was then made in the lower midline with the scalpel. Dense hard inflammation was noted over the bladder consistent with the CT findings. The abdomen was entered however dense adhesions were noted to the bladder and sigmoid colon. The decision was made to convert to an open procedure and not attempt hand assisted laparoscopic procedure. The midline incision was extended above the umbilicus in the abdomen to. A Bookwalter retractor was then placed. The site of the fistula was easily identified. The sigmoid colon and descending colon were then mobilized along the white line of Toldt. The loop of small bowel was found to densely adhered to area of fistulization. This was mobilized by dividing the mesentery above above in well. A KAUSHAL stapler was then used to divide bowel above and below. Was was is was freed a functional end-to-end anastomosis was then performed in the small bowel loops using a KAUSHAL stapler create a [id number] anastomosis followed by a TA stapler to close the enterotomies. The crotch of the anastomosis was secured using 3-0 Surgilon sutures. The mesentery was also closed using 3-0 Surgilon sutures. Attention was then directed to the sigmoid colon which was further mobilized off the bladder. Fistula was identified and gently dissected from above and below. A large opening was noted from the fistula in the colon. No urine however was noted to be leaking from the bladder. A small abscess was encountered containing stool like fluid. This was cultured. Once the sigmoid colon was completely mobilized a curved linear stapler was then used to divide the distal segment of the sigmoid colon and just above the rectosigmoid junction. The proximal wider resection was also divided in a similar fashion using a KAUSHAL stapler and divided the mesentery below this. Bowel was then dissected off its mesentery using LigaSure. Sigmoid vessel was ligated using a 2-0 Polysorb suture. Specimen was removed and sent to pathology for further examination. The distal descending colon was then further mobilized. A pursestring was applied and the bowel sized using the EEA sizers. A 28 anvil was placed in the descending bowel and the pursestring tied off. The EEA stapler was then inserted through the rectum by Dr. Yip. The spike was passed through the staple line and connected to the anvil. The stapler was then fired. An excellent EEA anastomosis was then performed. This was reinforced using 3-0 Surgilon sutures. The anastomosis was then tested by instilling air into the rectum while filling the pelvis with saline solution. No leak could be identified. The abdomen was then thoroughly irrigated and suctioned dry. Inflamed was instilled into the bladder by Dr. Benitez and no bladder leak could be identified. A diverting ileostomy was then performed in the right lower quadrant. A segment distal ileum was identified proximal to the terminal ileum. A circular incision was then made in the right lower quadrant and fascia opened using a cruciate incision. This was then opened into the rectus muscle and peritoneum. This was then dilated with 3 fingers. The loop of ileum was then brought up through this incision and secured in place using a ostomy stay. After assuring adequate hemostasis the fascia was closed in the midline incision using a running 0 PDS suture. Skin was then closed using skin francesco. The ostomy was then opened longitudinally and the ostomy matured using 3-0 Polysorb sutures. Sterile dressings were then applied using 4 x 4 gauze and Tegaderm. An ostomy appliance was then applied as well. The patient tolerated the procedure well. Sponge, instrument, needle counts reported as correct. Patient was transferred to PACU in stable condition.
[2021-08-17] MEDS: HYDROmorphone HCl 0.5 MG/0.5 ML SYRINGE 1 MG IVPUSH ×2 (15:48→17:52)
[2021-08-17] MEDS: ondansetron HCL 4 MG/2 ML VIAL IVPUSH ×2 (15:58→19:38)
[2021-08-17] MEDS: fentaNYL citrate/PF 100 MCG/2 ML VIAL 50 MCG IVPUSH ×3 (16:00→16:19)
--- NOTE | 2021-08-17 19:20 | P.CONCC_ITS ---
History of Present Illness Data of Consult Service Date: 08/17/21 Requesting physician: Ashanti Smith Primary Care Provider: Unknown Physician HPI Reason for consult: Pain management post surgery The patient is a 41 year old male with past medical history of ETOH abuse, and recent history of intraabdominal abscess / colo-vesicular fistula treated with IV antibiotics / IR drainage (in [place]) who presented to the hospital 08/12/21 with worsening abdominal pain. His CT scan from 08/12 shows reaccumulation of his fluid collection. Today he is status post Sigmoid colectomy, closure of colovesical fistula, diverting loop ileostomy. Being admitted in ICU for concerns with pain management and high risk for respiratory failure Review of Systems Constitutional: Constitutional: Reports poor appetite Eyes: Eyes: Denies change in vision ENT: Denies dizziness Cardiovascular: Cardiovascular: Denies chest pain and Denies dyspnea Respiratory: Respiratory: Denies cough and Denies dyspnea Gastrointestinal: Gastrointestinal: Reports abdominal pain, Denies diarrhea, Denies nausea and Denies vomiting Genitourinary: Genitourinary: Denies urinary urgency Musculoskeletal: Musculoskeletal: Denies myalgias Neurologic: Denies dizziness [facility] Past Medical History Medical History Alcohol withdrawal seizure History of drainage of abscess Social History Social History Household Members: None Housing: Homeless Do you presently have visiting nurse or other home services: No Alcohol intake: current Alcohol intake frequency: 3 or more drinks per day Patient Tobacco Use Status: Current everyday Tobacco user Tobacco use type: Cigarette Cigarette Packs Per Day: 2 Cigarettes Per Day: 40.0 Substance Use Type: Marijuana service: No Current occupational status: unemployed Meds Allergies Allergy/AdvReac Type Severity Reaction Status Date / Time cranberry Allergy Hives Verified 08/14/21 12:54 Active Medications: Current Medications Enoxaparin Sodium (Enoxaparin Sodium 40 Mg/0.4 Ml Syringe) 40 mg SUBCUT Q24H KASHMIR Last Admin: 08/16/21 08:24 Dose: 40 mg Documented by: Hydromorphone HCl (Hydromorphone Hcl 1 Mg/Ml Syringe) 2 mg IVPUSH Q3H PRN; Protocol PRN Reason: Pain, Severe (Pain Scale 7-10) Last Admin: 08/17/21 08:24 Dose: 2 mg Documented by: Hydromorphone HCl (Hydromorphone Hcl 2 Mg/Ml Vial) 2 mg IVPUSH Q2H PRN; Protocol PRN Reason: Pain, Severe (Pain Scale 7-10) Hydroxyzine HCl (Hydroxyzine Hcl 25 Mg Tablet) 25 mg PO Q6H PRN PRN Reason: anxiety/restlessness Piperacillin Sod/Tazobactam (Sod 3.375 gm/ Sodium Chloride) 50 mls @ 100 mls/hr IV Q6H [facility] Last Admin: 08/17/21 18:37 Dose: Not Given Documented by: Doxycycline Hyclate 100 mg/ (Sodium Chloride) 250 mls @ 166.67 mls/hr IV Q12H [facility] Last Admin: 08/17/21 18:37 Dose: Not Given Documented by: Acetaminophen (Ofirmev) 1,000 mg in 100 mls @ 400 mls/hr IV Q6H [facility] Naloxone HCl (Naloxone Hcl 0.4 Mg/Ml Vial) 0.2 mg IVPUSH Q2M PRN PRN Reason: Opiate Reversal Nicotine (Nicotine 21 Mg Patch.Td24) 21 mg TRANSDERMA DAILY [facility] Last Admin: 08/17/21 08:32 Dose: 21 mg Documented by: Nicotine Polacrilex (Nicotine Polacrilex 2 Mg Gum) 2 mg BUCCAL Q2H PRN PRN Reason: smoking Last Admin: 08/16/21 15:31 Dose: 2 mg Documented by: Ondansetron HCl (Ondansetron Hcl 4 Mg/2 Ml Vial) 4 mg IVPUSH Q6H PRN PRN Reason: Nausea and Vomiting Pharmacy Consult (Consult Rx Etoh Phenob Po Dose) 1 each MISCELLANE ONCE PRN; Protocol PRN Reason: Consult order Pharmacy Consult (Consult Rx Vancomycin Dosing) 1 each MISCELLANE DAILY PRN PRN Reason: Consult order Phenobarbital (Phenobarbital 15 Mg Tablet) 15 mg PO DAILY [facility]; Protocol Stop: 08/18/21 09:01 Last Admin: 08/17/21 08:24 Dose: 15 mg Documented by: Sodium Chloride (0.9 % Sodium Chloride Flush 3 Ml Syringe) 3 ml IVFLUSH QSHIFT [facility] Last Admin: 08/17/21 18:37 Dose: Not Given Documented by: Home Medications Medication Instructions Recorded Confirmed Last Taken Type No Known Home Meds 08/12/21 08/12/21 Unknown History Physical Exam Vital Signs: Vital Signs: Last Vital Signs Temp 98.3 F 08/17/21 17:54 Pulse 94 08/17/21 17:54 Resp 14 08/17/21 17:54 BP 144/93 H 08/17/21 17:54 Pulse Ox 99 08/17/21 17:54 BMI result Body Mass Index 21.4 Constitutional: Alert, non resp distress Mental Status: Oriented to person, place and time. Head: Normocephalic. Eyes: Pupils are equal, round and reactive to light. Extraocular muscles intact. Ear, Nose and Throat: Oropharynx clear, mucous membranes moist. Ears and nose without masses, lesions or deformities. Trachea midline. Neck: Supple, Full range of motion. Respiratory: Lungs CTA, SATTING 100% ON 3 l via NC .? Cardiovascular: S1 S2 regular. No murmurs, rubs or gallops. Gastrointestinal: abdoment tender to touch, stoma pink no redness around skin. Hypoactive bowel sounds in all quadrants. Genitourinary: No costovertebral angle tenderness. Neurologic: Cranial nerves II-XII grossly intact. No focal neurological deficits. Moves all extremities spontaneously. Sensation intact bilaterally. Skin: No rashes or lesions. No petechiae or purpura. Musculoskeletal: No cyanosis or clubbing. No gross deformities. Normal range of motion. Heme/Lymphatics/Immun: Palpation of neck reveals no swelling or tenderness of neck nodes. Psychiatric: Normal mood and affect Results Labs CBC & Chem 7: 08/16/21 02:10 08/17/21 06:35 Labs: BMP 08/17/21 06:35 Sodium 134 L Potassium 4.5 Chloride 100 Carbon Dioxide 25 BUN 7 L Creatinine 0.63 Calcium 8.9 Microbiology Microbiology Results: Microbiology 08/17/21 Unknown Abdomen - Temporal Gram Stain - Final 08/12/21 05:41 Blood - Venous Blood Culture - Final No growth after 5 days. 08/12/21 05:42 Blood - Venous Blood Culture - Final No growth after 5 days. 08/14/21 08:01 Blood - Venous Blood Culture - Preliminary No growth after 48 hours. 08/14/21 08:01 Blood - Venous Blood Culture - Preliminary No growth after 48 hours. Assessment and Plan (1) [place]-vesical fistula: Status: Acute (2) Diverticulitis: Status: Acute (3) Acute pain: Status: Acute (4) Alcohol withdrawal: Status: Acute (5) Fistula: Status: Acute (6) Abscess: Status: Acute (7) Acute UTI: Status: Acute Plan colo-vesicular fistula status post sigmoid colectomy, closure of colovesical fistula, diverting loop ileostomy. admitted to icu for pain management. Critical Care Time Critical Care Time (minutes): 30
[2021-08-17] MEDS: HYDROmorphone HCl 2 MG/ML VIAL IVPUSH ×3 (19:41→23:59)
--- NOTE | 2021-08-17 21:28 | PM.UROCN ---
History of Present Illness Consult details Consult date: 08/14/21 Narrative: Aiden is a 41-year-old male Admitted to hospital with question of colovesical fistula Had originally been seen in [place] with abdominal pain Treated with antibiotics Then evaluated at [facility] with UTI Came back to [place] since family from [facility] with potential abscess and phlegmon Gold catheter placed since also with left epididymitis Catheter did end up training debris consistent with colovesical fistula Plan for drainage and resection next week Review of Systems Constitutional: Constitutional: Denies chills and Denies fever(s) Cardiovascular: Cardiovascular: Reports no additional cardiovascular complaints and Denies syncope Respiratory: Respiratory: Denies cough Gastrointestinal: Gastrointestinal: Denies abdominal pain and Denies heartburn Genitourinary: Genitourinary: Reports as per HPI and Denies change in libido Neurologic: Denies syncope Psychiatric: Psychiatric: Denies change in libido Endocrine: Endocrine: Denies change in libido REPLACED BY [facility] Past Medical History Medical History Alcohol withdrawal seizure History of drainage of abscess Social History Social History Household Members: None Housing: Homeless Do you presently have visiting nurse or other home services: No Alcohol intake: current Alcohol intake frequency: 3 or more drinks per day Patient Tobacco Use Status: Current everyday Tobacco user Tobacco use type: Cigarette Cigarette Packs Per Day: 2 Cigarettes Per Day: 40.0 Substance Use Type: Marijuana service: No Current occupational status: unemployed Meds Allergies Allergy/AdvReac Type Severity Reaction Status Date / Time cranberry Allergy Hives Verified 08/14/21 12:54 Active Medications: Current Medications Enoxaparin Sodium (Enoxaparin Sodium 40 Mg/0.4 Ml Syringe) 40 mg SUBCUT Q24H [facility] Last Admin: 08/16/21 08:24 Dose: 40 mg Documented by: Hydromorphone HCl (Hydromorphone Hcl 2 Mg/Ml Vial) 2 mg IVPUSH Q2H PRN; Protocol PRN Reason: Pain, Severe (Pain Scale 7-10) Last Admin: 08/17/21 19:41 Dose: 2 mg Documented by: Hydroxyzine HCl (Hydroxyzine Hcl 25 Mg Tablet) 25 mg PO Q6H PRN PRN Reason: anxiety/restlessness Piperacillin Sod/Tazobactam (Sod 3.375 gm/ Sodium Chloride) 50 mls @ 100 mls/hr IV Q6H [facility] Last Admin: 08/17/21 18:37 Dose: Not Given Documented by: Doxycycline Hyclate 100 mg/ (Sodium Chloride) 250 mls @ 166.67 mls/hr IV Q12H [facility] Last Admin: 08/17/21 18:37 Dose: Not Given Documented by: Acetaminophen (Ofirmev) 1,000 mg in 100 mls @ 400 mls/hr IV Q6H [facility] Naloxone HCl (Naloxone Hcl 0.4 Mg/Ml Vial) 0.2 mg IVPUSH Q2M PRN PRN Reason: Opiate Reversal Nicotine (Nicotine 21 Mg Patch.Td24) 21 mg TRANSDERMA DAILY [facility] Last Admin: 08/17/21 08:32 Dose: 21 mg Documented by: Nicotine Polacrilex (Nicotine Polacrilex 2 Mg Gum) 2 mg BUCCAL Q2H PRN PRN Reason: smoking Last Admin: 08/16/21 15:31 Dose: 2 mg Documented by: Ondansetron HCl (Ondansetron Hcl 4 Mg/2 Ml Vial) 4 mg IVPUSH Q6H PRN PRN Reason: Nausea and Vomiting Last Admin: 08/17/21 19:38 Dose: 4 mg Documented by: Pharmacy Consult (Consult Rx Etoh Phenob Po Dose) 1 each MISCELLANE ONCE PRN; Protocol PRN Reason: Consult order Pharmacy Consult (Consult Rx Vancomycin Dosing) 1 each MISCELLANE DAILY PRN PRN Reason: Consult order Phenobarbital (Phenobarbital 15 Mg Tablet) 15 mg PO DAILY [facility]; Protocol Stop: 08/18/21 09:01 Last Admin: 08/17/21 08:24 Dose: 15 mg Documented by: Sodium Chloride (0.9 % Sodium Chloride Flush 3 Ml Syringe) 3 ml IVFLUSH QSHIFT [facility] Last Admin: 08/17/21 18:37 Dose: Not Given Documented by: Home Medications Medication Instructions Recorded Confirmed Last Taken Type No Known Home Meds 08/12/21 08/12/21 Unknown History Physical Exam Vital Signs: Vital Signs: Last Vital Signs Temp 98 F 08/17/21 18:34 Pulse 102 H 08/17/21 21:00 Resp 9 L 08/17/21 21:00 BP 147/94 H 08/17/21 21:00 Pulse Ox 98 08/17/21 21:00 BMI result Body Mass Index 21.4 Const: General: cooperative, healthy appearing, comfortable and no acute distress Orientation/consciousness: patient oriented x3 HEENT: Face and sinus: Yes normal facial exam Mouth: moist mucous membranes Neck: Neck: Yes normal visual inspection, Yes full ROM and Yes trachea midline Chest: Chest palpation & inspection: normal inspection of the chest Resp: Effort & Inspection: normal respiratory effort, able to speak in complete sentences and no respiratory distress GI: Inspection: Yes normal to inspection Back/Spine/Pelvis: Cervical Spine: normal cervical lordosis Thoracic/Lumbar Spine: thoracic and lumbar spine normal to inspection Skin: General skin exam: no rashes or lesions noted Neuro: General: patient oriented x3, gait normal, tone normal and moves all extremities Extrem: General: Yes normal to inspection and Yes capillary refill normal Results Labs Result diagrams: 08/16/21 02:10 08/17/21 06:35 Labs: Abnormal lab results 08/17/21 08/17/21 Range/Units 01:54 06:35 Sodium 134 L (135-145) mmol/L BUN 7 L (9-16) mg/dL Vancomycin Trough < 3.0 L (10.0-20.0) mcg/mL BMP 08/17/21 06:35 Sodium 134 L Potassium 4.5 Chloride 100 Carbon Dioxide 25 BUN 7 L Creatinine 0.63 Calcium 8.9 All other labs normal. Assessment and Plan (1) Epididymitis: Status: Acute (2) [place]-vesical fistula: Status: Acute (3) Diverticulitis: Status: Acute Plan Gold catheter placed Epididymitis with IV antibiotics Plan for surgery early next week Procedures Date of Service Date of Service: 08/14/21
[2021-08-17] MEDS: Doxycycline Hyclate 100 MG in 0.9 % Sodium Chloride 250 ML 166 MG IV (22:02)
--- NOTE | 2021-08-17 23:52 | PC.NURSE ---
Shift eval 6p-11p - Received patient at approx 1830 from PACU to ICU 261. Pt post op resection, illeostomy placement. Abd midline dressing CDI. Right mid/upper illeostomy - no drainage yet. Stoma pink, moist, protruding approx 2cm from abd, about the size of a gaurang. Patient abd very tender - bowel sounds hypoactive throughout. Patient increase agitation r/t pain - moaning. Patient settled in bed, vitals stable. Afebrile. Urine - green/blue, 300ml when emptied by PACU. Another 400ml hour at 11pm turning more yellow/green. Patient medicated for pain w/ 2mg IVP dilaudid x2 @ 1940 & 2154 with good effect. Patient sleeping after each dose. staying at bedside. Patient high fall risk per protocol.
[2021-08-18] VITALS (19 sets, daily range): BP systolic 137–156; BP diastolic 90–102; PULSE 94–111; RESP 11–20; TEMP 36.1–36.7; O2SAT 97–100
[2021-08-18] MEDS: HYDROmorphone HCl 2 MG/ML VIAL IVPUSH ×8 (02:03→23:33)
[2021-08-18] MEDS: ondansetron HCL 4 MG/2 ML VIAL IVPUSH ×2 (02:08→17:35)
[2021-08-18] MEDS: fentaNYL citrate/PF 100 MCG/2 ML VIAL 50 MCG IVPUSH (03:13)
[2021-08-18] MEDS: Piperacillin Sodium/Tazobactam 3.375 GM in 0.9 % Sodium Chloride 50 ML IV ×4 (04:08→21:33)
--- NOTE | 2021-08-18 04:21 | PC.NURSE ---
CARE ASSUMED 23:15..AWAKE..ALERT..ORIENTED X3..RESPIRATIONS EASY..SAO2 98% WITH O2 3 L/M..ABDOMINAL DRESSING DRY/INTACT...ILEOSTOMY STOMA PINK...SCANT/MINIMAL SEROSANGUINOIS DRAINAGE..ESCALANTE YELLOW URINE..ABDOMEN FEW HYPOACTIVE BOWEL SOUNDS...REMAINS WITH 10/10 ABDOMINAL PAIN PER PATIENT...MEDICATED WITH PRN DILAUDID 2MG IVP APPROX Q2H PER MAY...DOZES FOR 45 THEN AWAKE AND C/O PERSISTANT PAIN..ICU USED CAR MANAGER PRESENT AND AWARE...FENTANYL 50 MCG IVPX1 PER USED CAR MANAGER..SCHEDULED TYLENOL 1000MG IV PER MAY...
[2021-08-18 05:52] LABS: VBG Base Excess 4.4 mmol/L; VBG HCO3 26 mmol/L (22-26); VBG pCO2 32 mmHg; VBG pH 7.52 (7.32-7.43); VBG pO2 60 mmHg
[2021-08-18 06:00] LABS: MANUAL DIFF FLAG NO
[2021-08-18 06:04] LABS: Basophils Percent Auto 0.1 % (0-2); Hematocrit 37.9 % (42.0-52.0); Hemoglobin 12.7 g/dl (14.0-18.0); Imm Gran Abs Auto 0.05 X10*3/uL (0.00-0.03); Imm Gran Pct Auto 0.4 % (0.0-0.4); Lymphocytes Absolute Auto 0.6 X10*3/uL (1.2-4.9); Lymphocytes Percent Auto 5.1 % (20-40); Mean Corpuscular HGB Conc 33.5 g/dl (31.0-36.0); Mean Corpuscular Hemoglobin 28.1 pg (27.0-33.0); Mean Corpuscular Volume 83.8 fL (80.0-98.0); Monocytes Absolute Auto 0.8 X10*3/uL (0.1-1.2); Monocytes Percent Auto 6.7 % (2-11); Neutrophils Absolute Auto 9.9 x10*3/uL (2.0-8.3); Neutrophils Percent Auto 87.7 % (45-73); Platelet Count 529 X10*3/uL (160-400); Red Blood Count 4.52 X10*6/uL (4.60-5.80); Red Cell Distribution Width 14.4 % (11.0-16.0); White Blood Count 11.3 X10*3/uL (4.8-10.8)
[2021-08-18 06:09] LABS: Venous Blood Gas Refer to POC result
[2021-08-18 06:22] LABS: Albumin Level 3.2 g/dL (3.5-5.0); Anion Gap 16 (12-20); Blood Urea Nitrogen 5 mg/dL (9-16); Calcium 9.1 mg/dL (8.4-10.2); Carbon Dioxide 24 mmol/L (22-29); Chloride 96 mmol/L (96-108); Creatinine Clr Calc Pharmacy 151.2; Estimated Glomerular Filt Rate > 60; Glucose Random 135 mg/dL (60-115); Potassium 4.8 mmol/L (3.3-5.1); Sodium 131 mmol/L (135-145)
[2021-08-18 06:26] LABS: Alanine Aminotransferase 12 U/L (0-40); Albumin Level 3.2 g/dL (3.5-5.0); Alkaline Phosphatase 81 U/L (39-117); Aspartate Amino Transferase 11 U/L (5-37); Bilirubin Direct 0.3 mg/dL (0.0-0.5); Bilirubin Total 0.5 mg/dL (0.0-1.0); Magnesium 1.8 mg/dL (1.6-2.6); Phosphorus 4.8 mg/dL (2.7-4.5); Total Protein 6.3 g/dL (6.5-8.0)
--- NOTE | 2021-08-18 07:23 | HO.POSTANES ---
Post Anesthesia Evaluation Post Anesthesia Evaluation Vital Signs: Vital Signs Temp Pulse Resp BP Pulse Ox 08/18/21 07:00 97 143/93 H 97 08/18/21 06:00 96 16 137/93 H 98 08/18/21 04:58 95 12 147/93 H 97 08/18/21 03:56 99 14 153/102 H 98 08/18/21 03:00 111 H 15 153/102 H 99 08/18/21 01:56 100 13 147/98 H 99 08/18/21 01:00 109 H 15 147/98 H 99 08/18/21 00:00 97 11 L 150/95 H 97 08/17/21 23:52 97.9 F 100 16 98 08/17/21 23:00 100 13 144/96 H 98 08/17/21 22:00 105 H 14 138/92 H 98 08/17/21 21:00 102 H 9 L 147/94 H 98 08/17/21 20:00 108 H 13 131/92 H 98 Anesthesia: General Endotracheal-GETA Mental Status: Awake Pain Control: Satisfactory (pain difficult to control throughout the night) Nausea/Vomiting: Mild Hydration: Adequate Anesthesia-Related Issues: No Anes. Related Issues
--- NOTE | 2021-08-18 08:04 | PM.PNGS ---
Subjective Subjective Date of Service: 08/18/21 Interval history: Patient sleep this morning and appears comfortable. He was woken and complained of abdominal pain. Physical Exam Vital Signs: Vital Signs: Last Vital Signs Temp 97.9 F 08/17/21 23:52 Pulse 97 08/18/21 07:00 Resp 12 08/18/21 06:00 BP 143/93 H 08/18/21 07:00 Pulse Ox 97 08/18/21 07:00 BMI result Body Mass Index 21.4 Const: General: lethargic Nutritional Appearance: thin Orientation/consciousness: lethargic Resp: Effort & Inspection: normal respiratory effort GI: Other: Midline incision is clean, dry, and intact. Ostomy in the right side is pink and viable. No stool or gas noted. Extrem: Other: No pedal edema Objective Data Active Medications Enoxaparin Sodium (Enoxaparin Sodium 40 Mg/0.4 Ml Syringe) 40 mg SUBCUT Q24H [facility] Last Admin: 08/16/21 08:24 Dose: 40 mg Documented by: ELIU Hydromorphone HCl (Hydromorphone Hcl 2 Mg/Ml Vial) 2 mg IVPUSH Q2H PRN; Protocol PRN Reason: Pain, Severe (Pain Scale 7-10) Last Admin: 08/18/21 06:10 Dose: 2 mg Documented by: THELMA Hydroxyzine HCl (Hydroxyzine Hcl 25 Mg Tablet) 25 mg PO Q6H PRN PRN Reason: anxiety/restlessness Piperacillin Sod/Tazobactam (Sod 3.375 gm/ Sodium Chloride) 50 mls @ 100 mls/hr IV Q6H [facility] Last Infusion: 08/18/21 05:04 Dose: 0 mls/hr Documented by: THELMA Doxycycline Hyclate 100 mg/ (Sodium Chloride) 250 mls @ 166.67 mls/hr IV Q12H [facility] Last Infusion: 08/17/21 23:41 Dose: 0 mls/hr Documented by: THELMA Acetaminophen (Ofirmev) 1,000 mg in 100 mls @ 400 mls/hr IV Q6H [facility] Last Infusion: 08/18/21 04:33 Dose: 0 mls/hr Documented by: THELMA Naloxone HCl (Naloxone Hcl 0.4 Mg/Ml Vial) 0.2 mg IVPUSH Q2M PRN PRN Reason: Opiate Reversal Nicotine (Nicotine 21 Mg Patch.Td24) 21 mg TRANSDERMA DAILY [facility] Last Admin: 08/17/21 08:32 Dose: 21 mg Documented by: DOROTHEA Nicotine Polacrilex (Nicotine Polacrilex 2 Mg Gum) 2 mg BUCCAL Q2H PRN PRN Reason: smoking Last Admin: 08/16/21 15:31 Dose: 2 mg Documented by: GERSON Ondansetron HCl (Ondansetron Hcl 4 Mg/2 Ml Vial) 4 mg IVPUSH Q6H PRN PRN Reason: Nausea and Vomiting Last Admin: 08/18/21 02:08 Dose: 4 mg Documented by: THELMA Pharmacy Consult (Consult Rx Etoh Phenob Po Dose) 1 each MISCELLANE ONCE PRN; Protocol PRN Reason: Consult order Pharmacy Consult (Consult Rx Vancomycin Dosing) 1 each MISCELLANE DAILY PRN PRN Reason: Consult order Phenobarbital (Phenobarbital 15 Mg Tablet) 15 mg PO DAILY [facility]; Protocol Stop: 08/18/21 09:01 Last Admin: 08/17/21 08:24 Dose: 15 mg Documented by: DOROTHEA Sodium Chloride (0.9 % Sodium Chloride Flush 3 Ml Syringe) 3 ml IVFLUSH QSHIFT [facility] Last Admin: 08/17/21 23:31 Dose: 3 ml Documented by: THELMA Labs CBC & Chem 7: 08/18/21 05:48 08/18/21 05:48 Labs: Laboratory Results - last 24 hr 08/18/21 08/18/21 08/18/21 05:44 05:48 05:48 MCV 83.8 MCH 28.1 MCHC 33.5 RDW 14.4 Plt Count 529 H MPV 9.0 L Immature Gran % (Auto) 0.4 Neut % (Auto) 87.7 H Lymph % (Auto) 5.1 L [place] % (Auto) 6.7 Eos % (Auto) 0.0 Baso % (Auto) 0.1 Lymph # (Auto) 0.6 L [place] # (Auto) 0.8 Eos # (Auto) 0.0 Baso # (Auto) 0.0 Abs Immat Gran (auto) 0.05 H Absolute Neuts (auto) 9.9 H Absolute Nucleated RBC 0.000 Nucleated RBC % (auto) 0.0 VBG pH 7.52 H VBG pCO2 32 VBG pO2 60 VBG HCO3 26 VBG O2 Saturation 88.0 VBG Base Excess 4.4 Anion Gap 16 Estim Creat Clear Calc 151.2 Estimated GFR > 60 Random Glucose 135 H D Calcium 9.1 Phosphorus Magnesium Total Bilirubin Direct Bilirubin AST ALT Alkaline Phosphatase Total Protein Albumin 3.2 L 08/18/21 05:48 MCV MCH MCHC RDW Plt Count MPV Immature Gran % (Auto) Neut % (Auto) Lymph % (Auto) [place] % (Auto) Eos % (Auto) Baso % (Auto) Lymph # (Auto) [place] # (Auto) Eos # (Auto) Baso # (Auto) Abs Immat Gran (auto) Absolute Neuts (auto) Absolute Nucleated RBC Nucleated RBC % (auto) VBG pH VBG pCO2 VBG pO2 VBG HCO3 VBG O2 Saturation VBG Base Excess Anion Gap Estim Creat Clear Calc Estimated GFR Random Glucose Calcium Phosphorus 4.8 H Magnesium 1.8 Total Bilirubin 0.5 Direct Bilirubin 0.3 AST 11 ALT 12 Alkaline Phosphatase 81 Total Protein 6.3 L Albumin 3.2 L Microbiology Microbiology Results: Microbiology 08/17/21 Unknown Gram Stain - Final Abdomen - Temporal 08/12/21 05:41 Blood Culture - Final Blood - Venous No growth after 5 days. 08/12/21 05:42 Blood Culture - Final Blood - Venous No growth after 5 days. Procedures Date of Service Date of Service: 08/18/21 Progress Note: A&P Assessment and plan (1) [place]-vesical fistula: Status: Acute (2) S/P partial resection of colon: Status: Acute Plan 41-year-old male presenting with a colovesical fistula, pod 1 following sigmoid colectomy, closure of colovesical fistula, and diverting loop ileostomy. Pain control remains a problem and he was observed in the ICU due to increased narcotic requirements. Patient currently on Dilaudid 2 mg Q 2 hours. He is also on IV Tylenol. A.m. laboratories noted. Patient on clear liquids today. Time Spent With Patient Time: Total time spent is greater than 50% in coordination of care (as documented) at patient's floor/unit and/or counseling patient: Quality Stroke Does the patient have a stroke diagnosis?: No VTE Prior VTE?: No VTE Risk Level:: Medical - moderate - high VTE Device Contraindication: Treatment Not Indicated VTE Drug Contraindication: N/A - Med Ordered
[2021-08-18] MEDS: PHENobarbitaL 15 MG TABLET PO (09:26)
[2021-08-18] MEDS: Nicotine 21 MG PATCH.TD24 TRANSDERMA (09:28)
[2021-08-18] MEDS: Doxycycline Hyclate 100 MG in 0.9 % Sodium Chloride 250 ML 166 MG IV ×2 (10:12→22:21)
[2021-08-18] MEDS: fentaNYL citrate/PF 100 MCG/2 ML VIAL IVPUSH (10:12)
--- NOTE | 2021-08-18 10:54 | PC.NURSE ---
Pt c/o abd and back pain throughout the shift and exp increased CIWA. informed. prn pain meds administered as ordered w/ + effect. Pt repositioned in bed Q2 as tolerated d/t pain. Pt stated repositioning helped w/ back pain. Ileostomy intact, small amount of fruit punch colored drainage. Mid abd dressing from surgical wound intact. informed of inflammation from surgical site w/ 'lump' under dressing/ileostomy. b/l IVs intact. at bedside, family visited per protocol. safety and fall precautions in place. Pt was unable to be weaned off O2 this AM, began to desat to low 80s and c/o feeling SOB. pt filling out HCP form at bedside.
--- NOTE | 2021-08-18 11:12 | PM.CCPN ---
Subjective Subjective Date of Service: 08/18/21 Interval History: 41-year-old gentleman with underlying history of alcohol dependence and prior withdrawal, recent history of intra-abdominal abscess further complicated by colovesicular fistula admitted on 08/12/2021 with worsening abdominal pain secondary to worsening colovesicular fistula/abscess, now status post closure of colovesicular fistula with colectomy and diverting loop ileostomy on 08/17/2021 monitored in the intensive care unit overnight secondary to concerns for hypoxia. No events overnight. No episodes of hypoxia. Critical Care Time (minutes): 0 Physical Exam Vital Signs: Vital Signs: Last Vital Signs Temp 97.8 F 08/18/21 09:38 Pulse 102 H 08/18/21 09:00 Resp 12 08/18/21 09:00 BP 145/98 H 08/18/21 09:00 Pulse Ox 97 08/18/21 09:00 BMI result Body Mass Index 21.4 Const: General: no acute distress, alert and awake Eyes: Sclerae: sclerae normal EOM: EOMs intact bilaterally Neck: Neck: Yes no lymphadenopathy, Yes trachea midline and Yes supple Resp: Effort & Inspection: normal respiratory effort and no respiratory distress Auscultation: clear to auscultation bilaterally Cardio: Rate: regular rate Rhythm: regular rhythm Heart sounds: no gallops, no murmurs and no rubs GI: Inspection: Yes other (Ostomy) Palpation (GI): Soft to palpation and Other GI palpation findings present ( Nontender) Auscultation: Hypoactive bowel sounds present Extrem: General: Yes no pedal edema, No clubbing and No cyanosis Objective Data Labs CBC & Chem 7: 08/18/21 05:48 08/18/21 05:48 Labs: Laboratory Results - last 24 hr 08/18/21 08/18/21 08/18/21 05:44 05:48 05:48 WBC 11.3 H RBC 4.52 L Hgb 12.7 L Hct 37.9 L MCV 83.8 MCH 28.1 MCHC 33.5 RDW 14.4 Plt Count 529 H MPV 9.0 L Immature Gran % (Auto) 0.4 Neut % (Auto) 87.7 H Lymph % (Auto) 5.1 L [place] % (Auto) 6.7 Eos % (Auto) 0.0 Baso % (Auto) 0.1 Lymph # (Auto) 0.6 L [place] # (Auto) 0.8 Eos # (Auto) 0.0 Baso # (Auto) 0.0 Abs Immat Gran (auto) 0.05 H Absolute Neuts (auto) 9.9 H Absolute Nucleated RBC 0.000 Nucleated RBC % (auto) 0.0 VBG pH 7.52 H VBG pCO2 32 VBG pO2 60 VBG HCO3 26 VBG O2 Saturation 88.0 VBG Base Excess 4.4 Sodium 131 L Potassium 4.8 Chloride 96 Carbon Dioxide 24 Anion Gap 16 BUN 5 L Creatinine 0.61 Estim Creat Clear Calc 151.2 Estimated GFR > 60 Random Glucose 135 H D Calcium 9.1 Phosphorus Magnesium Total Bilirubin Direct Bilirubin AST ALT Alkaline Phosphatase Total Protein Albumin 3.2 L 08/18/21 05:48 WBC RBC Hgb Hct MCV MCH MCHC RDW Plt Count MPV Immature Gran % (Auto) Neut % (Auto) Lymph % (Auto) [place] % (Auto) Eos % (Auto) Baso % (Auto) Lymph # (Auto) [place] # (Auto) Eos # (Auto) Baso # (Auto) Abs Immat Gran (auto) Absolute Neuts (auto) Absolute Nucleated RBC Nucleated RBC % (auto) VBG pH VBG pCO2 VBG pO2 VBG HCO3 VBG O2 Saturation VBG Base Excess Sodium Potassium Chloride Carbon Dioxide Anion Gap BUN Creatinine Estim Creat Clear Calc Estimated GFR Random Glucose Calcium Phosphorus 4.8 H Magnesium 1.8 Total Bilirubin 0.5 Direct Bilirubin 0.3 AST 11 ALT 12 Alkaline Phosphatase 81 Total Protein 6.3 L Albumin 3.2 L Microbiology Microbiology Results: Microbiology 08/17/21 Unknown Abdomen - Temporal Gram Stain - Final 08/17/21 Unknown Abdomen - Temporal Routine Culture - Preliminary Culture in progress. 08/12/21 05:41 Blood - Venous Blood Culture - Final No growth after 5 days. 08/12/21 05:42 Blood - Venous Blood Culture - Final No growth after 5 days. 08/14/21 08:01 Blood - Venous Blood Culture - Preliminary No growth after 48 hours. 08/14/21 08:01 Blood - Venous Blood Culture - Preliminary No growth after 48 hours. Progress Note: A&P Assessment and plan (1) [place]-vesical fistula: Status: Acute (2) S/P partial resection of colon: Status: Acute Plan Assessment: 41-year-old gentleman with underlying abdominal abscess/colovesicular fistula status post surgical repair on 08/17/2021 monitored in the intensive care unit to the immediate postoperative period Plan: Neuro: No acute issues. Cardiac: No acute issues. Pulmonary: No acute issues. Renal: No acute issues. Endo: No acute issues. GI: Colovesicular fistula/abdominal abscess, status post surgical repair on 08/17/2021 with colectomy and ileostomy. General surgery care appreciated. ID: No acute issues Heme/Onc: No acute issues. Psych: No acute issues. Miscellaneous: Continue with pain control. Prophylaxis: Lovenox Diet: Clear liquids Quality Stroke Does the patient have a stroke diagnosis?: No VTE Prior VTE?: No VTE Risk Level:: Medical - moderate - high VTE Device Contraindication: Treatment Not Indicated VTE Drug Contraindication: N/A - Med Ordered
--- NOTE | 2021-08-18 13:01 | MHC.CM.PN ---
CM received message from fs that pt's [employer] is now active and pt has [employer], info sent to patient registration and CM membership secretary who will schedule a pcp appt w/Braden Anderson per discussion w/previous CM.
--- NOTE | 2021-08-18 15:42 | PC.NURSE ---
PT ARRIVED ON UNIT AT 1340. TRANS VIA BED. FAMILY AT BEDSIDE. ORIENTED TO UNIT. MEDICATED WITH DILAUDID 2MG IV AT 1400 FOR 10/10 INCISIONAL PAIN. AFTER WHICH HE FELL ASLEEP.. ABD DSG D&I, OSTOMY ALSO INTACT.
[2021-08-18] MEDS: 0.9 % Sodium Chloride Flush 3 ML SYRINGE IVFLUSH ×2 (16:33→20:17)
[2021-08-18] MEDS: Nicotine Polacrilex 2 MG GUM BUCCAL (18:35)
[2021-08-18 20:21] LABS: Glucose, Whole Blood 120 mg/dL (60-115)
[2021-08-19] VITALS (7 sets, daily range): BP systolic 130–143; BP diastolic 81–99; PULSE 84–102; RESP 17–20; TEMP 36.3–37.3; O2SAT 97–99
[2021-08-19] MEDS: HYDROmorphone HCl 2 MG/ML VIAL IVPUSH ×6 (02:36→22:18)
[2021-08-19] MEDS: ondansetron HCL 4 MG/2 ML VIAL IVPUSH ×3 (02:41→19:30)
[2021-08-19] MEDS: Piperacillin Sodium/Tazobactam 3.375 GM in 0.9 % Sodium Chloride 50 ML IV ×4 (04:15→21:02)
[2021-08-19 06:18] LABS: MANUAL DIFF FLAG NO
[2021-08-19 06:42] LABS: Basophils Percent Auto 0.1 % (0-2); Eosinophils Percent Auto 0.1 % (0-4); Hematocrit 33.9 % (42.0-52.0); Hemoglobin 11.4 g/dl (14.0-18.0); Imm Gran Abs Auto 0.06 X10*3/uL (0.00-0.03); Imm Gran Pct Auto 0.4 % (0.0-0.4); Lymphocytes Absolute Auto 0.9 X10*3/uL (1.2-4.9); Lymphocytes Percent Auto 6.6 % (20-40); Mean Corpuscular HGB Conc 33.6 g/dl (31.0-36.0); Mean Corpuscular Hemoglobin 28.1 pg (27.0-33.0); Mean Corpuscular Volume 83.5 fL (80.0-98.0); Monocytes Absolute Auto 1.3 X10*3/uL (0.1-1.2); Monocytes Percent Auto 9.7 % (2-11); Neutrophils Absolute Auto 11.2 x10*3/uL (2.0-8.3); Neutrophils Percent Auto 83.1 % (45-73); Platelet Count 494 X10*3/uL (160-400); Red Blood Count 4.06 X10*6/uL (4.60-5.80); Red Cell Distribution Width 14.4 % (11.0-16.0); White Blood Count 13.5 X10*3/uL (4.8-10.8)
[2021-08-19 06:46] LABS: Anion Gap 14 (12-20); Blood Urea Nitrogen 7 mg/dL (9-16); Calcium 9.1 mg/dL (8.4-10.2); Carbon Dioxide 26 mmol/L (22-29); Chloride 97 mmol/L (96-108); Creatinine Clr Calc Pharmacy 148.8; Estimated Glomerular Filt Rate > 60; Glucose Random 128 mg/dL (60-115); Magnesium 2.1 mg/dL (1.6-2.6); Phosphorus 3.5 mg/dL (2.7-4.5); Potassium 4.5 mmol/L (3.3-5.1); Sodium 132 mmol/L (135-145)
[2021-08-19] MEDS: Nicotine 21 MG PATCH.TD24 TRANSDERMA (08:53)
[2021-08-19] MEDS: 0.9 % Sodium Chloride Flush 3 ML SYRINGE IVFLUSH ×2 (08:53→15:54)
[2021-08-19] MEDS: Nicotine Polacrilex 2 MG GUM BUCCAL ×2 (09:39→21:02)
--- NOTE | 2021-08-19 11:12 | MHC.CM.PN ---
Per ROUNDS discussion, Patient is not yet medically cleared for dc (IV Acetaminophen, IV Dilaudid, IV Zofran, IV Zosyn);Home is the goal for dc and CM will continue to follow for possible need to adjust the dc plan.
--- NOTE | 2021-08-19 13:22 | MHC.CM.PN ---
CM assisted Patient with the completion of a HCP. CM has provided Patient with the original and copies and placed a copy on the chart.
--- NOTE | 2021-08-19 13:26 | HO.PM.IMPN ---
Subjective Subjective Date of Service: 08/19/21 Interval History: Laying in bed, Girlfriend at the bedside Still complaining of significant amount of pain in his abdomen scrotum Swelling and pain decreased significantly ostomy passing fluids No reported other overnight events. Systemic review: No fever, chills or weakness No chest pain, palpitation No shortness of breath or coughing lower abdominal pain, with no nausea or vomiting decreased swelling in the scrotum and tenderness No any rash or wounds Physical Exam Vital Signs: Vital Signs: Last Vital Signs Temp 97.7 F 08/19/21 12:00 Pulse 97 08/19/21 12:00 Resp 19 08/19/21 12:00 BP 143/87 H 08/19/21 12:00 Pulse Ox 97 08/19/21 12:00 BMI result Body Mass Index 21.4 Const: Other: Constitutional : Alert, interact, mild distress from pain Neck : Normal inspection, Supple Cardiovascular : RRR, no JVP, no lower extremity edema Respiratory : fair bilateral air entry, no crackles, wheezes or rhonchi Gastrointestinal: soft, lax, Normal bowel sounds, ostomy in place covered with bag with clear fluids, surgical wound covered with dressing Skin : Warm, Dry Urology: significantly decreased erythema and swelling of scrotum with less tenderness over the left testicle Neurological : Alert & oriented x3, No focal deficit , CN 2-12 within normal Objective Data Active Medications Hydromorphone HCl (Hydromorphone Hcl 2 Mg/Ml Vial) 2 mg IVPUSH Q3H PRN; Protocol PRN Reason: Pain, Severe (Pain Scale 7-10) Last Admin: 08/19/21 11:59 Dose: 2 mg Documented by: ELIU Hydroxyzine HCl (Hydroxyzine Hcl 25 Mg Tablet) 25 mg PO Q6H PRN PRN Reason: anxiety/restlessness Piperacillin Sod/Tazobactam (Sod 3.375 gm/ Sodium Chloride) 50 mls @ 100 mls/hr IV Q6H [facility] Last Infusion: 08/19/21 09:40 Dose: 0 mls/hr Documented by: ELIU Acetaminophen (Ofirmev) 1,000 mg in 100 mls @ 400 mls/hr IV Q6H [facility] Last Infusion: 08/19/21 13:10 Dose: 0 mls/hr Documented by: ELIU Naloxone HCl (Naloxone Hcl 0.4 Mg/Ml Vial) 0.2 mg IVPUSH Q2M PRN PRN Reason: Opiate Reversal Nicotine (Nicotine 21 Mg Patch.Td24) 21 mg TRANSDERMA DAILY [facility] Last Admin: 08/19/21 08:53 Dose: 21 mg Documented by: ELIU Nicotine Polacrilex (Nicotine Polacrilex 2 Mg Gum) 2 mg BUCCAL Q2H PRN PRN Reason: smoking Last Admin: 08/19/21 09:39 Dose: 2 mg Documented by: ELIU Ondansetron HCl (Ondansetron Hcl 4 Mg/2 Ml Vial) 4 mg IVPUSH Q6H PRN PRN Reason: Nausea and Vomiting Last Admin: 08/19/21 08:52 Dose: 4 mg Documented by: ELIU Pharmacy Consult (Consult Rx Etoh Phenob Po Dose) 1 each MISCELLANE ONCE PRN; Protocol PRN Reason: Consult order Pharmacy Consult (Consult Rx Vancomycin Dosing) 1 each MISCELLANE DAILY PRN PRN Reason: Consult order Sodium Chloride (0.9 % Sodium Chloride Flush 3 Ml Syringe) 3 ml IVFLUSH QSHIFT [facility] Last Admin: 08/19/21 08:53 Dose: 3 ml Documented by: ELIU Labs CBC & Chem 7: 08/19/21 06:03 08/19/21 06:03 Labs: Laboratory Results - last 24 hr 08/18/21 08/19/21 08/19/21 20:18 06:03 06:03 MCV 83.5 MCH 28.1 MCHC 33.6 RDW 14.4 Plt Count 494 H MPV 9.0 L Immature Gran % (Auto) 0.4 Neut % (Auto) 83.1 H Lymph % (Auto) 6.6 L [place] % (Auto) 9.7 Eos % (Auto) 0.1 Baso % (Auto) 0.1 Lymph # (Auto) 0.9 L [place] # (Auto) 1.3 H Eos # (Auto) 0.0 Baso # (Auto) 0.0 Abs Immat Gran (auto) 0.06 H Absolute Neuts (auto) 11.2 H Absolute Nucleated RBC 0.000 Nucleated RBC % (auto) 0.0 Anion Gap 14 Estim Creat Clear Calc 148.8 Estimated GFR > 60 POC Glucose 120 H Random Glucose 128 H Calcium 9.1 Phosphorus 3.5 Magnesium 2.1 Microbiology Microbiology Results: Microbiology 08/14/21 08:01 Blood Culture - Final Blood - Venous No growth after 5 days. 08/14/21 08:01 Blood Culture - Final Blood - Venous No growth after 5 days. 08/17/21 Unknown Gram Stain - Final Abdomen - Temporal Routine Culture - Final Enterococcus/Streptococcus sp Gram negative madyson Assessment and Plan (1) S/P partial resection of colon: Status: Acute (2) Epididymitis: Status: Acute (3) Sepsis: Status: Acute (4) Alcohol withdrawal: Status: Acute (5) [place]-vesical fistula: Status: Acute (6) Acute UTI: Status: Acute Plan This is a 41 yo M with a recently history of intraabdominal abscess / colo-vesicular fistula treated with IV antibiotics / IR drainage (in [place], [place]) who presents today with worsening abdominal pain. His CT scan from 08/11 shows reaccumulation of his fluid collection. He will now be admitted for further treatment and management. colo-vesicular fistula & abscess D2 POD post closure of colovesicular fistula with colectomy and diverting loop ileostomy GI input appreciated, no evidence of IBD, likely complicated diverticular disease negative blood cultures Urine culture grew E coli continue IV zosyn day 7 Dilaudid dose decreased to 2 mg Q 3 hours p.r.n. general surgery input appreciated, start clear liquids and advanced as tolerated Sepsis, resolved secondary to acute left epididymitis Confirmed by Ultrasound images Blood culture negative Discontinue doxycycline urology consult UTI Growing E coli in the urine Continue antibiotic for now Alcohol abuse and dependence history of withdrawal seizures stable, resolved finished Phenobarbital protocol monitor lytes Full Code DVT pptx, Lovenox patient requiring treatment with IV antibiotics, IV pain medication post surgery. I anticipate the patient will need a medically necessary inpatient hospitalization overnight and for the next few days until Pain is improved and diet can be tolerated to prevent possible decompensation in to severe sepsis. Quality Stroke Does the patient have a stroke diagnosis?: No VTE Prior VTE?: No VTE Risk Level:: Medical - moderate - high VTE Device Contraindication: Treatment Not Indicated VTE Drug Contraindication: N/A - Med Ordered
--- NOTE | 2021-08-19 13:54 | P.PNGS_ITS ---
Subjective Subjective Date of Service: 08/19/21 Interval history: The patient's pain is well controlled but he continues to require around the clock pain med. No flatus or BM from the ostomy as of yet. Physical Exam Vital Signs: Vital Signs: Last Vital Signs Temp 97.7 F 08/19/21 12:00 Pulse 97 08/19/21 12:00 Resp 19 08/19/21 12:00 BP 143/87 H 08/19/21 12:00 Pulse Ox 97 08/19/21 12:00 BMI result Body Mass Index 21.4 Const: Other: Sleepy but easily arousable Resp: Other: Breathing comfortably on room air, no respiratory distress GI: Other: Soft, nondistended, midline incision is clean and intact. Ostomy is pink and viable with some serous fluid. No stool or gas. Skin: General skin exam: no rashes or lesions noted Objective Data Active Medications Hydromorphone HCl (Hydromorphone Hcl 2 Mg/Ml Vial) 2 mg IVPUSH Q3H PRN; Protocol PRN Reason: Pain, Severe (Pain Scale 7-10) Last Admin: 08/19/21 11:59 Dose: 2 mg Documented by: ELIU Hydroxyzine HCl (Hydroxyzine Hcl 25 Mg Tablet) 25 mg PO Q6H PRN PRN Reason: anxiety/restlessness Piperacillin Sod/Tazobactam (Sod 3.375 gm/ Sodium Chloride) 50 mls @ 100 mls/hr IV Q6H [facility] Last Infusion: 08/19/21 09:40 Dose: 0 mls/hr Documented by: ELIU Acetaminophen (Ofirmev) 1,000 mg in 100 mls @ 400 mls/hr IV Q6H [facility] Last Infusion: 08/19/21 13:10 Dose: 0 mls/hr Documented by: ELIU Naloxone HCl (Naloxone Hcl 0.4 Mg/Ml Vial) 0.2 mg IVPUSH Q2M PRN PRN Reason: Opiate Reversal Nicotine (Nicotine 21 Mg Patch.Td24) 21 mg TRANSDERMA DAILY [facility] Last Admin: 08/19/21 08:53 Dose: 21 mg Documented by: ELIU Nicotine Polacrilex (Nicotine Polacrilex 2 Mg Gum) 2 mg BUCCAL Q2H PRN PRN Reason: smoking Last Admin: 08/19/21 09:39 Dose: 2 mg Documented by: ELIU Ondansetron HCl (Ondansetron Hcl 4 Mg/2 Ml Vial) 4 mg IVPUSH Q6H PRN PRN Reason: Nausea and Vomiting Last Admin: 08/19/21 08:52 Dose: 4 mg Documented by: ELIU Pharmacy Consult (Consult Rx Etoh Phenob Po Dose) 1 each MISCELLANE ONCE PRN; Protocol PRN Reason: Consult order Pharmacy Consult (Consult Rx Vancomycin Dosing) 1 each MISCELLANE DAILY PRN PRN Reason: Consult order Sodium Chloride (0.9 % Sodium Chloride Flush 3 Ml Syringe) 3 ml IVFLUSH QSHIFT [facility] Last Admin: 08/19/21 08:53 Dose: 3 ml Documented by: ELIU Labs CBC & Chem 7: 08/19/21 06:03 08/19/21 06:03 Labs: Laboratory Results - last 24 hr 08/18/21 08/19/21 08/19/21 20:18 06:03 06:03 MCV 83.5 MCH 28.1 MCHC 33.6 RDW 14.4 Plt Count 494 H MPV 9.0 L Immature Gran % (Auto) 0.4 Neut % (Auto) 83.1 H Lymph % (Auto) 6.6 L [place] % (Auto) 9.7 Eos % (Auto) 0.1 Baso % (Auto) 0.1 Lymph # (Auto) 0.9 L [place] # (Auto) 1.3 H Eos # (Auto) 0.0 Baso # (Auto) 0.0 Abs Immat Gran (auto) 0.06 H Absolute Neuts (auto) 11.2 H Absolute Nucleated RBC 0.000 Nucleated RBC % (auto) 0.0 Anion Gap 14 Estim Creat Clear Calc 148.8 Estimated GFR > 60 POC Glucose 120 H Random Glucose 128 H Calcium 9.1 Phosphorus 3.5 Magnesium 2.1 Microbiology Microbiology Results: Microbiology 08/14/21 08:01 Blood Culture - Final Blood - Venous No growth after 5 days. 08/14/21 08:01 Blood Culture - Final Blood - Venous No growth after 5 days. 08/17/21 Unknown Gram Stain - Final Abdomen - Temporal Routine Culture - Final Enterococcus/Streptococcus sp Gram negative madyson Procedures Date of Service Date of Service: 08/19/21 Progress Note: A&P Assessment and plan (1) S/P partial resection of colon: Status: Acute (2) [place]-vesical fistula: Status: Acute Plan Hematocrit 41-year-old male patient presenting with a colovesical fistula of unknown origin status post sigmoid colectomy with colostomy and closure of colovesical fistula. This pain the issues remained difficulty. Urine is clear without evidence of stool continue IV antibiotics. Await pathology results. Time Spent With Patient Time: Total time spent is greater than 50% in coordination of care (as documented) at patient's floor/unit and/or counseling patient: Quality Stroke Does the patient have a stroke diagnosis?: No VTE Prior VTE?: No VTE Risk Level:: Medical - moderate - high VTE Device Contraindication: Treatment Not Indicated VTE Drug Contraindication: N/A - Med Ordered
[2021-08-20] VITALS (7 sets, daily range): BP systolic 134–145; BP diastolic 71–99; PULSE 78–98; RESP 17–22; TEMP 36.7–37.2; O2SAT 97–99
[2021-08-20] MEDS: HYDROmorphone HCl 2 MG/ML VIAL IVPUSH ×7 (02:14→21:36)
[2021-08-20] MEDS: ondansetron HCL 4 MG/2 ML VIAL IVPUSH ×4 (02:20→23:18)
[2021-08-20] MEDS: Piperacillin Sodium/Tazobactam 3.375 GM in 0.9 % Sodium Chloride 50 ML IV ×4 (04:20→21:39)
[2021-08-20 07:42] LABS: Anion Gap 16 (12-20); Blood Urea Nitrogen 8 mg/dL (9-16); Calcium 9.5 mg/dL (8.4-10.2); Carbon Dioxide 26 mmol/L (22-29); Chloride 96 mmol/L (96-108); Creatinine Clr Calc Pharmacy 137.7; Estimated Glomerular Filt Rate > 60; Glucose Random 128 mg/dL (60-115); Potassium 4.5 mmol/L (3.3-5.1); Sodium 133 mmol/L (135-145)
[2021-08-20] MEDS: 0.9 % Sodium Chloride Flush 3 ML SYRINGE IVFLUSH ×2 (08:39→15:45)
[2021-08-20] MEDS: Nicotine 21 MG PATCH.TD24 TRANSDERMA (08:39)
--- NOTE | 2021-08-20 13:24 | HO.PM.IMPN ---
Subjective Subjective Date of Service: 08/20/21 Interval History: seen and examined this morning follow up for abdominal pain, s/p colectomy/diverting loop ileostomy for colovesicular fistula reporting ongoing abdominal pain; denies passing gas or having any stools no vomiting Review of Systems Review of Systems: Yes all other systems are reviewed and are negative Constitutional Constitutional: Denies chills and Denies fever(s) Cardiovascular Cardiovascular: Denies chest pain, Denies palpitations and Denies dyspnea Respiratory Respiratory: Denies cough and Denies dyspnea Gastrointestinal Gastrointestinal: Reports abdominal pain, Denies diarrhea and Denies vomiting Endocrine Endocrine: Denies palpitations Physical Exam Vital Signs: Vital Signs: Last Vital Signs Temp 98.4 F 08/20/21 11:34 Pulse 96 08/20/21 11:34 Resp 18 08/20/21 11:34 BP 140/71 H 08/20/21 11:34 Pulse Ox 97 08/20/21 11:34 BMI result Body Mass Index 21.4 Const: General: cooperative, comfortable, alert and awake Nutritional Appearance: average body habitus Orientation/consciousness: patient oriented x3 Resp: Effort & Inspection: normal respiratory effort and able to speak in complete sentences Auscultation: clear to auscultation bilaterally Cardio: Rate: regular rate Heart sounds: S1 normal heart sound present and S2 normal heart sound present GI: Other: abdomen soft, +BS; reports generalized tenderness to palpation; scant liquid output in ostomy bag : Other: berger in place draining clear yellow urine Neuro: General: patient oriented x3 Extrem: Other: all to move all 4 extremities spontaneously General: Yes no pedal edema Objective Data Active Medications Hydromorphone HCl (Hydromorphone Hcl 2 Mg/Ml Vial) 2 mg IVPUSH Q3H PRN; Protocol PRN Reason: Pain, Severe (Pain Scale 7-10) Last Admin: 08/20/21 11:16 Dose: 2 mg Documented by: LATOYA Hydroxyzine HCl (Hydroxyzine Hcl 25 Mg Tablet) 25 mg PO Q6H PRN PRN Reason: anxiety/restlessness Piperacillin Sod/Tazobactam (Sod 3.375 gm/ Sodium Chloride) 50 mls @ 100 mls/hr IV Q6H [facility] Last Infusion: 08/20/21 11:54 Dose: 0 mls/hr Documented by: LATOYA Acetaminophen (Ofirmev) 1,000 mg in 100 mls @ 400 mls/hr IV Q6H [facility] Last Infusion: 08/20/21 11:33 Dose: 0 mls/hr Documented by: LATOYA Naloxone HCl (Naloxone Hcl 0.4 Mg/Ml Vial) 0.2 mg IVPUSH Q2M PRN PRN Reason: Opiate Reversal Nicotine (Nicotine 21 Mg Patch.Td24) 21 mg TRANSDERMA DAILY [facility] Last Admin: 08/20/21 08:39 Dose: 21 mg Documented by: LATOYA Nicotine Polacrilex (Nicotine Polacrilex 2 Mg Gum) 2 mg BUCCAL Q2H PRN PRN Reason: smoking Last Admin: 08/19/21 21:02 Dose: 2 mg Documented by: ROBIN Ondansetron HCl (Ondansetron Hcl 4 Mg/2 Ml Vial) 4 mg IVPUSH Q6H PRN PRN Reason: Nausea and Vomiting Last Admin: 08/20/21 08:51 Dose: 4 mg Documented by: LATOYA Pharmacy Consult (Consult Rx Etoh Phenob Po Dose) 1 each MISCELLANE ONCE PRN; Protocol PRN Reason: Consult order Pharmacy Consult (Consult Rx Vancomycin Dosing) 1 each MISCELLANE DAILY PRN PRN Reason: Consult order Sodium Chloride (0.9 % Sodium Chloride Flush 3 Ml Syringe) 3 ml IVFLUSH QSHIFT [facility] Last Admin: 08/20/21 08:39 Dose: 3 ml Documented by: LATOYA Labs CBC & Chem 7: 08/19/21 06:03 08/20/21 06:43 Labs: Laboratory Results - last 24 hr 08/20/21 06:43 Anion Gap 16 Estim Creat Clear Calc 137.7 Estimated GFR > 60 Random Glucose 128 H Calcium 9.5 Microbiology Microbiology Results: Microbiology 08/14/21 08:01 Blood Culture - Final Blood - Venous No growth after 5 days. 08/14/21 08:01 Blood Culture - Final Blood - Venous No growth after 5 days. 08/17/21 Unknown Gram Stain - Final Abdomen - Temporal Routine Culture - Final Enterococcus/Streptococcus sp Gram negative madyson Assessment and Plan (1) [place]-vesical fistula: Status: Acute Plan This is a 41 yo M with a recently history of intraabdominal abscess / colo-vesicular fistula treated with IV antibiotics / IR drainage (in [place], [place]) who presents today with worsening abdominal pain. His CT scan from 08/11 shows reaccumulation of his fluid collection. He will now be admitted for further treatment and management. colo-vesicular fistula & abscess POD #3 s/p closure of colovesicular fistula, sigmoid colectomy and diverting loop ileostomy ongoing abdominal pain and not passing gas GI input appreciated, no evidence of IBD, likely complicated diverticular disease blood cultures negative intraabdominal cultures growing enterococcus/streptococcus/GNR continue IV zosyn day 8 - await final blood culture results pain control general surgery input appreciated, start clear liquids and advanced as tolerated Sepsis, resolved secondary to acute left epididymitis Confirmed by Ultrasound images Blood culture negative Discontinue doxycycline seen by urology UTI Growing kramer-sensitive E coli in the urine Continue antibiotic for now Alcohol dependence history of withdrawal seizures finished Phenobarbital protocol monitor lytes tobacco dependence smoking cessation advised NRT Full Code DVT pptx, boots Attending: dr. diaz patient requiring ongoing inpatient hospitalization for treatment with IV antibiotics, IV pain medication for post surgical pain, advancement of diet, final culture results Quality Stroke Does the patient have a stroke diagnosis?: No VTE Prior VTE?: No VTE Risk Level:: Medical - moderate - high VTE Device Contraindication: Treatment Not Indicated VTE Drug Contraindication: N/A - Med Ordered
--- NOTE | 2021-08-20 17:17 | P.PNGS_ITS ---
Subjective Subjective Date of Service: 08/20/21 Interval history: continued abdominal pain, no flatus, no bm reports getting out of bed today. Physical Exam Vital Signs: Vital Signs: Last Vital Signs Temp 98.0 F 08/20/21 15:42 Pulse 85 08/20/21 15:42 Resp 22 H 08/20/21 15:44 BP 144/96 H 08/20/21 15:42 Pulse Ox 98 08/20/21 15:42 BMI result Body Mass Index 21.4 Resp: Effort & Inspection: normal respiratory effort Auscultation: clear to auscultation bilaterally GI: Other: dressings clean and intact without bleeding or redness. Ostomy is pink, serous discharge, no flatus or BM. Skin: Other: warm and dry Objective Data Active Medications Hydromorphone HCl (Hydromorphone Hcl 2 Mg/Ml Vial) 2 mg IVPUSH Q3H PRN; Protocol PRN Reason: Pain, Severe (Pain Scale 7-10) Last Admin: 08/20/21 15:44 Dose: 2 mg Documented by: JANETH Hydroxyzine HCl (Hydroxyzine Hcl 25 Mg Tablet) 25 mg PO Q6H PRN PRN Reason: anxiety/restlessness Piperacillin Sod/Tazobactam (Sod 3.375 gm/ Sodium Chloride) 50 mls @ 100 mls/hr IV Q6H [facility] Last Infusion: 08/20/21 16:21 Dose: 0 mls/hr Documented by: JANETH Acetaminophen (Ofirmev) 1,000 mg in 100 mls @ 400 mls/hr IV Q6H [facility] Last Infusion: 08/20/21 11:33 Dose: 0 mls/hr Documented by: LATOYA Naloxone HCl (Naloxone Hcl 0.4 Mg/Ml Vial) 0.2 mg IVPUSH Q2M PRN PRN Reason: Opiate Reversal Nicotine (Nicotine 21 Mg Patch.Td24) 21 mg TRANSDERMA DAILY [facility] Last Admin: 08/20/21 08:39 Dose: 21 mg Documented by: LATOYA Nicotine Polacrilex (Nicotine Polacrilex 2 Mg Gum) 2 mg BUCCAL Q2H PRN PRN Reason: smoking Last Admin: 08/19/21 21:02 Dose: 2 mg Documented by: ROBIN Ondansetron HCl (Ondansetron Hcl 4 Mg/2 Ml Vial) 4 mg IVPUSH Q6H PRN PRN Reason: Nausea and Vomiting Last Admin: 08/20/21 15:51 Dose: 4 mg Documented by: JANETH Pharmacy Consult (Consult Rx Etoh Phenob Po Dose) 1 each MISCELLANE ONCE PRN; Protocol PRN Reason: Consult order Pharmacy Consult (Consult Rx Vancomycin Dosing) 1 each MISCELLANE DAILY PRN PRN Reason: Consult order Sodium Chloride (0.9 % Sodium Chloride Flush 3 Ml Syringe) 3 ml IVFLUSH QSHIFT [facility] Last Admin: 08/20/21 15:45 Dose: 3 ml Documented by: JANETH Labs CBC & Chem 7: 08/19/21 06:03 08/20/21 06:43 Labs: Laboratory Results - last 24 hr 08/20/21 06:43 Anion Gap 16 Estim Creat Clear Calc 137.7 Estimated GFR > 60 Random Glucose 128 H Calcium 9.5 Procedures Date of Service Date of Service: 08/20/21 Progress Note: A&P Assessment and plan (1) S/P partial resection of colon: Status: Acute (2) [place]-vesical fistula: Status: Acute (3) Adenocarcinoma of sigmoid colon: Status: Acute Plan Pathology results reviewed with the patient and his mother today. Colovesical fistula due to sigmoid adenocarcinoma. Will consult medical oncology. Encouraged patient to decrease his pain medication usage; he is at risk for postoperative ileus due to increased pain meds. Also encouraged increased OOB and ambulation. Time Spent With Patient Time: Total time spent is greater than 50% in coordination of care (as documented) at patient's floor/unit and/or counseling patient: Quality Stroke Does the patient have a stroke diagnosis?: No VTE Prior VTE?: No VTE Risk Level:: Medical - moderate - high VTE Device Contraindication: Treatment Not Indicated VTE Drug Contraindication: N/A - Med Ordered
[2021-08-20] MEDS: hydrOXYzine HCL 25 MG TABLET PO (17:51)
[2021-08-21] VITALS (10 sets, daily range): BP systolic 129–143; BP diastolic 87–101; PULSE 99–110; RESP 16–20; TEMP 36.2–37.1; O2SAT 96–98
[2021-08-21] MEDS: HYDROmorphone HCl 2 MG/ML VIAL IVPUSH ×9 (00:35→23:23)
[2021-08-21] MEDS: 0.9 % Sodium Chloride Flush 3 ML SYRINGE IVFLUSH ×4 (00:39→20:43)
[2021-08-21] MEDS: Famotidine/PF 20 MG/2 ML VIAL IVPUSH ×2 (03:17→20:22)
--- NOTE | 2021-08-21 05:38 | PM.EVENT ---
Event Note Date of Service: 08/21/21 Event Note: Abdominal pain: Patient requesting pain medication. Patient has mild guarding on abdomen exam Repeat CT scan showed findings concerning for SBO and 9.4 cm abscess deep to the anterior abdominal wall above the bladder. Dr. Cooper from general surgery was notified Patient on Zosyn
[2021-08-21] MEDS: Piperacillin Sodium/Tazobactam 3.375 GM in 0.9 % Sodium Chloride 50 ML IV ×4 (05:41→22:47)
[2021-08-21] MEDS: ondansetron HCL 4 MG/2 ML VIAL IVPUSH ×3 (06:35→20:37)
[2021-08-21] MEDS: Nicotine 21 MG PATCH.TD24 TRANSDERMA (08:08)
[2021-08-21 08:34] LABS: Hematocrit 40.3 % (42.0-52.0); Hemoglobin 13.5 g/dl (14.0-18.0); Mean Corpuscular HGB Conc 33.5 g/dl (31.0-36.0); Mean Corpuscular Hemoglobin 27.9 pg (27.0-33.0); Mean Corpuscular Volume 83.3 fL (80.0-98.0); Mean Platelet Volume 8.5 fL (9.4-12.4); Platelet Count 652 X10*3/uL (160-400); Red Blood Count 4.84 X10*6/uL (4.60-5.80); Red Cell Distribution Width 14.4 % (11.0-16.0); White Blood Count 15.5 X10*3/uL (4.8-10.8)
--- NOTE | 2021-08-21 08:39 | PC.NURSE ---
Overnight pt complaining of increased abd pain, nausea and new acid reflux. MD made aware, stat abd ct ordered. Abd ct results showed raising concern for small bowel obstruction . MD notified, who then notified Dr Cooper. Dr Cooper placed orders for NPO diet and to place NG tube now. NG tube placed in R nare, placement confirmed by xray. NG tube on low intermittent suction, drainage is dark brown.
[2021-08-21 08:54] LABS: Anion Gap 17 (12-20); Blood Urea Nitrogen 14 mg/dL (9-16); Carbon Dioxide 27 mmol/L (22-29); Chloride 93 mmol/L (96-108); Creatinine Clr Calc Pharmacy 135.6; Estimated Glomerular Filt Rate > 60; Glucose Random 121 mg/dL (60-115); Potassium 4.6 mmol/L (3.3-5.1); Sodium 132 mmol/L (135-145)
--- NOTE | 2021-08-21 12:49 | MHC.CM.PN ---
Male 41 DX Sigmiod CA, SBO and Abscess No dc today per MD rounds. Patient continues with an NG tube. DP Mothers house vs [facility] interventions.
--- NOTE | 2021-08-21 15:09 | PM.PNGS ---
Subjective Subjective Date of Service: 08/21/21 Interval history: Patient with continued abdominal pain. CT of abdomen and pelvis reviewed. Dilated stomach and small bowel. NGT placed this morning, > 900 mls aspirated. Physical Exam Vital Signs: Vital Signs: Last Vital Signs Temp 97.3 F 08/21/21 11:39 Pulse 107 H 08/21/21 11:39 Resp 19 08/21/21 11:39 BP 132/98 H 08/21/21 11:39 Pulse Ox 96 08/21/21 11:39 BMI result Body Mass Index 21.4 Const: General: tired appearing Nutritional Appearance: thin Orientation/consciousness: patient oriented x3 Resp: Effort & Inspection: normal respiratory effort GI: Other: ostomy pink, serous discharge noted. Palpation (GI): Soft to palpation and Tenderness to palpation present (GI) (incisional) Skin: General skin exam: no rashes or lesions noted Neuro: General: patient oriented x3 Extrem: General: No edema Objective Data Active Medications Famotidine (Famotidine/Pf 20 Mg/2 Ml Vial) 20 mg IVPUSH BID [facility] Last Admin: 08/21/21 03:17 Dose: 20 mg Documented by: YAYA Hydromorphone HCl (Hydromorphone Hcl 2 Mg/Ml Vial) 2 mg IVPUSH Q3H PRN; Protocol PRN Reason: Pain, Severe (Pain Scale 7-10) Last Admin: 08/21/21 13:39 Dose: 2 mg Documented by: BOY-HARINI Hydroxyzine HCl (Hydroxyzine Hcl 25 Mg Tablet) 25 mg PO Q6H PRN PRN Reason: anxiety/restlessness Last Admin: 08/20/21 17:51 Dose: 25 mg Documented by: PODHUSSEIN Piperacillin Sod/Tazobactam (Sod 3.375 gm/ Sodium Chloride) 50 mls @ 100 mls/hr IV Q6H [facility] Last Infusion: 08/21/21 13:26 Dose: 100 mls/hr Documented by: BOY-HARINI Acetaminophen (Ofirmev) 1,000 mg in 100 mls @ 400 mls/hr IV Q6H [facility] Last Infusion: 08/21/21 13:28 Dose: 0 mls/hr Documented by: BOY-HARINI Lactated Ringer's (Lr) 1,000 mls @ 100 mls/hr IVCONT .Q10H [facility] Multi-Ingred Medicated Throat [place] (Throat [place], Medicated 20 Ml Bottle) 1 spray MUCOUS MEM Q2H PRN PRN Reason: throat soreness Naloxone HCl (Naloxone Hcl 0.4 Mg/Ml Vial) 0.2 mg IVPUSH Q2M PRN PRN Reason: Opiate Reversal Nicotine (Nicotine 21 Mg Patch.Td24) 21 mg TRANSDERMA DAILY [facility] Last Admin: 08/21/21 08:08 Dose: 21 mg Documented by: DARNELL Nicotine Polacrilex (Nicotine Polacrilex 2 Mg Gum) 2 mg BUCCAL Q2H PRN PRN Reason: smoking Last Admin: 08/19/21 21:02 Dose: 2 mg Documented by: ROBIN Ondansetron HCl (Ondansetron Hcl 4 Mg/2 Ml Vial) 4 mg IVPUSH Q6H PRN PRN Reason: Nausea and Vomiting Last Admin: 08/21/21 13:48 Dose: 4 mg Documented by: DARNELL Pharmacy Consult (Consult Rx Etoh Phenob Po Dose) 1 each MISCELLANE ONCE PRN; Protocol PRN Reason: Consult order Sodium Chloride (0.9 % Sodium Chloride Flush 3 Ml Syringe) 3 ml IVFLUSH QSHIFT [facility] Last Admin: 08/21/21 08:09 Dose: 3 ml Documented by: DARNELL Labs CBC & Chem 7: 08/21/21 08:17 08/21/21 08:17 Labs: Laboratory Results - last 24 hr 08/21/21 08/21/21 08:17 08:17 MCV 83.3 MCH 27.9 MCHC 33.5 RDW 14.4 Plt Count 652 H D MPV 8.5 L Absolute Nucleated RBC 0.000 Nucleated RBC % (auto) 0.0 Anion Gap 17 Estim Creat Clear Calc 135.6 Estimated GFR > 60 Random Glucose 121 H Calcium 10.0 Carcinoembryonic Ag 2.10 Microbiology Microbiology Results: Microbiology 08/17/21 Unknown Gram Stain - Final Abdomen - Temporal Routine Culture - Preliminary Enterococcus/Streptococcus sp Gram negative madyson Procedures Date of Service Date of Service: 08/21/21 Progress Note: A&P Assessment and plan (1) Adenocarcinoma of sigmoid colon: Status: Acute (2) S/P partial resection of colon: Status: Acute (3) [place]-vesical fistula: Status: Acute Plan 41-year-old male patient with 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 Oncology consultation requested and pending. Patient with continued abdominal pain, underwent CT of the abdomen and pelvis this morning. This revealed evidence of dilated loops of small bowel with a dilated stomach. Patient made NPO and nasogastric tube placed. Fluid collection in the lower abdomen over the bladder appears to be the site of the previous drain track. Patient remains on Zosyn. May need TPN if prolonged bowel rest required. Discussed with hospitalist team. Time Spent With Patient Time: Total time spent is greater than 50% in coordination of care (as documented) at patient's floor/unit and/or counseling patient: Quality Stroke Does the patient have a stroke diagnosis?: No VTE Prior VTE?: No VTE Risk Level:: Medical - moderate - high VTE Device Contraindication: Treatment Not Indicated VTE Drug Contraindication: N/A - Med Ordered
--- NOTE | 2021-08-21 15:17 | P.CNHO_ITS ---
Subjective - Subjective Chief complaint: Abdominal pain Patient: new to practice Consult date: 08/21/21 Primary Care Provider: Unknown Physician Medical Summary: Diagnosis: Sigmoid colon adenocarcinoma 07/2021 HPI - Consult Narrative Reason for consult: Colon cancer Narrative: Aiden Nix is a 41 year old male who has been diagnosed with advanced colon cancer. He presented with abdominal pain, intra-abdominal abscess and a colovesical fistula that was diagnosed in June in [place]. He had developed hematuria and treated initially for possible UTI. He went back with persistent and worsening symptoms, he was then diagnosed with intra-abdominal abscesses which was drained surgically. He came back to [place] where he is originally from to receive further treatment here. He was [place] compliant [place] He says that there is cancer in the family but he does not recall colon cancer. He did not have longstanding constitutional symptoms or change in bowel habits prior to his presentation. He has undergone surgery now and is recovering. Oncology consultation has been called for recommendations about adjuvant therapy. Review of Systems - Constitutional Reports as per HPI, Reports no additional constitutional complaints - Cardiovascular Reports no additional cardiovascular complaints - Respiratory Reports no additional respiratory complaints - Gastrointestinal Reports abdominal pain - Neurologic Denies dizziness, Denies syncope, Denies headache(s), Denies numbness PMFSH Medical History: Medical History (Last Updated 08/20/21 @ 17:20 by Manuel Cooper MD) Adenocarcinoma of sigmoid colon Alcohol withdrawal seizure History of drainage of abscess Surgical History: Surgical History (Last Updated 08/18/21 @ 08:07 by Manuel Cooper MD) S/P partial resection of colon Onset Date: 08/17/21 Social History: Social History (Last Reviewed 08/13/21 @ 08:34 by Manuel Cooper MD) Living Situation History: Household Members: None Housing: Homeless Do you presently have visiting nurse or other home services: No Tobacco History: Patient Tobacco Use Status: Current everyday Tobacco Tobacco use type: Cigarette Cigarette Packs Per Day: 2 Substance Use History: Substance Use Type: Marijuana Occupation Assessmet: service: No Current occupational status: unemployed Home Medications and Allergies Current Medications: Current Medications Famotidine (Famotidine/Pf 20 Mg/2 Ml Vial) 20 mg IVPUSH BID [facility] Last Admin: 08/21/21 03:17 Dose: 20 mg Documented by: Hydromorphone HCl (Hydromorphone Hcl 2 Mg/Ml Vial) 2 mg IVPUSH Q3H PRN; Protocol PRN Reason: Pain, Severe (Pain Scale 7-10) Last Admin: 08/21/21 13:39 Dose: 2 mg Documented by: Hydroxyzine HCl (Hydroxyzine Hcl 25 Mg Tablet) 25 mg PO Q6H PRN PRN Reason: anxiety/restlessness Last Admin: 08/20/21 17:51 Dose: 25 mg Documented by: Piperacillin Sod/Tazobactam (Sod 3.375 gm/ Sodium Chloride) 50 mls @ 100 mls/hr IV Q6H [facility] Last Infusion: 08/21/21 13:26 Dose: Infused Documented by: Acetaminophen (Ofirmev) 1,000 mg in 100 mls @ 400 mls/hr IV Q6H [facility] Last Infusion: 08/21/21 13:28 Dose: Infused Documented by: Lactated Ringer's (Lr) 1,000 mls @ 100 mls/hr IVCONT .Q10H [facility] Multi-Ingred Medicated Throat [place] (Throat [place], Medicated 20 Ml Bottle) 1 spray MUCOUS MEM Q2H PRN PRN Reason: throat soreness Naloxone HCl (Naloxone Hcl 0.4 Mg/Ml Vial) 0.2 mg IVPUSH Q2M PRN PRN Reason: Opiate Reversal Nicotine (Nicotine 21 Mg Patch.Td24) 21 mg TRANSDERMA DAILY [facility] Last Admin: 08/21/21 08:08 Dose: 21 mg Documented by: Nicotine Polacrilex (Nicotine Polacrilex 2 Mg Gum) 2 mg BUCCAL Q2H PRN PRN Reason: smoking Last Admin: 08/19/21 21:02 Dose: 2 mg Documented by: Ondansetron HCl (Ondansetron Hcl 4 Mg/2 Ml Vial) 4 mg IVPUSH Q6H PRN PRN Reason: Nausea and Vomiting Last Admin: 08/21/21 13:48 Dose: 4 mg Documented by: Pharmacy Consult (Consult Rx Etoh Phenob Po Dose) 1 each MISCELLANE ONCE PRN; Protocol PRN Reason: Consult order Sodium Chloride (0.9 % Sodium Chloride Flush 3 Ml Syringe) 3 ml IVFLUSH QSHIFT [facility] Last Admin: 08/21/21 08:09 Dose: 3 ml Documented by: Home Medications Medication Instructions Recorded Confirmed Type No Known Home Meds 08/12/21 08/12/21 History Allergies Allergy/AdvReac Type Severity Reaction Status Date / Time cranberry Allergy Hives Verified 08/14/21 12:54 Physical Exam Vital signs: Vital Signs Temp 97.3 F 08/21/21 11:39 Pulse 107 H 08/21/21 11:39 Resp 19 08/21/21 11:39 BP 132/98 H 08/21/21 11:39 Pulse Ox 96 08/21/21 11:39 Intake & Output 08/20/21 08/21/21 08/21/21 18:59 06:59 18:59 Intake Total 780 / 1080 200 / 1080 300.25 / 300.25 Output Total 1200 / 1700 500 / 1700 2024 Balance -420 / -620 -300 / -620 -1724.75 / -1724.75 Urine Output (Average ml/kg/hr) 1.52 0.63 0.92 Intake: Intake, Oral Amount 480 / 480 0 / 0 Intake, IV Amount 300 / 600 200 / 600 300.25 / 300.25 Acetaminophen 1,000 mg In 100 200 / 400 100 / 400 200 / 200 ml @ 400 mls/hr IV Q6H [facility] Rx#: [id number] Piperacillin Sodium/Tazobactam 100 / 200 100 / 200 50 / 50 3.375 gm In 0.9 % Sodium Chloride 50 ml @ 100 mls/hr IV Q6H [facility] Rx#:[id number] Promethazine HCL 6.25 mg In 0.9 50.25 / 50.25 % Sodium Chloride 50 ml @ 201 mls/hr IV ONCE ONE Rx#: [id number] Output: Output, Urine Amount 200 / 200 Output, Urine Amount (Catheter) 1200 / 1500 300 / 1500 725 / 725 Urethral 1200 / 1500 300 / 1500 725 / 725 Output, Gastric Drainage Amount 1300 / 1300 Right Nare 1300 / 1300 Other: NPO Yes Breakfast % Eaten 100% Lunch % Eaten 100% 0% Number of Unmeasured Emesis 1 Episodes Urine berger Urinal Urine Color Yellow Yellow Yellow Last Bowel Movement 08/20/21 Weight 65.771 kg - Constitutional Present: no acute distress, average body habitus Comments: Appears anxious. - Routine HEENT Exam Head: Present: normal inspection Eye: Present: EOMI, normal appearance - Routine Neck Exam Present: supple. Absent: lymphadenopathy - Routine Respiratory Exam Present: CTAB - Routine Cardiovascular Exam Cardiovascular: Present: S1, S2 - Routine Abdominal Exam Present: hypoactive bowel sounds - Routine Extremities Exam Present: normal inspection - Routine Neurological Exam Present: alert, oriented X3 Hem/Onc Consult Result - Labs CBC & Chem 7: 08/21/21 08:17 08/21/21 08:17 Labs: Short CBC 08/21/21 Range/Units 08:17 WBC 15.5 H (4.8-10.8) X10*3/uL Hgb 13.5 L (14.0-18.0) g/dl Hct 40.3 L (42.0-52.0) % Plt Count 652 H D (160-400) X10*3/uL BMP 08/21/21 08:17 Sodium 132 L Potassium 4.6 Chloride 93 L Carbon Dioxide 27 BUN 14 D Creatinine 0.68 Calcium 10.0 Assessment and Plan Patient Active problem list reviewed?: Yes (1) Adenocarcinoma of sigmoid colon Status: Acute Assessment and plan: 1. This is a 41-year-old male presenting with colovesical fistula, intra- abdominal abscess, now diagnosed with sigmoid colon adenocarcinoma. CT abdomen/pelvis on 08/14/2021 revealed abnormal segment of sigmoid colon with collection incorporated to superior aspect of bladder wall measuring 3.6 x 2.6 x 3 cm. There was air-fluid level. Intra-abdominal cultures grew enterococcal/Streptococcus/GNR. He underwent sigmoid colon resection on 08/17/2021 which revealed adenocarcinoma, moderately differentiated extending to peritoneal surface, margins negative. Three of 22 lymph nodes involved by tumor. Final pathological stage pT4a N1b, Stage IIIB. Tumor size measured 4 x 3.2 x 1 cm, grade 2, margins negative. I have discussed above pathological findings with patient and his girlfriend. He is a candidate for adjuvant chemotherapy with FOLFOX regimen. This will be administered after he has recuperated from surgery and after his infection has been treated. All their questions were answered. I thank you very much for this referral. - Time Spent With Patient Time Spent with Patient (in minutes): 20
[2021-08-21] MEDS: Lactated Ringers 1,000 ML 100 ML IVCONT (15:19)
--- NOTE | 2021-08-21 17:13 | HO.PM.IMPN ---
Subjective Subjective Date of Service: 08/21/21 Interval History: Seen and examined this morning Follow-up for colovesical fistula secondary to sigmoid adenocarcinoma Overnight abdominal pain worsened, repeat CT scan showing concern for SBO, NG tube placed Patient frequently requiring IV pain medication, high output in NG-tube. Not passing gas Review of Systems Review of Systems: Yes all other systems are reviewed and are negative Constitutional Constitutional: Denies chills and Denies fever(s) Cardiovascular Cardiovascular: Denies chest pain, Denies palpitations and Denies dyspnea Respiratory Respiratory: Denies cough and Denies dyspnea Gastrointestinal Gastrointestinal: Reports abdominal pain, Reports nausea and Denies vomiting Endocrine Endocrine: Denies palpitations Physical Exam Vital Signs: Vital Signs: Last Vital Signs Temp 97.7 F 08/21/21 15:34 Pulse 107 H 08/21/21 15:34 Resp 18 08/21/21 15:34 BP 129/87 08/21/21 15:34 Pulse Ox 97 08/21/21 15:34 BMI result Body Mass Index 21.4 Const: General: cooperative, comfortable, alert and awake Nutritional Appearance: average body habitus Orientation/consciousness: patient oriented x3 Resp: Effort & Inspection: normal respiratory effort and able to speak in complete sentences Auscultation: clear to auscultation bilaterally Cardio: Rate: regular rate Heart sounds: S1 normal heart sound present and S2 normal heart sound present GI: Other: abdomen soft, +BS; reports generalized tenderness to palpation; scant liquid output in ostomy bag; NGT present with large amt of dark drainage : Other: berger in place draining clear yellow urine Neuro: General: patient oriented x3 Extrem: Other: all to move all 4 extremities spontaneously General: Yes no pedal edema Objective Data Active Medications Famotidine (Famotidine/Pf 20 Mg/2 Ml Vial) 20 mg IVPUSH BID [facility] Last Admin: 08/21/21 03:17 Dose: 20 mg Documented by: NANICOLEOC Hydromorphone HCl (Hydromorphone Hcl 2 Mg/Ml Vial) 2 mg IVPUSH Q3H PRN; Protocol PRN Reason: Pain, Severe (Pain Scale 7-10) Last Admin: 08/21/21 13:39 Dose: 2 mg Documented by: BOY-SOFFA Hydroxyzine HCl (Hydroxyzine Hcl 25 Mg Tablet) 25 mg PO Q6H PRN PRN Reason: anxiety/restlessness Last Admin: 08/20/21 17:51 Dose: 25 mg Documented by: JANETH Piperacillin Sod/Tazobactam (Sod 3.375 gm/ Sodium Chloride) 50 mls @ 100 mls/hr IV Q6H [facility] Last Admin: 08/21/21 16:57 Dose: 100 mls/hr Documented by: CARL Acetaminophen (Ofirmev) 1,000 mg in 100 mls @ 400 mls/hr IV Q6H [facility] Last Infusion: 08/21/21 16:59 Dose: 0 mls/hr Documented by: CARL Lactated Ringer's (Lr) 1,000 mls @ 100 mls/hr IVCONT .Q10H [facility] Last Admin: 08/21/21 15:19 Dose: 100 mls/hr Documented by: DARNELL Multi-Ingred Medicated Throat [place] (Throat [place], Medicated 20 Ml Bottle) 1 spray MUCOUS MEM Q2H PRN PRN Reason: throat soreness Naloxone HCl (Naloxone Hcl 0.4 Mg/Ml Vial) 0.2 mg IVPUSH Q2M PRN PRN Reason: Opiate Reversal Nicotine (Nicotine 21 Mg Patch.Td24) 21 mg TRANSDERMA DAILY [facility] Last Admin: 08/21/21 08:08 Dose: 21 mg Documented by: DARENLL Nicotine Polacrilex (Nicotine Polacrilex 2 Mg Gum) 2 mg BUCCAL Q2H PRN PRN Reason: smoking Last Admin: 08/19/21 21:02 Dose: 2 mg Documented by: ROBIN Ondansetron HCl (Ondansetron Hcl 4 Mg/2 Ml Vial) 4 mg IVPUSH Q6H PRN PRN Reason: Nausea and Vomiting Last Admin: 08/21/21 13:48 Dose: 4 mg Documented by: DRANELL Pharmacy Consult (Consult Rx Etoh Phenob Po Dose) 1 each MISCELLANE ONCE PRN; Protocol PRN Reason: Consult order Sodium Chloride (0.9 % Sodium Chloride Flush 3 Ml Syringe) 3 ml IVFLUSH QSHIFT [facility] Last Admin: 08/21/21 16:30 Dose: 3 ml Documented by: CARL Labs CBC & Chem 7: 08/21/21 08:17 08/21/21 08:17 Labs: Laboratory Results - last 24 hr 08/21/21 08/21/21 08:17 08:17 MCV 83.3 MCH 27.9 MCHC 33.5 RDW 14.4 Plt Count 652 H D MPV 8.5 L Absolute Nucleated RBC 0.000 Nucleated RBC % (auto) 0.0 Anion Gap 17 Estim Creat Clear Calc 135.6 Estimated GFR > 60 Random Glucose 121 H Calcium 10.0 Carcinoembryonic Ag 2.10 Microbiology Microbiology Results: Microbiology 08/17/21 Unknown Gram Stain - Final Abdomen - Temporal Routine Culture - Preliminary Enterococcus/Streptococcus sp Gram negative madyson Assessment and Plan (1) Adenocarcinoma of sigmoid colon: Status: Acute (2) [place]-vesical fistula: Status: Acute Plan This is a 41 yo M with a recently history of intraabdominal abscess / colo-vesicular fistula treated with IV antibiotics / IR drainage (in [place], [place]) who presents today with worsening abdominal pain. His CT scan from 08/11 shows reaccumulation of his fluid collection. He will now be admitted for further treatment and management. colo-vesicular fistula & abscess POD #4 s/p closure of colovesicular fistula, sigmoid colectomy and diverting loop ileostomy pathology report returned as sigmoid adenocarcinoma repeat CT from overnight showing concern for SBP and NGT was placed intraabdominal cultures growing enterococcus/streptococcus/GNR - discussed with micro, final IDs and susceptibilities requested, pending at this time - will continue IV zosyn for now repeat CT also showing abscess - surgery feels from previous drain track - continue abx as above blood cultures negative pain control general surgery following NPO, NGT in place - follow ouput Sigmoid adenocarcinoma seen by oncology - recommend outpatient follow up for adjuvant chemotherapy after he has recovered from surgery Sepsis, resolved secondary to acute left epididymitis Confirmed by Ultrasound images Blood culture negative Discontinue doxycycline seen by urology UTI Growing kramer-sensitive E coli in the urine Continue antibiotic for now Alcohol dependence history of withdrawal seizures finished Phenobarbital protocol monitor lytes tobacco dependence smoking cessation advised NRT Full Code DVT lalitox, reena Attending: dr. diza patient requiring ongoing inpatient hospitalization for treatment with IV antibiotics, IV pain medication for post surgical pain, advancement of diet, final culture results Quality Stroke Does the patient have a stroke diagnosis?: No VTE Prior VTE?: No VTE Risk Level:: Medical - moderate - high VTE Device Contraindication: Treatment Not Indicated VTE Drug Contraindication: N/A - Med Ordered
[2021-08-22] VITALS (7 sets, daily range): BP systolic 127–152; BP diastolic 57–99; PULSE 91–99; RESP 17–20; TEMP 36.3–36.8; O2SAT 95–98
[2021-08-22] MEDS: ondansetron HCL 4 MG/2 ML VIAL IVPUSH ×4 (02:33→20:54)
[2021-08-22] MEDS: HYDROmorphone HCl 2 MG/ML VIAL IVPUSH ×7 (02:34→20:50)
[2021-08-22] MEDS: Piperacillin Sodium/Tazobactam 3.375 GM in 0.9 % Sodium Chloride 50 ML IV ×4 (04:56→20:54)
[2021-08-22 06:54] LABS: Hematocrit 38.3 % (42.0-52.0); Hemoglobin 12.5 g/dl (14.0-18.0); Mean Corpuscular HGB Conc 32.6 g/dl (31.0-36.0); Mean Corpuscular Hemoglobin 27.7 pg (27.0-33.0); Mean Corpuscular Volume 84.9 fL (80.0-98.0); Mean Platelet Volume 8.8 fL (9.4-12.4); Platelet Count 635 X10*3/uL (160-400); Red Blood Count 4.51 X10*6/uL (4.60-5.80); Red Cell Distribution Width 14.6 % (11.0-16.0); White Blood Count 11.9 X10*3/uL (4.8-10.8)
[2021-08-22 07:09] LABS: Anion Gap 20 (12-20); Blood Urea Nitrogen 16 mg/dL (9-16); Calcium 10.1 mg/dL (8.4-10.2); Carbon Dioxide 29 mmol/L (22-29); Chloride 93 mmol/L (96-108); Creatinine Clr Calc Pharmacy 131.8; Estimated Glomerular Filt Rate > 60; Glucose Random 93 mg/dL (60-115); Potassium 4.8 mmol/L (3.3-5.1); Sodium 137 mmol/L (135-145)
[2021-08-22] MEDS: Lactated Ringers 1,000 ML 100 ML IVCONT ×2 (08:56→20:54)
[2021-08-22] MEDS: Famotidine/PF 20 MG/2 ML VIAL IVPUSH ×2 (08:56→20:54)
[2021-08-22] MEDS: Nicotine 21 MG PATCH.TD24 TRANSDERMA (08:57)
--- NOTE | 2021-08-22 09:37 | P.PNGS_ITS ---
Subjective Subjective Date of Service: 08/22/21 Interval history: says feels the same as yesterday no vomiting NG tube seems to have had high output overnight ileostomy has started to have good output overnight pain level okay Physical Exam Vital Signs: Vital Signs: Last Vital Signs Temp 98.1 F 08/22/21 07:50 Pulse 92 08/22/21 07:50 Resp 18 08/22/21 07:50 BP 152/94 H 08/22/21 07:50 Pulse Ox 98 08/22/21 07:50 BMI result Body Mass Index 21.4 Const: Other: appears very anxious General: no acute distress Resp: Effort & Inspection: normal respiratory effort Cardio: Rate: regular rate GI: Other: midline incision clean, ileostomy with good output Palpation (GI): Soft to palpation and no guarding Objective Data Active Medications Famotidine (Famotidine/Pf 20 Mg/2 Ml Vial) 20 mg IVPUSH BID [facility] Last Admin: 08/22/21 08:56 Dose: 20 mg Documented by: LATOSHA Hydromorphone HCl (Hydromorphone Hcl 2 Mg/Ml Vial) 2 mg IVPUSH Q3H PRN; Protocol PRN Reason: Pain, Severe (Pain Scale 7-10) Last Admin: 08/22/21 08:53 Dose: 2 mg Documented by: LATOSHA Hydroxyzine HCl (Hydroxyzine Hcl 25 Mg Tablet) 25 mg PO Q6H PRN PRN Reason: anxiety/restlessness Last Admin: 08/20/21 17:51 Dose: 25 mg Documented by: JANETH Piperacillin Sod/Tazobactam (Sod 3.375 gm/ Sodium Chloride) 50 mls @ 100 mls/hr IV Q6H [facility] Last Infusion: 08/22/21 06:15 Dose: 0 mls/hr Documented by: JIM Acetaminophen (Ofirmev) 1,000 mg in 100 mls @ 400 mls/hr IV Q6H [facility] Last Infusion: 08/22/21 07:18 Dose: 0 mls/hr Documented by: JIM Lactated Ringer's (Lr) 1,000 mls @ 100 mls/hr IVCONT .Q10H [facility] Last Admin: 08/22/21 08:56 Dose: 100 mls/hr Documented by: LATOSHA Multi-Ingred Medicated Throat [place] (Throat [place], Medicated 20 Ml Bottle) 1 spray MUCOUS MEM Q2H PRN PRN Reason: throat soreness Last Admin: 08/22/21 04:58 Dose: 1 spray Documented by: JIM Naloxone HCl (Naloxone Hcl 0.4 Mg/Ml Vial) 0.2 mg IVPUSH Q2M PRN PRN Reason: Opiate Reversal Nicotine (Nicotine 21 Mg Patch.Td24) 21 mg TRANSDERMA DAILY [facility] Last Admin: 08/22/21 08:57 Dose: 21 mg Documented by: LATOSHA Nicotine Polacrilex (Nicotine Polacrilex 2 Mg Gum) 2 mg BUCCAL Q2H PRN PRN Reason: smoking Last Admin: 08/19/21 21:02 Dose: 2 mg Documented by: ROBIN Ondansetron HCl (Ondansetron Hcl 4 Mg/2 Ml Vial) 4 mg IVPUSH Q6H PRN PRN Reason: Nausea and Vomiting Last Admin: 08/22/21 09:10 Dose: 4 mg Documented by: LATOSHA Pharmacy Consult (Consult Rx Etoh Phenob Po Dose) 1 each MISCELLANE ONCE PRN; Protocol PRN Reason: Consult order Sodium Chloride (0.9 % Sodium Chloride Flush 3 Ml Syringe) 3 ml IVFLUSH QSHIFT [facility] Last Admin: 08/22/21 07:47 Dose: Not Given Documented by: LATOSHA Non-Admin Reason: IV Running Labs CBC & Chem 7: 08/22/21 06:21 08/22/21 06:20 Labs: Laboratory Results - last 24 hr 08/21/21 08/22/21 08/22/21 08:17 06:20 06:21 MCV 84.9 MCH 27.7 MCHC 32.6 RDW 14.6 Plt Count 635 H MPV 8.8 L Absolute Nucleated RBC 0.000 Nucleated RBC % (auto) 0.0 Anion Gap 20 Estim Creat Clear Calc 131.8 Estimated GFR > 60 Random Glucose 93 Calcium 10.1 Carcinoembryonic Ag 2.10 Microbiology Microbiology Results: Microbiology 08/17/21 Unknown Gram Stain - Final Abdomen - Temporal Routine Culture - Preliminary Enterococcus/Streptococcus sp Gram negative madyson Procedures Date of Service Date of Service: 08/22/21 Progress Note: A&P Assessment and plan (1) [place]-vesical fistula: Status: Acute Assessment and Plan: status post sigmoid resection, diverting loop ileostomy path report shows adenocarcinoma ileostomy has started to have good output overnight will monitor NG tube output today and possibly remove this pain management encourage out of bed, incentive spirometry labs okay Time Spent With Patient Time: Total time spent is greater than 50% in coordination of care (as documented) at patient's floor/unit and/or counseling patient: Quality Stroke Does the patient have a stroke diagnosis?: No VTE Prior VTE?: No VTE Risk Level:: Medical - moderate - high VTE Device Contraindication: Treatment Not Indicated VTE Drug Contraindication: N/A - Med Ordered
--- NOTE | 2021-08-22 10:19 | HO.PM.IMPN ---
Subjective Subjective Date of Service: 08/23/21 Review of Systems Follow up SBO still with pain no nausea Physical Exam Vital Signs: Vital Signs: Last Vital Signs Temp 98.1 F 08/22/21 07:50 Pulse 92 08/22/21 07:50 Resp 18 08/22/21 07:50 BP 152/94 H 08/22/21 07:50 Pulse Ox 98 08/22/21 07:50 BMI result Body Mass Index 21.4 Appearing in no acute distress lung sounds are clear to auscultation heart regular rate rhythm, clear S1, S2 positive bowel sounds, abdomen is soft, nontender neuro patient is alert x3, no focal deficits NGT in place Objective Data Active Medications Famotidine (Famotidine/Pf 20 Mg/2 Ml Vial) 20 mg IVPUSH BID [facility] Last Admin: 08/22/21 08:56 Dose: 20 mg Documented by: LATOSHA Hydromorphone HCl (Hydromorphone Hcl 2 Mg/Ml Vial) 2 mg IVPUSH Q3H PRN; Protocol PRN Reason: Pain, Severe (Pain Scale 7-10) Last Admin: 08/22/21 08:53 Dose: 2 mg Documented by: LATOSHA Hydroxyzine HCl (Hydroxyzine Hcl 25 Mg Tablet) 25 mg PO Q6H PRN PRN Reason: anxiety/restlessness Last Admin: 08/20/21 17:51 Dose: 25 mg Documented by: JANETH Piperacillin Sod/Tazobactam (Sod 3.375 gm/ Sodium Chloride) 50 mls @ 100 mls/hr IV Q6H [facility] Last Infusion: 08/22/21 06:15 Dose: 0 mls/hr Documented by: JIM Acetaminophen (Ofirmev) 1,000 mg in 100 mls @ 400 mls/hr IV Q6H [facility] Last Infusion: 08/22/21 07:18 Dose: 0 mls/hr Documented by: JIM Lactated Ringer's (Lr) 1,000 mls @ 100 mls/hr IVCONT .Q10H [facility] Last Admin: 08/22/21 08:56 Dose: 100 mls/hr Documented by: LATOSHA Multi-Ingred Medicated Throat [place] (Throat [place], Medicated 20 Ml Bottle) 1 spray MUCOUS MEM Q2H PRN PRN Reason: throat soreness Last Admin: 08/22/21 04:58 Dose: 1 spray Documented by: JIM Naloxone HCl (Naloxone Hcl 0.4 Mg/Ml Vial) 0.2 mg IVPUSH Q2M PRN PRN Reason: Opiate Reversal Nicotine (Nicotine 21 Mg Patch.Td24) 21 mg TRANSDERMA DAILY [facility] Last Admin: 08/22/21 08:57 Dose: 21 mg Documented by: LATOSHA Nicotine Polacrilex (Nicotine Polacrilex 2 Mg Gum) 2 mg BUCCAL Q2H PRN PRN Reason: smoking Last Admin: 08/19/21 21:02 Dose: 2 mg Documented by: ROBIN Ondansetron HCl (Ondansetron Hcl 4 Mg/2 Ml Vial) 4 mg IVPUSH Q6H PRN PRN Reason: Nausea and Vomiting Last Admin: 08/22/21 09:10 Dose: 4 mg Documented by: LATOSHA Pharmacy Consult (Consult Rx Etoh Phenob Po Dose) 1 each MISCELLANE ONCE PRN; Protocol PRN Reason: Consult order Sodium Chloride (0.9 % Sodium Chloride Flush 3 Ml Syringe) 3 ml IVFLUSH QSHIFT [facility] Last Admin: 08/22/21 07:47 Dose: Not Given Documented by: LATOSHA Non-Admin Reason: IV Running Labs CBC & Chem 7: 08/22/21 06:21 08/22/21 06:20 Labs: Laboratory Results - last 24 hr 08/21/21 08/22/21 08/22/21 08:17 06:20 06:21 MCV 84.9 MCH 27.7 MCHC 32.6 RDW 14.6 Plt Count 635 H MPV 8.8 L Absolute Nucleated RBC 0.000 Nucleated RBC % (auto) 0.0 Anion Gap 20 Estim Creat Clear Calc 131.8 Estimated GFR > 60 Random Glucose 93 Calcium 10.1 Carcinoembryonic Ag 2.10 Microbiology Microbiology Results: Microbiology 08/17/21 Unknown Gram Stain - Final Abdomen - Temporal Routine Culture - Preliminary Enterococcus/Streptococcus sp Gram negative madyson Assessment and Plan (1) Adenocarcinoma of sigmoid colon: Status: Acute (2) [place]-vesical fistula: Status: Acute Plan This is a 41 yo M with a recently history of intraabdominal abscess / colo-vesicular fistula treated with IV antibiotics / IR drainage (in [place], [place]) who presents today with worsening abdominal pain. His CT scan from 08/11 shows reaccumulation of his fluid collection. He will now be admitted for further treatment and management. colo-vesicular fistula & abscess s/p closure of colovesicular fistula, sigmoid colectomy and diverting loop ileostomy pathology report returned as sigmoid adenocarcinoma repeat CT from overnight showing concern for abscess(surgery feels from previous drain track), SBO and NGT was placed intra abdominal cultures growing enterococcus/streptococcus/GNR, continue IV zosyn for now pain control, will add oxycodone general surgery following NPO, NGT in place - follow ouput Sigmoid adenocarcinoma seen by oncology - recommend outpatient follow up for adjuvant chemotherapy after he has recovered from surgery Sepsis, resolved secondary to acute left epididymitis Confirmed by Ultrasound images Blood culture negative Discontinue doxycycline seen by urology UTI Growing kramer-sensitive E coli in the urine Continue antibiotic Alcohol dependence history of withdrawal seizures finished Phenobarbital protocol monitor lytes tobacco dependence smoking cessation advised NRT Full Code DVT pptx, reena Attending:Dimitri patient requiring ongoing inpatient hospitalization for treatment with IV antibiotics, IV pain medication for post surgical pain, advancement of diet, final culture results Quality Stroke Does the patient have a stroke diagnosis?: No VTE Prior VTE?: No VTE Risk Level:: Medical - moderate - high VTE Device Contraindication: Treatment Not Indicated VTE Drug Contraindication: N/A - Med Ordered
[2021-08-22] MEDS: Nicotine Polacrilex 2 MG GUM BUCCAL (12:58)
--- NOTE | 2021-08-22 13:52 | PM.EVENT ---
Event Note Date of Service: 08/22/21 Event Note: denies severe pain stoma continues to have some output NG tube output however still high abdomen nondistended will hold off on removing the NG tube for now clinically doing well
[2021-08-23] VITALS (9 sets, daily range): BP systolic 135–173; BP diastolic 87–105; PULSE 83–96; RESP 18–20; TEMP 36.6–37; O2SAT 96–98
[2021-08-23] MEDS: HYDROmorphone HCl 2 MG/ML VIAL IVPUSH ×7 (00:08→21:45)
[2021-08-23] MEDS: oxyCODONE HCl Immed Release 5 MG TABLET PO (01:00)
[2021-08-23] MEDS: ondansetron HCL 4 MG/2 ML VIAL IVPUSH ×3 (08:21→21:45)
[2021-08-23] MEDS: Famotidine/PF 20 MG/2 ML VIAL IVPUSH ×2 (08:21→21:45)
[2021-08-23] MEDS: Lactated Ringers 1,000 ML 100 ML IVCONT (08:29)
[2021-08-23] MEDS: Nicotine 21 MG PATCH.TD24 TRANSDERMA (08:31)
--- NOTE | 2021-08-23 09:34 | P.PNGS_ITS ---
Subjective Subjective Date of Service: 08/23/21 Interval history: feels much beter today overall less abdominal pain asking about food Physical Exam Vital Signs: Vital Signs: Last Vital Signs Temp 98.1 F 08/23/21 07:37 Pulse 84 08/23/21 07:37 Resp 18 08/23/21 07:37 BP 135/98 H 08/23/21 07:37 Pulse Ox 98 08/23/21 07:37 BMI result Body Mass Index 21.4 Const: General: comfortable and no acute distress Resp: Effort & Inspection: normal respiratory effort Cardio: Rate: regular rate GI: Other: soft, ileostomy with good output including gas, incision clean Objective Data Active Medications Famotidine (Famotidine/Pf 20 Mg/2 Ml Vial) 20 mg IVPUSH BID [facility] Last Admin: 08/23/21 08:21 Dose: 20 mg Documented by: LATOSHA Hydromorphone HCl (Hydromorphone Hcl 2 Mg/Ml Vial) 2 mg IVPUSH Q3H PRN; Protocol PRN Reason: Pain, Severe (Pain Scale 7-10) Last Admin: 08/23/21 08:21 Dose: 2 mg Documented by: LATOSHA Hydroxyzine HCl (Hydroxyzine Hcl 25 Mg Tablet) 25 mg PO Q6H PRN PRN Reason: anxiety/restlessness Last Admin: 08/20/21 17:51 Dose: 25 mg Documented by: PODHUSSEIN Acetaminophen (Ofirmev) 1,000 mg in 100 mls @ 400 mls/hr IV Q6H [facility] Last Infusion: 08/23/21 05:57 Dose: 0 mls/hr Documented by: ANDERICA Lactated Ringer's (Lr) 1,000 mls @ 100 mls/hr IVCONT .Q10H [facility] Last Admin: 08/23/21 08:29 Dose: 100 mls/hr Documented by: LATOSHA Multi-Ingred Medicated Throat [place] (Throat [place], Medicated 20 Ml Bottle) 1 spray MUCOUS MEM Q2H PRN PRN Reason: throat soreness Last Admin: 08/23/21 08:20 Dose: 1 spray Documented by: LATOSHA Naloxone HCl (Naloxone Hcl 0.4 Mg/Ml Vial) 0.2 mg IVPUSH Q2M PRN PRN Reason: Opiate Reversal Nicotine (Nicotine 21 Mg Patch.Td24) 21 mg TRANSDERMA DAILY [facility] Last Admin: 08/23/21 08:31 Dose: 21 mg Documented by: LATOSHA Nicotine Polacrilex (Nicotine Polacrilex 2 Mg Gum) 2 mg BUCCAL Q2H PRN PRN Reason: smoking Last Admin: 08/22/21 12:58 Dose: 2 mg Documented by: LATOSHA Ondansetron HCl (Ondansetron Hcl 4 Mg/2 Ml Vial) 4 mg IVPUSH Q6H PRN PRN Reason: Nausea and Vomiting Last Admin: 08/23/21 08:21 Dose: 4 mg Documented by: LATOSHA Oxycodone HCl (Oxycodone Hcl Immed Release 5 Mg Tablet) 5 mg PO Q4H PRN PRN Reason: Pain, Mild (Pain Scale 1-3) Last Admin: 08/23/21 01:00 Dose: 5 mg Documented by: XIMENA Pharmacy Consult (Consult Rx Etoh Phenob Po Dose) 1 each MISCELLANE ONCE PRN; Protocol PRN Reason: Consult order Sodium Chloride (0.9 % Sodium Chloride Flush 3 Ml Syringe) 3 ml IVFLUSH QSHIFT [facility] Last Admin: 08/23/21 07:53 Dose: Not Given Documented by: LATOSHA Non-Admin Reason: IV Running Labs CBC & Chem 7: 08/22/21 06:21 08/22/21 06:20 Microbiology Microbiology Results: Microbiology 08/17/21 Unknown Gram Stain - Final Abdomen - Temporal Routine Culture - Preliminary Enterococcus faecium Escherichia coli Procedures Date of Service Date of Service: 08/23/21 Progress Note: A&P Assessment and plan (1) S/P partial resection of colon: Status: Acute Assessment and Plan: stoma with good output abd soft ok to dc NGT clear liquid diet encouraged to get OOB, do incentive spirometry berger in place - urine clear pain mgt doing well path shows adenoca, T4N1 Time Spent With Patient Time: Total time spent is greater than 50% in coordination of care (as documented) at patient's floor/unit and/or counseling patient: Quality Stroke Does the patient have a stroke diagnosis?: No VTE Prior VTE?: No VTE Risk Level:: Medical - moderate - high VTE Device Contraindication: Treatment Not Indicated VTE Drug Contraindication: N/A - Med Ordered
--- NOTE | 2021-08-23 11:32 | HO.PM.IMPN ---
Subjective Subjective Date of Service: 08/23/21 Review of Systems Follow up SBO feeling better today Physical Exam Vital Signs: Vital Signs: Last Vital Signs Temp 98.3 F 08/23/21 11:16 Pulse 91 08/23/21 11:16 Resp 18 08/23/21 11:16 BP 140/97 H 08/23/21 11:16 Pulse Ox 98 08/23/21 11:16 BMI result Body Mass Index 21.4 Appearing in no acute distress lung sounds are clear to auscultation heart regular rate rhythm, clear S1, S2 positive bowel sounds, abdomen is soft, nontender neuro patient is alert x3, no focal deficits NGT out Objective Data Active Medications Famotidine (Famotidine/Pf 20 Mg/2 Ml Vial) 20 mg IVPUSH BID [facility] Last Admin: 08/23/21 08:21 Dose: 20 mg Documented by: LATOSHA Hydromorphone HCl (Hydromorphone Hcl 2 Mg/Ml Vial) 2 mg IVPUSH Q3H PRN; Protocol PRN Reason: Pain, Severe (Pain Scale 7-10) Last Admin: 08/23/21 11:20 Dose: 2 mg Documented by: LATOSHA Hydroxyzine HCl (Hydroxyzine Hcl 25 Mg Tablet) 25 mg PO Q6H PRN PRN Reason: anxiety/restlessness Last Admin: 08/20/21 17:51 Dose: 25 mg Documented by: PODHUSSEIN Acetaminophen (Ofirmev) 1,000 mg in 100 mls @ 400 mls/hr IV Q6H [facility] Last Admin: 08/23/21 11:20 Dose: 400 mls/hr Documented by: LATOSHA Lactated Ringer's (Lr) 1,000 mls @ 100 mls/hr IVCONT .Q10H [facility] Last Admin: 08/23/21 08:29 Dose: 100 mls/hr Documented by: LATOSHA Multi-Ingred Medicated Throat [place] (Throat [place], Medicated 20 Ml Bottle) 1 spray MUCOUS MEM Q2H PRN PRN Reason: throat soreness Last Admin: 08/23/21 11:20 Dose: 1 spray Documented by: LATOSHA Naloxone HCl (Naloxone Hcl 0.4 Mg/Ml Vial) 0.2 mg IVPUSH Q2M PRN PRN Reason: Opiate Reversal Nicotine (Nicotine 21 Mg Patch.Td24) 21 mg TRANSDERMA DAILY [facility] Last Admin: 08/23/21 08:31 Dose: 21 mg Documented by: LATOSHA Nicotine Polacrilex (Nicotine Polacrilex 2 Mg Gum) 2 mg BUCCAL Q2H PRN PRN Reason: smoking Last Admin: 08/22/21 12:58 Dose: 2 mg Documented by: LATOSHA Ondansetron HCl (Ondansetron Hcl 4 Mg/2 Ml Vial) 4 mg IVPUSH Q6H PRN PRN Reason: Nausea and Vomiting Last Admin: 08/23/21 08:21 Dose: 4 mg Documented by: LATOSHA Oxycodone HCl (Oxycodone Hcl Immed Release 5 Mg Tablet) 5 mg PO Q4H PRN PRN Reason: Pain, Mild (Pain Scale 1-3) Last Admin: 08/23/21 01:00 Dose: 5 mg Documented by: XIMENA Pharmacy Consult (Consult Rx Etoh Phenob Po Dose) 1 each MISCELLANE ONCE PRN; Protocol PRN Reason: Consult order Sodium Chloride (0.9 % Sodium Chloride Flush 3 Ml Syringe) 3 ml IVFLUSH QSHIFT [facility] Last Admin: 08/23/21 07:53 Dose: Not Given Documented by: LATOSHA Non-Admin Reason: IV Running Labs CBC & Chem 7: 08/22/21 06:21 08/22/21 06:20 Microbiology Microbiology Results: Microbiology 08/17/21 Unknown Gram Stain - Final Abdomen - Temporal Routine Culture - Preliminary Enterococcus faecium Escherichia coli Assessment and Plan (1) Adenocarcinoma of sigmoid colon: Status: Acute (2) [place]-vesical fistula: Status: Acute Plan This is a 41 yo M with a recently history of intraabdominal abscess / colo-vesicular fistula treated with IV antibiotics / IR drainage (in [place], [place]) who presents today with worsening abdominal pain. His CT scan from 08/11 shows reaccumulation of his fluid collection. He will now be admitted for further treatment and management. colo-vesicular fistula & abscess s/p closure of colovesicular fistula, sigmoid colectomy and diverting loop ileostomy pathology report returned as sigmoid adenocarcinoma repeat CT from overnight showing concern for abscess(surgery feels from previous drain track), SBO and NGT was placed intra abdominal cultures growing enterococcus/streptococcus/GNR, continue IV zosyn for now pain control, will add oxycodone general surgery following NGT out, clear liquid diet Sigmoid adenocarcinoma seen by oncology - recommend outpatient follow up for adjuvant chemotherapy after he has recovered from surgery Sepsis, resolved secondary to acute left epididymitis Confirmed by Ultrasound images Blood culture negative Discontinue doxycycline seen by urology UTI Growing kramer-sensitive E coli in the urine Continue antibiotic Take berger cath out Alcohol dependence history of withdrawal seizures finished Phenobarbital protocol monitor lytes tobacco dependence smoking cessation advised NRT Full Code DVT pptx, boots Attending Dr. العلي patient requiring ongoing inpatient hospitalization for treatment with IV antibiotics, IV pain medication for post surgical pain, advancement of diet, final culture results Quality Stroke Does the patient have a stroke diagnosis?: No VTE Prior VTE?: No VTE Risk Level:: Medical - moderate - high VTE Device Contraindication: Treatment Not Indicated VTE Drug Contraindication: N/A - Med Ordered
[2021-08-23] MEDS: Nicotine Polacrilex 2 MG GUM BUCCAL (15:49)
--- NOTE | 2021-08-23 19:15 | PC.NURSE ---
NG tube was removed at 1100, patient tolerated procedure well. Diet advanced to clear liquids, patient reports no problems with tolerating diet.
[2021-08-23] MEDS: 0.9 % Sodium Chloride Flush 3 ML SYRINGE IVFLUSH (21:45)
[2021-08-24 04:00] VITALS: BP 160/99; PULSE 92; RESP 20; TEMP 37.1; O2SAT 96
[2021-08-24] MEDS: HYDROmorphone HCl 2 MG/ML VIAL IVPUSH ×2 (04:03→07:55)
[2021-08-24 06:40] LABS: Anion Gap 14 (12-20); Blood Urea Nitrogen 9 mg/dL (9-16); Calcium 9.6 mg/dL (8.4-10.2); Carbon Dioxide 30 mmol/L (22-29); Chloride 94 mmol/L (96-108); Creatinine Clr Calc Pharmacy 141.9; Estimated Glomerular Filt Rate > 60; Glucose Random 99 mg/dL (60-115); Potassium 4.3 mmol/L (3.3-5.1); Sodium 134 mmol/L (135-145)
[2021-08-24] MEDS: Famotidine/PF 20 MG/2 ML VIAL IVPUSH ×2 (07:55→20:14)
[2021-08-24 07:59] VITALS: BP 140/94; PULSE 86; RESP 20; TEMP 36.9; O2SAT 96
[2021-08-24] MEDS: ondansetron HCL 4 MG/2 ML VIAL IVPUSH ×3 (08:01→23:09)
[2021-08-24] MEDS: Nicotine 21 MG PATCH.TD24 TRANSDERMA (08:01)
[2021-08-24] MEDS: 0.9 % Sodium Chloride Flush 3 ML SYRINGE IVFLUSH ×2 (08:05→20:13)
--- NOTE | 2021-08-24 08:22 | PM.PNGS ---
Subjective Subjective Date of Service: 08/24/21 Interval history: Overall patient is feeling improved. His ostomy is producing bilious fluid. He continues to report abdominal pain but overall feels more comfortable. Physical Exam Vital Signs: Vital Signs: Last Vital Signs Temp 98.4 F 08/24/21 07:59 Pulse 86 08/24/21 07:59 Resp 20 08/24/21 07:59 BP 140/94 H 08/24/21 07:59 Pulse Ox 96 08/24/21 07:59 BMI result Body Mass Index 21.4 Const: General: cooperative and no acute distress Nutritional Appearance: thin Orientation/consciousness: patient oriented x3 Limitations: no limitations Resp: Effort & Inspection: normal respiratory effort, no audible wheezes, no cough and no respiratory distress GI: Other: Midline incision is clean and intact. Ostomy is producing thin bilious fluid. No erythema is appreciated. Percussion: Yes normal to percussion Skin: Other: Warm, dry, no rash Neuro: General: patient oriented x3 Extrem: General: No edema Objective Data Active Medications Famotidine (Famotidine/Pf 20 Mg/2 Ml Vial) 20 mg IVPUSH BID [facility] Last Admin: 08/24/21 07:55 Dose: 20 mg Documented by: LATOSHA Hydromorphone HCl (Hydromorphone Hcl 2 Mg/Ml Vial) 1.5 mg IVPUSH Q3H PRN; Protocol PRN Reason: pain Hydroxyzine HCl (Hydroxyzine Hcl 25 Mg Tablet) 25 mg PO Q6H PRN PRN Reason: anxiety/restlessness Last Admin: 08/20/21 17:51 Dose: 25 mg Documented by: JANETH Multi-Ingred Medicated Throat [place] (Throat [place], Medicated 20 Ml Bottle) 1 spray MUCOUS MEM Q2H PRN PRN Reason: throat soreness Last Admin: 08/23/21 11:20 Dose: 1 spray Documented by: LATOSHA Naloxone HCl (Naloxone Hcl 0.4 Mg/Ml Vial) 0.2 mg IVPUSH Q2M PRN PRN Reason: Opiate Reversal Nicotine (Nicotine 21 Mg Patch.Td24) 21 mg TRANSDERMA DAILY [facility] Last Admin: 08/24/21 08:01 Dose: 21 mg Documented by: LATOSHA Nicotine Polacrilex (Nicotine Polacrilex 2 Mg Gum) 2 mg BUCCAL Q2H PRN PRN Reason: smoking Last Admin: 08/23/21 15:49 Dose: 2 mg Documented by: LATOSHA Ondansetron HCl (Ondansetron Hcl 4 Mg/2 Ml Vial) 4 mg IVPUSH Q6H PRN PRN Reason: Nausea and Vomiting Last Admin: 08/24/21 08:01 Dose: 4 mg Documented by: LATOSHA Oxycodone HCl (Oxycodone Hcl Immed Release 5 Mg Tablet) 5 mg PO Q4H PRN PRN Reason: Pain, Mild (Pain Scale 1-3) Last Admin: 08/23/21 01:00 Dose: 5 mg Documented by: XIMENA Pharmacy Consult (Consult Rx Etoh Phenob Po Dose) 1 each MISCELLANE ONCE PRN; Protocol PRN Reason: Consult order Sodium Chloride (0.9 % Sodium Chloride Flush 3 Ml [facility]) [facility] Admin: 08/24/21 08:05 Dose: 3 ml Documented by: LATOSHA Labs CBC & Chem 7: 08/22/21 06:21 08/24/21 05:23 Labs: Laboratory Results - last 24 hr 08/24/21 05:23 Anion Gap 14 Estim Creat Clear Calc 141.9 Estimated GFR > 60 Random Glucose 99 Calcium 9.6 Microbiology Microbiology Results: Microbiology 08/17/21 Unknown Gram Stain - Final Abdomen - Temporal Routine Culture - Final Enterococcus faecium Escherichia coli Procedures Date of Service Date of Service: 08/24/21 Progress Note: A&P Assessment and plan (1) Adenocarcinoma of sigmoid colon: Status: Acute Assessment and Plan: patient diagnosed with adenocarcinoma of the sigmoid colon, T4 N1. Appreciate Dr. Hernandez's input. Patient will follow-up as an outpatient for FOLFOX treatment (2) S/P partial resection of colon: Status: Acute Assessment and Plan: S/P diverting ileostomy now producing a large amount of liquid stool. Will need to watch I&Os to prevent dehydration. Will advance diet today to regular low residue diet. (3) [place]-vesical fistula: Status: Acute Assessment and Plan: Plan to remove [place] catheter tomorrow. (4) Acute pain: Status: Acute Assessment and Plan: Will begin to wean patient off IV pain medications. Will decrease the dose of Dilaudid to 1.5 mg q.3 hours p.r.n. for pain . Patient understands and agrees with the plan. Time Spent With Patient Time: Total time spent is greater than 50% in coordination of care (as documented) at patient's floor/unit and/or counseling patient: Quality Stroke Does the patient have a stroke diagnosis?: No VTE Prior VTE?: No VTE Risk Level:: Medical - moderate - high VTE Device Contraindication: Treatment Not Indicated VTE Drug Contraindication: N/A - Med Ordered
[2021-08-24] MEDS: HYDROmorphone HCl 2 MG/ML VIAL 1.5 MG IVPUSH ×5 (11:06→23:09)
[2021-08-24 11:45] VITALS: BP 135/87; PULSE 87; RESP 20; TEMP 36.9; O2SAT 97
--- NOTE | 2021-08-24 12:29 | HO.PM.IMPN ---
Subjective Subjective Date of Service: 08/24/21 Review of Systems Follow up SBO feeling better today NGT out Physical Exam Vital Signs: Vital Signs: Last Vital Signs Temp 98.4 F 08/24/21 11:45 Pulse 87 08/24/21 11:45 Resp 20 08/24/21 11:45 BP 135/87 08/24/21 11:45 Pulse Ox 97 08/24/21 11:45 BMI result Body Mass Index 21.4 Appearing in no acute distress lung sounds are clear to auscultation heart regular rate rhythm, clear S1, S2 positive bowel sounds, abdomen is soft, nontender neuro patient is alert x3, no focal deficits Objective Data Active Medications Famotidine (Famotidine/Pf 20 Mg/2 Ml Vial) 20 mg IVPUSH BID [facility] BEDS AT [facility] Last Admin: 08/24/21 07:55 Dose: 20 mg Documented by: LATOSHA Hydromorphone HCl (Hydromorphone Hcl 2 Mg/Ml Vial) 1.5 mg IVPUSH Q3H PRN; Protocol PRN Reason: pain Last Admin: 08/24/21 11:06 Dose: 1.5 mg Documented by: LATOSHA Hydroxyzine HCl (Hydroxyzine Hcl 25 Mg Tablet) 25 mg PO Q6H PRN PRN Reason: anxiety/restlessness Last Admin: 08/20/21 17:51 Dose: 25 mg Documented by: JANETH Multi-Ingred Medicated Throat [place] (Throat [place], Medicated 20 Ml Bottle) 1 spray MUCOUS MEM Q2H PRN PRN Reason: throat soreness Last Admin: 08/23/21 11:20 Dose: 1 spray Documented by: LATOSHA Naloxone HCl (Naloxone Hcl 0.4 Mg/Ml Vial) 0.2 mg IVPUSH Q2M PRN PRN Reason: Opiate Reversal Nicotine (Nicotine 21 Mg Patch.Td24) 21 mg TRANSDERMA DAILY [facility] 234 BEDS [facility] Last Admin: 08/24/21 08:01 Dose: 21 mg Documented by: LATOSHA Nicotine Polacrilex (Nicotine Polacrilex 2 Mg Gum) 2 mg BUCCAL Q2H PRN PRN Reason: smoking Last Admin: 08/23/21 15:49 Dose: 2 mg Documented by: LATOSHA Ondansetron HCl (Ondansetron Hcl 4 Mg/2 Ml Vial) 4 mg IVPUSH Q6H PRN PRN Reason: Nausea and Vomiting Last Admin: 08/24/21 08:01 Dose: 4 mg Documented by: LATOSHA Oxycodone HCl (Oxycodone Hcl Immed Release 5 Mg Tablet) 5 mg PO Q4H PRN PRN Reason: Pain, Mild (Pain Scale 1-3) Last Admin: 08/23/21 01:00 Dose: 5 mg Documented by: XIMENA Pharmacy Consult (Consult Rx Etoh Phenob Po Dose) 1 each MISCELLANE ONCE PRN; Protocol PRN Reason: Consult order Sodium Chloride (0.9 % Sodium Chloride Flush 3 Ml Syringe) 3 ml IVFLUSH QSHIFT [facility] 234 BEDS [facility] Last Admin: 08/24/21 08:05 Dose: 3 ml Documented by: LATOSHA Labs CBC & Chem 7: 08/22/21 06:21 08/24/21 05:23 Labs: Laboratory Results - last 24 hr 08/24/21 05:23 Anion Gap 14 Estim Creat Clear Calc 141.9 Estimated GFR > 60 Random Glucose 99 Calcium 9.6 Microbiology Microbiology Results: Microbiology 08/17/21 Unknown Gram Stain - Final Abdomen - Temporal Routine Culture - Final Enterococcus faecium Escherichia coli Assessment and Plan (1) Adenocarcinoma of sigmoid colon: Status: Acute (2) [place]-vesical fistula: Status: Acute Plan This is a 41 yo M with a recently history of intraabdominal abscess / colo-vesicular fistula treated with IV antibiotics / IR drainage (in [place], [place]) who presents today with worsening abdominal pain. His CT scan from 08/11 shows reaccumulation of his fluid collection. He will now be admitted for further treatment and management. colo-vesicular fistula & abscess s/p closure of colovesicular fistula, sigmoid colectomy and diverting loop ileostomy pathology report returned as sigmoid adenocarcinoma repeat CT from overnight showing concern for abscess(surgery feels from previous drain track), SBO and NGT was placed intra abdominal cultures growing enterococcus/streptococcus/GNR, continue IV zosyn for now pain control, will add oxycodone general surgery following NGT out, diet advanced DC berger tomorrow wean down pain meds Sigmoid adenocarcinoma seen by oncology - recommend outpatient follow up for adjuvant chemotherapy after he has recovered from surgery Sepsis, resolved secondary to acute left epididymitis Confirmed by Ultrasound images Blood culture negative Discontinue doxycycline seen by urology UTI Growing kramer-sensitive E coli in the urine repeat UA Alcohol dependence history of withdrawal seizures finished Phenobarbital protocol monitor lytes tobacco dependence smoking cessation advised NRT Full Code DVT lalitox, reena Attending Dr. Avila patient requiring ongoing inpatient hospitalization for treatment with IV antibiotics, IV pain medication for post surgical pain, advancement of diet, final culture results Quality Stroke Does the patient have a stroke diagnosis?: No VTE Prior VTE?: No VTE Risk Level:: Medical - moderate - high VTE Device Contraindication: Treatment Not Indicated VTE Drug Contraindication: N/A - Med Ordered
[2021-08-24] MEDS: Nicotine Polacrilex 2 MG GUM BUCCAL (15:24)
[2021-08-24 15:26] VITALS: BP 152/88; PULSE 100; RESP 18; TEMP 36.8; O2SAT 97
[2021-08-24] MEDS: oxyCODONE HCl Immed Release 5 MG TABLET PO (15:26)
[2021-08-24 19:01] LABS: Appearance Urine HAZY; Color Urine YELLOW; Glucose Urine UA NEG (NEG); Leukocyte Esterase Urine 1+ (NEG); Nitrite Urine NEG (NEG); PH 6.5 (5.0-8.0); UACC Culture Trigger YES; Urine Blood 2+ (NEG); Urine Ketones NEG (NEG); Urine Protein NEG (NEG-TRACE)
[2021-08-24 19:08] LABS: Amorphous Sediment Urine 1+ /LPF; Bacteria Urine 1+ /LPF; Calcium Oxalate Crystals Urine TRACE /LPF; RBC Urine 0-2 /HPF (0); WBC Urine 0-2 /HPF (0-4)
[2021-08-24 19:12] VITALS: BP 146/88; PULSE 94; RESP 18; TEMP 36.9; O2SAT 96
--- NOTE | 2021-08-24 19:26 | PC.NURSE ---
Patient left the unit today without reporting to staff. Security was notified and were able to locate patient in the lobby. Patient was escorted back to the room and informed me that he wanted to get some fresh air. Patient was educated on the importance of communication with the hospital personnel, and strict policy on leaving the unit unaccompanied.
[2021-08-24 23:27] VITALS: BP 144/96; PULSE 97; RESP 18; TEMP 36.8; O2SAT 97
[2021-08-25] MEDS: HYDROmorphone HCl 2 MG/ML VIAL 1.5 MG IVPUSH ×7 (02:09→21:15)
[2021-08-25 03:20] VITALS: BP 119/88; PULSE 89; RESP 20; TEMP 36.7; O2SAT 97
[2021-08-25 07:36] VITALS: BP 126/79; PULSE 84; RESP 18; TEMP 36.5; O2SAT 98
[2021-08-25] MEDS: oxyCODONE HCl Immed Release 5 MG TABLET PO ×2 (08:05→14:07)
[2021-08-25] MEDS: Famotidine/PF 20 MG/2 ML VIAL IVPUSH ×2 (08:05→21:18)
[2021-08-25] MEDS: Nicotine 21 MG PATCH.TD24 TRANSDERMA (08:05)
--- NOTE | 2021-08-25 08:37 | PM.PNGS ---
Subjective Subjective Date of Service: 08/25/21 <EZRA Menon - Last Filed: 08/25/21 08:51> 08/25/21 <Manuel Cooper MD - Last Filed: 08/25/21 16:50> Interval history: Pt tolerating regular diet without N/V. He reports persistent midline abdominal pain. Pain meds are still helping but he is apprehensive that his pain medications are being decreased. Ostomy is functioning; pt reports he was able to change the bag yesterday and feels comfortable with his ostomy care. Ambulating, Gold in place but planning to remove later this morning. <EZRA Menon - Last Filed: 08/25/21 08:51> Physical Exam Vital Signs: Vital Signs: Last Vital Signs Temp 97.7 F 08/25/21 07:36 Pulse 84 08/25/21 07:36 Resp 18 08/25/21 07:36 BP 126/79 08/25/21 07:36 Pulse Ox 98 08/25/21 07:36 BMI result Body Mass Index 21.4 <EZRA Menon - Last Filed: 08/25/21 08:51> Const: General: comfortable and no acute distress <EZRA Menon Last Filed: 08/25/21 08:51> Orientation/consciousness: patient oriented x3 <EZRA Menon - Last Filed: 08/25/21 08:51> Resp: Effort & Inspection: normal respiratory effort and able to speak in complete sentences <EZRA Menon - Last Filed: 08/25/21 08:51> GI: Other: abdomen soft, appropriately tender at midline incision, francesco intact with small amount of serosanguinous drainage on dressing, no purulence or surrounding erythema of skin noted; ostomy pink with dark bilious stool in bag <EZRA Menon - Last Filed: 08/25/21 08:51> Neuro: General: patient oriented x3 <EZRA Menon Last Filed: 08/25/21 08:51> Objective Data Active Medications Famotidine (Famotidine/Pf 20 Mg/2 Ml Vial) 20 mg IVPUSH BID KASHMIR Last Admin: 08/25/21 08:05 Dose: 20 mg Documented by: DARNELL Hydromorphone HCl (Hydromorphone Hcl 2 Mg/Ml Vial) 1.5 mg IVPUSH Q3H PRN; Protocol PRN Reason: pain Last Admin: 08/25/21 05:36 Dose: 1.5 mg Documented by: MANINDER Hydroxyzine HCl (Hydroxyzine Hcl 25 Mg Tablet) 25 mg PO Q6H PRN PRN Reason: anxiety/restlessness Last Admin: 08/20/21 17:51 Dose: 25 mg Documented by: JANETH Multi-Ingred Medicated Throat [place] (Throat [place], Medicated 20 Ml Bottle) 1 spray MUCOUS MEM Q2H PRN PRN Reason: throat soreness Last Admin: 08/23/21 11:20 Dose: 1 spray Documented by: LATOSHA Naloxone HCl (Naloxone Hcl 0.4 Mg/Ml Vial) 0.2 mg IVPUSH Q2M PRN PRN Reason: Opiate Reversal Nicotine (Nicotine 21 Mg Patch.Td24) 21 mg TRANSDERMA DAILY [facility] Last Admin: 08/25/21 08:05 Dose: 21 mg Documented by: DARNELL Nicotine Polacrilex (Nicotine Polacrilex 2 Mg Gum) 2 mg BUCCAL Q2H PRN PRN Reason: smoking Last Admin: 08/24/21 15:24 Dose: 2 mg Documented by: LATOSHA Ondansetron HCl (Ondansetron Hcl 4 Mg/2 Ml Vial) 4 mg IVPUSH Q6H PRN PRN Reason: Nausea and Vomiting Last Admin: 08/24/21 23:09 Dose: 4 mg Documented by: MANINDER Oxycodone HCl (Oxycodone Hcl Immed Release 5 Mg Tablet) 5 mg PO Q4H PRN PRN Reason: Pain, Mild (Pain Scale 1-3) Last Admin: 08/25/21 08:05 Dose: 5 mg Documented by: DARNELL Pharmacy Consult (Consult Rx Etoh Phenob Po Dose) 1 each MISCELLANE ONCE PRN; Protocol PRN Reason: Consult order Sodium Chloride (0.9 % Sodium Chloride Flush 3 Ml Syringe) [facility] Last Admin: 08/24/21 20:13 Dose: 3 ml Documented by: MANINDER <EZRA Menon - Last Filed: 08/25/21 08:51> Labs CBC & Chem 7: : 08/22/21 06:21 08/24/21 05:23 <EZRA Menon - Last Filed: 08/25/21 08:51> Labs: Laboratory Results - last 24 hr 08/24/21 18:00 Urine Color YELLOW Urine Appearance HAZY Urine pH 6.5 Ur Specific [place] 1.010 Urine Protein NEG Urine Glucose (UA) NEG Urine Ketones NEG Urine Blood 2+ H Urine Nitrite NEG Ur Leukocyte Esterase 1+ H Urine RBC 0-2 Urine WBC 0-2 Ur Squamous Epith Cells NONE Calcium Oxalate Crystal TRACE Amorphous Sediment 1+ Urine Bacteria 1+ Urine Yeast 1+ <EZRA Menon - Last Filed: 08/25/21 08:51> Microbiology Microbiology Results: Microbiology 08/24/21 19:03 Urine Culture - Preliminary Urine Catheterized - Gold Catheter No growth to date. 08/17/21 Unknown Gram Stain - Final Abdomen - Temporal Routine Culture - Final Enterococcus faecium Escherichia coli <EZRA Menon - Last Filed: 08/25/21 08:51> Procedures Date of Service Date of Service: 08/25/21 <EZRA Menon - Last Filed: 08/25/21 08:51> Progress Note: A&P Assessment and plan (1) Adenocarcinoma of sigmoid colon: Status: Acute <EZRA Menon - Last Filed: 08/25/21 08:51> Assessment and Plan: Patient diagnosed with adenocarcinoma of the sigmoid colon, T4 N1.? Appreciate Dr. Hernandez's input.? Patient will follow-up as an outpatient for FOLFOX treatment. <EZRA Menon - Last Filed: 08/25/21 08:51> (2) S/P partial resection of colon: Status: Acute <EZRA Menon - Last Filed: 08/25/21 08:51> Assessment and Plan: S/P diverting ileostomy now producing liquid stool.? Continue to monitor I&Os to prevent dehydration.?Continue regular low residue diet. <EZRA Menon - Last Filed: 08/25/21 08:51> (3) [place]-vesical fistula: Status: Acute <EZRA Menon - Last Filed: 08/25/21 08:51> Assessment and Plan: D/C Alla today. <EZRA Menon - Last Filed: 08/25/21 08:51> (4) Acute pain: Status: Acute <EZRA Menon - Last Filed: 08/25/21 08:51> Assessment and Plan: Patient continues on Dilaudid 1.5mg q3h and oxycodone 5mg q4h, will need to continue to wean down IV pain meds to transition to PO meds only in anticipation of eventual discharge. <EZRA Menon - Last Filed: 08/25/21 08:51> Time Spent With Patient Time: Total time spent is greater than 50% in coordination of care (as documented) at patient's floor/unit and/or counseling patient: <EZRA Menon - Last Filed: 08/25/21 08:51> Quality Stroke Does the patient have a stroke diagnosis?: No <EZRA Menon - Last Filed: 08/25/21 08:51> VTE Prior VTE?: No <EZRA Menon - Last Filed: 08/25/21 08:51> VTE Risk Level:: Medical - moderate - high <EZRA Menon Last Filed: 08/25/21 08:51> VTE Device Contraindication: Treatment Not Indicated <EZRA Menon Last Filed: 08/25/21 08:51> VTE Drug Contraindication: N/A - Med Ordered <EZRA Menon - Last Filed: 08/25/21 08:51>
--- NOTE | 2021-08-25 09:51 | P.PNIM_ITS ---
Subjective Subjective Date of Service: 08/25/21 <Florence Salcedo NP - Last Filed: 08/25/21 16:12> 08/26/21 <Jb Mosley MD - Last Filed: 08/26/21 08:27> Review of Systems Follow up SBO feeling better today NGT out <Florence Salcedo NP - Last Filed: 08/25/21 16:12> Physical Exam Vital Signs: Vital Signs: Last Vital Signs Temp 97.7 F 08/25/21 07:36 Pulse 84 08/25/21 07:36 Resp 18 08/25/21 07:36 BP 126/79 08/25/21 07:36 Pulse Ox 98 08/25/21 07:36 BMI result Body Mass Index 21.4 <Florence Salcedo NP - Last Filed: 08/25/21 16:12> Appearing in no acute distress lung sounds are clear to auscultation heart regular rate rhythm, clear S1, S2 positive bowel sounds, abdomen is soft, nontender neuro patient is alert x3, no focal deficits <Florence Salcedo NP - Last Filed: 08/25/21 16:12> Objective Data Active Medications Famotidine (Famotidine/Pf 20 Mg/2 Ml Vial) 20 mg IVPUSH BID KASHMIR Last Admin: 08/25/21 08:05 Dose: 20 mg Documented by: WILDAFA Hydromorphone HCl (Hydromorphone Hcl 2 Mg/Ml Vial) 1.5 mg IVPUSH Q3H PRN; Protocol PRN Reason: pain Last Admin: 08/25/21 08:50 Dose: 1.5 mg Documented by: WILDAFA Hydroxyzine HCl (Hydroxyzine Hcl 25 Mg Tablet) 25 mg PO Q6H PRN PRN Reason: anxiety/restlessness Last Admin: 08/20/21 17:51 Dose: 25 mg Documented by: JANETH Multi-Ingred Medicated Throat [place] (Throat [place], Medicated 20 Ml Bottle) 1 spray MUCOUS MEM Q2H PRN PRN Reason: throat soreness Last Admin: 08/23/21 11:20 Dose: 1 spray Documented by: DOBROB Naloxone HCl (Naloxone Hcl 0.4 Mg/Ml Vial) 0.2 mg IVPUSH Q2M PRN PRN Reason: Opiate Reversal Nicotine (Nicotine 21 Mg Patch.Td24) 21 mg TRANSDERMA DAILY [facility] Last Admin: 08/25/21 08:05 Dose: 21 mg Documented by: DARNELL Nicotine Polacrilex (Nicotine Polacrilex 2 Mg Gum) 2 mg BUCCAL Q2H PRN PRN Reason: smoking Last Admin: 08/24/21 15:24 Dose: 2 mg Documented by: BROKierra Ondansetron HCl (Ondansetron Hcl 4 Mg/2 Ml Vial) 4 mg IVPUSH Q6H PRN PRN Reason: Nausea and Vomiting Last Admin: 08/24/21 23:09 Dose: 4 mg Documented by: MANINDER Oxycodone HCl (Oxycodone Hcl Immed Release 5 Mg Tablet) 5 mg PO Q4H PRN PRN Reason: Pain, Mild (Pain Scale 1-3) Last Admin: 08/25/21 08:05 Dose: 5 mg Documented by: DARNELL Pharmacy Consult (Consult Rx Etoh Phenob Po Dose) 1 each MISCELLANE ONCE PRN; Protocol PRN Reason: Consult order Sodium Chloride (0.9 % Sodium Chloride Flush 3 Ml Syringe) 3 ml IVFLUSH QSHIFT [facility] Last Admin: 08/24/21 20:13 Dose: 3 ml Documented by: MANINDER <Florence Salcedo NP - Last Filed: 08/25/21 16:12> Labs CBC & Chem 7: : 08/22/21 06:21 08/24/21 05:23 <Florence Salcedo NP - Last Filed: 08/25/21 16:12> Labs: Laboratory Results - last 24 hr 08/24/21 18:00 Urine Color YELLOW Urine Appearance HAZY Urine pH 6.5 Ur Specific [place] 1.010 Urine Protein NEG Urine Glucose (UA) NEG Urine Ketones NEG Urine Blood 2+ H Urine Nitrite NEG Ur Leukocyte Esterase 1+ H Urine RBC 0-2 Urine WBC 0-2 Ur Squamous Epith Cells NONE Calcium Oxalate Crystal TRACE Amorphous Sediment 1+ Urine Bacteria 1+ Urine Yeast 1+ <Florence Salcedo NP - Last Filed: 08/25/21 16:12> Microbiology Microbiology Results: Microbiology 08/24/21 19:03 Urine Culture - Preliminary Urine Catheterized - Berger Catheter No growth to date. 08/17/21 Unknown Gram Stain - Final Abdomen - Temporal Routine Culture - Final Enterococcus faecium Escherichia coli <Florence Salcedo NP - Last Filed: 08/25/21 16:12> Assessment and Plan (1) Adenocarcinoma of sigmoid colon: Status: Acute <Florence Salcedo NP - Last Filed: 08/25/21 16:12> (2) [place]-vesical fistula: Status: Acute <Florence Salcedo NP - Last Filed: 08/25/21 16:12> Plan This is a 41 yo M with a recently history of intraabdominal abscess / colo- vesicular fistula treated with IV antibiotics / IR drainage (in [place], [place]) who presents today with worsening abdominal pain. His CT scan from 08/11 shows reaccumulation of his fluid collection. He will now be admitted for further treatment and management. colo-vesicular fistula & abscess s/p closure of colovesicular fistula, sigmoid colectomy and diverting loop ileostomy pathology report returned as sigmoid adenocarcinoma repeat CT from overnight showing concern for abscess(surgery feels from previous drain track), SBO and NGT was placed intra abdominal cultures growing enterococcus/streptococcus/GNR, continue IV zosyn for now pain control, will add oxycodone general surgery following NGT out, diet advanced DC berger wean down pain meds Sigmoid adenocarcinoma seen by oncology - recommend outpatient follow up for adjuvant chemotherapy after he has recovered from surgery Sepsis, resolved secondary to acute left epididymitis Confirmed by Ultrasound images Blood culture negative Discontinue doxycycline seen by urology UTI Growing kramer-sensitive E coli in the urine repeat UA Alcohol dependence history of withdrawal seizures finished Phenobarbital protocol monitor lytes tobacco dependence smoking cessation advised NRT Full Code DVT pptx, boots Attending Dr. Mosley patient requiring ongoing inpatient hospitalization for treatment with IV antibiotics, IV pain medication for post surgical pain, advancement of diet, final culture results <Florence Salcedo NP - Last Filed: 08/25/21 16:12> Quality Stroke Does the patient have a stroke diagnosis?: No <Florence Salcedo NP - Last Filed: 08/25/21 16:12> VTE Prior VTE?: No <Florence Salcedo NP - Last Filed: 08/25/21 16:12> VTE Risk Level:: Medical - moderate - high <FAIZA Dumont Last Filed: 08/25/21 16:12> VTE Device Contraindication: Treatment Not Indicated <Florence Salcedo NP - Last Filed: 08/25/21 16:12> VTE Drug Contraindication: N/A - Med Ordered <Florence Salcedo NP - Last Filed: 08/25/21 16:12>
[2021-08-25 11:41] VITALS: BP 139/85; PULSE 91; RESP 19; TEMP 37; O2SAT 97
[2021-08-25] MEDS: ondansetron HCL 4 MG/2 ML VIAL IVPUSH ×2 (12:00→18:19)
--- NOTE | 2021-08-25 13:13 | P.CNID_ITS ---
History of Present Illness Data of Consult Service Date: 08/25/21 Requesting physician: Florence Salcedo Primary Care Provider: Unknown Physician HPI Reason for consult: abdominal wound He presents with abdominal discomfort 7/10 umbilical and was found to have reaccumulation of fluid anterior to bladder. He has fistula and colovesicular abscess related to sigmoid adenocarcinoma. He had culture taken per surgery shows VRE faecium and E coli with no polys Area looks good now. Review of Systems Review of Systems: Yes all other systems are reviewed and are negative PMFSH Past Medical History Medical History Adenocarcinoma of sigmoid colon Alcohol withdrawal seizure History of drainage of abscess Family History Family history: reviewed and not pertinent Surgical History Surgical History S/P partial resection of colon (08/17/21) Social History Social History Household Members: None Housing: Homeless Do you presently have visiting nurse or other home services: No Alcohol intake: current Alcohol intake frequency: 3 or more drinks per day Patient Tobacco Use Status: Current everyday Tobacco user Tobacco use type: Cigarette Cigarette Packs Per Day: 2 Substance Use Type: Marijuana service: No Current occupational status: unemployed Meds Allergies Allergy/AdvReac Type Severity Reaction Status Date / Time cranberry Allergy Hives Verified 08/14/21 12:54 Active Medications: Current Medications Famotidine (Famotidine/Pf 20 Mg/2 Ml Vial) 20 mg IVPUSH BID KASHMIR Last Admin: 08/25/21 08:05 Dose: 20 mg Documented by: Hydromorphone HCl (Hydromorphone Hcl 2 Mg/Ml Vial) 1.5 mg IVPUSH Q3H PRN; Protocol PRN Reason: pain Last Admin: 08/25/21 12:01 Dose: 1.5 mg Documented by: Hydroxyzine HCl (Hydroxyzine Hcl 25 Mg Tablet) 25 mg PO Q6H PRN PRN Reason: anxiety/restlessness Last Admin: 08/20/21 17:51 Dose: 25 mg Documented by: Multi-Ingred Medicated Throat [place] (Throat [place], Medicated 20 Ml Bottle) 1 spray MUCOUS MEM Q2H PRN PRN Reason: throat soreness Last Admin: 08/23/21 11:20 Dose: 1 spray Documented by: Naloxone HCl (Naloxone Hcl 0.4 Mg/Ml Vial) 0.2 mg IVPUSH Q2M PRN PRN Reason: Opiate Reversal Nicotine (Nicotine 21 Mg Patch.Td24) 21 mg TRANSDERMA DAILY [facility] Last Admin: 08/25/21 08:05 Dose: 21 mg Documented by: Nicotine Polacrilex (Nicotine Polacrilex 2 Mg Gum) 2 mg BUCCAL Q2H PRN PRN Reason: smoking Last Admin: 08/24/21 15:24 Dose: 2 mg Documented by: Ondansetron HCl (Ondansetron Hcl 4 Mg/2 Ml Vial) 4 mg IVPUSH Q6H PRN PRN Reason: Nausea and Vomiting Last Admin: 08/25/21 12:00 Dose: 4 mg Documented by: Oxycodone HCl (Oxycodone Hcl Immed Release 5 Mg Tablet) 5 mg PO Q4H PRN PRN Reason: Pain, Mild (Pain Scale 1-3) Last Admin: 08/25/21 08:05 Dose: 5 mg Documented by: Pharmacy Consult (Consult Rx Etoh Phenob Po Dose) 1 each MISCELLANE ONCE PRN; Protocol PRN Reason: Consult order Sodium Chloride (0.9 % Sodium Chloride Flush 3 Ml Syringe) 3 ml IVFLUSH QSHIFT [facility] Last Admin: 08/25/21 12:01 Dose: Not Given Documented by: Home Medications Medication Instructions Recorded Confirmed Last Taken Type No Known Home Meds 08/12/21 08/12/21 Unknown History Physical Exam Vital Signs: Vital Signs: Last Vital Signs Temp 98.6 F 08/25/21 11:41 Pulse 91 08/25/21 11:41 Resp 19 08/25/21 11:41 BP 139/85 08/25/21 11:41 Pulse Ox 97 08/25/21 11:41 BMI result Body Mass Index 21.4 Const: General: cooperative Eyes: General: appearance normal, both eyes and all related structures Resp: Effort & Inspection: normal respiratory effort Cardio: Rate: regular rate Rhythm: regular rhythm GI: Other: colostomy,clean incision abdomen Extrem: General: Yes normal to inspection Results Labs CBC & Chem 7: 08/22/21 06:21 08/24/21 05:23 Labs: Urine 08/24/21 Range/Units 18:00 Urine Color YELLOW Urine Appearance HAZY Urine pH 6.5 (5.0-8.0) Ur Specific [place] 1.010 (1.005-1.025) Urine Protein NEG (NEG-TRACE) MG/DL Urine Glucose (UA) NEG (NEG) MG/DL Microbiology Microbiology Results: Microbiology 08/24/21 19:03 Urine Catheterized - Gold Catheter Urine Culture - Preliminary No growth to date. 08/17/21 Unknown Abdomen - Temporal Gram Stain - Final 08/17/21 Unknown Abdomen - Temporal Routine Culture - Final Enterococcus faecium Escherichia coli 08/14/21 08:01 Blood - Venous Blood Culture - Final No growth after 5 days. 08/14/21 08:01 Blood - Venous Blood Culture - Final No growth after 5 days. 08/12/21 05:41 Blood - Venous Blood Culture - Final No growth after 5 days. 08/12/21 05:42 Blood - Venous Blood Culture - Final No growth after 5 days. Assessment and Plan (1) Adenocarcinoma of sigmoid colon: Status: Acute (2) Sepsis: Status: Acute Cultures may be superficial but include VRE and E coli Plan Can give Linezolid po when able as well as Ceftriaxone total [address] abdomen and with Oncology
[2021-08-25 13:18] VITALS: BMI 21.4
--- NOTE | 2021-08-25 13:26 | PC.NURSE ---
prn pain meds administered for abd pain. dressing and ileostomy intact. safety and fall precautions maintained. call bar within reach. pt repositioning self while in bed. celine was d/c'ed this AM per md order around 0930.
[2021-08-25] MEDS: 0.9 % Sodium Chloride Flush 3 ML SYRINGE IVFLUSH (14:08)
[2021-08-25 15:17] VITALS: BP 127/89; PULSE 97; RESP 14; TEMP 36.3; O2SAT 96
--- NOTE | 2021-08-25 15:56 | P.DS_ITS ---
DS: Providers Provider Date of admission: 08/12/21 08:57 Primary care physician: Unknown Physician Consults: 08/12/21 08:59 Consult to Gastroenterology Routine Consulting Provider: Cortez Lundberg Reason for consultation: intrabdominal fluid collection, colovesicular fistula, eval & treat 08/12/21 14:25 Consult to General Surgery Routine Consulting Provider: Ezequiel Yip Reason for consultation: suspected diverticulitis with abscess 08/13/21 09:52 Consult to Urology Routine Consulting Provider: Sampson Benitez Reason for consultation: Patient will need a sigmoid colectomy with closure of colovesical fistula 08/13/21 10:09 Consult to Care Team Routine Comment: Reason for consultation: ETOH ABUSE , WHEN ASKED HOW MUCH MUCH I CAN GET 08/20/21 17:12 Consult to Hematology / Oncology Routine Consulting Provider: [facility] Oncology/Hematology Reason for consultation: Ca sigmoid colon with colovesical fistula Has provider been notified: No 08/25/21 09:57 Consult to Infectious Diseases Routine Consulting Provider: Kim Hand Reason for consultation: wound cx Has provider been notified: No DS: Diagnosis Discharge Diagnosis (1) Adenocarcinoma of sigmoid colon: Status: Acute (2) Sepsis: Status: Acute DS: Summary Hospital Course Hospital Course: the patient had prolonged hospital stay for full details please returned to full EMR. HPI per admitting provider This is a 41 yo M with? no prior medical history who presents to the hospital with on going abdominal pain of weeks to months duration but acutely worsened over the last several days. The patient describes the pain as diffuse but most prononuced below the umbilicus. He reports associated chills. He denies any nausea/vomiting/diarrhea but rather reports constipation. He also reports intermittent bloody stools but no hematemesis. He reports intermittent hemturia and frequent air after urnation. The patient presented to the ED on 08/11/21 and left AMA. He reports that he was not ready for admission at that time. In regards to the patient's symptoms, he reports that he initially started with urinary symptoms in May of this year. However, he ignored these initially. When he sought medical care -- he was diagnosed with a UTI and prescribed antibiotics which he took. However, his symptoms slowly progressed to abdominal symptoms and he began having persistent pain. Ultimately, at some point in June he was diagnosed to colovesciular fistula. This was in [facility]. 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 Concurrently was treated for EtOH withdrawal.? Patient was taken to or for IR drainage on 07/24, cultures grew E coli, Clostridium tertium and strepanginosus and was kramer positive.? Repeat CT on 07/29 showed resolution of pelvic fluid collection.? ASIA drain was removed on 07/30 and he was transition to Augmentin on 07/31.? General surgery recommended outpatient colorectal surgery follow-up for resection of the sigmoid colon and closure of colorectal fistula.? Patient was discharged on 08/02. Hospital course The patient was admitted primarily for evaluation of abdominal pain as abdominal images showed an evidence of colo-vesicular fistula & abscess. Evaluated by surgical team who did closure of colovesicular fistula, sigmoid colectomy and diverting loop ileostomy. He was monitor in the ICU after surgery for high requirements of narcotics for pain management. The patient was able to tolerate diet but had an evidence of SBO with NGT placement that was removed eventually and diet advanced with good tolerance from the patient and good output from the ileostomy. pathology report returned as sigmoid adenocarcinoma . Evaluated by Oncology team who recommended outpatient follow-up for adjuvant chemotherapy after he recovers from the surgery. intra abdominal cultures growing enterococcus/streptococcus/GNR, treated with IV antibiotics as infectious disease specialist evaluated the patient and recommended treatment for 10 more days with Zyvox and Ceftin. During the admission the patient was noted to have Sepsis, which believed to be secondary to acute left epididymitis. Confirmed by Ultrasound images. Blood culture negative. evaluated by urology has a Gold catheter was placed with significant improvement in the pain and swelling. Gold catheter removed and the patient was able to pass urine with no reported pain. He was treated as well for UTI as his urine Growing kramer-sensitive E coli. placed on phenobarbital for history of Alcohol dependence and withdrawal seizures. No seizures noticed during admission. treated with NRT for tobacco dependence. advised to quit smoking. complete abstinence from alcohol and to quit smoking Continue Zyvox and Ceftin for 9 more days Use nicotine patches daily To use Dilaudid as needed for pain management To follow-up with surgery and Oncology as scheduled. Time Spent with Patient Time attestation: Total time spent providing and/or coordinating discharge services: Physical Exam Vital Signs: Vital Signs: Last Vital Signs Temp 97.3 F 08/25/21 15:17 Pulse 97 08/25/21 15:17 Resp 14 08/25/21 15:17 BP 127/89 08/25/21 15:17 Pulse Ox 96 08/25/21 15:17 BMI result Body Mass Index 21.4 DS: Data Data Completed and Pending Completed studies during hospitalization [Text1]: Pending at discharge 08/17/21 13:22 Surgical [PTH] Stat Labs on day of discharge: Laboratory Results - last 24 hr 08/24/21 18:00 Urine Color YELLOW Urine Appearance HAZY Urine pH 6.5 Ur Specific [place] 1.010 Urine Protein NEG Urine Glucose (UA) NEG Urine Ketones NEG Urine Blood 2+ H Urine Nitrite NEG Ur Leukocyte Esterase 1+ H Urine RBC 0-2 Urine WBC 0-2 Ur Squamous Epith Cells NONE Calcium Oxalate Crystal TRACE Amorphous Sediment 1+ Urine Bacteria 1+ Urine Yeast 1+ Preliminary micro results at discharge 08/24/21 19:03 Urine Culture - Preliminary Urine Catheterized - Gold Catheter No growth to date. Discharge Plan Discharge Patient Disposition: Home, Self-Care Discharge Diagnosis: colo-vesicular fistula & abscess Sigmoid adenocarcinoma Sepsis UTI Referrals: Chastity Hernandez MD [Physician] - 1 Week Ezequiel Yip MD [Physician] - 1 Week Discharge Medications: New linezolid 600 mg Tablet 600 mg PO Q12H 9 Days Qty: 18 0RF nicotine 21 mg/24 hr Patch 24 Hour 21 mg transdermal DAILY 30 Days 0RF cefuroxime axetil 500 mg Tablet 500 mg PO Q12H 9 Days Qty: 18 0RF hydromorphone [Dilaudid] 2 mg tablet 1 mg PO Q6H PRN (Reason: pain (scale score 7-10)) Qty: 24 0RF Discharge Orders: Discharge Order (Routine); Ordered 08/26/21 Ordered By: Ashanti Smith Diet: advance to usual diet Activity on Discharge: As tolerated Stand Alone Forms: Patient Portal Discharge page Care Plan Goals: Read below Health Concerns: Read below Plan of Treatment: Follow-up with the general surgeon as needed Follow-up with Dr. Hernandez, oncologist for further treatment recommendations Assessment: You were admitted to the hospital for abdominal pain. Treated with surgical i ntervention for abscess and fistula with resection and diverting ileostomy by Surgery. Pathology showed sigmoid adeno carcinoma that was evaluated by Oncology team. you were treated with IV antibiotics as you developed an epididymitis infection along with urine infection With significant improvement during the hospital stay. We advise you complete abstinence from alcohol and to quit smoking Continue Zyvox and Ceftin for 9 more days Use nicotine patches daily To follow-up with surgery and Oncology as scheduled. Discharge Date/Time: 08/26/21 12:15
[2021-08-25] MEDS: Linezolid 600 MG TABLET PO (18:17)
[2021-08-25] MEDS: Nicotine Polacrilex 2 MG GUM BUCCAL (19:07)
[2021-08-25 19:43] VITALS: BP 117/79; PULSE 99; RESP 16; TEMP 36.8; O2SAT 97
[2021-08-25 23:44] VITALS: BP 133/87; PULSE 90; RESP 16; TEMP 36.8; O2SAT 97
[2021-08-26 00:45] VITALS: RESP 18
[2021-08-26] MEDS: HYDROmorphone HCl 2 MG/ML VIAL 1.5 MG IVPUSH ×4 (00:45→11:44)
[2021-08-26] MEDS: 0.9 % Sodium Chloride Flush 3 ML SYRINGE IVFLUSH ×2 (00:46→08:02)
[2021-08-26] MEDS: ondansetron HCL 4 MG/2 ML VIAL IVPUSH ×2 (00:49→08:01)
[2021-08-26] MEDS: Nicotine Polacrilex 2 MG GUM BUCCAL (00:50)
[2021-08-26 03:37] VITALS: BP 118/91; PULSE 82; RESP 15; TEMP 36.4; O2SAT 97
[2021-08-26 04:01] VITALS: RESP 18
[2021-08-26] MEDS: Linezolid 600 MG TABLET PO (05:09)
[2021-08-26 07:13] VITALS: BP 113/91; PULSE 81; RESP 18; TEMP 36.4; O2SAT 98
[2021-08-26] MEDS: Nicotine 21 MG PATCH.TD24 TRANSDERMA (08:01)
[2021-08-26] MEDS: Famotidine/PF 20 MG/2 ML VIAL IVPUSH (08:01)
--- NOTE | 2021-08-26 10:18 | P.PNGS_ITS ---
Subjective Subjective Date of Service: 08/26/21 Patient reports: no new complaints Interval history: Bill reports that he is tolerating his diet significant nausea or vomiting. He feels improved overall and was comfortable with changing his ostomy appliance. Physical Exam Vital Signs: Vital Signs: Last Vital Signs Temp 97.5 F 08/26/21 07:13 Pulse 81 08/26/21 07:13 Resp 18 08/26/21 07:13 BP 113/91 H 08/26/21 07:13 Pulse Ox 98 08/26/21 07:13 BMI result Body Mass Index 21.4 Const: General: no acute distress and well developed Nutritional Appearance: thin Orientation/consciousness: patient oriented x3 Limitations: no limitations GI: Other: Soft, mild discharge from the lower incision. Dressings changed. Ostomy thi cker output, no bleeding. Normal bowel sounds. Skin: Other: Warm, dry, no rash Neuro: General: patient oriented x3 Extrem: Other: No edema Objective Data Active Medications Cefuroxime Axetil (Cefuroxime Axetil 500 Mg Tablet) 500 mg PO Q12H [facility] Stop: 09/04/21 17:59 Last Admin: 08/26/21 05:09 Dose: 500 mg Documented by: RADHIKA Famotidine (Famotidine/Pf 20 Mg/2 Ml Vial) 20 mg IVPUSH BID [facility] Last Admin: 08/26/21 08:01 Dose: 20 mg Documented by: NEEMA Hydromorphone HCl (Hydromorphone Hcl 2 Mg/Ml Vial) 1.5 mg IVPUSH Q3H PRN; Protocol PRN Reason: pain Last Admin: 08/26/21 07:57 Dose: 1.5 mg Documented by: NEEMA Hydroxyzine HCl (Hydroxyzine Hcl 25 Mg Tablet) 25 mg PO Q6H PRN PRN Reason: anxiety/restlessness Last Admin: 08/20/21 17:51 Dose: 25 mg Documented by: PODZIEK Linezolid (Linezolid 600 Mg Tablet) 600 mg PO Q12H [facility] Stop: 09/04/21 17:59 Last Admin: 08/26/21 05:09 Dose: 600 mg Documented by: RADHIKA Multi-Ingred Medicated Throat [place] (Throat [place], Medicated 20 Ml Bottle) 1 spray MUCOUS MEM Q2H PRN PRN Reason: throat soreness Last Admin: 08/23/21 11:20 Dose: 1 spray Documented by: DOBROKierra Naloxone HCl (Naloxone Hcl 0.4 Mg/Ml Vial) 0.2 mg IVPUSH Q2M PRN PRN Reason: Opiate Reversal Nicotine (Nicotine 21 Mg Patch.Td24) 21 mg TRANSDERMA DAILY [facility] Last Admin: 08/26/21 08:01 Dose: 21 mg Documented by: NEEMA Nicotine Polacrilex (Nicotine Polacrilex 2 Mg Gum) 2 mg BUCCAL Q2H PRN PRN Reason: smoking Last Admin: 08/26/21 00:50 Dose: 2 mg Documented by: RADHIKA Ondansetron HCl (Ondansetron Hcl 4 Mg/2 Ml Vial) 4 mg IVPUSH Q6H PRN PRN Reason: Nausea and Vomiting Last Admin: 08/26/21 08:01 Dose: 4 mg Documented by: NEEMA Oxycodone HCl (Oxycodone Hcl Immed Release 5 Mg Tablet) 5 mg PO Q4H PRN PRN Reason: Pain, Mild (Pain Scale 1-3) Last Admin: 08/25/21 14:07 Dose: 5 mg Documented by: ITALO Pharmacy Consult (Consult Rx Etoh Phenob Po Dose) 1 each MISCELLANE ONCE PRN; Protocol PRN Reason: Consult order Sodium Chloride (0.9 % Sodium Chloride Flush 3 Ml Syringe) 3 ml IVFLUSH QSHIFT [facility] Last Admin: 08/26/21 08:02 Dose: 3 ml Documented by: NEEMA Labs CBC & Chem 7: 08/22/21 06:21 08/24/21 05:23 Microbiology Microbiology Results: Microbiology 08/24/21 19:03 Urine Culture - Final Urine Catheterized - Gold Catheter Procedures Date of Service Date of Service: 08/26/21 Progress Note: A&P Assessment and plan (1) Adenocarcinoma of sigmoid colon: Status: Acute (2) S/P partial resection of colon: Status: Acute Plan Patient continues to improve following sigmoid colectomy and closure of colovesical fistula. He is voiding following removal of Gold catheter. Ostomy is producing thicker bilious material. Small amount of serous discharge noted from the lower incision. Will need daily dressing changes. Will keep francesco in for another week. Encourage patient to take oral pain medication instead of IV meds. Time Spent With Patient Time: Total time spent is greater than 50% in coordination of care (as documented) at patient's floor/unit and/or counseling patient: Quality Stroke Does the patient have a stroke diagnosis?: No VTE Prior VTE?: No VTE Risk Level:: Medical - moderate - high VTE Device Contraindication: Treatment Not Indicated VTE Drug Contraindication: N/A - Med Ordered
--- NOTE | 2021-08-26 10:58 | PM.DS ---
DS: Providers Provider Date of Service: 08/26/21 Date of admission: 08/12/21 08:57 Primary care physician: Unknown Physician Consults: 08/12/21 08:59 Consult to Gastroenterology Routine Consulting Provider: Cortez Lundberg Reason for consultation: intrabdominal fluid collection, colovesicular fistula, eval & treat 08/12/21 14:25 Consult to General Surgery Routine Consulting Provider: Ezequiel Yip Reason for consultation: suspected diverticulitis with abscess 08/13/21 09:52 Consult to Urology Routine Consulting Provider: Sampson Benitez Reason for consultation: Patient will need a sigmoid colectomy with closure of colovesical fistula 08/13/21 10:09 Consult to Care Team Routine Comment: Reason for consultation: ETOH ABUSE , WHEN ASKED HOW MUCH MUCH I CAN GET 08/20/21 17:12 Consult to Hematology / Oncology Routine [place]ing [place] [facility] Reason for consultation: Ca sigmoid colon with colovesical fistula Has provider been notified: No 08/25/21 09:57 Consult to Infectious Diseases Routine Consulting Provider: Kim Hand Reason for consultation: wound cx Has provider been notified: No DS: Diagnosis Discharge Diagnosis (1) Adenocarcinoma of sigmoid colon: Status: Acute (2) S/P partial resection of colon: Status: Acute (3) Epididymitis: Status: Acute (4) Sepsis: Status: Acute (5) Alcohol withdrawal: Status: Acute (6) [place]-vesical fistula: Status: Acute (7) Diverticulitis: Status: Acute (8) Fistula: Status: Acute (9) Abscess: Status: Acute (10) Acute UTI: Status: Acute (11) Smoker: Status: Acute DS: Summary Hospital Course Hospital Course: the patient had prolonged hospital stay for full details please returned to full EMR. HPI per admitting provider This is a 41 yo M with? no prior medical history who presents to the hospital with on going abdominal pain of weeks to months duration but acutely worsened over the last several days. The patient describes the pain as diffuse but most prononuced below the umbilicus. He reports associated chills. He denies any nausea/vomiting/diarrhea but rather reports constipation. He also reports intermittent bloody stools but no hematemesis. He reports intermittent hemturia and frequent air after urnation. The patient presented to the ED on 08/11/21 and left AMA. He reports that he was not ready for admission at that time. In regards to the patient's symptoms, he reports that he initially started with urinary symptoms in May of this year. However, he ignored these initially. When he sought medical care -- he was diagnosed with a UTI and prescribed antibiotics which he took. However, his symptoms slowly progressed to abdominal symptoms and he began having persistent pain. Ultimately, at some point in June he was diagnosed to colovesciular fistula. This was in [facility]. 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 Concurrently was treated for EtOH withdrawal.? Patient was taken to or for IR drainage on 07/24, cultures grew E coli, Clostridium tertium and strepanginosus and was kramer positive.? Repeat CT on 07/29 showed resolution of pelvic fluid collection.? ASIA drain was removed on 07/30 and he was transition to Augmentin on 07/31.? General surgery recommended outpatient colorectal surgery follow-up for resection of the sigmoid colon and closure of colorectal fistula.? Patient was discharged on 08/02. Hospital course The patient was admitted primarily for evaluation of abdominal pain as abdominal images showed an evidence of colo-vesicular fistula & abscess. Evaluated by surgical team who did closure of colovesicular fistula, sigmoid colectomy and diverting loop ileostomy. He was monitor in the ICU after surgery for high requirements of narcotics for pain management. The patient was able to tolerate diet but had an evidence of SBO with NGT placement that was removed eventually and diet advanced with good tolerance from the patient and good output from the ileostomy. pathology report returned as sigmoid adenocarcinoma . Evaluated by Oncology team who recommended outpatient follow-up for adjuvant chemotherapy after he recovers from the surgery. intra abdominal cultures growing enterococcus/streptococcus/GNR, treated with IV antibiotics as infectious disease specialist evaluated the patient and recommended treatment for 10 more days with Zyvox and Ceftin. During the admission the patient was noted to have Sepsis, which believed to be secondary to acute left epididymitis. Confirmed by Ultrasound images. Blood culture negative. evaluated by urology has a Gold catheter was placed with significant improvement in the pain and swelling. Gold catheter removed and the patient was able to pass urine with no reported pain. He was treated as well for UTI as his urine Growing kramer-sensitive E coli. placed on phenobarbital for history of Alcohol dependence and withdrawal seizures. No seizures noticed during admission. treated with NRT for tobacco dependence. advised to quit smoking. complete abstinence from alcohol and to quit smoking Continue Zyvox and Ceftin for 9 more days Use nicotine patches daily To use Dilaudid as needed for pain management To follow-up with surgery and Oncology as scheduled. Time Spent with Patient Time attestation: Total time spent providing and/or coordinating discharge services: Discharge coordination time: Greater than 30 minutes Quality: Safe Use of Opioids Does Pt have an Active Cancer Diagnosis on the Problem List?: Yes Opioid Measure Date for [facility] Report: 07/27/21 Opioid Measure Time for [facility] Report: 11:49 Quality: Stroke Does the patient have a stroke diagnosis?: No Physical Exam Vital Signs: Vital Signs: Last Vital Signs Temp 97.5 F 08/26/21 07:13 Pulse 81 08/26/21 07:13 Resp 18 08/26/21 07:13 BP 113/91 H 08/26/21 07:13 Pulse Ox 98 08/26/21 07:13 BMI result Body Mass Index 21.4 Const: Other: Constitutional : Alert, interact, Not in distress Neck : Normal inspection, Supple Cardiovascular : RRR, no JVP, no lower extremity edema Respiratory : fair bilateral air entry, no crackles, wheezes or rhonchi Gastrointestinal: soft, lax, Normal bowel sounds, ostomy in place covered with bag, surgical wound clean and covered Skin : Warm, Dry Urology: s resolved erythema and swelling of scrotum with no more tenderness over the left testicle Neurological : Alert & oriented x3, No focal deficit , CN 2-12 within normal DS: Data Data Completed and Pending Completed studies during hospitalization [Text1]: Pending at discharge 08/17/21 13:22 Surgical [PTH] Stat Discharge Plan Discharge Patient Disposition: Home, Self-Care Discharge Diagnosis: colo-vesicular fistula & abscess Sigmoid adenocarcinoma Sepsis UTI Referrals: Chastity Hernandez MD [Physician] - 1 Week Ezequiel Yip MD [Physician] - 1 Week Discharge Medications: New linezolid 600 mg Tablet 600 mg PO Q12H 9 Days Qty: 18 0RF nicotine 21 mg/24 hr Patch 24 Hour 21 mg transdermal DAILY 30 Days 0RF cefuroxime axetil 500 mg Tablet 500 mg PO Q12H 9 Days Qty: 18 0RF hydromorphone [Dilaudid] 2 mg tablet 1 mg PO Q6H PRN (Reason: pain (scale score 7-10)) Qty: 24 0RF Discharge Orders: Discharge Order (Routine); Ordered 08/26/21 Ordered By: Ashanti Smith Diet: advance to usual diet Activity on Discharge: As tolerated Stand Alone Forms: Patient Portal Discharge page Care Plan Goals: Read below Health Concerns: Read below Plan of Treatment: Follow-up with the general surgeon as needed Follow-up with Dr. Hernandez, oncologist for further treatment recommendations Assessment: You were admitted to the hospital for abdominal pain. Treated with surgical intervention for abscess and fistula with resection and diverting ileostomy by Surgery. Pathology showed sigmoid adeno carcinoma that was evaluated by Oncology team. you were treated with IV antibiotics as you developed an epididymitis infection along with urine infection With significant improvement during the hospital stay. We advise you complete abstinence from alcohol and to quit smoking Continue Zyvox and Ceftin for 9 more days Use nicotine patches daily To follow-up with surgery and Oncology as scheduled.
--- NOTE | 2021-08-26 11:16 | MHC.CM.PN ---
Patient has been medically cleared for dc to home today, self care.
[2021-08-26 11:25] VITALS: BP 121/95; PULSE 90; RESP 18; TEMP 36.9; O2SAT 98
== END 2021-08-26 12:15 | disposition home or self-care (01) | DRG 230 ==
LOC: HO.ED 08-12 06:44 → HO.EDOVER 08-12 09:06 → HO.S3 08-12 15:39 → HO.ICU 08-17 18:15 → HO.IMC 08-18 11:38
PROVIDERS: Internal Medicine; Internal Medicine Pulmonary Disease; Nurse Practitioner Acute Care; Physician Assistant Medical; Radiology Diagnostic Radiology; Registered Nurse Community Health; Surgery; Admitting Provider Family Medicine; Emergency Provider Student in an Organized Health Care Education/Training Program; Visit Provider Student in an Organized Health Care Education/Training Program
PROC: 0DTE4ZZ Resection of Large Intestine, Percutaneous Endoscopic Approach (ICD-10-PCS; principal; 2021-08-17 11:20)
DX: C18.7 Malignant neoplasm of sigmoid colon (principal); A41.9 Sepsis, unspecified organism; K57.21 Diverticulitis of large intestine with perforation and abscess with bleeding; N32.1 Vesicointestinal fistula; N39.0 Urinary tract infection, site not specified; B96.20 Unspecified Escherichia coli [E. coli] as the cause of diseases classified elsewhere; N45.1 Epididymitis; K91.30 Postprocedural intestinal obstruction, unspecified as to partial versus complete; B95.2 Enterococcus as the cause of diseases classified elsewhere; F10.20 Alcohol dependence, uncomplicated; F17.210 Nicotine dependence, cigarettes, uncomplicated; Z20.822 Contact with and (suspected) exposure to COVID-19; Z71.6 Tobacco abuse counseling; Z59.01 Sheltered homelessness; Z91.14 Patient's other noncompliance with medication regimen; Z79.899 Other long term (current) drug therapy
CPT/HCPCS: 36415; 71045; 74176; 76870; 77012; 80048; 80076; 80202; 81001; 81003; 82040; 82378; 82803; 82947; 83605; 83735; 84100; 85025; 85027; 85610; 87040; 87071; 87077; 87086; 87186; 87205; 87502; 87635; 88307; 88329; 88341; 88342; 93975; 96361; 96365; 96375; 99024; 99152; 99285; C1729; C1758; J0131; J1170; J1650; J2250; J2405; J2543; J2550; J2795; J3010; J3370; Q9968

== ENCOUNTER 2021-08-28 21:42 | Inpatient (IN) | payer MEDICAID, SELFPAY ==
--- NOTE | ~2021-08-28 | XR_ITS ---
EXAMINATION: XR CHEST CLINICAL INFORMATION: NG tube insertion COMPARISON: 08/21/2021 TECHNIQUE: Frontal view of the chest was obtained. FINDINGS: NG tube is present on the second image with tip in the proximal stomach and side-port approximately 4 cm above the gastroesophageal junction. Lung volumes are symmetric. No focal consolidation is seen. No evidence of pneumothorax, pleural effusion, or pulmonary edema. The cardiomediastinal contour is unremarkable. No acute osseous findings are seen. XR/XR chest 1V IMPRESSION: NG tube tip in the proximal stomach with side-port approximately 4 cm above the gastroesophageal junction; consider advancement.
--- NOTE | ~2021-08-28 | CT_ITS ---
EXAMINATION: CT ABDOMEN AND PELVIS WITH CONTRAST CLINICAL INFORMATION: Abdominal pain status post recent diverting ileostomy COMPARISON: 08/21/2021 TECHNIQUE: Multidetector volumetric images were obtained from the superior aspect of the liver through the pubic symphysis following administration 74 mL of Omnipaque 300 intravenous contrast. Sagittal and coronal reformatted images were obtained on the technologist's workstation. Oral contrast: No This CT examination was performed using dose optimization techniques as appropriate, variously including the following: *Automated exposure control *Adjustment of mA and/or kV according to patient size (this includes techniques or standardized protocols for targeted exams where dose is matched to indication/reason for exam; i.e. extremities or head) *Use of iterative reconstruction technique DLP: 382 mGy-cm FINDINGS: LUNG BASES: Subsegmental atelectasis in the lower lobes. LIVER, GALLBLADDER, AND BILIARY TREE: The liver is normal in size, shape, and attenuation. No focal hepatic lesion or biliary ductal dilatation is present. The gallbladder is unremarkable with no evidence of radiopaque gallstones, gallbladder wall thickening, or obvious pericholecystic inflammatory changes. PANCREAS: Unremarkable. SPLEEN: Normal size. Calcified granuloma noted. ADRENAL GLANDS: Unremarkable. KIDNEYS AND URETERS: Bilateral nephrograms are symmetric. No hydronephrosis or obstructing calculus identified. Subcentimeter hypodensity in the lateral right kidney is favored to represent a cyst, too small to characterize. BLADDER: Partially distended. Wall thickening is noted superiorly. Tiny focus of gas is present anteriorly. GASTROINTESTINAL TRACT: Small bowel suture lines are present in the right upper and midline lower abdomen, and additional suture line is present in the region of the sigmoid colon. Right lower quadrant ileostomy is present. The majority of the small bowel demonstrates fluid-filled dilation, and this appears to extend to the level of the ileostomy as seen on sagittal image 69 in a configuration suspicious for obstruction. Small amount of free fluid is present in the pelvis. There is also an irregularly-shaped peripherally enhancing collection of fluid superior to the urinary bladder such as seen on axial image 65/90 and sagittal image 48 which is suspicious for an abscess collection in the proper clinical setting; this measures approximately 8.5 cm in AP dimension and 2.4 x 3.4 cm in transverse and craniocaudal dimensions. A couple foci of free air in the pelvis are likely postoperative. Appendix appears nondilated. ABDOMINAL WALL: Right lower quadrant ileostomy. Midline skin francesco are noted with underlying subcutaneous edema. LYMPH NODES: Normal. VASCULAR: Trace atherosclerotic calcification. PELVIC VISCERA: Unremarkable. OSSEOUS STRUCTURES: Bilateral L5 pars defects are noted. CT/CT abdomen pelvis w con IMPRESSION: 1. Postoperative changes of the bowel with right lower quadrant ileostomy. Fluid-filled dilation of bowel loops is most suspicious for small bowel obstruction with transition site at the level of the ostomy. 2. Irregularly shaped, peripherally enhancing fluid collection in the pelvis superior to the urinary bladder measuring up to 8.5 cm, suspicious for abscess in the proper clinical setting. 3. Wall thickening along the superior urinary bladder, which may be reactive given the adjacent probable abscess. Small focus of gas in the urinary bladder could be due to recent catheterization or infection.
--- NOTE | 2021-08-28 21:52 | ED_ITS ---
HPI - Abdominal Pain General Chief Complaint: Abdominal Pain Stated Complaint: abdominal pain Time Seen by Provider: 08/28/21 21:49 Source: patient and old records reviewed Mode of arrival: EMS Limitations: no limitations History of Present Illness HPI narrative: 41 yo male with hx of ETOH abuse, opiate dependence just admitted here 08/12 to 08/26 with complicated course of months long of abdominal pain with colovesicular fistula and abscess underwent sigmoid colectomy and diverting loop ilestomy with closure of fistal. He required ICU monitoring for high dose narcotic needs. He did develop SBO that resolved with NG tube. Surgical pathology resulted in adenocarcinoma and he is to follow up with Dr. Hernandez. ID followed along as well and patient was to continue zyvox and ceftin for intraabdominal cultures of e nterococcus, streptococcus, GNR. Also treated for kramer S E. Coli UTI. Patient was treated with phenobarb for ETOH withdrawal. He notes on discharge he went home and used more pain medications than he should have and ran out this morning. He also drank alcohol a little while ago. He did take his antibiotics though. Called EMS - given 50mcg of fentanyl. His main complaint is pain. He is having stool in his ostomy, does feel nauseated tonight 1 episode of vomiting, feels bloated. Has stool through rectum. MD elicited complaint: abdominal pain Pertinent past history: other (complicated abdominal issues) Onset (ago): month(s) Pain Consistency: constant Location: diffuse Severity: severe Quality: fullness and sharp Radiation: none Migration to: no migration Exacerbating factors: vomiting and movement Relieving factors: other (dilaudid) Context: recent antibiotic use, recent surgery/procedure and history of similar episodes Associated symptoms: nausea and vomiting Treatments prior to arrival: other (took his antibiotics) Related Data Previous Rx's Medication Instructions Recorded cefuroxime axetil 500 mg tablet 500 mg PO Q12H 9 Days #18 tab 08/26/21 hydromorphone 2 mg tablet 1 mg PO Q6H PRN #24 tab 08/26/21 (Dilaudid) linezolid 600 mg tablet 600 mg PO Q12H 9 Days #18 tab 08/26/21 nicotine 21 mg/24 hr daily 21 mg TRANSDERMAL DAILY 30 Days ea 08/26/21 transdermal patch Allergies Allergy/AdvReac Type Severity Reaction Status Date / Time cranberry Allergy Hives Verified 08/14/21 12:54 Review of Systems Review of Systems Constitutional : No Weight loss, No Fever, No Chills ENT/Mouth : No sore throat, No Rhinorrhea Eyes: No Swelling, No Redness Cardiovascular : No Chest Pain, No SOB, NoEdema Respiratory : No Cough, No Sputum, No Wheezing Gastrointestinal : Positive Nausea, Positive Vomiting, no Diarrhea, positive abdominal Pain, No Hematochezia, No Melena Genitourinary : No Dysuria, No Urinary Frequency, No Hematuria, No Urgency Musculoskeletal : No joint pain, No Myalgias, No Joint Swelling Skin : No Skin Lesions, No rash Neuro : No Weakness, No Numbness, No Dizziness, No Headache Psych : No Anxiety/Panic, No Depression Heme/Lymph: No Bruising, No Lymphadenopathy Endocrine : No Polyuria, No Polydipsia All other systems reviewed and are negative. [facility] Past Medical History Attestation statement: The following information was validated with the patient. Medical History Adenocarcinoma of sigmoid colon Alcohol withdrawal seizure History of drainage of abscess Surgical History S/P partial resection of colon (08/17/21) Social History Social History Household Members: None Housing: Homeless Do you presently have visiting nurse or other home services: No Alcohol intake: current Alcohol intake frequency: 3 or more drinks per day Patient Tobacco Use Status: Current everyday Tobacco user Tobacco use type: Cigarette Cigarette Packs Per Day: 2 Substance Use Type: Marijuana Advance Directives: No Advance Directives Information Provided: No service: No Current occupational status: unemployed Physical Exam ED Vital Signs: Vital Signs - 24 hr 08/28/21 21:56 Temperature 98.7 F Pulse Rate 112 H Respiratory Rate 16 Blood Pressure 132/90 H Pulse Oximetry 97 BMI result Body Mass Index 21.2 Appearance: Alert. Oriented X3. No acute distress. Anxious Eyes: Pupils equal, round and reactive to light. ENT: Pharynx mild dry MM Neck: Normal inspection. Neck supple. CVS: tachycardic heart rate and rhythm. Pulses normal. Respiratory: No respiratory distress. Breath sounds normal. Abdomen: Soft and distended, ostomy is p/p/p yellowish brown stool, incisions are c/d/i Skin: Skin warm and dry. pale skin color. Normal skin turgor. Extremities: No lower extremity edema. No calf ttp Neuro: Oriented X 3. No motor deficit. No sensory deficit. Course Course Course Narrative: call to surgery 1218am, did not take night medications added on zyvoxx IV NG tube ordered, repeat IV medications plan to admit - surgery aware Dr. De La Cruz - will admit MDM - Abdominal Pain MDM Narrative Medical decision making narrative: 41 yo male with complicated history of intraabdominal infection, adenocarcinoma, s/p sigmoid colectomy and diverting ileostomy 08/17 with hx of ETOH and opiate dependence requiring high dose narcotics here with main c/o pain due to running out of pain medications. He reports compliance with his ceftin and Zyvoxx at home. At this time pain labs, cultures, IVF, CT scan for obstruction/infection, IV dilaudid for pain. Patient is not able to manage his issues at home at this time. So may need acute rehab as well. Lab Data Result diagrams: 08/28/21 22:22 08/28/21 22:22 Labs: Lab Results 08/28/21 08/28/21 08/28/21 Range/Units 22:21 22:21 22:22 WBC 13.4 H (4.8-10.8) X10*3/uL RBC 4.28 L (4.60-5.80) X10*6/uL Hgb 11.9 L (14.0-18.0) g/dl Hct 35.9 L (42.0-52.0) % MCV 83.9 (80.0-98.0) fL MCH 27.8 (27.0-33.0) pg MCHC 33.1 (31.0-36.0) g/dl RDW 15.4 (11.0-16.0) % Plt Count 918 H D (160-400) X10*3/uL MPV 8.8 L (9.4-12.4) fL Immature Gran % (Auto) 0.7 H (0.0-0.4) % Neut % (Auto) 79.1 H (45-73) % Lymph % (Auto) 10.9 L (20-40) % Elliott % (Auto) 6.3 (2-11) % Eos % (Auto) 2.6 (0-4) % Baso % (Auto) 0.4 (0-2) % Lymph # (Auto) 1.5 (1.2-4.9) X10*3/uL Elliott # (Auto) 0.9 (0.1-1.2) X10*3/uL Eos # (Auto) 0.4 (0.0-0.4) X10*3/uL Baso # (Auto) 0.1 (0.0-0.2) X10*3/uL Abs Immat Gran (auto) 0.09 H (0.00-0.03) X10*3/uL Absolute Neuts (auto) 10.6 H (2.0-8.3) x10*3/uL Absolute Nucleated RBC 0.000 (0.0-0.012) X10*3/uL Nucleated RBC % (auto) 0.0 (0.0-0.2) /100WBC PT (9.9-13.0) SEC INR (0.9-1.1) Sodium (135-145) mmol/L Potassium (3.3-5.1) mmol/L Chloride (96-108) mmol/L Carbon Dioxide (22-29) mmol/L Anion Gap (12-20) BUN (9-16) mg/dL Creatinine (0.5-1.4) mg/dL Estim Creat Clear Calc Estimated GFR Random Glucose (60-115) mg/dL Lactic Acid 2.8 H* (0.5-2.0) mmol/L Calcium (8.4-10.2) mg/dL Magnesium (1.6-2.6) mg/dL Total Bilirubin (0.0-1.0) mg/dL Direct Bilirubin (0.0-0.5) mg/dL AST (5-37) U/L ALT (0-40) U/L Alkaline Phosphatase (39-117) U/L C-Reactive Protein (< or = 0.50) mg/dL Total Protein (6.5-8.0) g/dL Albumin (3.5-5.0) g/dL Lipase (8-78) U/L Procalcitonin ng/mL Ethyl Alcohol mg/dL COVID-19 ([facility]) Negative (Negative) COVID-19 Clin Com See Note 08/28/21 08/28/21 08/28/21 Range/Units 22:22 22:22 22:22 WBC (4.8-10.8) X10*3/uL RBC (4.60-5.80) X10*6/uL Hgb (14.0-18.0) g/dl Hct (42.0-52.0) % MCV (80.0-98.0) fL MCH (27.0-33.0) pg MCHC (31.0-36.0) g/dl RDW (11.0-16.0) % Plt Count (160-400) X10*3/uL MPV (9.4-12.4) fL Immature Gran % (Auto) (0.0-0.4) % Neut % (Auto) (45-73) % Lymph % (Auto) (20-40) % Elliott % (Auto) (2-11) % Eos % (Auto) (0-4) % Baso % (Auto) (0-2) % Lymph # (Auto) (1.2-4.9) X10*3/uL Elliott # (Auto) (0.1-1.2) X10*3/uL Eos # (Auto) (0.0-0.4) X10*3/uL Baso # (Auto) (0.0-0.2) X10*3/uL Abs Immat Gran (auto) (0.00-0.03) X10*3/uL Absolute Neuts (auto) (2.0-8.3) x10*3/uL Absolute Nucleated RBC (0.0-0.012) X10*3/uL Nucleated RBC % (auto) (0.0-0.2) /100WBC PT 11.9 (9.9-13.0) SEC INR 1.0 (0.9-1.1) Sodium 139 (135-145) mmol/L Potassium 4.4 (3.3-5.1) mmol/L Chloride 104 (96-108) mmol/L Carbon Dioxide 22 (22-29) mmol/L Anion Gap 17 (12-20) BUN 8 L (9-16) mg/dL Creatinine 0.62 (0.5-1.4) mg/dL Estim Creat Clear Calc 143.6 Estimated GFR > 60 Random Glucose 125 H (60-115) mg/dL Lactic Acid (0.5-2.0) mmol/L Calcium 10.0 (8.4-10.2) mg/dL Magnesium 1.9 (1.6-2.6) mg/dL Total Bilirubin < 0.2 (0.0-1.0) mg/dL Direct Bilirubin < 0.2 (0.0-0.5) mg/dL AST 11 (5-37) U/L ALT 14 (0-40) U/L Alkaline Phosphatase 95 (39-117) U/L C-Reactive Protein 1.62 H (< or = 0.50) mg/dL Total Protein 7.3 (6.5-8.0) g/dL Albumin 3.9 D (3.5-5.0) g/dL Lipase 21 (8-78) U/L Procalcitonin ng/mL Ethyl Alcohol 15 mg/dL COVID-19 ([facility]) (Negative) COVID-19 Clin Com 08/28/21 Range/Units 22:22 WBC (4.8-10.8) X10*3/uL RBC (4.60-5.80) X10*6/uL Hgb (14.0-18.0) g/dl Hct (42.0-52.0) % MCV (80.0-98.0) fL MCH (27.0-33.0) pg MCHC (31.0-36.0) g/dl RDW (11.0-16.0) % Plt Count (160-400) X10*3/uL MPV (9.4-12.4) fL Immature Gran % (Auto) (0.0-0.4) % Neut % (Auto) (45-73) % Lymph % (Auto) (20-40) % Elliott % (Auto) (2-11) % Eos % (Auto) (0-4) % Baso % (Auto) (0-2) % Lymph # (Auto) (1.2-4.9) X10*3/uL Elliott # (Auto) (0.1-1.2) X10*3/uL Eos # (Auto) (0.0-0.4) X10*3/uL Baso # (Auto) (0.0-0.2) X10*3/uL Abs Immat Gran (auto) (0.00-0.03) X10*3/uL Absolute Neuts (auto) (2.0-8.3) x10*3/uL Absolute Nucleated RBC (0.0-0.012) X10*3/uL Nucleated RBC % (auto) (0.0-0.2) /100WBC PT (9.9-13.0) SEC INR (0.9-1.1) Sodium (135-145) mmol/L Potassium (3.3-5.1) mmol/L Chloride (96-108) mmol/L Carbon Dioxide (22-29) mmol/L Anion Gap (12-20) BUN (9-16) mg/dL Creatinine (0.5-1.4) mg/dL Estim Creat Clear Calc Estimated GFR Random Glucose (60-115) mg/dL Lactic Acid (0.5-2.0) mmol/L Calcium (8.4-10.2) mg/dL Magnesium (1.6-2.6) mg/dL Total Bilirubin (0.0-1.0) mg/dL Direct Bilirubin (0.0-0.5) mg/dL AST (5-37) U/L ALT (0-40) U/L Alkaline Phosphatase (39-117) U/L C-Reactive Protein (< or = 0.50) mg/dL Total Protein (6.5-8.0) g/dL Albumin (3.5-5.0) g/dL Lipase (8-78) U/L Procalcitonin 0.08 ng/mL Ethyl Alcohol mg/dL COVID-19 ([facility]) (Negative) COVID-19 Clin Com Critical Care Time Critical Care Time Critical Care Time: Yes Total Critical Care Time: 60 Attestation: review of records, IVF, IV dilaudid x 2, plan to admit I attest to this time spent taking care of the patient Discharge Plan Discharge Clinical Impression: SBO (small bowel obstruction), Intra-abdominal abscess, Acidosis, lactic Abdominal pain Qualifiers: Abdominal location: generalized Qualified Code(s): R10.84 - Generalized abdominal pain Patient Disposition: Admitted As Inpatient
[2021-08-28 21:56] VITALS: BP 130/86; BP 132/90; PULSE 112; PULSE 114; RESP 16; TEMP 37.1; O2SAT 96; O2SAT 97; BMI 21.2
[2021-08-28] MEDS: HYDROmorphone HCl 2 MG/ML VIAL 1.5 MG IVPUSH (22:24)
[2021-08-28] MEDS: 0.9 % Sodium Chloride 1,000 ML 999 ML IVCONT (22:25)
[2021-08-28] MEDS: ondansetron HCL 4 MG/2 ML VIAL IVPUSH (22:25)
[2021-08-28 22:29] LABS: MANUAL DIFF FLAG NO
[2021-08-28 22:31] LABS: Basophils Absolute Auto 0.1 X10*3/uL (0.0-0.2); Basophils Percent Auto 0.4 % (0-2); Eosinophils Absolute Auto 0.4 X10*3/uL (0.0-0.4); Eosinophils Percent Auto 2.6 % (0-4); Hematocrit 35.9 % (42.0-52.0); Hemoglobin 11.9 g/dl (14.0-18.0); Imm Gran Abs Auto 0.09 X10*3/uL (0.00-0.03); Imm Gran Pct Auto 0.7 % (0.0-0.4); Lymphocytes Absolute Auto 1.5 X10*3/uL (1.2-4.9); Lymphocytes Percent Auto 10.9 % (20-40); Mean Corpuscular HGB Conc 33.1 g/dl (31.0-36.0); Mean Corpuscular Hemoglobin 27.8 pg (27.0-33.0); Mean Corpuscular Volume 83.9 fL (80.0-98.0); Mean Platelet Volume 8.8 fL (9.4-12.4); Monocytes Absolute Auto 0.9 X10*3/uL (0.1-1.2); Monocytes Percent Auto 6.3 % (2-11); Neutrophils Absolute Auto 10.6 x10*3/uL (2.0-8.3); Neutrophils Percent Auto 79.1 % (45-73); Platelet Count 918 X10*3/uL (160-400); Red Blood Count 4.28 X10*6/uL (4.60-5.80); Red Cell Distribution Width 15.4 % (11.0-16.0); White Blood Count 13.4 X10*3/uL (4.8-10.8)
[2021-08-28 22:36] LABS: Prothrombin Time 11.9 SEC (9.9-13.0)
[2021-08-28] MEDS: cefTRIAXone sodium 1 GM in 0.9 % Sodium Chloride 50 ML IV (22:46)
[2021-08-28 22:55] LABS: Ethanol 15 mg/dL
[2021-08-28 22:59] LABS: Lactic Acid 2.8 mmol/L (0.5-2.0)
[2021-08-28 23:01] LABS: Alanine Aminotransferase 14 U/L (0-40); Albumin Level 3.9 g/dL (3.5-5.0); Alkaline Phosphatase 95 U/L (39-117); Anion Gap 17 (12-20); Aspartate Amino Transferase 11 U/L (5-37); Bilirubin Direct < 0.2 mg/dL (0.0-0.5); Bilirubin Total < 0.2 mg/dL (0.0-1.0); Blood Urea Nitrogen 8 mg/dL (9-16); C Reactive Protein 1.62 mg/dL (< or = 0.50); Carbon Dioxide 22 mmol/L (22-29); Chloride 104 mmol/L (96-108); Creatinine Clr Calc Pharmacy 143.6; Estimated Glomerular Filt Rate > 60; Glucose Random 125 mg/dL (60-115); Lipase 21 U/L (8-78); Magnesium 1.9 mg/dL (1.6-2.6); Potassium 4.4 mmol/L (3.3-5.1); Sodium 139 mmol/L (135-145); Total Protein 7.3 g/dL (6.5-8.0)
[2021-08-28 23:12] LABS: COVID-19 Test Negative (Negative); IDNOW Serial# 16C4AD1C
[2021-08-28 23:43] LABS: Procalcitonin 0.08 ng/mL
[2021-08-29] VITALS (8 sets, daily range): BP systolic 107–147; BP diastolic 67–97; PULSE 68–87; RESP 12–20; TEMP 36.3–37.2; O2SAT 96–99
[2021-08-29] MEDS: HYDROmorphone HCl 2 MG/ML VIAL 1.5 MG IVPUSH ×6 (00:26→22:09)
[2021-08-29 00:27] LABS: Reflex Lactate? Lactic Acid Added
[2021-08-29 01:13] LABS: Appearance Urine CLEAR; Color Urine DK YELLOW; Glucose Urine UA NEG (NEG); Leukocyte Esterase Urine NEG (NEG); Nitrite Urine NEG (NEG); PH 5.5 (5.0-8.0); Specific Gravity - Urine >= 1.030 (1.005-1.025); Urine Blood NEG (NEG); Urine Ketones NEG (NEG); Urine Protein TRACE MG/DL (NEG-TRACE)
[2021-08-29 01:25] LABS: ~Lactic Acid-LAB USE ONLY 1.1 mmol/L (0.5-2.0)
[2021-08-29 01:28] LABS: Amphetamine Screen Urine Not Detected (Not Detect); Barbiturates, Urine POSITIVE (Not Detect); Benzodiazepines Screen Urine Not Detected (Not Detect); Cannabinoid Screen Urine POSITIVE (Not Detect); Cocaine Screen Urine Not Detected (Not Detect); Fentanyl, urine POSITIVE (Not Detect); Opiate Screen Urine POSITIVE (Not Detect); Phencyclidine Screen Urine Not Detected (Not Detect)
--- NOTE | 2021-08-29 01:41 | P.CONHOSP_ITS ---
History of Present Illness Data of Consult Service Date: 08/29/21 Primary Care Provider: Unknown Physician HPI Reason for consult: medical management This is a 41-year-old male with past medical history of alcohol abuse, with recently diagnosed colovesicular fistula an abscess status post sigmoid colectomy, diverting loop ileostomy, and colovesicular fistula closure, on 08/26. At that time pt was admitted to the ICU for high narcotics requirements for pain management. During that admission he had an evidence of SBO with NGT placement that was removed eventually and diet advanced with good tolerance from the patient and good output from the ileostomy. pathology report returned as sigmoid adenocarcinoma .? Evaluated by Oncology team who recommended outpatient follow- up for adjuvant chemotherapy after he recovers from the surgery. intra abdominal cultures growing enterococcus/streptococcus/GNR, treated with ? IV antibiotics as infectious disease specialist evaluated the patient and recommended treatment for 10 more days with Zyvox and Ceftin. pt was sent home . he returns today, reporting that he ran out of his pain medications and has been insignificant abdominal pain. He reports compliance with his antibiotics. Reports adequate output from his ileostomy bag and also reports that he has been having bowel movements that are watery. He denies any nausea or vomiting, no fever or chills, no urinary symptoms and no lower extremity edema. Patient reports continuous alcohol consumption daily. Abdominal CT revealed postoperative changes of the bowel with right lower quadrant ileostomy, fluid-filled dilatation of bowel loop is most suspicion for small bowel obstruction with transition site at the level of the ostomy. Irregularly shaped peripherally enhancing fluid collection in the pelvic superior to the urinary bladder measuring up to 8.5 cm suspicious for abscess in the proper clinical setting. Wall thickening along the superior urinary bladder which may be reactive UA is positive for opiates, fentanyl, barbiturates. Patient being admitted by surgical team and we are consulted for medical management Review of Systems Review of Systems: Yes all other systems are reviewed and are negative PMFSH Medical History Adenocarcinoma of sigmoid colon Alcohol withdrawal seizure [place]-vesical fistula History of drainage of abscess Intra-abdominal abscess Family History (Updated 08/29/21 @ 08:25 by Pito Carpenter MD) Other No family history of coronary artery disease Surgical History S/P partial resection of colon (08/17/21) Social History Household Members: None Housing: Homeless Do you presently have visiting nurse or other home services: No Alcohol intake: current Alcohol intake frequency: 3 or more drinks per day Patient Tobacco Use Status: Current everyday Tobacco user Tobacco use type: Cigarette Cigarette Packs Per Day: 2 Use of substances other than those prescribed or required for medical reasons: Yes Substance Use Type: Marijuana Advance Directives: No Advance Directives Information Provided: No service: No Current occupational status: unemployed Meds Allergies Allergy/AdvReac Type Severity Reaction Status Date / Time cranberry Allergy Hives Verified 08/14/21 12:54 Active Medications: Current Medications Gabapentin (Gabapentin 100 Mg Capsule) 200 mg PO TID KASHMIR Hydromorphone HCl (Hydromorphone Hcl 2 Mg/Ml Vial) 1.5 mg IVPUSH Q6H PRN; Protocol PRN Reason: Pain, Severe (Pain Scale 7-10) Sodium Chloride (Ns) 1,000 mls @ 100 mls/hr IVCONT .Q10H KASHMIR Ceftriaxone Sodium 1 gm/ (Sodium Chloride) 50 mls @ 100 mls/hr IV Q24H [facility]ASHMIR Acetaminophen (Ofirmev) 1,000 mg in 100 mls @ 400 mls/hr IV Q6H KASHMIR Ondansetron HCl (Ondansetron Hcl 4 Mg/2 Ml Vial) 4 mg IVPUSH Q8H PRN PRN Reason: Nausea Pharmacy Consult (Consult Rx Perform Med Rec) 1 each MISCELLANE ONCE PRN PRN Reason: Consult order Pharmacy Consult (Consult Rx Etoh Phenob Po Dose) 1 each MISCELLANE ONCE PRN; Protocol PRN Reason: Consult order Phenobarbital 100 mg/ (Phenobarbital 90 mg) 190 mg PO Q3H KASHMIR Stop: 08/29/21 07:01 Sodium Chloride (0.9 % Sodium Chloride Flush 3 Ml Syringe) 3 ml IVFLUSH QSHIFT KASHMIR Physical Exam Vital Signs and Narrative: Vital Signs: Last Vital Signs Temp 98.7 F 08/28/21 21:56 Pulse 112 H 08/28/21 21:56 Resp 16 08/28/21 21:56 BP 132/90 H 08/28/21 21:56 Pulse Ox 97 08/28/21 21:56 BMI result Body Mass Index 21.2 Const: General: cooperative and no acute distress Orientation/consciousness: patient oriented x3 Eyes: General: appearance normal, both eyes and all related structures Pupils: Equal, round and reactive pupils present Resp: Effort & Inspection: normal respiratory effort Auscultation: clear to auscultation bilaterally Cardio: Rate: regular rate Rhythm: regular rhythm GI: Other: Hyperactive bowel sounds, presence of ileostomy bag, watery stool present, no erythema or warmth along the surgical francesco Palpation (GI): Soft to palpation Skin: General skin exam: no rashes or lesions noted Neuro: General: patient oriented x3 Cranial nerves: Yes Equal, round and reactive pupils present Cognition (Neuro): normal cognition Extrem: General: Yes normal to inspection and Yes no pedal edema Results Labs CBC and Chem 7: 08/28/21 22:22 08/28/21 22:22 Labs: Laboratory Results - last 24 hr 08/28/21 08/28/21 08/28/21 22:21 22:21 22:22 MCV 83.9 MCH 27.8 MCHC 33.1 RDW 15.4 Plt Count 918 H D MPV 8.8 L Immature Gran % (Auto) 0.7 H Neut % (Auto) 79.1 H Lymph % (Auto) 10.9 L [place] % (Auto) 6.3 Eos % (Auto) 2.6 Baso % (Auto) 0.4 Lymph # (Auto) 1.5 [place] # (Auto) 0.9 Eos # (Auto) 0.4 Baso # (Auto) 0.1 Abs Immat Gran (auto) 0.09 H Absolute Neuts (auto) 10.6 H Absolute Nucleated RBC 0.000 Nucleated RBC % (auto) 0.0 PT INR Anion Gap Estim Creat Clear Calc Estimated GFR Random Glucose Lactic Acid 2.8 H* Lactic Acid F/U @ 2Hr Calcium Magnesium Total Bilirubin Direct Bilirubin AST ALT Alkaline Phosphatase C-Reactive Protein Total Protein Albumin Lipase Procalcitonin Urine Color Urine Appearance Urine pH Ur Specific [place] Urine Protein Urine Glucose (UA) Urine Ketones Urine Blood Urine Nitrite Ur Leukocyte Esterase Urine Opiates Screen Urine Fentanyl Screen Ur Barbiturates Screen Ur Phencyclidine Scrn Ur Amphetamines Screen U Benzodiazepines Scrn Urine Cocaine Screen U Marijuana (THC) Screen Ethyl Alcohol COVID-19 (SAFIA) Negative COVID-19 Clin Com See Note 08/28/21 08/28/21 08/28/21 22:22 22:22 22:22 MCV MCH MCHC RDW Plt Count MPV Immature Gran % (Auto) Neut % (Auto) Lymph % (Auto) [place] % (Auto) Eos % (Auto) Baso % (Auto) Lymph # (Auto) [place] # (Auto) Eos # (Auto) Baso # (Auto) Abs Immat Gran (auto) Absolute Neuts (auto) Absolute Nucleated RBC Nucleated RBC % (auto) PT 11.9 INR 1.0 Anion Gap 17 Estim Creat Clear Calc 143.6 Estimated GFR > 60 Random Glucose 125 H Lactic Acid Lactic Acid F/U @ 2Hr Calcium 10.0 Magnesium 1.9 Total Bilirubin < 0.2 Direct Bilirubin < 0.2 AST 11 ALT 14 Alkaline Phosphatase 95 C-Reactive Protein 1.62 H Total Protein 7.3 Albumin 3.9 D Lipase 21 Procalcitonin Urine Color Urine Appearance Urine pH Ur Specific [place] Urine Protein Urine Glucose (UA) Urine Ketones Urine Blood Urine Nitrite Ur Leukocyte Esterase Urine Opiates Screen Urine Fentanyl Screen Ur Barbiturates Screen Ur Phencyclidine Scrn Ur Amphetamines Screen U Benzodiazepines Scrn Urine Cocaine Screen U Marijuana (THC) Screen Ethyl Alcohol 15 COVID-19 (SAFIA) COVID-19 Clin Com 08/28/21 08/29/21 08/29/21 22:22 01:03 01:03 MCV MCH MCHC RDW Plt Count MPV Immature Gran % (Auto) Neut % (Auto) Lymph % (Auto) [place] % (Auto) Eos % (Auto) Baso % (Auto) Lymph # (Auto) [place] # (Auto) Eos # (Auto) Baso # (Auto) Abs Immat Gran (auto) Absolute Neuts (auto) Absolute Nucleated RBC Nucleated RBC % (auto) PT INR Anion Gap Estim Creat Clear Calc Estimated GFR Random Glucose Lactic Acid Lactic Acid F/U @ 2Hr 1.1 Calcium Magnesium Total Bilirubin Direct Bilirubin AST ALT Alkaline Phosphatase C-Reactive Protein Total Protein Albumin Lipase Procalcitonin 0.08 Urine Color DK YELLOW Urine Appearance CLEAR Urine pH 5.5 Ur Specific [place] >= 1.030 H Urine Protein TRACE Urine Glucose (UA) NEG Urine Ketones NEG Urine Blood NEG Urine Nitrite NEG Ur Leukocyte Esterase NEG Urine Opiates Screen Urine Fentanyl Screen Ur Barbiturates Screen Ur Phencyclidine Scrn Ur Amphetamines Screen U Benzodiazepines Scrn Urine Cocaine Screen U Marijuana (THC) Screen Ethyl Alcohol COVID-19 (SAFIA) COVID-19 [employer] 08/29/21 01:05 MCV MCH MCHC RDW Plt Count MPV Immature Gran % (Auto) Neut % (Auto) Lymph % (Auto) [place] % (Auto) Eos % (Auto) Baso % (Auto) Lymph # (Auto) [place] # (Auto) Eos # (Auto) Baso # (Auto) Abs Immat Gran (auto) Absolute Neuts (auto) Absolute Nucleated RBC Nucleated RBC % (auto) PT INR Anion Gap Estim Creat Clear Calc Estimated GFR Random Glucose Lactic Acid Lactic Acid F/U @ 2Hr Calcium Magnesium Total Bilirubin Direct Bilirubin AST ALT Alkaline Phosphatase C-Reactive Protein Total Protein Albumin Lipase Procalcitonin Urine Color Urine Appearance Urine pH Ur Specific [place] Urine Protein Urine Glucose (UA) Urine Ketones Urine Blood Urine Nitrite Ur Leukocyte Esterase Urine Opiates Screen POSITIVE H Urine Fentanyl Screen POSITIVE H Ur Barbiturates Screen POSITIVE H Ur Phencyclidine Scrn Not Detected Ur Amphetamines Screen Not Detected U Benzodiazepines Scrn Not Detected Urine Cocaine Screen Not Detected U Marijuana (THC) Screen POSITIVE H Ethyl Alcohol COVID-19 (SAFIA) COVID-19 [employer] Com Imaging Radiologist's Impressions: Impressions Abdomen/Pelvis CT 08/28/21 23:56 IMPRESSION: 1. Postoperative changes of the bowel with right lower quadrant ileostomy. Fluid-filled dilation of bowel loops is most suspicious for small bowel obstruction with transition site at the level of the ostomy. 2. Irregularly shaped, peripherally enhancing fluid collection in the pelvis superior to the urinary bladder measuring up to 8.5 cm, suspicious for abscess in the proper clinical setting. 3. Wall thickening along the superior urinary bladder, which may be reactive given the adjacent probable abscess. Small focus of gas in the urinary bladder could be due to recent catheterization or infection. Chest X-Ray 08/29/21 00:53 IMPRESSION: NG tube tip in the proximal stomach with side-port approximately 4 cm above the gastroesophageal junction; consider advancement. Assessment and Plan (1) SBO (small bowel obstruction): Status: Acute (2) Intra-abdominal abscess: Status: Acute (3) [place]-vesical fistula: Status: Acute (4) Abdominal pain: Qualifiers: Abdominal location: generalized Qualified Code(s): R10.84 - Generalized abdominal pain Status: Acute (5) Alcohol abuse: Status: Acute Plan 41-year-old male recently diagnosed colovesicular fistula an abscess status post sigmoid colectomy, diverting loop ileostomy, and colovesicular fistula closure, on 08/26 returns to the hospital with intractable abd pain found to have SBO and recurrent intra-abdominal abscess Pt admitted to General surgery with consult to Medicine. # SBO - in the setting of recent surgical intervention as mentioned above - NG tube in place - NPO - general surgery consulted # intra-abdominal abscess - patient with history of intra-abdominal abscess with colovesicular fistula - he appears to have accumulation of fluid in the abscess - will consult Infectious Disease - general surgery is on consult # alcohol abuse with potential for withdrawals - patient initially started on phenobarb p.o., switch to Ativan - thiamine and folic acid # abdominal pain - secondary to above - pain management per surgery DVT prophylaxis: per surgery
[2021-08-29] MEDS: 0.9 % Sodium Chloride 1,000 ML 100 ML IVCONT ×3 (01:57→21:31)
[2021-08-29] MEDS: Linezolid/D5W 600 MG/300 ML PIGGYBACK 300 MG IV (02:00)
[2021-08-29] MEDS: Nicotine 21 MG PATCH.TD24 TRANSDERMA ×2 (02:10→09:04)
--- NOTE | 2021-08-29 03:04 | PC.NURSE ---
Patient alert and oriented x 3. Patient c/o abdominal pain 01/04 medicated with some relief 10/04. tele: sinus rythym 80's Patient colostomy brown soft stool. Patient ambulates independently at baseline. Will continue with plan of care.
--- NOTE | 2021-08-29 03:13 | PC.NURSE ---
Assumed care of pt Pt resting on stretcher Pt tolerating NG tube. NAD Will continue to monitor
[2021-08-29] MEDS: LORazepam 1 MG TABLET 2 MG PO (05:33)
[2021-08-29] MEDS: LORazepam 1 MG TABLET PO ×4 (06:36→18:59)
--- NOTE | 2021-08-29 09:06 | PC.NURSE ---
Pt awaken on first contact, states abd pain is 10/10, unable to give PRN pain meds at this time but warm blanket provided. NG tube in place approx 175ml in canister. Pt reminded of NPO status. VSS. NS infusing per order. Asleep when not spoken to. VSS. 1 on CIWA.
[2021-08-29] MEDS: Gabapentin 100 MG CAPSULE 200 MG PO ×2 (13:33→20:19)
[2021-08-29] MEDS: ondansetron HCL 4 MG/2 ML VIAL IVPUSH (13:33)
--- NOTE | 2021-08-29 16:10 | P.HPGS_ITS ---
History of Present Illness History of Present Illness Date of Service: 08/29/21 Chief complaint: post surgery pain Narrative: Aiden Nix is a 41 year old male who underwent on 08/17 exploratory laparotomy with sigmoid resection and anastomosis and diverting ileostomy and takedown and repair of colovesicular fistula. path revealed adenocarcinoma. post op had issues with high narcotic need. then was admitted to icu for pain management and treatment of hypoxia but eventually did better. he had an ileus and had ng tube decompression. he was dc home 2 days ago with po pain meds and he took all his pain meds, started drinking alcohol. Yesterday was feeling so bad that he called 911 and came into the hospital. CT scan showed fluid collection over his bladder and ileus picture. he was vomiting so an ng tube was placed. diverting ileostomy did have stool and gas in bag. pt complaining of pain still. also said he was passing loose stool like material from his rectum and no issues with urinating. no fever or chills. Review of Systems Review of Systems: Yes all other systems are reviewed and are negative [facility] Past Medical History Medical History Adenocarcinoma of sigmoid colon Alcohol withdrawal seizure [place]-vesical fistula History of drainage of abscess Intra-abdominal abscess Functional capacity: independent ambulation Family History Family History (Updated 08/29/21 @ 08:25 by Pito Carpenter MD) Other No family history of coronary artery disease Surgical History Surgical History S/P partial resection of colon (08/17/21) Social History Social History Household Members: Other Household Members Other:: homeless. staying with family/friends. Housing: Homeless Do you presently have visiting nurse or other home services: No Alcohol intake: current Alcohol intake frequency: 3 or more drinks per day Patient Tobacco Use Status: Current everyday Tobacco user Tobacco use type: Cigarette Cigarette Packs Per Day: 1 Cigarettes Per Day: 20.0 Second Hand Smoke Exposure: No Substance Use Type: Marijuana service: No Current occupational status: unemployed Travel History Recent Out of Country Travel Within the Last 8 Weeks: Yes Out of Country Travel Destination/s Comment: no Meds Allergies Allergy/AdvReac Type Severity Reaction Status Date / Time cranberry Allergy Hives Verified 08/14/21 12:54 Active Medications: Current Medications Folic Acid (Folic Acid 1 Mg Tablet) 1 mg PO DAILY [facility] Last Admin: 08/29/21 07:58 Dose: Not Given Documented by: Gabapentin (Gabapentin 100 Mg Capsule) 200 mg PO TID [facility] Last Admin: 08/29/21 13:33 Dose: 200 mg Documented by: Hydromorphone HCl (Hydromorphone Hcl 2 Mg/Ml Vial) 1.5 mg IVPUSH Q4H PRN; Protocol PRN Reason: Pain, Severe (Pain Scale 7-10) Last Admin: 08/29/21 14:01 Dose: 1.5 mg Documented by: Sodium Chloride (Ns) 1,000 mls @ 100 mls/hr IVCONT .Q10H [facility] Last Admin: 08/29/21 11:40 Dose: 100 mls/hr Documented by: Ceftriaxone Sodium 1 gm/ (Sodium Chloride) 50 mls @ 100 mls/hr IV Q24H [facility] Acetaminophen (Ofirmev) 1,000 mg in 100 mls @ 400 mls/hr IV Q6H [facility] Last Infusion: 08/29/21 13:52 Dose: Infused Documented by: Lorazepam (Lorazepam 1 Mg Tablet) 1 mg PO Q4H [facility]; Taper Stop: 09/02/21 06:59 Last Admin: 08/29/21 15:32 Dose: 1 mg Documented by: Lorazepam (Lorazepam 1 Mg Tablet) 1 mg PO Q4H PRN PRN Reason: Breakthrough alcohol withdrawa Stop: 09/02/21 04:54 Nicotine (Nicotine 21 Mg Patch.Td24) 21 mg TRANSDERMA DAILY [facility] Last Admin: 08/29/21 09:04 Dose: 21 mg Documented by: Ondansetron HCl (Ondansetron Hcl 4 Mg/2 Ml Vial) 4 mg IVPUSH Q8H PRN PRN Reason: Nausea Last Admin: 08/29/21 13:33 Dose: 4 mg Documented by: Pharmacy Consult (Consult Rx Perform Med Rec) 1 each MISCELLANE ONCE PRN PRN Reason: Consult order Sodium Chloride (0.9 % Sodium Chloride Flush 3 Ml Syringe) 3 ml IVFLUSH QSHIFT [facility] Last Admin: 08/29/21 15:33 Dose: Not Given Documented by: Thiamine HCl (Thiamine Hcl 100 Mg Tablet) 100 mg PO DAILY [facility] Last Admin: 08/29/21 07:59 Dose: Not Given Documented by: Physical Exam Vital Signs: Vital Signs: Last Vital Signs Temp 97.3 F 08/29/21 15:14 Pulse 79 08/29/21 15:14 Resp 18 08/29/21 15:14 BP 121/80 08/29/21 15:14 Pulse Ox 99 08/29/21 15:14 BMI result Body Mass Index 21.2 Const: General: cooperative Orientation/consciousness: oriented to person, oriented to place and oriented to time HEENT: Head: Yes normal to inspection Neck: Neck: Yes normal visual inspection and Yes full ROM Resp: Effort & Inspection: normal respiratory effort and able to speak in complete sentences Auscultation: clear to auscultation bilaterally Cardio: Rate: regular rate Rhythm: regular rhythm GI: Other: soft, mild distension, some bowel sounds, incisions all look good, ostomy bag with gas and stool Inspection: Yes normal to inspection Skin: General skin exam: no rashes or lesions noted Neuro: General: oriented to person, oriented to place and oriented to time Extrem: General: Yes normal to inspection Results Results Labs: Short CBC 08/28/21 Range/Units 22:22 WBC 13.4 H (4.8-10.8) X10*3/uL Hgb 11.9 L (14.0-18.0) g/dl Hct 35.9 L (42.0-52.0) % Plt Count 918 H D (160-400) X10*3/uL BMP 08/28/21 22:22 Sodium 139 Potassium 4.4 Chloride 104 Carbon Dioxide 22 BUN 8 L Creatinine 0.62 Calcium 10.0 Liver Function 08/28/21 Range/Units 22:22 Total Bilirubin < 0.2 (0.0-1.0) mg/dL Direct Bilirubin < 0.2 (0.0-0.5) mg/dL AST 11 (5-37) U/L ALT 14 (0-40) U/L Alkaline Phosphatase 95 (39-117) U/L Albumin 3.9 D (3.5-5.0) g/dL Urine 08/29/21 Range/Units 01:03 Urine Color DK YELLOW Urine Appearance CLEAR Urine pH 5.5 (5.0-8.0) Ur Specific [place] >= 1.030 H (1.005-1.025) Urine Protein TRACE (NEG-TRACE) MG/DL Urine Glucose (UA) NEG (NEG) MG/DL Abdomen CT scan report/results: report reviewed and image reviewed Assessment and Plan (1) Acute pain: Status: Acute Plan 41 year old male s/p sigmoid resection and repair of colovesicular fistula and diverting loop ileostomy - dc home and used up all his pain meds and started drinking again - now admitted with pain and issues with control.also with a collection of fluid above bladdr -? abscess large [address] scan showed ? obstruction although clinically not seemingly obstructed. ng had been placed in ER. plan to keep ng and npo and ivf and reeval labs in am and probable dc ngtube. will do iv tylenol and neurontin and some iv dilaudid - if not working consult anesthesia will review CT scan with radiology tuesday - if collection ?abscess consider ct guided drainage pt to cont with antibiotics now as recommended by ID before dc follow labs. Quality Stroke Does the patient have a stroke diagnosis?: No VTE Prior VTE?: No VTE Risk Level:: Surgical - moderate VTE Device Contraindication: N/A - Device Ordered VTE Drug Contraindication: N/A - Med Ordered Procedures Date of Service Date of Service: 08/29/21
[2021-08-29] MEDS: Famotidine 20 MG TABLET PO (18:59)
[2021-08-29] MEDS: cefTRIAXone sodium 1 GM in 0.9 % Sodium Chloride 50 ML IV (22:09)
[2021-08-30] VITALS (10 sets, daily range): BP systolic 126–159; BP diastolic 86–104; PULSE 83–97; RESP 18; TEMP 36.4–37; O2SAT 95–97; BMI 20.8
[2021-08-30] MEDS: HYDROmorphone HCl 2 MG/ML VIAL 1.5 MG IVPUSH ×3 (02:06→10:16)
[2021-08-30] MEDS: LORazepam 1 MG TABLET PO ×6 (02:07→20:45)
[2021-08-30] MEDS: ondansetron HCL 4 MG/2 ML VIAL IVPUSH ×3 (02:15→20:45)
[2021-08-30] MEDS: 0.9 % Sodium Chloride 1,000 ML 100 ML IVCONT ×2 (06:13→16:19)
[2021-08-30 07:20] LABS: Hemoglobin 10.1 g/dl (14.0-18.0); Mean Corpuscular HGB Conc 32.6 g/dl (31.0-36.0); Mean Corpuscular Hemoglobin 28.1 pg (27.0-33.0); Mean Corpuscular Volume 86.1 fL (80.0-98.0); Mean Platelet Volume 9.4 fL (9.4-12.4); Platelet Count 850 X10*3/uL (160-400)
[2021-08-30 07:49] LABS: Anion Gap 10 (12-20); Blood Urea Nitrogen 5 mg/dL (9-16); Carbon Dioxide 24 mmol/L (22-29); Chloride 106 mmol/L (96-108); Creatinine Clr Calc Pharmacy 158.6; Estimated Glomerular Filt Rate > 60; Glucose Random 85 mg/dL (60-115); Potassium 4.4 mmol/L (3.3-5.1); Sodium 136 mmol/L (135-145)
[2021-08-30 07:58] LABS: Calcium 8.7 mg/dL (8.4-10.2)
[2021-08-30] MEDS: Gabapentin 100 MG CAPSULE 200 MG PO ×3 (08:21→20:45)
[2021-08-30] MEDS: Thiamine HCL 100 MG TABLET PO (08:21)
[2021-08-30] MEDS: Folic Acid 1 MG TABLET PO (08:21)
[2021-08-30] MEDS: Famotidine 20 MG TABLET PO ×2 (08:21→20:45)
[2021-08-30] MEDS: Nicotine 21 MG PATCH.TD24 TRANSDERMA (08:21)
--- NOTE | 2021-08-30 12:22 | HO.PM.IMPN ---
Subjective Subjective Date of Service: 08/30/21 Interval History: Laying in bed, complaining of worsening pain in his abdomen Ostomy working overnight No reported other overnight events. Systemic review: No fever, but reporting chills and weakness No chest pain, palpitation No shortness of breath or coughing Severe abdominal pain with associated mild nausea No urinary symptoms No any rash or wounds Physical Exam Vital Signs: Vital Signs: Last Vital Signs Temp 98.3 F 08/30/21 07:48 Pulse 86 08/30/21 07:48 Resp 18 08/30/21 07:48 BP 134/86 08/30/21 07:48 Pulse Ox 96 08/30/21 07:48 BMI result Body Mass Index 20.8 Const: Other: Constitutional : Alert,? interact,? mild distress from pain Neck : Normal inspection, Supple Cardiovascular : RRR, no JVP, no lower extremity edema Respiratory : fair bilateral air entry,? no crackles, wheezes or rhonchi Gastrointestinal:? soft, lax, Normal bowel sounds,? suprapubic abdominal tenderness? , ostomy in place with dark colored fluids Skin : Warm, Dry Neurological : Alert & oriented x3, No focal deficit , CN 2-12 within normal Objective Data Active Medications Famotidine (Famotidine 20 Mg Tablet) 20 mg PO BID [facility] Last Admin: 08/30/21 08:21 Dose: 20 mg Documented by: BERTO Folic Acid (Folic Acid 1 Mg Tablet) 1 mg PO DAILY [facility] Last Admin: 08/30/21 08:21 Dose: 1 mg Documented by: BERTO Gabapentin (Gabapentin 100 Mg Capsule) 200 mg PO TID [facility] Last Admin: 08/30/21 08:21 Dose: 200 mg Documented by: BERTO Hydromorphone HCl (Hydromorphone Hcl 2 Mg/Ml Vial) 1.5 mg IVPUSH Q4H PRN; Protocol PRN Reason: Pain, Severe (Pain Scale 7-10) Last Admin: 08/30/21 10:16 Dose: 1.5 mg Documented by: BERTO Sodium Chloride (Ns) 1,000 mls @ 100 mls/hr IVCONT .Q10H [facility] Last Admin: 08/30/21 06:13 Dose: 100 mls/hr Documented by: SAMUEL Ceftriaxone Sodium 1 gm/ (Sodium Chloride) 50 mls @ 100 mls/hr IV Q24H [facility] Last Infusion: 08/30/21 01:08 Dose: 0 mls/hr Documented by: SAMUEL Acetaminophen (Ofirmev) 1,000 mg in 100 mls @ 400 mls/hr IV Q6H [facility] Last Infusion: 08/30/21 07:22 Dose: 0 mls/hr Documented by: SAMUEL Hydromorphone HCl (Dilaudid) 10 mg in 50 mls @ 0 mls/hr IV .Q0M [facility]; Protocol Lorazepam (Lorazepam 1 Mg Tablet) 1 mg PO Q6H [facility]; Taper Stop: 09/02/21 06:59 Last Admin: 08/30/21 06:18 Dose: 1 mg Documented by: SAMUEL Lorazepam (Lorazepam 1 Mg Tablet) 1 mg PO Q4H PRN PRN Reason: Breakthrough alcohol withdrawa Stop: 09/02/21 04:54 Naloxone HCl (Naloxone Hcl 0.4 Mg/Ml Vial) 0.2 mg IVPUSH Q2M PRN PRN Reason: Excessive sedation or RR < 8 Nicotine (Nicotine 21 Mg Patch.Td24) 21 mg TRANSDERMA DAILY [facility] Last Admin: 08/30/21 08:21 Dose: 21 mg Documented by: BERTO Ondansetron HCl (Ondansetron Hcl 4 Mg/2 Ml Vial) 4 mg IVPUSH Q8H PRN PRN Reason: Nausea Last Admin: 08/30/21 10:23 Dose: 4 mg Documented by: BRETO Pharmacy Consult (Consult Rx Perform Med Rec) 1 each MISCELLANE ONCE PRN PRN Reason: Consult order Sodium Chloride (0.9 % Sodium Chloride Flush 3 Ml Syringe) 3 ml IVFLUSH QSHIFT [facility] Last Admin: 08/30/21 08:29 Dose: Not Given Documented by: BERTO Non-Admin Reason: IV Running Thiamine HCl (Thiamine Hcl 100 Mg Tablet) 100 mg PO DAILY [facility] Last Admin: 08/30/21 08:21 Dose: 100 mg Documented by: BERTO Labs CBC & Chem 7: 08/30/21 06:08 08/30/21 06:08 Labs: Laboratory Results - last 24 hr 08/30/21 08/30/21 06:08 06:08 MCV 86.1 MCH 28.1 MCHC 32.6 RDW 15.0 Plt Count 850 H MPV 9.4 Absolute Nucleated RBC 0.000 Nucleated RBC % (auto) 0.0 Anion Gap 10 L Estim Creat Clear Calc 158.6 Estimated GFR > 60 Random Glucose 85 Calcium 8.7 D Microbiology Microbiology Results: Microbiology 08/28/21 22:38 Blood Culture - Preliminary Blood - Venous No growth after 24 hours. 08/28/21 22:21 Blood Culture - Preliminary Blood - Venous No growth after 24 hours. Assessment and Plan (1) Alcohol abuse: Status: Acute (2) Intra-abdominal abscess: Status: Acute (3) [place]-vesical fistula: Status: Acute Plan 41-year-old male recently diagnosed colovesicular fistula an abscess status post sigmoid colectomy, diverting loop ileostomy, and colovesicular fistula closure, on 08/26 returns to the hospital with intractable abd pain found to have SBO and recurrent intra-abdominal abscess Pt admitted to General surgery with consult to Medicine. # SBO Followed by surgery Improving # intra-abdominal abscess # intractable abdominal pain Seems to be worsening with increased pain Changed to FLIGHT FOLLOWER Dilaudid for now To get IR to drain it tomorrow # alcohol abuse with potential for withdrawals patient initially started on phenobarb p.o., switch to Ativan protocol thiamine and folic acid Thank you for the consult, will continue to monitor the patient with you Quality Stroke Does the patient have a stroke diagnosis?: No VTE Prior VTE?: No VTE Risk Level:: Surgical - moderate VTE Device Contraindication: N/A - Device Ordered VTE Drug Contraindication: N/A - Med Ordered
--- NOTE | 2021-08-30 13:28 | MHC.CM.PN ---
EMR REVIEWED, PT RECENTLY D/C'D NO 08/26 SIGMOID COLLECTOMY AND CLOSURE OF FISTULA, PT WAS ASSISTED W/SIGNING UP FOR MH AND SET UP W/A 1ST PCP APPT W/KAYLA MOODY BY TECHNICAL SALES ENGINEER LAST ADMISSION, PT PT DOES NOT RECALL DATE, PT REPORTS HE IS STILL STAYING WITH HIS MOTHER AND ENDS INTERVIEW EARLY D/T PAIN, PT WILL NEED TO BE SEEN BY CARE TEAM/RECOVERY ONCE FELLING BETTER. D/C PLAN: HOME NO SERVICES W/[facility] FOR TRANSPORT.
[2021-08-30] MEDS: HYDROmorphone HCl/NS 10 MG/50 ML PIGGYBACK 1.5 MG IV (14:39)
--- NOTE | 2021-08-30 14:41 | PC.NURSE ---
COMMERCIAL MANAGEMENT ACCOUNTANT pump started at 14:41 Jesusita NORRIS witnessed as secondary nurse.
--- NOTE | 2021-08-30 16:03 | PM.PNGS ---
Subjective Subjective Date of Service: 08/30/21 Interval history: pt has been complaining of 10/10 pain each time nursing asks - has been getting iv dilaudid and iv tylenol and po neurontin and still complaining of 10/10 pain and falls asleep while nurse gets pain meds. his vitals do not reflect increase pain with normal bp and hr range. no nausea or vomiting Physical Exam Vital Signs: Vital Signs: Last Vital Signs Temp 98.5 F 08/30/21 15:19 Pulse 97 08/30/21 15:19 Resp 18 08/30/21 15:19 BP 159/104 H 08/30/21 15:19 Pulse Ox 95 08/30/21 15:19 BMI result Body Mass Index 20.8 Const: General: comfortable, alert and awake GI: Other: abdo soft nondistended, mild tenderness incision ok ostomy working Psych: Mental Status: mental status grossly normal Affect: normal affect Objective Data Active Medications Famotidine (Famotidine 20 Mg Tablet) 20 mg PO BID [facility] Last Admin: 08/30/21 08:21 Dose: 20 mg Documented by: BERTO Folic Acid (Folic Acid 1 Mg Tablet) 1 mg PO DAILY [facility] Last Admin: 08/30/21 08:21 Dose: 1 mg Documented by: BERTO Gabapentin (Gabapentin 100 Mg Capsule) 200 mg PO TID [facility] Last Admin: 08/30/21 13:37 Dose: 200 mg Documented by: BERTO Hydromorphone HCl (Hydromorphone Hcl 2 Mg/Ml Vial) 1.5 mg IVPUSH Q4H PRN; Protocol PRN Reason: Pain, Severe (Pain Scale 7-10) Last Admin: 08/30/21 10:16 Dose: 1.5 mg Documented by: BETRO Sodium Chloride (Ns) 1,000 mls @ 100 mls/hr IVCONT .Q10H [facility] Last Admin: 08/30/21 06:13 Dose: 100 mls/hr Documented by: SAMUEL Ceftriaxone Sodium 1 gm/ (Sodium Chloride) 50 mls @ 100 mls/hr IV Q24H [facility] Last Infusion: 08/30/21 01:08 Dose: 0 mls/hr Documented by: SAMUEL Acetaminophen (Ofirmev) 1,000 mg in 100 mls @ 400 mls/hr IV Q6H [facility] Last Infusion: 08/30/21 14:42 Dose: 0 mls/hr Documented by: BERTO Hydromorphone HCl (Dilaudid) 10 mg in 50 mls @ 0 mls/hr IV .Q0M [facility]; Protocol Last Admin: 08/30/21 14:39 Dose: 0.3 mg/hr, 1.5 mls/hr Documented by: BERTO Linezolid (Zyvox/D5w) 600 mg in 300 mls @ 300 mls/hr IV Q12H [facility] Lorazepam (Lorazepam 1 Mg Tablet) 1 mg PO Q6H [facility]; Taper Stop: 09/02/21 06:59 Last Admin: 08/30/21 13:37 Dose: 1 mg Documented by: BERTO Lorazepam (Lorazepam 1 Mg Tablet) 1 mg PO Q4H [facility] Lorazepam (Lorazepam 1 Mg Tablet) 1 mg PO Q4H [facility] Stop: 09/03/21 16:14 Naloxone HCl (Naloxone Hcl 0.4 Mg/Ml Vial) 0.2 mg IVPUSH Q2M PRN PRN Reason: Excessive sedation or RR < 8 Nicotine (Nicotine 21 Mg Patch.Td24) 21 mg TRANSDERMA DAILY [facility] Last Admin: 08/30/21 08:21 Dose: 21 mg Documented by: BERTO Ondansetron HCl (Ondansetron Hcl 4 Mg/2 Ml Vial) 4 mg IVPUSH Q8H PRN PRN Reason: Nausea Last Admin: 08/30/21 10:23 Dose: 4 mg Documented by: BERTO Pharmacy Consult (Consult Rx Perform Med Rec) 1 each MISCELLANE ONCE PRN PRN Reason: Consult order Sodium Chloride (0.9 % Sodium Chloride Flush 3 Ml Syringe) 3 ml IVFLUSH QSHIFT [facility] Last Admin: 08/30/21 08:29 Dose: Not Given Documented by: BERTO Non-Admin Reason: IV Running Thiamine HCl (Thiamine Hcl 100 Mg Tablet) 100 mg PO DAILY [facility] Last Admin: 08/30/21 08:21 Dose: 100 mg Documented by: BERTO Labs CBC & Chem 7: 08/30/21 06:08 08/30/21 06:08 Labs: Laboratory Results - last 24 hr 08/30/21 08/30/21 06:08 06:08 MCV 86.1 MCH 28.1 MCHC 32.6 RDW 15.0 Plt Count 850 H MPV 9.4 Absolute Nucleated RBC 0.000 Nucleated RBC % (auto) 0.0 Anion Gap 10 L Estim Creat Clear Calc 158.6 Estimated GFR > 60 Random Glucose 85 Calcium 8.7 D Microbiology Microbiology Results: Microbiology 08/28/21 22:38 Blood Culture - Preliminary Blood - Venous No growth after 24 hours. 08/28/21 22:21 Blood Culture - Preliminary Blood - Venous No growth after 24 hours. Procedures Date of Service Date of Service: 08/30/21 Progress Note: A&P Assessment and plan (1) Adenocarcinoma of sigmoid colon: Status: Acute Plan pt is 41 [place] old male who had sig resection diverting ileostomy - dc home and took almost all his pain meds at one day and came in here with increased pain as he did not know what to do and his friend called 911. pt treated with iv tylenol q 6 hrs and neurontin. also started with iv dilaudid 1.5 mg q6 and increased to q4. pt consistently saying that wasnt working and pain was 10/10 and nurses reported this to me several times. i discussed care with med team to stagger these meds. i discussed with anesthesia today who didnt think a block or epidural would be appropriate but recommended talking to pain service tomorrow. also suggested field crop technical officer to give pt control of his own meds and deliver more steady state then peaks with iv push. This was done but now pt saying he doesnt want field crop technical officer previous pushes were working fine. when i told him he kept saying that previous regimen was NOT working and nurses documenting 10/10 each time he says thats not true. extensive discussion had with him and his mother. pt has a pain problem - has etoh abuse and on dc drank etoh ( had etoh on board blood work in ER), did marijuana ( said had some gummies - cbd + on tox screen) admitted overtaking his pain meds - he is 12 days after his surgery - his pain need now should NOT be as high or even higher than immediate post op. he needs to wean and this is part of this plan. agree with component of anxiety so will do ativan 1mg po q 4hrs. he has not exhibited any sig DT sx since here fluid collection - discussed ct results and reviewed with Dr Salazar - the collection seen on 08/28 is smaller than 08/22 and does not look like abscess more like seroma - pt currently on ceftriaxone and lineozolid - med team helping with this - wbc normal in addition that collection which is smaller is not drainable therefore this conservative plan is our path pt is frustrated and agrees to do po ativan and iv dilaudid for now. he needs abuse counselling which can be set up for tomorrow. too much narcotics is slowing down his transit time and creating ileus and vomiting. mother is happier after discussion Time Spent With Patient Time: Total time spent is greater than 50% in coordination of care (as documented) at patient's floor/unit and/or counseling patient: Quality Stroke Does the patient have a stroke diagnosis?: No VTE Prior VTE?: No VTE Risk Level:: Surgical - moderate VTE Device Contraindication: N/A - Device Ordered VTE Drug Contraindication: N/A - Med Ordered
[2021-08-30] MEDS: Linezolid/D5W 600 MG/300 ML PIGGYBACK 300 MG IV (16:58)
[2021-08-30] MEDS: 0.9 % Sodium Chloride Flush 3 ML SYRINGE IVFLUSH (17:06)
--- NOTE | 2021-08-30 18:32 | PC.NURSE ---
Co-sign for PERSONAL BANKING ASSISTANT done in worklist. Pharmacy made aware of the missing assessment in the MAR. They will take a look at it tomorrow with IT. Documentation is now done in the worklist.
--- NOTE | 2021-08-30 19:36 | PC.NURSE ---
Patient refused 1.5mg Dilaudid PRN medication that it is not helping with his pain. Dr ordered Dilaudid [employer] pump medication.
[2021-08-30] MEDS: cefTRIAXone sodium 1 GM in 0.9 % Sodium Chloride 50 ML IV (22:56)
--- NOTE | 2021-08-30 23:01 | W.PM.IDCN ---
History of Present Illness Data of Consult Service Date: 08/29/21 Requesting physician: Janice De La Cruz Primary Care Provider: Unknown Physician HPI Reason for consult: abdominal abscess He presents with abdominal discomfort 7/10 for a day. He was in hospital for abscess related to colovesical fistula enterococcus and E coli and discharged on Zyvox and Ceftin. He says he took antibiotics as outpatient but continued drinking alcohol. He is started on Ceftriaxone and linezolid. He has abscess of 8.[address] abdomen and pelvis. Review of Systems Review of Systems: Yes all other systems are reviewed and are negative [facility] Past Medical History Medical History Adenocarcinoma of sigmoid colon Alcohol withdrawal seizure [place]-vesical fistula History of drainage of abscess Intra-abdominal abscess Functional capacity: independent ambulation Family History Family History Other No family history of coronary artery disease Family history: reviewed and not pertinent Surgical History Surgical History S/P partial resection of colon (08/17/21) Social History Social History Household Members: Other Household Members Other:: homeless. staying with family/friends. Housing: Homeless Do you presently have visiting nurse or other home services: No Alcohol intake: current Alcohol intake frequency: 3 or more drinks per day Patient Tobacco Use Status: Current everyday Tobacco user Tobacco use type: Cigarette Cigarette Packs Per Day: 1 Cigarettes Per Day: 20.0 Second Hand Smoke Exposure: No Substance Use Type: Marijuana service: No Current occupational status: unemployed Meds Allergies Allergy/AdvReac Type Severity Reaction Status Date / Time cranberry Allergy Hives Verified 08/14/21 12:54 Active Medications: Current Medications Famotidine (Famotidine 20 Mg Tablet) 20 mg PO BID [facility] Last Admin: 08/30/21 20:45 Dose: 20 mg Documented by: Folic Acid (Folic Acid 1 Mg Tablet) 1 mg PO DAILY [facility] Last Admin: 08/30/21 08:21 Dose: 1 mg Documented by: Gabapentin (Gabapentin 100 Mg Capsule) 200 mg PO TID [facility] Last Admin: 08/30/21 20:45 Dose: 200 mg Documented by: Hydromorphone HCl (Hydromorphone Hcl 2 Mg/Ml Vial) 1.5 mg IVPUSH Q4H PRN; Protocol PRN Reason: Pain, Severe (Pain Scale 7-10) Last Admin: 08/30/21 10:16 Dose: 1.5 mg Documented by: Sodium Chloride (Ns) 1,000 mls @ 100 mls/hr IVCONT .Q10H [facility] Last Admin: 08/30/21 16:19 Dose: 100 mls/hr Documented by: Ceftriaxone Sodium 1 gm/ (Sodium Chloride) 50 mls @ 100 mls/hr IV Q24H [facility] Last Admin: 08/30/21 22:56 Dose: 100 mls/hr Documented by: Acetaminophen (Ofirmev) 1,000 mg in 100 mls @ 400 mls/hr IV Q6H [facility] Stop: 08/31/21 19:14 Last Infusion: 08/30/21 21:24 Dose: Infused Documented by: Hydromorphone HCl (Dilaudid) 10 mg in 50 mls @ 0 mls/hr IV .Q0M [facility]; Protocol Last Admin: 08/30/21 14:39 Dose: 0.3 mg/hr, 1.5 mls/hr Documented by: Linezolid (Zyvox/D5w) 600 mg in 300 mls @ 300 mls/hr IV Q12H [facility] Last Infusion: 08/30/21 19:40 Dose: Infused Documented by: Lorazepam (Lorazepam 1 Mg Tablet) 1 mg PO Q4H [facility] Last Admin: 08/30/21 20:45 Dose: 1 mg Documented by: Naloxone HCl (Naloxone Hcl 0.4 Mg/Ml Vial) 0.2 mg IVPUSH Q2M PRN PRN Reason: Excessive sedation or RR < 8 Nicotine (Nicotine 21 Mg Patch.Td24) 21 mg TRANSDERMA DAILY [facility] Last Admin: 08/30/21 08:21 Dose: 21 mg Documented by: Ondansetron HCl (Ondansetron Hcl 4 Mg/2 Ml Vial) 4 mg IVPUSH Q8H PRN PRN Reason: Nausea Last Admin: 08/30/21 20:45 Dose: 4 mg Documented by: Pharmacy Consult (Consult Rx Perform Med Rec) 1 each MISCELLANE ONCE PRN PRN Reason: Consult order Sodium Chloride (0.9 % Sodium Chloride Flush 3 Ml Syringe) 3 ml IVFLUSH QSHIFT [facility] Last Admin: 08/30/21 17:06 Dose: 3 ml Documented by: Thiamine HCl (Thiamine Hcl 100 Mg Tablet) 100 mg PO DAILY [facility] Last Admin: 08/30/21 08:21 Dose: 100 mg Documented by: Physical Exam Vital Signs: Vital Signs: Last Vital Signs Temp 98.5 F 08/30/21 21:39 Pulse 93 08/30/21 22:00 Resp 18 08/30/21 22:00 BP 126/98 H 08/30/21 22:00 Pulse Ox 95 08/30/21 22:00 BMI result Body Mass Index 20.8 Const: General: cooperative HEENT: Head: Yes normal to inspection Mouth: Normal oral and palatal mucosa present Eyes: General: appearance normal, both eyes and all related structures Resp: Effort & Inspection: normal respiratory effort Cardio: Rate: regular rate Rhythm: regular rhythm GI: Palpation (GI): Firmness to palpation present (GI) and Tenderness to palpation present (GI) Skin: General skin exam: no rashes or lesions noted Results Labs CBC & Chem 7: 08/30/21 06:08 08/30/21 06:08 Labs: Short CBC 08/30/21 Range/Units 06:08 WBC 9.0 (4.8-10.8) X10*3/uL Hgb 10.1 L (14.0-18.0) g/dl Hct 31.0 L (42.0-52.0) % Plt Count 850 H (160-400) X10*3/uL BMP 08/30/21 06:08 Sodium 136 Potassium 4.4 Chloride 106 Carbon Dioxide 24 BUN 5 L Creatinine 0.55 Calcium 8.7 D Microbiology Microbiology Results: Microbiology 08/28/21 22:38 Blood - Venous Blood Culture - Preliminary No growth after 24 hours. 08/28/21 22:21 Blood - Venous Blood Culture - Preliminary No growth after 24 hours. Assessment and Plan (1) Intra-abdominal abscess: Status: Acute Area 8.5 cm probable enterococcus and E coli He has persistent colovesical fistula related to adenocarcinoma colon. (2) Alcohol abuse: Status: Acute (3) [place]-vesical fistula: Status: Acute Plan Would continue antibiotics Ceftriaxone and zyvox for now. Abscess drainage,culture.
[2021-08-31] VITALS (17 sets, daily range): BP systolic 118–139; BP diastolic 78–93; PULSE 74–89; RESP 15–18; TEMP 36.3–37.2; O2SAT 95–98; BMI 19.6
[2021-08-31] MEDS: 0.9 % Sodium Chloride 1,000 ML 100 ML IVCONT ×3 (01:42→22:44)
[2021-08-31] MEDS: Linezolid/D5W 600 MG/300 ML PIGGYBACK 300 MG IV ×2 (02:36→15:09)
[2021-08-31] MEDS: HYDROmorphone HCl/NS 10 MG/50 ML PIGGYBACK 1.5 MG IV ×2 (02:58→14:45)
[2021-08-31] MEDS: LORazepam 1 MG TABLET PO ×5 (04:27→20:59)
[2021-08-31 06:20] LABS: Hematocrit 31.9 % (42.0-52.0); Hemoglobin 10.3 g/dl (14.0-18.0); Mean Corpuscular HGB Conc 32.3 g/dl (31.0-36.0); Mean Corpuscular Hemoglobin 27.7 pg (27.0-33.0); Mean Corpuscular Volume 85.8 fL (80.0-98.0); Mean Platelet Volume 8.9 fL (9.4-12.4); Platelet Count 827 X10*3/uL (160-400); Red Blood Count 3.72 X10*6/uL (4.60-5.80)
[2021-08-31 06:38] LABS: Anion Gap 12 (12-20); Blood Urea Nitrogen 3 mg/dL (9-16); Calcium 9.1 mg/dL (8.4-10.2); Carbon Dioxide 28 mmol/L (22-29); Chloride 103 mmol/L (96-108); Creatinine Clr Calc Pharmacy 137.2; Estimated Glomerular Filt Rate > 60; Glucose Random 100 mg/dL (60-115); Potassium 4.2 mmol/L (3.3-5.1); Sodium 139 mmol/L (135-145)
[2021-08-31] MEDS: Folic Acid 1 MG TABLET PO (08:11)
[2021-08-31] MEDS: Gabapentin 100 MG CAPSULE 200 MG PO ×3 (08:11→20:59)
[2021-08-31] MEDS: Famotidine 20 MG TABLET PO ×2 (08:11→20:59)
[2021-08-31] MEDS: Thiamine HCL 100 MG TABLET PO (08:11)
[2021-08-31] MEDS: Nicotine 21 MG PATCH.TD24 TRANSDERMA (08:11)
[2021-08-31] MEDS: ondansetron HCL 4 MG/2 ML VIAL IVPUSH ×2 (08:20→17:43)
--- NOTE | 2021-08-31 09:06 | P.PNGS_ITS ---
Subjective Subjective Date of Service: 08/31/21 <EZRA Menon - Last Filed: 08/31/21 15:31> 08/31/21 <Manuel Cooper MD - Last Filed: 08/31/21 15:57> Interval history: Pt reports 6/10 pain this morning, focused under midline incision. 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 He had some nausea which improved with Zofran and he is able to tolerate liquids. Ostomy functioning. <EZRA Menon - Last Filed: 08/31/21 15:31> Physical Exam Vital Signs: Vital Signs: Last Vital Signs Temp 98.9 F 08/31/21 07:13 Pulse 81 08/31/21 08:00 Resp 18 08/31/21 08:00 BP 124/84 08/31/21 08:00 Pulse Ox 98 08/31/21 08:00 BMI result Body Mass Index 19.6 <EZRA Menon Last Filed: 08/31/21 15:31> Const: General: no acute distress <EZRA Menon Last Filed: 08/31/21 15:31> Resp: Effort & Inspection: normal respiratory effort and able to speak in complete sentences <EZRA Menon Last Filed: 08/31/21 15:31> Auscultation: clear to auscultation bilaterally <EZRA Menon Last Filed: 08/31/21 15:31> Cardio: Rate: regular rate <EZRA Menon Last Filed: 08/31/21 15:31> Rhythm: regular rhythm <EZRA Menon Last Filed: 08/31/21 15:31> GI: Other: abdomen is soft, nondistended, tender around midline incision but no peritoneal signs, midline incision clean with francesco intact and small amount of serosanguinous drainage on dressing, no surrounding erythema, ostomy pink with brown liquid stool in bag <EZRA Menon Last Filed: 08/31/21 15:31> Objective Data Active Medications Famotidine (Famotidine 20 Mg Tablet) 20 mg PO BID [facility] Last Admin: 08/31/21 08:11 Dose: 20 mg Documented by: DOROTHEA Folic Acid (Folic Acid 1 Mg Tablet) 1 mg PO DAILY [facility] Last Admin: 08/31/21 08:11 Dose: 1 mg Documented by: DOROTHEA Gabapentin (Gabapentin 100 Mg Capsule) 200 mg PO TID [facility] Last Admin: 08/31/21 08:11 Dose: 200 mg Documented by: DOROTHEA Hydromorphone HCl (Hydromorphone Hcl 2 Mg/Ml Vial) 1.5 mg IVPUSH Q4H PRN; Protocol PRN Reason: Pain, Severe (Pain Scale 7-10) Last Admin: 08/30/21 10:16 Dose: 1.5 mg Documented by: BERTO Sodium Chloride (Ns) 1,000 mls @ 100 mls/hr IVCONT .Q10H [facility] Last Admin: 08/31/21 01:42 Dose: 100 mls/hr Documented by: JOSEPH Ceftriaxone Sodium 1 gm/ (Sodium Chloride) 50 mls @ 100 mls/hr IV Q24H [facility] Last Infusion: 08/30/21 23:27 Dose: 0 mls/hr Documented by: JOSEPH Acetaminophen (Ofirmev) 1,000 mg in 100 mls @ 400 mls/hr IV Q6H [facility] Stop: 08/31/21 19:14 Last Infusion: 08/31/21 07:00 Dose: 0 mls/hr Documented by: DOROTHEA Hydromorphone HCl (Dilaudid) 10 mg in 50 mls @ 0 mls/hr IV .Q0M [facility]; Protocol Last Admin: 08/31/21 02:58 Dose: 0.3 mg/hr, 1.5 mls/hr Documented by: JOSEPH Linezolid (Zyvox/D5w) 600 mg in 300 mls @ 300 mls/hr IV Q12H [facility] Last Infusion: 08/31/21 03:41 Dose: 0 mls/hr Documented by: JOSEPH Lorazepam (Lorazepam 1 Mg Tablet) 1 mg PO Q4H [facility] Last Admin: 08/31/21 08:11 Dose: 1 mg Documented by: DOROTHEA Naloxone HCl (Naloxone Hcl 0.4 Mg/Ml Vial) 0.2 mg IVPUSH Q2M PRN PRN Reason: Excessive sedation or RR < 8 Nicotine (Nicotine 21 Mg Patch.Td24) 21 mg TRANSDERMA DAILY [facility] Last Admin: 08/31/21 08:11 Dose: 21 mg Documented by: DOROTHEA Ondansetron HCl (Ondansetron Hcl 4 Mg/2 Ml Vial) 4 mg IVPUSH Q8H PRN PRN Reason: Nausea Last Admin: 08/31/21 08:20 Dose: 4 mg Documented by: DOROTHEA Pharmacy Consult (Consult Rx Perform Med Rec) 1 each MISCELLANE ONCE PRN PRN Reason: Consult order Sodium Chloride (0.9 % Sodium Chloride Flush 3 Ml Syringe) 3 ml IVFLUSH QSHIFT [facility] Last Admin: 08/31/21 07:27 Dose: Not Given Documented by: DOROTHEA Non-Admin Reason: IV Running Thiamine HCl (Thiamine Hcl 100 Mg Tablet) 100 mg PO DAILY [facility] Last Admin: 08/31/21 08:11 Dose: 100 mg Documented by: DOROTHEA <EZRA Menon - Last Filed: 08/31/21 15:31> Labs CBC & Chem 7: : 08/31/21 05:43 08/31/21 05:43 <EZRA Menon - Last Filed: 08/31/21 15:31> Labs: Laboratory Results - last 24 hr 08/31/21 08/31/21 05:43 05:43 MCV 85.8 MCH 27.7 MCHC 32.3 RDW 15.0 Plt Count 827 H MPV 8.9 L Absolute Nucleated RBC 0.000 Nucleated RBC % (auto) 0.0 Anion Gap 12 Estim Creat Clear Calc 137.2 Estimated GFR > 60 Random Glucose 100 Calcium 9.1 <EZRA Menon - Last Filed: 08/31/21 15:31> Microbiology Microbiology Results: Microbiology 08/28/21 22:38 Blood Culture - Preliminary Blood - Venous No growth after 48 hours. 08/28/21 22:21 Blood Culture - Preliminary Blood - Venous No growth after 48 hours. <EZRA Menon - Last Filed: 08/31/21 15:31> Procedures Date of Service Date of Service: 08/31/21 <EZRA Menon - Last Filed: 08/31/21 15:31> Progress Note: A&P Assessment and plan (1) Adenocarcinoma of sigmoid colon: Status: Acute <EZRA Menon - Last Filed: 08/31/21 15:31> (2) S/P partial resection of colon: Status: Acute <EZRA Menon - Last Filed: 08/31/21 15:31> (3) [place]-vesical fistula: Status: Acute <EZRA Menon - Last Filed: 08/31/21 15:31> (4) Intra-abdominal abscess: Status: Acute <EZRA Menon - Last Filed: 08/31/21 15:31> (5) Abdominal pain: Status: Acute <EZRA Menon - Last Filed: 08/31/21 15:31> Plan 41 year old male who had sigmoid resection and diverting ileostomy for colovesical fistula 08/17/2021, found to have adenocarcinoma of colon. Readmitted for ongoing difficulty with pain management. Currently tolerating clear liquids with ostomy functioning. [place] wound appears clean without evidence of infection. Collection present in pelvis, abscess vs seroma- not drainable, WBC normal. 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 Will request consult by psych clinical nurse specialist for substance counseling. Pt discussed with Dr. Cooper. <EZRA Menon - Last Filed: 08/31/21 15:31> 41 year old male who had sigmoid resection and diverting ileostomy for colovesical fistula 08/17/2021, found to have adenocarcinoma of colon. Readmitted for ongoing difficulty with pain management. Currently tolerating clear liquids with ostomy functioning. [place] wound appears clean without evidence of infection. Collection present in pelvis, abscess vs seroma- not drainable, WBC normal. 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 Will request consult by psych clinical nurse specialist for substance counseling. Pt discussed with Dr. Cooper. Patient seen and examined independently. I agree with the above assessment and plan. Pain control remains a major issue for patient. He was previously on Dilaudid 1.5 mg q3 hrs and receiving the med every three hours. He was discharged to home on po meds which he completed very quickly. He may need an alternative pain management plan. <Manuel Cooper MD - Last Filed: 08/31/21 15:57> Time Spent With Patient Time: Total time spent is greater than 50% in coordination of care (as documented) at patient's floor/unit and/or counseling patient: <EZRA Menon - Last Filed: 08/31/21 15:31> Quality Stroke Does the patient have a stroke diagnosis?: No <EZRA Menon - Last Filed: 08/31/21 15:31> VTE Prior VTE?: No <EZRA Menon - Last Filed: 08/31/21 15:31> VTE Risk Level:: Surgical - moderate <EZRA Menon - Last Filed: 08/31/21 15:31> VTE Device Contraindication: N/A - Device Ordered <EZRA Menon - Last Filed: 08/31/21 15:31> VTE Drug Contraindication: N/A - Med Ordered <ZERA Menon - Last Filed: 08/31/21 15:31>
--- NOTE | 2021-08-31 14:55 | PC.NURSE ---
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 2.5ml wasted from previous bag and witnessed by Kraig. Bolus 0.3mg/hr no rate change.
--- NOTE | 2021-08-31 14:59 | PC.NURSE ---
Changed Dilaudid 0.3mg/hr bag at 13:45 with Shanelle Angelo RN. Wasted 2.5 ml from previous bag.
--- NOTE | 2021-08-31 15:17 | MHC.CLN ---
NUTRITION CONSULT FOR POOR INTAKE. DIET=CLEAR LIQUIDS. PATIENT AGREES TO TRY ENSURE CLEAR TID. SUPPLEMENT PROVIDES ADDITIONAL 720 KCALS, 24 G PROTEIN. FOLLOW FOR DIET ADVANCEMENT AND INTAKE.
[2021-08-31] MEDS: 0.9 % Sodium Chloride Flush 3 ML SYRINGE IVFLUSH (17:43)
[2021-08-31] MEDS: cefTRIAXone sodium 1 GM in 0.9 % Sodium Chloride 50 ML IV (22:42)
[2021-09-01] VITALS (10 sets, daily range): BP systolic 115–142; BP diastolic 79–88; PULSE 72–100; RESP 16–18; TEMP 36.2–37.1; O2SAT 95–99
[2021-09-01] MEDS: LORazepam 1 MG TABLET PO ×5 (01:35→21:53)
[2021-09-01] MEDS: Linezolid/D5W 600 MG/300 ML PIGGYBACK 300 MG IV ×2 (03:15→15:07)
[2021-09-01] MEDS: HYDROmorphone HCl/NS 10 MG/50 ML PIGGYBACK 1.5 MG IV (04:21)
[2021-09-01] MEDS: Thiamine HCL 100 MG TABLET PO (08:29)
[2021-09-01] MEDS: HYDROmorphone HCl 2 MG/ML VIAL 1.5 MG IVPUSH ×2 (08:29→11:33)
[2021-09-01] MEDS: Folic Acid 1 MG TABLET PO (08:29)
[2021-09-01] MEDS: Gabapentin 100 MG CAPSULE 200 MG PO (08:29)
[2021-09-01] MEDS: Famotidine 20 MG TABLET PO ×2 (08:29→21:53)
[2021-09-01] MEDS: Nicotine 21 MG PATCH.TD24 TRANSDERMA (08:31)
[2021-09-01] MEDS: ondansetron HCL 4 MG/2 ML VIAL IVPUSH ×2 (08:49→18:51)
--- NOTE | 2021-09-01 10:14 | P.PNGS_ITS ---
Subjective Subjective Date of Service: 09/01/21 Interval history: Patient reports feeling a little better today. Pain is rated 4-5/10 with meds. Denies N/V currently; received Zofran earlier. Able to ambulate. Voiding without difficulty. Ostomy functioning. Physical Exam Vital Signs: Vital Signs: Last Vital Signs Temp 97.3 F 09/01/21 07:48 Pulse 84 09/01/21 07:48 Resp 18 09/01/21 07:48 BP 139/86 09/01/21 07:48 Pulse Ox 97 09/01/21 07:48 BMI result Body Mass Index 19.6 Const: General: comfortable and no acute distress Resp: Effort & Inspection: normal respiratory effort GI: Other: soft, mild tenderness to palpation around incision and ostomy, midline incision clean and dry with francesco intact, no drainage surrounding erythema; ostomy pink with brown stool in bag Extrem: Other: no calf tenderness, no edema Objective Data Active Medications Famotidine (Famotidine 20 Mg Tablet) 20 mg PO BID [facility] Last Admin: 09/01/21 08:29 Dose: 20 mg Documented by: JENNIFER Folic Acid (Folic Acid 1 Mg Tablet) 1 mg PO DAILY [facility] Last Admin: 09/01/21 08:29 Dose: 1 mg Documented by: JENNIFER Gabapentin (Gabapentin 100 Mg Capsule) 200 mg PO TID [facility] Last Admin: 09/01/21 08:29 Dose: 200 mg Documented by: JENNIFER Hydromorphone HCl (Hydromorphone Hcl 2 Mg/Ml Vial) 1.5 mg IVPUSH Q3H PRN; Protocol PRN Reason: Pain, Severe (Pain Scale 7-10) Last Admin: 09/01/21 08:29 Dose: 1.5 mg Documented by: JENNIFER Ceftriaxone Sodium 1 gm/ (Sodium Chloride) 50 mls @ 100 mls/hr IV Q24H [facility] Last Infusion: 08/31/21 23:18 Dose: 0 mls/hr Documented by: JOSEPH Linezolid (Zyvox/D5w) 600 mg in 300 mls @ 300 mls/hr IV Q12H [facility] Last Infusion: 09/01/21 04:35 Dose: 0 mls/hr Documented by: JOSEPH Lorazepam (Lorazepam 1 Mg Tablet) 1 mg PO Q4H [facility] Last Admin: 09/01/21 08:29 Dose: 1 mg Documented by: JENNIFER Naloxone HCl (Naloxone Hcl 0.4 Mg/Ml Vial) 0.2 mg IVPUSH Q2M PRN PRN Reason: Excessive sedation or RR < 8 Nicotine (Nicotine 21 Mg Patch.Td24) 21 mg TRANSDERMA DAILY [facility] Last Admin: 09/01/21 08:31 Dose: 21 mg Documented by: JENNIFER Ondansetron HCl (Ondansetron Hcl 4 Mg/2 Ml Vial) 4 mg IVPUSH Q8H PRN PRN Reason: Nausea Last Admin: 09/01/21 08:49 Dose: 4 mg Documented by: JENNIFER Pharmacy Consult (Consult Rx Perform Med Rec) 1 each MISCELLANE ONCE PRN PRN Reason: Consult order Sodium Chloride (0.9 % Sodium Chloride Flush 3 Ml Syringe) 3 ml IVFLUSH QSHIFT [facility] Last Admin: 09/01/21 07:47 Dose: Not Given Documented by: COTEMA Non-Admin Reason: IV Running Thiamine HCl (Thiamine Hcl 100 Mg Tablet) 100 mg PO DAILY [facility] Last Admin: 09/01/21 08:29 Dose: 100 mg Documented by: JENNIFER Labs CBC & Chem 7: 08/31/21 05:43 08/31/21 05:43 Procedures Date of Service Date of Service: 09/01/21 Progress Note: A&P Assessment and plan (1) S/P partial resection of colon: Status: Acute (2) Adenocarcinoma of sigmoid colon: Status: Acute (3) Abdominal pain: Status: Acute (4) Intra-abdominal abscess: Status: Acute (5) Alcohol abuse: Status: Acute Plan 41 year old male who had sigmoid resection and diverting ileostomy for colovesical fistula 08/17/2021, found to have adenocarcinoma of colon. Readmitted for ongoing difficulty with pain management. Currently tolerating clear liquids with ostomy functioning. Midline wound appears clean without evidence of infection. Collection present in pelvis, abscess vs seroma- not drainable, WBC remains normal. PLAN: Trial of regular diet Nausea control with Zofran Continue antibiotics- linezolid, ceftriaxone per ID Routine ostomy care Trend labs, WBC OOB/ambulation Pt currently on Dilaudid, gabapentin, Ofirmev but reports suboptimal pain control - Psych clinical nurse specialist for substance counseling- to see pt today - Pain management consulted for assistance with pain control regimen Pt discussed with Dr. Cooper. Time Spent With Patient Time: Total time spent is greater than 50% in coordination of care (as documented) at patient's floor/unit and/or counseling patient: Quality Stroke Does the patient have a stroke diagnosis?: No VTE Prior VTE?: No VTE Risk Level:: Surgical - moderate VTE Device Contraindication: N/A - Device Ordered VTE Drug Contraindication: N/A - Med Ordered
--- NOTE | 2021-09-01 13:19 | HO.ADDICTCON ---
History of Present Illness Date of Service: 09/01/2021 Chief Complaint: post surgery pain Reason for Consult: difficulty managing pain HPI Narrative: Patient is a 41 year old male with recent diagnosis of colon cancer. He was [place] [facility] [place] couple of days later citing uncontrolled pain and out of pain medication. Consult requested given concern for overuse of prescribed opioids and reported alcohol use. Patient seen in room 383. Awake, alert, pleasant and engaged in interview. He reports he recently moved back to [place] from [place], where he was living for the past 2 years, to get better medical care-s[place] he was [place] 2 [place] before being [place] [facility] [place]. He states that he is homeless , but provides his mother's address--she will not allow him to live there. When he was discharged last week, he went to his friends house who agreed to let him stay for the weekend only. Patient reports he has been in recovery from opioid use for over 10 years. Does acknowledge that alcohol has been an issue for him, however he has 1-2 nips after most recent discharge, which is a significant reduction from previous amounts. This movie writer discussed concerns related to taking more medication than prescribed, he states he was having a hard time managing pain and acknowledges taking more. Becoming tearful during discussion feeling that he was being judged due to his history. This movie writer reassured patient that goal was to provide him comfort in the safest way possible, while also acknowledging risks associated with taking more opioids than prescribed in addition to mixing with alcohol. Of note initial UDS was negative for all illicit substances including opioids. UDS on second admission was as expected with medications that were both prescribed administered [place] [facility] Patient was inquiring about methadone for pain and process for OTP admission, however this may not be the most appropriate as he has been in usp remission from OUD. Current cancer diagnosis and chemotherapy requirements as mentioned in hospitalist note, are concerning given housing situation, alcohol use, and recent difficulty taking pain medication as prescribed. Review of Systems Comments: ongoing pain is the only symptom reported by patient. Diagnostics Vital Signs (24Hr): Vital Signs - 24 hr 08/31/21 14:00 08/31/21 16:00 08/31/21 18:00 Temperature 97.4 F 98.4 F Pulse Rate 83 83 89 Respiratory Rate 15 15 18 Blood Pressure 134/90 H 134/90 H 118/83 Pulse Oximetry 98 98 96 08/31/21 20:00 08/31/21 21:56 08/31/21 22:00 Temperature 97.3 F Pulse Rate 89 84 84 Respiratory Rate 18 18 18 Blood Pressure 118/83 132/92 H 132/92 H Pulse Oximetry 96 95 95 09/01/21 00:00 09/01/21 01:35 09/01/21 02:00 Temperature 97.4 F 97.1 F Pulse Rate 75 72 72 Respiratory Rate 18 18 18 Blood Pressure 138/88 136/88 136/88 Pulse Oximetry 97 96 96 09/01/21 04:00 09/01/21 06:00 09/01/21 07:48 Temperature 97.6 F 97.5 F 97.3 F Pulse Rate 89 81 84 Respiratory Rate 18 18 18 Blood Pressure 120/85 142/87 H 139/86 Pulse Oximetry 97 99 97 09/01/21 11:41 Temperature 97.6 F Pulse Rate 96 Respiratory Rate 18 Blood Pressure 118/83 Pulse Oximetry 97 BMI result Body Mass Index 19.6 Labs Results: 08/31/21 05:43 08/31/21 05:43 Labs: Laboratory Results - last 48 hr 08/31/21 08/31/21 05:43 05:43 WBC 7.0 RBC 3.72 L Hgb 10.3 L Hct 31.9 L MCV 85.8 MCH 27.7 MCHC 32.3 RDW 15.0 Plt Count 827 H MPV 8.9 L Absolute Nucleated RBC 0.000 Nucleated RBC % (auto) 0.0 Sodium 139 Potassium 4.2 Chloride 103 Carbon Dioxide 28 Anion Gap 12 BUN 3 L Creatinine 0.60 Estim Creat Clear Calc 137.2 Estimated GFR > 60 Random Glucose 100 Calcium 9.1 Imaging Radiology Impressions: ITS Impressions Abdomen/Pelvis CT 08/28/21 23:56 IMPRESSION: 1. Postoperative changes of the bowel with right lower quadrant ileostomy. Fluid-filled dilation of bowel loops is most suspicious for small bowel obstruction with transition site at the level of the ostomy. 2. Irregularly shaped, peripherally enhancing fluid collection in the pelvis superior to the urinary bladder measuring up to 8.5 cm, suspicious for abscess in the proper clinical setting. 3. Wall thickening along the superior urinary bladder, which may be reactive given the adjacent probable abscess. Small focus of gas in the urinary bladder could be due to recent catheterization or infection. Chest X-Ray 08/29/21 00:53 IMPRESSION: NG tube tip in the proximal stomach with side-port approximately 4 cm above the gastroesophageal junction; consider advancement. Mental Status Exam Mental Status Exam Narrative: Awake, alert, appropriate. Clear speech, goal oriented thought process. Did not appear to be experiencing any distress Medications Medications Current Medications Famotidine (Famotidine 20 Mg Tablet) 20 mg PO BID [facility] Last Admin: 09/01/21 08:29 Dose: 20 mg Documented by: Folic Acid (Folic Acid 1 Mg Tablet) 1 mg PO DAILY [facility] Last Admin: 09/01/21 08:29 Dose: 1 mg Documented by: Gabapentin (Gabapentin 400 Mg Capsule) 400 mg PO TID [facility] Hydromorphone HCl (Hydromorphone Hcl 4 Mg Tablet) 4 mg PO Q3H PRN PRN Reason: Pain, Severe (Pain Scale 7-10) Hydromorphone HCl (Hydromorphone Hcl 1 Mg/Ml Syringe) 1 mg IVPUSH Q8H PRN; Protocol PRN Reason: Pain, Severe (Pain Scale 7-10) Ceftriaxone Sodium 1 gm/ (Sodium Chloride) 50 mls @ 100 mls/hr IV Q24H [facility] Last Infusion: 08/31/21 23:18 Dose: Infused Documented by: Linezolid (Zyvox/D5w) 600 mg in 300 mls @ 300 mls/hr IV Q12H [facility] Last Infusion: 09/01/21 04:35 Dose: Infused Documented by: Acetaminophen (Ofirmev) 1,000 mg in 100 mls @ 400 mls/hr IV Q6H [facility] Ibuprofen (Ibuprofen 600 Mg Tablet) 600 mg PO Q6H PRN PRN Reason: Pain, Mild (Pain Scale 1-3) Lorazepam (Lorazepam 1 Mg Tablet) 1 mg PO Q4H [facility] Last Admin: 09/01/21 13:03 Dose: 1 mg Documented by: Naloxone HCl (Naloxone Hcl 0.4 Mg/Ml Vial) 0.2 mg IVPUSH Q2M PRN PRN Reason: Excessive sedation or RR < 8 Nicotine (Nicotine 21 Mg Patch.Td24) 21 mg TRANSDERMA DAILY [facility] Last Admin: 09/01/21 08:31 Dose: 21 mg Documented by: Ondansetron HCl (Ondansetron Hcl 4 Mg/2 Ml Vial) 4 mg IVPUSH Q8H PRN PRN Reason: Nausea Last Admin: 09/01/21 08:49 Dose: 4 mg Documented by: Pharmacy Consult (Consult Rx Perform Med Rec) 1 each MISCELLANE ONCE PRN PRN Reason: Consult order Sodium Chloride (0.9 % Sodium Chloride Flush 3 Ml Syringe) 3 ml IVFLUSH QSHIFT [facility] Last Admin: 09/01/21 07:47 Dose: Not Given Documented by: Thiamine HCl (Thiamine Hcl 100 Mg Tablet) 100 mg PO DAILY [facility] Last Admin: 09/01/21 08:29 Dose: 100 mg Documented by: Allergies Allergies Allergy/AdvReac Type Severity Reaction Status Date / Time cranberry Allergy Hives Verified 08/14/21 12:54 Assessment & Plan Assessment & Plan (1) Abdominal pain: Qualifiers: Abdominal location: generalized Qualified Code(s): R10.84 - Generalized abdominal pain Status: Acute Code(s): R10.9 - Unspecified abdominal pain Assessment and Plan: Discussed methadone split dosing as a way to address pain, however, patient has been in recovery from opioids for over 10 years (per his report) and methadone via OTP may not be the best option. Consider methadone for pain management vs treatment for opioid use disorder as it may address pain and be less restrictive in terms of continuing once discharged from hospital. Patient also does not have any type of photo ID, which is the one requirement for admission to OTP for methadone maintenance. In the event that patient is discharged home , informed patient that medications would likely be administered by [facility] or some other agency to ensure safety. patient verbalized understanding Discussed housing instability with CM. I spent ____45__ minutes with the patient and/or on the patient floor today, greater than?50% of which was spent counseling/coordinating care. PMFSH Past Medical History Medical History Adenocarcinoma of sigmoid colon Alcohol withdrawal seizure [place]-vesical fistula History of drainage of abscess Intra-abdominal abscess Family History Family History Other No family history of coronary artery disease Family history: reviewed and not pertinent Surgical History Surgical History S/P partial resection of colon (08/17/21) Social History Social History Household Members: Other Household Members Other:: homeless. staying with family/friends. Housing: Homeless Do you presently have visiting nurse or other home services: No Alcohol intake: current Alcohol intake frequency: 3 or more drinks per day Patient Tobacco Use Status: Current everyday Tobacco user Tobacco use type: Cigarette Cigarette Packs Per Day: 1 Cigarettes Per Day: 20.0 Second Hand Smoke Exposure: No Substance Use Type: Marijuana service: No Current occupational status: unemployed
[2021-09-01] MEDS: Gabapentin 400 MG CAPSULE PO ×2 (15:04→21:53)
[2021-09-01] MEDS: 0.9 % Sodium Chloride Flush 3 ML SYRINGE IVFLUSH ×2 (15:08→22:22)
[2021-09-01] MEDS: Ibuprofen 600 MG TABLET PO (16:23)
[2021-09-01] MEDS: HYDROmorphone HCl 1 MG/ML SYRINGE IVPUSH (17:02)
[2021-09-01] MEDS: cefTRIAXone sodium 1 GM in 0.9 % Sodium Chloride 50 ML IV (22:22)
[2021-09-02] MEDS: LORazepam 1 MG TABLET PO ×6 (02:04→19:44)
[2021-09-02] MEDS: Linezolid/D5W 600 MG/300 ML PIGGYBACK 300 MG IV ×2 (02:32→15:17)
[2021-09-02] MEDS: ondansetron HCL 4 MG/2 ML VIAL IVPUSH ×3 (02:32→20:22)
[2021-09-02 03:27] VITALS: BP 113/74; PULSE 100; RESP 16; TEMP 36.2; O2SAT 95
[2021-09-02] MEDS: HYDROmorphone HCl 1 MG/ML SYRINGE IVPUSH ×2 (05:00→16:31)
[2021-09-02 07:50] VITALS: BP 115/77; PULSE 95; RESP 18; TEMP 36.5; O2SAT 94
[2021-09-02] MEDS: 0.9 % Sodium Chloride Flush 3 ML SYRINGE IVFLUSH ×2 (09:06→19:51)
[2021-09-02] MEDS: Nicotine 21 MG PATCH.TD24 TRANSDERMA (09:06)
[2021-09-02] MEDS: Famotidine 20 MG TABLET PO ×2 (09:08→19:44)
[2021-09-02] MEDS: Gabapentin 400 MG CAPSULE PO ×3 (09:08→19:44)
[2021-09-02] MEDS: Thiamine HCL 100 MG TABLET PO (09:08)
[2021-09-02] MEDS: Folic Acid 1 MG TABLET PO (09:08)
[2021-09-02 11:47] VITALS: BP 132/86; PULSE 106; RESP 18; TEMP 36.6; O2SAT 96
--- NOTE | 2021-09-02 13:32 | MHC.CLN ---
F/U DIET ADVANCED TO REGULAR. PATIENT STATED THAT HE IS EATING WELL. WOULD LIKE TO CONTINUE ENSURE CLEAR TID. LIKES AND TOLERATES SUPPLEMENT. PROVIDES ADDITIONAL 720 KCALS, 24 G PROTEIN. PATIENT WITH INCREASED NUTRITIONAL NEEDS DUE TO DX CANCER, ABSCESS, AND FISTULA. CONTINUE TO MONITOR INTAKE AND WEIGHT.
--- NOTE | 2021-09-02 13:36 | P.PNGS_ITS ---
Subjective Subjective Date of Service: 09/02/21 Interval history: Aiden reports abdominal pain in the range between 6 and 7/10. He is tolerating food with minimal increase in abdominal pain. He does report some burning in the incision possibly from the francesco. He is concerned about being discharged as he has no home at this time. He was started on p.o. pain medications yesterday. He is interested in possibly starting methadone as an outpatient. Physical Exam Vital Signs: Vital Signs: Last Vital Signs Temp 97.8 F 09/02/21 11:47 Pulse 106 H 09/02/21 11:47 Resp 18 09/02/21 11:47 BP 132/86 09/02/21 11:47 Pulse Ox 96 09/02/21 11:47 O2 Del Method 09/02/21 11:47 BMI result Body Mass Index 19.6 Const: General: no acute distress and well developed Nutritional Appearance: well nourished Orientation/consciousness: patient oriented x3 Limitations: no limitations Resp: Effort & Inspection: normal respiratory effort, no audible wheezes, no cough and no respiratory distress GI: Other: Ostomy patent and functioning well. Midline incision intact. Skin: Other: Warm, dry, no rash Neuro: General: patient oriented x3 Extrem: Other: no pedal edema Objective Data Active Medications Cyclobenzaprine HCl (Cyclobenzaprine Hcl 10 Mg Tablet) 10 mg PO TID [facility] Famotidine (Famotidine 20 Mg Tablet) 20 mg PO BID [facility] Last Admin: 09/02/21 09:08 Dose: 20 mg Documented By: JENNIFER Folic Acid (Folic Acid 1 Mg Tablet) 1 mg PO DAILY [facility] Last Admin: 09/02/21 09:08 Dose: 1 mg Documented By: JENNIFER Gabapentin (Gabapentin 400 Mg Capsule) 400 mg PO TID [facility] Last Admin: 09/02/21 09:08 Dose: 400 mg Documented By: JENNIFER Hydromorphone HCl (Hydromorphone Hcl 4 Mg Tablet) 4 mg PO Q3H PRN PRN Reason: Pain, Severe (Pain Scale 7-10) Last Admin: 09/02/21 12:10 Dose: 4 mg Documented By: JENNIFER Hydromorphone HCl (Hydromorphone Hcl 1 Mg/Ml Syringe) 1 mg IVPUSH Q8H PRN; Protocol PRN Reason: Pain, Severe (Pain Scale 7-10) Last Admin: 09/02/21 05:00 Dose: 1 mg Documented By: BRISA Comments: down time Ceftriaxone Sodium 1 gm/ (Sodium Chloride) 50 mls @ 100 mls/hr IV Q24H [facility] Last Infusion: 09/01/21 23:00 Dose: 0 mls/hr Documented By: BRISA Linezolid (Zyvox/D5w) 600 mg in 300 mls @ 300 mls/hr IV Q12H [facility] Last Infusion: 09/02/21 03:58 Dose: 0 mls/hr Documented By: BRISA Acetaminophen (Ofirmev) 1,000 mg in 100 mls @ 400 mls/hr IV Q6H [facility] Last Infusion: 09/02/21 09:37 Dose: 0 mls/hr Documented By: JENNIFER Ibuprofen (Ibuprofen 600 Mg Tablet) 600 mg PO TID [facility] Lorazepam (Lorazepam 1 Mg Tablet) 1 mg PO Q4H [facility] Last Admin: 09/02/21 12:11 Dose: 1 mg Documented By: JENNIFER Naloxone HCl (Naloxone Hcl 0.4 Mg/Ml Vial) 0.2 mg IVPUSH Q2M PRN PRN Reason: Excessive sedation or RR < 8 Nicotine (Nicotine 21 Mg Patch.Td24) 21 mg TRANSDERMA DAILY [facility] Last Admin: 09/02/21 09:06 Dose: 21 mg Documented By: JENNIFER Ondansetron HCl (Ondansetron Hcl 4 Mg/2 Ml Vial) 4 mg IVPUSH Q8H PRN PRN Reason: Nausea Last Admin: 09/02/21 12:38 Dose: 4 mg Documented By: JENNIFER Pharmacy Consult (Consult Rx Perform Med Rec) 1 each MISCELLANE ONCE PRN PRN Reason: Consult order Sodium Chloride (0.9 % Sodium Chloride Flush 3 Ml Syringe) 3 ml IVFLUSH QSHIFT [facility] Last Admin: 09/02/21 09:06 Dose: 3 ml Documented By: JENNIFER Thiamine HCl (Thiamine Hcl 100 Mg Tablet) 100 mg PO DAILY [facility] Last Admin: 09/02/21 09:08 Dose: 100 mg Documented By: JENNIFER Labs CBC & Chem 7: 08/31/21 05:43 08/31/21 05:43 Procedures Date of Service Date of Service: 09/02/21 Progress Note: A&P Assessment and plan (1) Adenocarcinoma of sigmoid colon: Status: Acute (2) S/P partial resection of colon: Status: Acute (3) Abdominal pain: Status: Acute Plan 41-year-old male patient presenting with colovesical fistula found to have locally advanced colon cancer resulting and colovesical fistula. Patient re admitted for abdominal pain not relieved by the oral pain medication. Patient being evaluated by pain management and addiction medicine. Management of pain with oral Dilaudid has been started and seems to be holding him fairly well. Patient is being evaluated for methadone for pain management. Major issue at this point is his housing instability and need for further cancer therapy including chemotherapy. Patient will need a clear pain management plan prior to discharge. Discussed with case management today. Time Spent With Patient Time: Total time spent is greater than 50% in coordination of care (as documented) at patient's floor/unit and/or counseling patient: No Severe Sepsis: No Severe Sepsis Quality Stroke Does the patient have a stroke diagnosis?: No VTE Prior VTE?: No VTE Risk Level:: Surgical - moderate VTE Device Contraindication: N/A - Device Ordered VTE Drug Contraindication: N/A - Med Ordered
[2021-09-02] MEDS: Ibuprofen 600 MG TABLET PO ×2 (15:13→19:44)
[2021-09-02] MEDS: Cyclobenzaprine HCl 10 MG TABLET PO ×2 (15:14→19:43)
[2021-09-02 15:36] VITALS: BP 126/89; PULSE 103; RESP 16; TEMP 37.6; O2SAT 94
--- NOTE | 2021-09-02 15:42 | MHC.RECOVRN ---
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 Girlfriend voiced concerns related to unstable housing, quality of care, proper pain management and stigma related to patients history of OUD. Discussed methadone for OUD versus pain management. Pt continues to be interested in methadone for pain management. Educated pt regarding [facility] and supports available at sn[facility]. Pt girlfriend reports pt able to stay with her for max three weeks. Discussed w/ case management and Patricia Perera APRN.
--- NOTE | 2021-09-02 15:42 | MHC.CM.PN ---
PATIENT NOT YET DISCHARGED. MAY BENEFIT FROM INFORMATION FOR [facility]. PATIENT AND GIRLFRIEND ATTEMPTING TO SECURE FORM OF IDENTIFICATION. CASE MANAGEMENT TO ATTEMPT TO SECURE AN EARLIER PCP FIRST VISIT FOR PATIENT, ASUNCION IS A CONSIDERABLE WAIT.
[2021-09-02 19:05] VITALS: BP 141/93; PULSE 99; RESP 17; TEMP 36.5; O2SAT 100
[2021-09-02 23:55] VITALS: BP 120/86; PULSE 83; RESP 16; TEMP 37.1; O2SAT 96
[2021-09-03] MEDS: cefTRIAXone sodium 1 GM in 0.9 % Sodium Chloride 50 ML IV (00:28)
[2021-09-03] MEDS: LORazepam 1 MG TABLET PO ×6 (00:29→20:42)
[2021-09-03] MEDS: HYDROmorphone HCl 1 MG/ML SYRINGE IVPUSH ×3 (00:29→20:43)
[2021-09-03] MEDS: Linezolid/D5W 600 MG/300 ML PIGGYBACK 300 MG IV ×2 (03:14→14:09)
[2021-09-03 03:37] VITALS: BP 114/73; PULSE 82; RESP 17; TEMP 36.5; O2SAT 95
[2021-09-03 04:00] VITALS: RESP 20
[2021-09-03 07:43] VITALS: BP 139/93; PULSE 95; RESP 18; TEMP 36.1; O2SAT 99
--- NOTE | 2021-09-03 07:46 | P.PNGS_ITS ---
Subjective Subjective Date of Service: 09/03/21 Patient reports: no new complaints and tolerating a regular diet Interval history: Lower abdominal pain Physical Exam Vital Signs: Vital Signs: Last Vital Signs Temp 97.0 F 09/03/21 07:43 Pulse 95 09/03/21 07:43 Resp 18 09/03/21 07:43 BP 139/93 H 09/03/21 07:43 Pulse Ox 99 09/03/21 07:43 O2 Del Method 09/03/21 07:43 BMI result Body Mass Index 19.6 Const: General: no acute distress Nutritional Appearance: well nourished Orientation/consciousness: patient oriented x3 Limitations: no limitations Resp: Effort & Inspection: normal respiratory effort GI: Other: soft, nondistended, ostomy in the left lower quadrant with some a solid stool, no blood. Incision clean, dry, and intact. [place] removed incisions found to be well healed. Skin: Other: Warm, dry, no rash Neuro: General: patient oriented x3 Extrem: Other: no edema Objective Data Active Medications Cyclobenzaprine HCl (Cyclobenzaprine Hcl 10 Mg Tablet) 10 mg PO TID [facility] Last Admin: 09/02/21 19:43 Dose: 10 mg Documented By: ZACK Famotidine (Famotidine 20 Mg Tablet) 20 mg PO BID [facility] Last Admin: 09/02/21 19:44 Dose: 20 mg Documented By: ZACK Folic Acid (Folic Acid 1 Mg Tablet) 1 mg PO DAILY [facility] Last Admin: 09/02/21 09:08 Dose: 1 mg Documented By: JENNIFER Gabapentin (Gabapentin 400 Mg Capsule) 400 mg PO TID [facility] Last Admin: 09/02/21 19:44 Dose: 400 mg Documented By: ZACK Hydromorphone HCl (Hydromorphone Hcl 4 Mg Tablet) 4 mg PO Q3H PRN PRN Reason: Pain, Severe (Pain Scale 7-10) Last Admin: 09/03/21 07:37 Dose: 4 mg Documented By: DAWN Hydromorphone HCl (Hydromorphone Hcl 1 Mg/Ml Syringe) 1 mg IVPUSH Q8H PRN; Protocol PRN Reason: Pain, Severe (Pain Scale 7-10) Last Admin: 09/03/21 00:29 Dose: 1 mg Documented By: ZACK Ceftriaxone Sodium 1 gm/ (Sodium Chloride) 50 mls @ 100 mls/hr IV Q24H [facility] Last Infusion: 09/03/21 02:14 Dose: 0 mls/hr Documented By: ZACK Linezolid (Zyvox/D5w) 600 mg in 300 mls @ 300 mls/hr IV Q12H [facility] Last Infusion: 09/03/21 04:15 Dose: 0 mls/hr Documented By: ZACK Acetaminophen (Ofirmev) 1,000 mg in 100 mls @ 400 mls/hr IV Q6H [facility] Last Infusion: 09/03/21 04:10 Dose: 0 mls/hr Documented By: ZACK Ibuprofen (Ibuprofen 600 Mg Tablet) 600 mg PO TID [facility] Last Admin: 09/02/21 19:44 Dose: 600 mg Documented By: ZACK Lorazepam (Lorazepam 1 Mg Tablet) 1 mg PO Q4H [facility] Last Admin: 09/03/21 04:11 Dose: 1 mg Documented By: ZACK Naloxone HCl (Naloxone Hcl 0.4 Mg/Ml Vial) 0.2 mg IVPUSH Q2M PRN PRN Reason: Excessive sedation or RR < 8 Nicotine (Nicotine 21 Mg Patch.Td24) 21 mg TRANSDERMA DAILY [facility] Last Admin: 09/02/21 09:06 Dose: 21 mg Documented By: JENNIFER Ondansetron HCl (Ondansetron Hcl 4 Mg/2 Ml Vial) 4 mg IVPUSH Q8H PRN PRN Reason: Nausea Last Admin: 09/02/21 20:22 Dose: 4 mg Documented By: ZACK Pharmacy Consult (Consult Rx Perform Med Rec) 1 each MISCELLANE ONCE PRN PRN Reason: Consult order Sodium Chloride (0.9 % Sodium Chloride Flush 3 Ml Syringe) 3 ml IVFLUSH QSHIFT [facility] Last Admin: 09/02/21 19:51 Dose: 3 ml Documented By: ZACK Thiamine HCl (Thiamine Hcl 100 Mg Tablet) 100 mg PO DAILY [facility] Last Admin: 09/02/21 09:08 Dose: 100 mg Documented By: JENNIFER Labs CBC & Chem 7: 08/31/21 05:43 08/31/21 05:43 Microbiology Microbiology Results: Microbiology 08/28/21 22:38 Blood Culture - Final Blood - Venous No growth after 5 days. 08/28/21 22:21 Blood Culture - Final Blood - Venous No growth after 5 days. Procedures Date of Service Date of Service: 09/03/21 Progress Note: A&P Assessment and plan (1) Adenocarcinoma of sigmoid colon: Status: Acute (2) Abdominal pain: Status: Acute Plan 41-year-old male patient with a locally advanced sigmoid adenocarcinoma with colovesical fistula Returning for pain control. Patient now mainly on oral pain meds with reasonable control. Long-term pain management plans continue to be in flux. I have not received an update from pain management or addiction medicine regarding plans for Aiden. In addition, patient is essentially homeless which will make follow-up cancer treatments difficult. Patient will be discharged when definite plans are in place. Time Spent With Patient Time: Total time spent is greater than 50% in coordination of care (as documented) at patient's floor/unit and/or counseling patient: Quality Stroke Does the patient have a stroke diagnosis?: No VTE Prior VTE?: No VTE Risk Level:: Surgical - moderate VTE Device Contraindication: N/A - Device Ordered VTE Drug Contraindication: N/A - Med Ordered
[2021-09-03] MEDS: Thiamine HCL 100 MG TABLET PO (08:44)
[2021-09-03] MEDS: Gabapentin 400 MG CAPSULE PO ×3 (08:44→20:42)
[2021-09-03] MEDS: Famotidine 20 MG TABLET PO ×2 (08:44→20:42)
[2021-09-03] MEDS: Cyclobenzaprine HCl 10 MG TABLET PO ×3 (08:45→20:42)
[2021-09-03] MEDS: Folic Acid 1 MG TABLET PO (08:45)
[2021-09-03] MEDS: Ibuprofen 600 MG TABLET PO ×3 (08:45→20:42)
[2021-09-03] MEDS: ondansetron HCL 4 MG/2 ML VIAL IVPUSH ×2 (08:46→21:06)
[2021-09-03] MEDS: Nicotine 21 MG PATCH.TD24 TRANSDERMA (08:46)
[2021-09-03 11:38] VITALS: BP 126/92; PULSE 110; RESP 18; TEMP 37.2; O2SAT 97
[2021-09-03] MEDS: 0.9 % Sodium Chloride Flush 3 ML SYRINGE IVFLUSH ×3 (12:06→20:49)
[2021-09-03 15:20] VITALS: BP 133/88; PULSE 97; RESP 18; TEMP 36.4; O2SAT 98
[2021-09-03 19:33] VITALS: BP 146/85; PULSE 86; RESP 17; TEMP 36.6; O2SAT 98
[2021-09-04] VITALS (8 sets, daily range): BP systolic 124–141; BP diastolic 80–95; PULSE 90–121; RESP 17–20; TEMP 36.4–36.9; O2SAT 96–98
[2021-09-04] MEDS: cefTRIAXone sodium 1 GM in 0.9 % Sodium Chloride 50 ML IV (00:09)
[2021-09-04] MEDS: LORazepam 1 MG TABLET PO ×5 (00:09→16:28)
[2021-09-04] MEDS: Linezolid/D5W 600 MG/300 ML PIGGYBACK 300 MG IV ×2 (03:31→14:23)
--- NOTE | 2021-09-04 08:02 | PM.PNGS ---
Subjective Subjective Date of Service: 09/04/21 Patient reports: no new complaints Interval history: Overall feels improved, does have pain when eating. He is tolerating regular diet and ostomy is functioning well. Incision feels better with francesco out. Physical Exam Vital Signs: Vital Signs: Last Vital Signs Temp 97.6 F 09/04/21 03:33 Pulse 104 H 09/04/21 03:33 Resp 20 09/04/21 04:00 BP 138/84 09/04/21 03:33 Pulse Ox 97 09/04/21 03:33 O2 Del Method 09/04/21 03:33 BMI result Body Mass Index 19.6 Const: General: cooperative and no acute distress Nutritional Appearance: well nourished Orientation/consciousness: patient oriented x3 Limitations: no limitations Resp: Effort & Inspection: normal respiratory effort Skin: General skin exam: no rashes or lesions noted Neuro: General: patient oriented x3 Extrem: General: Yes normal to inspection Objective Data Active Medications Cyclobenzaprine HCl (Cyclobenzaprine Hcl 10 Mg Tablet) 10 mg PO TID [facility] Last Admin: 09/03/21 20:42 Dose: 10 mg Documented By: ZACK Famotidine (Famotidine 20 Mg Tablet) 20 mg PO BID [facility] Last Admin: 09/03/21 20:42 Dose: 20 mg Documented By: ZACK Folic Acid (Folic Acid 1 Mg Tablet) 1 mg PO DAILY [facility] Last Admin: 09/03/21 08:45 Dose: 1 mg Documented By: DAWN Gabapentin (Gabapentin 400 Mg Capsule) 400 mg PO TID [facility] Last Admin: 09/03/21 20:42 Dose: 400 mg Documented By: ZACK Hydromorphone HCl (Hydromorphone Hcl 4 Mg Tablet) 4 mg PO Q3H PRN PRN Reason: Pain, Severe (Pain Scale 7-10) Last Admin: 09/04/21 06:28 Dose: 4 mg Documented By: ZACK Hydromorphone HCl (Hydromorphone Hcl 1 Mg/Ml Syringe) 1 mg IVPUSH Q8H PRN; Protocol PRN Reason: Pain, Severe (Pain Scale 7-10) Last Admin: 09/03/21 20:43 Dose: 1 mg Documented By: ZACK Ceftriaxone Sodium 1 gm/ (Sodium Chloride) 50 mls @ 100 mls/hr IV Q24H [facility] Last Infusion: 09/04/21 00:50 Dose: 0 mls/hr Documented By: ZACK Linezolid (Zyvox/D5w) 600 mg in 300 mls @ 300 mls/hr IV Q12H [facility] Last Infusion: 09/04/21 04:38 Dose: 0 mls/hr Documented By: ZACK Acetaminophen (Ofirmev) 1,000 mg in 100 mls @ 400 mls/hr IV Q6H [facility] Last Infusion: 09/04/21 04:37 Dose: 0 mls/hr Documented By: ZACK Ibuprofen (Ibuprofen 600 Mg Tablet) 600 mg PO TID [facility] Last Admin: 09/03/21 20:42 Dose: 600 mg Documented By: ZACK Lorazepam (Lorazepam 1 Mg Tablet) 1 mg PO Q4H [facility] Last Admin: 09/04/21 06:27 Dose: 1 mg Documented By: ZACK Naloxone HCl (Naloxone Hcl 0.4 Mg/Ml Vial) 0.2 mg IVPUSH Q2M PRN PRN Reason: Excessive sedation or RR < 8 Nicotine (Nicotine 21 Mg Patch.Td24) 21 mg TRANSDERMA DAILY [facility] Last Admin: 09/03/21 08:46 Dose: 21 mg Documented By: DAWN Ondansetron HCl (Ondansetron Hcl 4 Mg/2 Ml Vial) 4 mg IVPUSH Q8H PRN PRN Reason: Nausea Last Admin: 09/03/21 21:06 Dose: 4 mg Documented By: ZACK Pharmacy Consult (Consult Rx Perform Med Rec) 1 each MISCELLANE ONCE PRN PRN Reason: Consult order Sodium Chloride (0.9 % Sodium Chloride Flush 3 Ml Syringe) 3 ml IVFLUSH QSHIFT [facility] Last Admin: 09/03/21 20:49 Dose: 3 ml Documented By: ZACK Thiamine HCl (Thiamine Hcl 100 Mg Tablet) 100 mg PO DAILY [facility] Last Admin: 09/03/21 08:44 Dose: 100 mg Documented By: DAWN Labs CBC & Chem 7: 08/31/21 05:43 08/31/21 05:43 Procedures Date of Service Date of Service: 09/04/21 Progress Note: A&P Assessment and plan (1) Adenocarcinoma of sigmoid colon: Status: Acute Assessment and Plan: S/P sigmoid colectomy with closure colovesical fistula With pathology revealing adenocarcinoma of the sigmoid colon. Patient evaluated by Dr. Hernandez and will follow-up as an outpatient for adjuvant therapy. (2) Abdominal pain: Status: Acute Assessment and Plan: Pain seems to be better controlled with his current regime. Long-term pain management however remains an issue. He was evaluated by addiction medicine but no long-term plan has been provided for possible methadone. He was also evaluated by pain may management, but no note in the record. Patient is planning to stay with his girlfriend for several weeks post discharge. Long-term living arrangements remain in question. I am uncomfortable discharging the patient without a clear plan for pain management as well as in secure living arrangements in this patient who will require chemotherapy. Case management is aware. (3) SBO (small bowel obstruction): Status: Resolved Assessment and Plan: Small-bowel obstruction is resolved. Patient's bowels are moving regularly per ostomy. He is quite comfortable with ostomy management. (4) Intra-abdominal abscess: Status: Acute Assessment and Plan: Patient currently on linezolid and ceftriaxone. He remains afebrile with no evidence of ongoing abscess. Time Spent With Patient Time: Total time spent is greater than 50% in coordination of care (as documented) at patient's floor/unit and/or counseling patient: No Severe Sepsis: No Severe Sepsis Quality Stroke Does the patient have a stroke diagnosis?: No VTE Prior VTE?: No VTE Risk Level:: Surgical - moderate VTE Device Contraindication: N/A - Device Ordered VTE Drug Contraindication: N/A - Med Ordered
[2021-09-04] MEDS: Ibuprofen 600 MG TABLET PO ×3 (08:50→22:43)
[2021-09-04] MEDS: Cyclobenzaprine HCl 10 MG TABLET PO ×3 (08:50→22:44)
[2021-09-04] MEDS: Thiamine HCL 100 MG TABLET PO (08:50)
[2021-09-04] MEDS: Gabapentin 400 MG CAPSULE PO ×3 (08:50→22:43)
[2021-09-04] MEDS: HYDROmorphone HCl 1 MG/ML SYRINGE IVPUSH ×2 (08:51→17:38)
[2021-09-04] MEDS: Famotidine 20 MG TABLET PO ×2 (08:51→22:43)
[2021-09-04] MEDS: Folic Acid 1 MG TABLET PO (08:51)
[2021-09-04] MEDS: Nicotine 21 MG PATCH.TD24 TRANSDERMA (08:56)
--- NOTE | 2021-09-04 11:14 | MHC.CLN ---
F/U PO INTAKE 100% X 6 MEALS DIET RX: REGULAR-APPROPRIATE MD NOTED PT C/O PAIN WHEN EATING BUT OSTOMY FUNCTIONING WELL PT RECEIVING ENSURE CLEAR TID TO INCREASE KCALS PROVIDES 720KCALS, 24G PROTEIN CONTINUE TO MONITOR PO INTAKE CLOSELY -PT WITH HIGH NUTRITION RISK R/T DX CA
[2021-09-04] MEDS: 0.9 % Sodium Chloride Flush 3 ML SYRINGE IVFLUSH ×2 (16:28→23:55)
[2021-09-04] MEDS: ondansetron HCL 4 MG/2 ML VIAL IVPUSH (17:38)
--- NOTE | 2021-09-05 00:27 | PC.NURSE ---
2300 dose on 09/04 was removed from pyxis last shift. It was finished infusing after i received report, I flushed and disconnected from adaptor. Was undocumented by previous RN
[2021-09-05] MEDS: HYDROmorphone HCl 1 MG/ML SYRINGE IVPUSH (01:23)
[2021-09-05 03:41] VITALS: BP 117/74; PULSE 95; RESP 18; TEMP 36.6; O2SAT 96
[2021-09-05] MEDS: Linezolid/D5W 600 MG/300 ML PIGGYBACK 150 MG IV (04:37)
[2021-09-05 07:41] VITALS: BP 117/72; PULSE 95; RESP 18; TEMP 36.8; O2SAT 96
[2021-09-05] MEDS: Ibuprofen 600 MG TABLET PO ×2 (08:12→14:38)
[2021-09-05] MEDS: Cyclobenzaprine HCl 10 MG TABLET PO ×2 (08:13→14:38)
[2021-09-05] MEDS: Folic Acid 1 MG TABLET PO (08:13)
[2021-09-05] MEDS: Thiamine HCL 100 MG TABLET PO (08:13)
[2021-09-05] MEDS: Gabapentin 400 MG CAPSULE PO ×2 (08:13→14:38)
[2021-09-05] MEDS: Famotidine 20 MG TABLET PO (08:13)
[2021-09-05] MEDS: Nicotine 21 MG PATCH.TD24 TRANSDERMA (08:14)
[2021-09-05] MEDS: ondansetron HCL 4 MG/2 ML VIAL IVPUSH (08:19)
--- NOTE | 2021-09-05 09:34 | P.DS_ITS ---
DS: Providers Provider Date of Service: 09/05/21 Date of admission: 08/29/21 00:34 Date of discharge: 09/05/21 Primary care physician: Unknown Physician Admitting clinician: Manuel Cooper Consults: 08/29/21 08:24 Consult to Infectious Diseases Routine Consulting Provider: Kim Hand Reason for consultation: Abscess Has provider been notified: No 08/31/21 15:59 Consult to Pain Management Routine Consulting Provider: [facility] [place] Pain Management Reason for consultation: Postoperative abdominal pain Discharging clinician: Manuel Cooper DS: Diagnosis Discharge Diagnosis (1) Adenocarcinoma of sigmoid colon: Status: Acute (2) Abdominal pain: Status: Acute (3) SBO (small bowel obstruction): Status: Resolved (4) Intra-abdominal abscess: Status: Acute DS: Summary Hospital Course Hospital Course: 41-year-old male patient status post exploratory laparotomy with sigmoid resection, colorectal anastomosis, diverting ileostomy, repair of colovesical fistula with pathology revealing a sigmoid adenocarcinoma, locally advanced performed on 08/17/2021. He was subsequently discharged home on oral pain medications after a prolonged period of IV pain meds. The patient found that the oral pain medication did not cover his pain adequately and he subsequently returned to the emergency department for further evaluation. In the emergency department a CT of the abdomen and pelvis revealed a possible ileus therefore nasogastric tube was placed. His ileostomy was found to have stool and gas. He was subsequently admitted to the surgical service for pain management. The nasogastric tube was found subsequently removed on the next hospital day he was started on a diet and gradually advanced. This was tolerated. Patient was initially placed on APPAREL MERCHANDISER for pain control however the he was unable to become comfortable with this pre was switched to the intravenous intermittent dosing with Dilaudid 1.5 mg q.3 hours. Consultation was obtained from from pain management as well as Patricia Perera from addiction medicine. He was switched to an oral dosing of Dilaudid, 4 mg q.3 hours with the addition of Flexeril, gabapentin, and Motrin. He is also placed on linezolid and cefuroxime for a presumed abscess. The patient reported better pain control with the current regime. Current issues: 1. Sigmoid colon adenocarcinoma: S/P sigmoid colectomy with closure of colovesical fistula and diverting ileostomy. Patient will need to follow-up with Dr. Hernandez from Medical Oncology for adjuvant therapy. He will continue with the ileostomy until completion of chemotherapy. 2. Pain management: Patient will follow-up with Dr. Avila at the pain management clinic on 09/14/2021 at 09:15. He will be given a not pain medication to cover him up to that point after which he will be managed by the pain management clinic. 3. Ostomy management: Patient is comfortable caring for his ostomy at this time. He should call our office for any concerns. 4. General medical follow-up: Patient will need to follow-up with Herber Anderson PA-C for a primary care visit. He was encouraged to set up this appointment as soon as possible. 5. Abscess/colovesical fistula: Now resolved. No further antibiotics required at this time. Time spent discussing smoking cessation with patient: more than 10 minutes Status at Discharge Functional status at discharge: independent ambulation Overall status at discharge: patient is back to baseline Time Spent with Patient Time attestation: Total time spent providing and/or coordinating discharge services: Discharge coordination time: Greater than 30 minutes Quality: Safe Use of Opioids Does Pt have an Active Cancer Diagnosis on the Problem List?: Yes Opioid Measure Date for [facility] Report: 08/06/21 Opioid Measure Time for [facility] Report: 10:30 Quality: Stroke Does the patient have a stroke diagnosis?: No Physical Exam Vital Signs: Vital Signs: Last Vital Signs Temp 98.2 F 09/05/21 07:41 Pulse 95 09/05/21 07:41 Resp 18 09/05/21 07:41 BP 117/72 09/05/21 07:41 Pulse Ox 96 09/05/21 07:41 O2 Del Method 09/05/21 07:41 BMI result Body Mass Index 19.6 Const: General: cooperative and no acute distress Nutritional Appearance: well nourished Orientation/consciousness: patient oriented x3 Limitations: no limitations HEENT: Head: Yes normocephalic and Yes atraumatic Ears: hearing grossly normal bilaterally Resp: Effort & Inspection: normal respiratory effort, no audible wheezes, no cough and no respiratory distress Auscultation: clear to auscultation bilaterally GI: Other: Incision is clean, dry, and intact. Ostomy in the right lower quadrant is patent and functioning well Inspection: Yes normal to inspection Palpation (GI): Soft to palpation, Tenderness to palpation present (GI), no guarding, not rigid and no hernias Skin: Other: Warm, dry, no rash Neuro: General: patient oriented x3 Extrem: Other: No edema DS: Data Imaging CT scan - abdomen: Radiologist's impression: ITS Impressions Abdomen/Pelvis CT 08/28/21 23:56 IMPRESSION: 1. Postoperative changes of the bowel with right lower quadrant ileostomy. Fluid-filled dilation of bowel loops is most suspicious for small bowel obstruction with transition site at the level of the ostomy. 2. Irregularly shaped, peripherally enhancing fluid collection in the pelvis superior to the urinary bladder measuring up to 8.5 cm, suspicious for abscess in the proper clinical setting. 3. Wall thickening along the superior urinary bladder, which may be reactive given the adjacent probable abscess. Small focus of gas in the urinary bladder could be due to recent catheterization or infection. Chest X-Ray 08/29/21 00:53 IMPRESSION: NG tube tip in the proximal stomach with side-port approximately 4 cm above the gastroesophageal junction; consider advancement. Discharge Plan Discharge Patient Disposition: Home, Self-Care Discharge Diagnosis: Sigmoid colon cancer with colovessicle fistula Referrals: Chastity Hernandez MD [Physician] - 1 Week Herber Anderson PA-C [Physician [employer]] - 1 Week Manuel Cooper MD [Physician] - 1 Week Ramiro Escamilla MD [Physician] - 09/14/21 9:15 am Physician,Miranda J [Primary Care Provider] - 1 Week Discharge Medications: New cyclobenzaprine 10 mg Tablet 10 mg PO TID Qty: 30 0RF gabapentin 400 mg Capsule 400 mg PO TID Qty: 90 0RF hydromorphone 4 mg Tablet 4 mg PO Q3H PRN (Reason: Pain, Severe (Pain Scale 7-10)) Qty: 80 0RF Rx Instructions: Partial Fill upon patient request. Continued nicotine 21 mg/24 hr Patch 24 Hour 21 mg transdermal DAILY 30 Days 0RF Discontinued linezolid 600 mg Tablet 600 mg PO Q12H 9 Days Qty: 18 0RF cefuroxime axetil 500 mg Tablet 500 mg PO Q12H 9 Days Qty: 18 0RF hydromorphone [Dilaudid] 2 mg tablet 1 mg PO Q6H PRN (Reason: pain (scale score 7-10)) Qty: 24 0RF Discharge Orders: Discharge Order (Routine); Ordered 09/05/21 Ordered By: Manuel Cooper Diet: advance to usual diet Activity on Discharge: No heavy lifting Stand Alone Forms: Patient Portal Discharge page Care Plan Goals: Return to normal activity and diet after full recovery. Reduced pain medication intake until no longer needed. Avoid alcohol and tobacco completely. Return for follow-up oncology evaluation, pain management, postoperative surgi sonya visit. Primary care evaluation by Herber Anderson PA-C. Health Concerns: Locally advanced adenocarcinoma of sigmoid colon Plan of Treatment: Follow-up with Dr. Hernandez, Dr. Avila, Dr. Cooper, Herber Anderson PA-C Assessment: Adenocarcinoma sigmoid colon with colovessicle fistula, s/p sigmoid colectomy with diverting ileostomy, closure of fistula
[2021-09-05 11:39] VITALS: BP 134/91; PULSE 115; RESP 18; TEMP 37.2; O2SAT 98
--- NOTE | 2021-09-05 14:26 | MHC.CM.PN ---
PATIENT IS DISCHARGED HOME - SELF CARE. RN AWARE OF PLAN.
== END 2021-09-05 15:00 | disposition home or self-care (01) | DRG 247 ==
LOC: HO.ED 08-29 00:19 → HO.EDOVER 08-29 00:42 → HO.S3 08-29 11:51
PROVIDERS: Student in an Organized Health Care Education/Training Program; Admitting Provider Surgery; Emergency Provider Emergency Medicine; Visit Provider Surgery
DX: K56.7 Ileus, unspecified (principal); C18.7 Malignant neoplasm of sigmoid colon; F10.10 Alcohol abuse, uncomplicated; F11.20 Opioid dependence, uncomplicated; G89.18 Other acute postprocedural pain; F17.210 Nicotine dependence, cigarettes, uncomplicated; Z20.822 Contact with and (suspected) exposure to COVID-19; Z71.6 Tobacco abuse counseling; Z93.2 Ileostomy status; Z59.02 Unsheltered homelessness; Z79.899 Other long term (current) drug therapy
CPT/HCPCS: 36415; 71045; 74177; 80048; 80076; 80307; 81003; 82077; 83605; 83690; 83735; 84145; 85025; 85027; 85610; 86140; 87040; 87635; 96361; 96365; 96367; 96375; 96376; 99285; J0131; J0696; J1170; J2020; J2405; Q9967

== ENCOUNTER → 2021-09-14 09:02 | Outpatient (BNVA) | payer OTHER, SELFPAY | PROVIDERS: Visit Provider Internal Medicine | DX: C18.7 Malignant neoplasm of sigmoid colon (principal); R10.84 Generalized abdominal pain; Z93.2 Ileostomy status; Z90.49 Acquired absence of other specified parts of digestive tract | CPT/HCPCS: 99202 ==

== ENCOUNTER 2021-09-30 13:30 | Emergency (ER) | payer OTHER, SELFPAY ==
--- NOTE | ~2021-09-30 | CT_ITS ---
EXAMINATION: CT ABDOMEN AND PELVIS WITHOUT CONTRAST CLINICAL INFORMATION: Left lower quadrant pain, history of ileostomy, colon cancer and abdominal abscess. COMPARISON: CT scan of the abdomen and pelvis dated 08/28/2021. TECHNIQUE: Multidetector volumetric imaging was performed from the superior aspect of the liver through the pubic symphysis. Sagittal and coronal reformatted images were obtained on the technologist's workstation. Plaque of intravenous and oral contrast limits visceral evaluation. This CT examination was performed using dose optimization techniques as appropriate, variously including the following: *Automated exposure control *Adjustment of mA and/or kV according to patient size (this includes techniques or standardized protocols for targeted exams where dose is matched to indication/reason for exam; i.e. extremities or head) *Use of iterative reconstruction technique DLP: 372 mGy-cm FINDINGS: LUNG BASES: Mild bibasilar linear atelectasis or scarring. No pleural or pericardial effusions. LIVER, GALLBLADDER, AND BILIARY TREE: Unremarkable. PANCREAS: Unremarkable. SPLEEN: Unremarkable. ADRENAL GLANDS: Unremarkable. KIDNEYS AND URETERS: Remarkable. BLADDER: Unremarkable. GASTROINTESTINAL TRACT: The stomach is unremarkable. Interval resolution of previously seen small bowel dilatation. Proximal and distal anastomoses are seen intact without surrounding abnormality. The right lower quadrant ostomy is patent without abnormality. Sigmoid sutures are unremarkable. The rectum shows no significant abnormality. Mild fluid persists seen in the paracolic gutter in the left lower quadrant. ABDOMINAL WALL: No significant hernia is appreciated. LYMPH NODES: No lymphadenopathy. VASCULAR: Unremarkable. PELVIC VISCERA: Unremarkable. OSSEOUS STRUCTURES: L5-S1 mild grade 1 anterolisthesis and bilateral spondylolysis. No suspicious abnormality. CT/CT abdomen pelvis wo con IMPRESSION: 1. Post surgical changes with interval resolution of previously seen dilated small bowel. The anastomoses and right lower quadrant ostomy site are patent without overt abnormality. 2. Mild fluid in the left lower quadrant is poorly defined without intravenous contrast, but appears increased compared the previous study. This could represent residual fluid from the previous study. Given this correlates with the patient's region of pain, abscess formation this region cannot be excluded. A repeat study with intravenous and oral contrast would be helpful. Fleischner guidelines were followed.
--- NOTE | ~2021-09-30 | CT_ITS ---
EXAMINATION: CT ABDOMEN AND PELVIS WITH CONTRAST CLINICAL INFORMATION: Left lower quadrant abscess versus free fluid. History of abscess. COMPARISON: 09/30/2021 and 09/27/2021 TECHNIQUE: Multidetector volumetric images were obtained from the superior aspect of the liver through the pubic symphysis following administration 85 mL of Omnipaque 350 intravenous contrast. Sagittal and coronal reformatted images were obtained on the technologist's workstation. Oral contrast: No This CT examination was performed using dose optimization techniques as appropriate, variously including the following: *Automated exposure control *Adjustment of mA and/or kV according to patient size (this includes techniques or standardized protocols for targeted exams where dose is matched to indication/reason for exam; i.e. extremities or head) *Use of iterative reconstruction technique DLP: 409 mGy-cm FINDINGS: LUNG BASES: Right basilar atelectasis. Mild bronchial wall thickening. The visualized cardiac structures are unremarkable. LIVER, GALLBLADDER, AND BILIARY TREE: The liver is normal in size, shape, and attenuation. No focal hepatic lesion or biliary ductal dilatation is present. The gallbladder is unremarkable with no evidence of radiopaque gallstones, gallbladder wall thickening, or obvious pericholecystic inflammatory changes. PANCREAS: Unremarkable. SPLEEN: Unremarkable. ADRENAL GLANDS: Unremarkable. KIDNEYS AND URETERS: The kidneys are normal in size, shape, and attenuation. No hydronephrosis, hydroureter, or calculi seen. No perinephric stranding. BLADDER: Partially distended with circumferential wall thickening. No focal abnormality. GASTROINTESTINAL TRACT: The stomach is unremarkable. Normal caliber of the small bowel. Contrast passes through much of the bowel to an area of anastomosis in the pelvis. Much of the colon is decompressed. Distal colonic anastomosis noted. There is a right lower quadrant ostomy. Contrast passes through the entirety of the bowel to the ostomy site. There is a normal appendix noted. Within the left lower quadrant there is some small volume of free fluid. There is no rim enhancement to suggest abscess formation. ABDOMINAL WALL: Right lower quadrant ileostomy. LYMPH NODES: Normal. VASCULAR: Unremarkable. PELVIC VISCERA: The prostate and seminal vesicles are unremarkable. OSSEOUS STRUCTURES: No acute or suspicious osseous abnormality. CT/CT abdomen pelvis w con IMPRESSION: Small amount of free fluid in the left lower quadrant. No rim-enhancing fluid collection to suggest abscess formation. Oral contrast utilized on this study passing through the entirety of the small bowel without obstruction to the ostomy site. No extravasation. Fleischner guidelines were followed.
[2021-09-30 13:55] VITALS: BP 122/76; PULSE 117; RESP 18; TEMP 36.8; O2SAT 97; BMI 21.0
[2021-09-30 14:19] LABS: MANUAL DIFF FLAG NO
[2021-09-30 14:22] LABS: Basophils Percent Auto 0.3 % (0-2); Eosinophils Absolute Auto 0.2 X10*3/uL (0.0-0.4); Eosinophils Percent Auto 2.1 % (0-4); Hematocrit 33.1 % (42.0-52.0); Hemoglobin 10.5 g/dl (14.0-18.0); Imm Gran Abs Auto 0.05 X10*3/uL (0.00-0.03); Imm Gran Pct Auto 0.4 % (0.0-0.4); Lymphocytes Absolute Auto 1.3 X10*3/uL (1.2-4.9); Lymphocytes Percent Auto 11.8 % (20-40); Mean Corpuscular HGB Conc 31.7 g/dl (31.0-36.0); Mean Corpuscular Volume 81.9 fL (80.0-98.0); Mean Platelet Volume 8.9 fL (9.4-12.4); Monocytes Absolute Auto 0.5 X10*3/uL (0.1-1.2); Neutrophils Absolute Auto 9.2 x10*3/uL (2.0-8.3); Neutrophils Percent Auto 81.4 % (45-73); Platelet Count 350 X10*3/uL (160-400); Red Blood Count 4.04 X10*6/uL (4.60-5.80); Red Cell Distribution Width 16.1 % (11.0-16.0); White Blood Count 11.3 X10*3/uL (4.8-10.8)
[2021-09-30 14:41] LABS: Alanine Aminotransferase 41 U/L (0-40); Albumin Level 3.8 g/dL (3.5-5.0); Alkaline Phosphatase 181 U/L (39-117); Aspartate Amino Transferase 20 U/L (5-37); Bilirubin Total 0.5 mg/dL (0.0-1.0); Blood Urea Nitrogen 8 mg/dL (9-16); Calcium 8.8 mg/dL (8.4-10.2); Creatinine Clr Calc Pharmacy 129.5; Estimated Glomerular Filt Rate > 60; Glucose Random 130 mg/dL (60-115); Total Protein 7.2 g/dL (6.5-8.0)
[2021-09-30 15:31] LABS: Anion Gap 15 (12-20); Carbon Dioxide 23 mmol/L (22-29); Chloride 102 mmol/L (96-108); Sodium 136 mmol/L (135-145)
--- NOTE | 2021-09-30 21:11 | ED_ITS ---
HPI - Abdominal Pain General Chief Complaint: Abdominal Pain Stated Complaint: colon cancer, abd pain Time Seen by Provider: 09/30/21 16:01 Source: patient Mode of arrival: ambulatory Limitations: no limitations History of Present Illness HPI narrative: Patient comes to the emergency room complaining of left abdominal pain. Patient states that he has significant pain around the ostomy bag. Patient denies fever chills. Patient denies vomiting, patient has been having liquid stool in his ileostomy bag. Of note, patient was admitted approximately 1 month ago for intra-abdominal abscess. Related Data Previous Rx's Medication Instructions Recorded nicotine 21 mg/24 hr daily 21 mg transdermal DAILY 30 days 08/26/21 transdermal patch cyclobenzaprine 10 mg tablet 10 mg PO TID #90 tabs 09/14/21 gabapentin 400 mg capsule 400 mg PO TID #90 caps 09/14/21 hydromorphone 2 mg tablet 2 mg PO Q4H PRN pain #42 tabs 09/14/21 cyanocobalamin (vitamin B-12) 1,000 mcg PO DAILY #90 tabs 09/25/21 1,000 mcg tablet (Vitamin B-12) ferrous sulfate 325 mg (65 mg 325 mg PO DAILY #60 tabs 09/25/21 iron) tablet (Iron (ferrous sulfate)) capecitabine 150 mg tablet 150 mg PO BID #28 tabs 09/30/21 capecitabine 500 mg tablet 1,500 mg PO BID #84 tabs 09/30/21 oxycodone 5 mg tablet 5 mg PO Q4H PRN pain #7 tabs 10/01/21 Allergies Allergy/AdvReac Type Severity Reaction Status Date / Time cranberry Allergy Hives Verified 09/30/21 13:54 Review of Systems Review of Systems Constitutional : No Weight loss, No Fever, No Chills, No Night Sweats, No Fatigue, No Malaise ENT/Mouth : No Hearing loss, No Ear Pain, No Nasal Congestion, No Sinus Pain, No Hoarseness, No sore throat, No Rhinorrhea, No Swallowing Difficulty Eyes: No Eye Pain, No Swelling, No Redness, No Foreign Body, No Discharge, No Vision Changes Cardiovascular : No Chest Pain, No SOB, No Dyspnea on Exertion, No Orthopnea, No Edema, No Palpitations Respiratory : No Cough, No Sputum, No Wheezing, No Smoke Exposure, No Dyspnea Gastrointestinal : No nausea or vomiting, is liquid stool in his ileostomy bag, complaining of pain around the ileostomy and also left upper and lower quadrant Genitourinary : no irregular bleeding, No Dysuria, No Urinary Frequency, No Rishi turia, No Urinary Incontinence, No Urgency, No Flank Pain, No Urinary Flow Changes, No Hesitancy Musculoskeletal : No joint pain, No Myalgias, No Joint Swelling Skin : No Skin Lesions, No rash Neuro : No Weakness, No Numbness, No Paresthesias, No Loss of Consciousness, No Dizziness, No Headache Psych : No Anxiety/Panic, No Depression, No SI/HI/AH/VH, No Social Issues, Heme/Lymph: No Bruising, No Bleeding,No Lymphadenopathy Endocrine : No Polyuria, No Polydipsia, No Temperature Intolerance [facility] Past Medical History Medical History Adenocarcinoma of sigmoid colon Alcohol withdrawal seizure Bardolph-vesical fistula History of drainage of abscess Intra-abdominal abscess Surgical History S/P partial resection of colon (08/17/21) Family History Family History Other No family history of coronary artery disease Social History Social History (Updated 09/25/21 @ 14:09 by Lucinda Almeida) Household Members: Other Household Members Other:: homeless. staying with family/friends. Housing: Homeless Do you presently have visiting nurse or other home services: No Alcohol intake: current Alcohol intake frequency: 3 or more drinks per day Patient Tobacco Use Status: Current everyday Tobacco user Tobacco use type: Cigarette Cigarette Packs Per Day: 1 Second Hand Smoke Exposure: No Substance Use Type: Marijuana Advance Directives: Yes Advance Directives Information Provided: Yes Advance Directives on File: Yes Advance Directives Date on File: 08/27/21 service: No Current occupational status: unemployed Physical Exam ED Vital Signs: Vital Signs - 24 hr 09/30/21 13:55 09/30/21 21:55 09/30/21 22:45 Temperature 98.2 F 98.9 F Pulse Rate 117 H 104 H Respiratory Rate 18 18 18 Blood Pressure 122/76 102/65 Pulse Oximetry 97 94 Oxygen Delivery Method Room Air Room Air 10/01/21 01:57 Temperature 98.6 F Pulse Rate 88 Respiratory Rate 16 Blood Pressure 96/58 L Pulse Oximetry 95 Oxygen Delivery Method Room Air BMI result Body Mass Index 21.0 Const Other: Appearance: Alert. Oriented X3. No acute distress. Eyes: Pupils equal, round and reactive to light. ENT: Pharynx normal. Neck: Normal inspection. Neck supple. No lymph nodes noted. No crepitus CVS: Normal heart rate and rhythm. Pulses normal. Normal S1 and S2 Respiratory: No respiratory distress. Breath sounds normal. No Wheezing. No ral es Abdomen: Soft and nontender. Pain to palpation in upper and lower left quadrants, ileostomy bag is in place, no significant abnormalities, there is liquid stool in the ileostomy bag Skin: Skin warm and dry. Normal skin color. Normal skin turgor. Extremities: No lower extremity edema. No Lacerations. No Rash Neuro: Oriented X 3. No motor deficit. No sensory deficit. Moving all extremities. No slurred speech. CN 2 through 12 grossly intact Psych: calm, cooperative, normal affect Course Course Course Narrative: Patient receiving IV fluids, morphine, lactic acid pending, CT scan pending. Patient was seen by Dr. Cooper in office visit on September 15, patient was already complaining of discomfort around the ostomy site. Patient is being also followed by Dr. Hernandez and goes to the Pain Clinic, takes methadone as part of his pain regimen CT scan is inconclusive further patient has free fluid versus developing abscess. We will repeat the CT scan with both IV and p.o. contrast. As mentioned above, patient did have an abdominal abscess approximately 1 month ago. Patient has significant abdominal pain in the left lower quadrant, patient being medicated with morphine. CT scan with oral and IV contrast was repeated, patient does not have an abscess. Overall patient feeling better. Patient needs to have follow-up with surgery. MDM - Abdominal Pain Lab Data Result diagrams: 09/30/21 14:16 09/30/21 14:16 Labs: Lab Results 09/30/21 09/30/21 09/30/21 Range/Units 14:16 14:16 21:43 WBC 11.3 H (4.8-10.8) X10*3/uL RBC 4.04 L (4.60-5.80) X10*6/uL Hgb 10.5 L (14.0-18.0) g/dl Hct 33.1 L (42.0-52.0) % MCV 81.9 (80.0-98.0) fL MCH 26.0 L (27.0-33.0) pg MCHC 31.7 (31.0-36.0) g/dl RDW 16.1 H (11.0-16.0) % Plt Count 350 D (160-400) X10*3/uL MPV 8.9 L (9.4-12.4) fL Immature Gran % (Auto) 0.4 (0.0-0.4) % Neut % (Auto) 81.4 H (45-73) % Lymph % (Auto) 11.8 L (20-40) % Bollinger % (Auto) 4.0 (2-11) % Eos % (Auto) 2.1 (0-4) % Baso % (Auto) 0.3 (0-2) % Lymph # (Auto) 1.3 (1.2-4.9) X10*3/uL Bollinger # (Auto) 0.5 (0.1-1.2) X10*3/uL Eos # (Auto) 0.2 (0.0-0.4) X10*3/uL Baso # (Auto) 0.0 (0.0-0.2) X10*3/uL Abs Immat Gran (auto) 0.05 H (0.00-0.03) X10*3/uL Absolute Neuts (auto) 9.2 H (2.0-8.3) x10*3/uL Absolute Nucleated RBC 0.000 (0.0-0.012) X10*3/uL Nucleated RBC % (auto) 0.0 (0.0-0.2) /100WBC Sodium 136 (135-145) mmol/L Potassium 4.0 (3.3-5.1) mmol/L Chloride 102 (96-108) mmol/L Carbon Dioxide 23 (22-29) mmol/L Anion Gap 15 (12-20) BUN 8 L (9-16) mg/dL Creatinine 0.68 (0.5-1.4) mg/dL Estim Creat Clear Calc 129.5 Estimated GFR > 60 Random Glucose 130 H (60-115) mg/dL Lactic Acid 0.9 (0.5-2.0) mmol/L Calcium 8.8 (8.4-10.2) mg/dL Total Bilirubin 0.5 (0.0-1.0) mg/dL AST 20 D (5-37) U/L ALT 41 H (0-40) U/L Alkaline Phosphatase 181 H D (39-117) U/L Total Protein 7.2 (6.5-8.0) g/dL Albumin 3.8 (3.5-5.0) g/dL Lipase 8 (8-78) U/L Urine Color Urine Appearance Urine pH (5.0-8.0) Ur Specific [place] (1.005-1.025) Urine Protein (NEG-TRACE) MG/DL Urine Glucose (UA) (NEG) MG/DL Urine Ketones (NEG) MG/DL Urine Blood (NEG) Urine Nitrite (NEG) Ur Leukocyte Esterase (NEG) 09/30/21 Range/Units 21:43 WBC (4.8-10.8) X10*3/uL RBC (4.60-5.80) X10*6/uL Hgb (14.0-18.0) g/dl Hct (42.0-52.0) % MCV (80.0-98.0) fL MCH (27.0-33.0) pg MCHC (31.0-36.0) g/dl RDW (11.0-16.0) % Plt Count (160-400) X10*3/uL MPV (9.4-12.4) fL Immature Gran % (Auto) (0.0-0.4) % Neut % (Auto) (45-73) % Lymph % (Auto) (20-40) % Bollinger % (Auto) (2-11) % Eos % (Auto) (0-4) % Baso % (Auto) (0-2) % Lymph # (Auto) (1.2-4.9) X10*3/uL Bollinger # (Auto) (0.1-1.2) X10*3/uL Eos # (Auto) (0.0-0.4) X10*3/uL Baso # (Auto) (0.0-0.2) X10*3/uL Abs Immat Gran (auto) (0.00-0.03) X10*3/uL Absolute Neuts (auto) (2.0-8.3) x10*3/uL Absolute Nucleated RBC (0.0-0.012) X10*3/uL Nucleated RBC % (auto) (0.0-0.2) /100WBC Sodium (135-145) mmol/L Potassium (3.3-5.1) mmol/L Chloride (96-108) mmol/L Carbon Dioxide (22-29) mmol/L Anion Gap (12-20) BUN (9-16) mg/dL Creatinine (0.5-1.4) mg/dL Estim Creat Clear Calc Estimated GFR Random Glucose (60-115) mg/dL Lactic Acid (0.5-2.0) mmol/L Calcium (8.4-10.2) mg/dL Total Bilirubin (0.0-1.0) mg/dL AST (5-37) U/L ALT (0-40) U/L Alkaline Phosphatase (39-117) U/L Total Protein (6.5-8.0) g/dL Albumin (3.5-5.0) g/dL Lipase (8-78) U/L Urine Color YELLOW Urine Appearance CLEAR Urine pH 6.0 (5.0-8.0) Ur Specific [place] 1.025 (1.005-1.025) Urine Protein TRACE (NEG-TRACE) MG/DL Urine Glucose (UA) NEG (NEG) MG/DL Urine Ketones NEG (NEG) MG/DL Urine Blood NEG (NEG) Urine Nitrite NEG (NEG) Ur Leukocyte Esterase NEG (NEG) Imaging Data CT scan - abdomen: Radiologist's impression: TECHNIQUE: Multidetector volumetric images were obtained from the superior aspect of the liver through the pubic symphysis following administration 85 mL of Omnipaque 350 intravenous contrast. Sagittal and coronal reformatted images were obtained on the technologist's workstation.? Oral contrast: No This CT examination was performed using dose optimization techniques as appropriate, variously including the following: *Automated exposure control *Adjustment of mA and/or kV according to patient size (this includes techniques or standardized protocols for targeted exams where dose is matched to indication/reason for exam; i.e. extremities or head) *Use of iterative reconstruction technique DLP: 409 mGy-cm FINDINGS: LUNG BASES: Right basilar atelectasis. Mild bronchial wall thickening. The visualized cardiac structures are unremarkable.? LIVER, GALLBLADDER, AND BILIARY TREE: The liver is normal in size, shape, and attenuation. No focal hepatic lesion or biliary ductal dilatation is present. The gallbladder is unremarkable with no evidence of radiopaque gallstones, gallbladder wall thickening, or obvious pericholecystic inflammatory changes.? PANCREAS: Unremarkable.? SPLEEN: Unremarkable.? ADRENAL GLANDS: Unremarkable.? KIDNEYS AND URETERS: The kidneys are normal in size, shape, and attenuation. No hydronephrosis, hydroureter, or calculi seen. No perinephric stranding. ? BLADDER: Partially distended with circumferential wall thickening. No focal abnormality.? GASTROINTESTINAL TRACT: The stomach is unremarkable. Normal caliber of the small bowel. Contrast passes through much of the bowel to an area of anastomosis in the pelvis. Much of the colon is decompressed. Distal colonic anastomosis noted. There is a right lower quadrant ostomy. Contrast passes through the entirety of the bowel to the ostomy site. There is a normal appendix noted. Within the left lower quadrant there is some small volume of free fluid. There is no rim enhancement to suggest abscess formation.? ABDOMINAL WALL: Right lower quadrant ileostomy.? LYMPH NODES: Normal. VASCULAR: Unremarkable. PELVIC VISCERA: The prostate and seminal vesicles are unremarkable.? OSSEOUS STRUCTURES: No acute or suspicious osseous abnormality.? CT/CT abdomen pelvis w con IMPRESSION: Small amount of free fluid in the left lower quadrant. No rim-enhancing fluid collection to suggest abscess formation. ? Oral contrast utilized on this study passing through the entirety of the small bowel without obstruction to the ostomy site. No extravasation.? ? Fleischner guidelines were followed. Discharge Plan Discharge Clinical Impression: Abdominal pain Patient Disposition: Home, Self-Care Instructions: Abdominal Pain (ED) Additional Instructions: Please follow-up with your primary care physician tomorrow. If you have any worsening or new symptoms, please return to the emergency room or call 911 Prescriptions: New oxycodone 5 mg tablet 5 mg PO Q4H PRN (Reason: pain) Qty: 7 0RF Rx Instructions: Partial Fill upon patient request. No Action nicotine 21 mg/24 hr Patch 24 Hour 21 mg transdermal DAILY 30 Days 0RF ferrous sulfate [Iron (ferrous sulfate)] 325 mg (65 mg iron) Tablet 325 mg PO DAILY Qty: 60 0RF cyanocobalamin (vitamin B-12) [Vitamin B-12] 1,000 mcg Tablet 1,000 mcg PO DAILY Qty: 90 2RF capecitabine 500 mg Tablet 1,500 mg PO BID Qty: 84 10RF Rx Instructions: for 14 days per 21-day cycle; must administer with water 30 minutes after a meal capecitabine 150 mg Tablet 150 mg PO BID Qty: 28 10RF Rx Instructions: administer with 3 - 500 mg tabs for each dose; must give with water 30 minutes after a meal cyclobenzaprine 10 mg tablet 10 mg PO TID Qty: 90 5RF gabapentin 400 mg capsule 400 mg PO TID Qty: 90 5RF hydromorphone 2 mg tablet 2 mg PO Q4H PRN (Reason: pain) Qty: 42 0RF Rx Instructions: Partial Fill upon patient request.
[2021-09-30 21:29] LABS: Lipase 8 U/L (8-78)
[2021-09-30 21:50] LABS: Appearance Urine CLEAR; Color Urine YELLOW; Glucose Urine UA NEG (NEG); Leukocyte Esterase Urine NEG (NEG); Nitrite Urine NEG (NEG); Specific Gravity - Urine 1.025 (1.005-1.025); Urine Blood NEG (NEG); Urine Ketones NEG (NEG); Urine Protein TRACE MG/DL (NEG-TRACE)
[2021-09-30 21:55] VITALS: BP 102/65; PULSE 104; RESP 18; TEMP 37.2; O2SAT 94
[2021-09-30 22:01] LABS: Lactic Acid 0.9 mmol/L (0.5-2.0)
--- NOTE | 2021-09-30 22:19 | PC.NURSE ---
Medications late due to patient being a difficult IV start. Charge nurse and provider aware.
[2021-09-30] MEDS: Diatrizoate Meglumine, Sodium 30 ML SOLUTION PO (22:42)
[2021-09-30] MEDS: 0.9 % Sodium Chloride 1,000 ML 999 ML IVCONT (22:44)
[2021-09-30 22:45] VITALS: RESP 18
[2021-09-30] MEDS: Morphine Sulfate 4 MG/ML CARTRIDGE IVPUSH (22:45)
[2021-09-30] MEDS: ondansetron HCL 4 MG/2 ML VIAL IVPUSH (22:45)
[2021-10-01] MEDS: iohexoL 350 MG/ML 100 ML INFUS..BTL 85 ML IV (01:46)
[2021-10-01 01:57] VITALS: BP 96/58; PULSE 88; RESP 16; TEMP 37; O2SAT 95
[2021-10-01] MEDS: oxyCODONE HCl Immed Release 5 MG TABLET PO (02:25)
[2021-10-01 02:27] VITALS: BP 100/64; PULSE 89; RESP 16; O2SAT 96
== END 2021-10-01 02:29 | disposition home or self-care (01) ==
PROVIDERS: Emergency Provider Emergency Medicine
DX: R10.9 Unspecified abdominal pain (principal); F17.200 Nicotine dependence, unspecified, uncomplicated; F12.90 Cannabis use, unspecified, uncomplicated; Z85.038 Personal history of other malignant neoplasm of large intestine; Z93.2 Ileostomy status
CPT/HCPCS: 36415; 74176; 74177; 80053; 81003; 83605; 83690; 85025; 87040; 87077; 87205; 96361; 96374; 96375; 99284; J2270; J2405; Q9967

== ENCOUNTER → 2021-10-01 13:41 | Outpatient (BNVA) | payer OTHER, SELFPAY | PROVIDERS: Visit Provider Nurse Practitioner Psychiatric/Mental Health | DX: F11.20 Opioid dependence, uncomplicated (principal) | CPT/HCPCS: 99212 ==

== ENCOUNTER → 2021-10-08 14:38 | Outpatient (BNVA) | payer OTHER, SELFPAY | PROVIDERS: Visit Provider Nurse Practitioner Psychiatric/Mental Health | DX: F11.20 Opioid dependence, uncomplicated (principal) | CPT/HCPCS: 80305; 99212 ==

== ENCOUNTER → 2021-10-14 14:00 | Outpatient (BNVA) | payer OTHER, SELFPAY | PROVIDERS: Visit Provider Nurse Practitioner Psychiatric/Mental Health | DX: F11.20 Opioid dependence, uncomplicated (principal); F10.20 Alcohol dependence, uncomplicated | CPT/HCPCS: 99212 ==

== ENCOUNTER → 2021-11-25 15:09 | Outpatient (BNVA) | payer OTHER, SELFPAY | PROVIDERS: Visit Provider Surgery | DX: C18.7 Malignant neoplasm of sigmoid colon (principal); Z43.3 Encounter for attention to colostomy; Z79.899 Other long term (current) drug therapy | CPT/HCPCS: 99211 ==

== ENCOUNTER 2021-11-26 15:42 | Outpatient (REF) | payer OTHER, SELFPAY ==
--- NOTE | ~2021-11-26 | CT_ITS ---
EXAMINATION: CT CHEST WITH CONTRAST CLINICAL INFORMATION: Staging. History of colon cancer. COMPARISON: None TECHNIQUE: Multidetector volumetric CT imaging of the chest was obtained after the administration of 50 mL of Omnipaque 350 intravenous contrast without immediate adverse reactions. Axial MIP volume rendering provided. Sagittal and coronal reformatted images were obtained. This CT examination was performed using dose optimization techniques as appropriate, variously including the following: *Automated exposure control *Adjustment of mA and/or kV according to patient size (this includes techniques or standardized protocols for targeted exams where dose is matched to indication/reason for exam; i.e. extremities or head) *Use of iterative reconstruction technique DLP: 120 mGy-cm FINDINGS: CLOTH MENDER: LUNGS: There is an abnormal parenchymal density in the peripheral left upper lobe measuring 8 mm axial image 58 series 8. On sagittal and coronal reconstructed images this appears linear and may represent scarring or subsegmental atelectasis. There is a tiny 2 mm left upper lobe nodule axial image 65 series 8. There is a 2 mm right upper lobe nodule axial image 81 series 8 probably representing bronchial soft tissue opacification. There is a 4 mm left lower lobe nodule axial image 141 series 8 probably representing bronchial soft tissue opacification. There are several 2 mm right lower lobe nodules axial image 151, 153 and 160 series 8 also probably representing bronchial soft tissue opacification. There is central right lower lobe bronchial wall thickening for example axial image 105 series 8. There is scarring or subsegmental atelectasis left lower lobe adjacent to the diaphragm. There is increased soft tissue seen in the right side of the trachea. This is mixed with air probably related to patient secretions. Axial image 64 series 8 and coronal reconstructed image 43. There is a second area of increased soft tissue in the right bronchus intermedius axial image 96 series 8 and sagittal reconstructed image 3. MEDIASTINUM: The mediastinum is normal. PLEURA: There is no pleural effusion. No pleural mass or thickening. AXILLA: Small bilateral axillary lymph nodes. No enlarged lymph nodes or chest wall mass UPPER ABDOMEN: Small calcification in the spleen. OSSEOUS STRUCTURES: Question small midthoracic vertebral body compression fracture. CT/CT chest w IV con IMPRESSION: Small pulmonary nodules. Many of these are endobronchial and may represent bronchial soft tissue opacification. There is increased soft tissue in the right trachea and right bronchus intermedius, question related to airways disease/patient secretions. Fleischner guidelines were followed.
[2021-11-26] MEDS: iohexoL 350 MG/ML 100 ML INFUS..BTL IV (16:06)
== END 2021-11-26 15:43 | disposition home or self-care (01) ==
LOC: HO.CT 15:42
PROVIDERS: Visit Provider Internal Medicine
DX: C18.7 Malignant neoplasm of sigmoid colon (principal); Z80.0 Family history of malignant neoplasm of digestive organs
CPT/HCPCS: 71260; Q9967

== ENCOUNTER 2022-02-22 16:39 | Outpatient (REF) | payer OTHER, SELFPAY ==
[2022-02-22 16:56] LABS: MANUAL DIFF FLAG NO
[2022-02-22 17:01] LABS: Basophils Percent Auto 0.2 % (0-2); Eosinophils Absolute Auto 0.2 X10*3/uL (0.0-0.4); Eosinophils Percent Auto 3.2 % (0-4); Imm Gran Abs Auto 0.01 X10*3/uL (0.00-0.03); Imm Gran Pct Auto 0.2 % (0.0-0.4); Lymphocytes Absolute Auto 1.8 X10*3/uL (1.2-4.9); Lymphocytes Percent Auto 34.1 % (20-40); Mean Corpuscular HGB Conc 34.8 g/dl (31.0-36.0); Mean Corpuscular Hemoglobin 32.4 pg (27.0-33.0); Mean Corpuscular Volume 93.1 fL (80.0-98.0); Mean Platelet Volume 9.6 fL (9.4-12.4); Monocytes Absolute Auto 0.7 X10*3/uL (0.1-1.2); Monocytes Percent Auto 13.9 % (2-11); Neutrophils Absolute Auto 2.5 x10*3/uL (2.0-8.3); Neutrophils Percent Auto 48.4 % (45-73); Platelet Count 145 X10*3/uL (160-400); Red Blood Count 4.94 X10*6/uL (4.60-5.80); Red Cell Distribution Width 19.5 % (11.0-16.0); White Blood Count 5.3 X10*3/uL (4.8-10.8)
[2022-02-22 17:30] LABS: Alanine Aminotransferase 37 U/L (0-40); Albumin Level 4.3 g/dL (3.5-5.0); Alkaline Phosphatase 171 U/L (39-117); Anion Gap 14 (12-20); Aspartate Amino Transferase 32 U/L (5-37); Bilirubin Total 0.6 mg/dL (0.0-1.0); Blood Urea Nitrogen 7 mg/dL (9-16); Calcium 9.5 mg/dL (8.4-10.2); Carbon Dioxide 23 mmol/L (22-29); Chloride 105 mmol/L (96-108); Estimated Glomerular Filt Rate > 60; Glucose Random 114 mg/dL (60-115); Potassium 3.7 mmol/L (3.3-5.1); Sodium 138 mmol/L (135-145); Total Protein 7.4 g/dL (6.5-8.0)
== END 2022-02-22 16:40 | disposition home or self-care (01) ==
LOC: HO.LAB 16:39
PROVIDERS: Visit Provider Internal Medicine
DX: C18.7 Malignant neoplasm of sigmoid colon (principal)
CPT/HCPCS: 36415; 80053; 85025

== ENCOUNTER 2022-03-16 12:00 | Outpatient (REF) | payer OTHER, SELFPAY ==
[2022-03-16 13:57] LABS: TSH reflex Free T4 0.93 uIU/mL (0.32-4.0)
== END 2022-03-16 12:01 | disposition home or self-care (01) ==
LOC: HO.LAB 12:00
PROVIDERS: PCP Internal Medicine; Visit Provider Internal Medicine
DX: Z00.01 Encounter for general adult medical examination with abnormal findings (principal); F41.0 Panic disorder [episodic paroxysmal anxiety]; F41.1 Generalized anxiety disorder
CPT/HCPCS: 36415; 80053; 84443; 85025

== ENCOUNTER → 2022-03-24 08:59 | Outpatient (BNVA) | payer OTHER, SELFPAY | PROVIDERS: PCP Internal Medicine; Visit Provider Nurse Practitioner Psychiatric/Mental Health | DX: Z13.89 Encounter for screening for other disorder (principal) ==

== ENCOUNTER 2022-05-31 13:44 | Outpatient (REF) | payer OTHER, SELFPAY ==
--- NOTE | ~2022-05-31 | CT_ITS ---
EXAMINATION: CT ABDOMEN AND PELVIS WITH CONTRAST CLINICAL INFORMATION: Hematuria. History of colon cancer. COMPARISON: 10/01/2021 TECHNIQUE: Multidetector volumetric images were obtained from the superior aspect of the liver through the pubic symphysis following administration 85 mL of Omnipaque 350 intravenous contrast. Sagittal and coronal reformatted images were obtained on the technologist's workstation. Oral contrast: Yes This CT examination was performed using dose optimization techniques as appropriate, variously including the following: *Automated exposure control *Adjustment of mA and/or kV according to patient size (this includes techniques or standardized protocols for targeted exams where dose is matched to indication/reason for exam; i.e. extremities or head) *Use of iterative reconstruction technique DLP: 384 mGy-cm FINDINGS: LUNG BASES: Minimal basilar atelectasis. The visualized cardiac structures are unremarkable. Mild elevation of the left hemidiaphragm. LIVER, GALLBLADDER, AND BILIARY TREE: The liver is normal in size, shape, and attenuation. No biliary ductal dilatation. There is an area of hypoattenuation in segment IVb of the liver which is new from prior. This area measures approximately 5 x 2.5 cm and is of uncertain etiology. No additional liver lesion identified.. The gallbladder is unremarkable with no evidence of radiopaque gallstones, gallbladder wall thickening, or obvious pericholecystic inflammatory changes. PANCREAS: Unremarkable. SPLEEN: Unremarkable. ADRENAL GLANDS: Unremarkable. KIDNEYS AND URETERS: The kidneys are normal in size, shape, and attenuation. No hydronephrosis, hydroureter, or calculi seen. No perinephric stranding. Hypoattenuating lesion at the lower pole of the right kidney is too small to characterize measuring 0.7 cm. This is unchanged from prior. BLADDER: Abnormal appearance of the bladder. Along the left bladder wall there is a new hyperdense structure which is concerning for a mass measuring 3.1 x 2.3 x 2.3 cm. This is new from the previous CT. GASTROINTESTINAL TRACT: The stomach is unremarkable. Normal caliber of the small bowel. No obstruction. Status post partial colectomy. Right lower quadrant ostomy. No free air or free fluid. ABDOMINAL WALL: Right lower quadrant ostomy. No abdominal wall hernia. LYMPH NODES: Normal. VASCULAR: Normal caliber aorta with minimal atherosclerotic calcification. Circumaortic left renal vein. PELVIC VISCERA: The prostate and seminal vesicles are unremarkable. OSSEOUS STRUCTURES: No acute or suspicious osseous abnormality. CT/CT abdomen pelvis w IV con IMPRESSION: 1. Abnormal appearance of the bladder. There is a new hyperdense mass along the left bladder wall. This is concerning for neoplasm. Further evaluation is recommended. 2. There is an area of hypoattenuation in segment IVb of the liver which is new from prior. This is of uncertain etiology. This could be further evaluated with MRI. The report will be called to the ordering clinician by a [facility] Workflow Coordinator.
[2022-05-31] MEDS: iohexoL 350 MG/ML 100 ML INFUS..BTL IV (17:39)
[2022-05-31] MEDS: Barium Sulfate Oral (Vanilla) 450 ML ORAL.SUSP 900 ML PO (17:39)
== END 2022-05-31 13:45 | disposition home or self-care (01) ==
LOC: HO.CT 13:44
PROVIDERS: PCP Internal Medicine; Visit Provider Internal Medicine
DX: C18.7 Malignant neoplasm of sigmoid colon (principal); R31.9 Hematuria, unspecified; Z93.3 Colostomy status; Z87.891 Personal history of nicotine dependence
CPT/HCPCS: 51798; 74177; 99202; Q9967

== ENCOUNTER 2022-05-31 14:21 | Outpatient (REF) | payer OTHER, SELFPAY ==
[2022-05-31 16:23] LABS: Urine Cytology See Pathology rpt
== END 2022-05-31 14:22 | disposition home or self-care (01) ==
LOC: HO.LAB 14:21
PROVIDERS: Visit Provider Urology
DX: R31.9 Hematuria, unspecified (principal); C18.7 Malignant neoplasm of sigmoid colon
CPT/HCPCS: 87086; 88112

== ENCOUNTER 2022-06-15 12:23 | Outpatient (REF) | payer OTHER, SELFPAY ==
--- NOTE | ~2022-06-15 | PE_ITS ---
EXAMINATION: Fluorine-18 FDG PET/CT Scan CLINICAL INDICATION: Initial treatment management. History of colon cancer. Hematuria. Found to have hyperdense bladder mass on recent CT scan of the abdomen and pelvis done on 05/31/2022. PROCEDURE: 67 minutes following the intravenous administration of 13.7 mCi of fluorine 18 FDG, images from the base of the skull to the mid thighs were obtained using a combined PET/CT scanner with CT scan based attenuation correction. No intravenous contrast was administered. Transverse, coronal, sagittal, and volume reconstruction projections were obtained. The patient's blood glucose as determined by a finger stick, was 99 mg/dl immediately prior to injection. The radiotracer was injected intravenously through right antecubital superficial vein, without any complications. Total CT exam dose-length product 316.23 mGy-cm * These CT images were obtained using dose optimization techniques as appropriate, variously including the following: Automated exposure control * Adjustment of mA and/or kV according to patient size (this includes techniques or standardized protocols for targeted exams where dose is matched to indication/reason for exam; i.e. extremities or head) * Use of iterative reconstruction technique COMPARISON: CT of the abdomen and pelvis done on 05/31/2022. FINDINGS: NECK AND VISUALIZED HEAD: No FDG avid disease. Incidental note is made of mucous retention cyst versus polyp involving both maxillary sinuses and mild FDG avidity around the laryngeal inlet, appear bilaterally symmetric, likely physiologic. THORAX: Solitary sub-5 mm noncalcified lung nodule is noted at right lung base along the posterior medial right costophrenic sulcus (116/267), too small for accurate characterization with the PET CT study. The remainder of the lung toribio appear clear. There are no FDG avid mediastinal, hilar, axillary or internal mammary lymphadenopathy or pleural or pericardial effusion. ABDOMEN AND PELVIS: Previously documented curvilinear hypodensity seen at segment 4A/4B of the liver without any significant mass effect is reidentified, without any FDG avidity. Subcentimeter FDG avidity at the level of the pelvic inlet adjacent to the left common iliac vessels with SUV max of 7.9 (172/267) likely represent lymphadenopathy and less likely to be tortuous left ureter. A similar appearing right-sided focal FDG avidity is identified without any corresponding CT detectable abnormality, may represent right ureter containing urine versus subtle evolving lymph node with SUV max of 4.5 (183/267). Postsurgical changes are noted at the level of the pelvic inlet with mild FDG avidity at the surgical bed likely represent postsurgical change and less likely to be disease recurrence (185/267 with SUV max of 2.7. There are no prior studies available for comparison. Right lower hemipelvic additional FDG avid focus is noted, inseparable from the adjacent bowel loops, suspicious for FDG avid disease with SUV max of 8.3 (195/267). This may represent intrinsic or extrinsic bowel disease. There is no definite CT correlate present. Evaluation is technically limited due to lack of intraluminal contrast and IV contrast on this nondiagnostic CT study. No definite correlate to prior CT of the abdomen and pelvis which was done with oral and intravenous contrast and 05/31/2022. Physiologic radiotracer activities present within the bladder. Previous CT detected hyperdense intraluminal mass is not reproduced on this study likely interval removal or obscured due to presence of dense FDG avid urine within the bladder. Postsurgical changes of right lower anterior abdominal wall ostomy. MUSCULOSKELETAL: No suspicious FDG avid disease. VASCULAR: No significant calcific atherosclerotic disease of the aorta and is branches. No evidence of aneurysm. SUV max OF MEDIASTINAL BLOOD POOL: 1.8 SUV max OF LIVER: 2.5 PET/PET CT fusion skull to thigh IMPRESSION: 1. The recent CT detected hyperdense mass within the left lateral wall of the urinary bladder is not reproduced in the current study, either obscured due to intense FDG avid urine within the bladder or interval removed. 2. Postsurgical changes are noted within the pelvis with mild FDG avidity at the surgical bed. There are no prior PET CT studies available at the moment for comparison. The study was read without the benefit of comparison with prior studies. 3. Subcentimeter FDG avidity at the level of the pelvic inlet adjacent to the left common iliac vessels with SUV max of 7.9 likely represent lymphadenopathy and less likely to be tortuous left ureter. 4. Similar appearing right-sided focal FDG avidity is identified without any corresponding CT correlate may represent right ureter containing using versus subtle evolving lymph node with SUV max of 4.5. 5. Right lower hemipelvic additional FDG avid focus inseparable from adjacent nonopacified bowel loops with SUV max of 8.3, may represent intrinsic or extrinsic bowel pathology. No definite CT correlate. 6. Postsurgical changes of right lower anterior abdominal wall ostomy. 7. Previously documented linear hypodensity at segment 4A/4B of left lobe of the liver is not FDG avid. 8. Incidental note is made of a sub-5 mm noncalcified nodule FDG avid nodule at right lower lobe of the lung at the level of the right posterior medial costophrenic sulcus, not optimally characterized however, may represent evolving area of subtle metastases in this patient with history of colon cancer. Close follow-up imaging surveillance is recommended for further clarification.
== END 2022-06-15 12:24 | disposition home or self-care (01) ==
LOC: HO.PET 12:23
PROVIDERS: PCP Internal Medicine; Visit Provider Internal Medicine
DX: Z13.89 Encounter for screening for other disorder (principal)

== ENCOUNTER → 2022-06-22 07:37 | Day surgery (SDC) | payer OTHER, SELFPAY ==
--- NOTE | 2022-06-21 10:17 | HO.ANESPROP2 ---
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 laparotomy with diverting loop ileostomy 07/2021 with GA-ETT 7.5 Hx drug abuse - suboxone daily ETOH abuse PMFSH Active Problems Active Problems: All Active Problems (Updated 06/18/22 @ 18:12 by Chastity Hernandez MD) History of nicotine use (Acute) History of alcohol use disorder (Acute) Lipoma (Acute) Lump of skin of back (Acute) Generalized anxiety disorder with panic attacks (Acute) Colostomy in place (Acute) Encounter for general adult medical examination with abnormal findings (Acute) History of major depression (Acute) Alcohol use disorder, moderate, dependence (Acute) Opioid use disorder (Acute) Adenocarcinoma of sigmoid colon (Chronic) Abdominal pain (Acute) Alcohol abuse (Acute) Smoker (Acute) Past Medical History Medical History Adenocarcinoma of sigmoid colon Alcohol withdrawal seizure [place]-vesical fistula History of drainage of abscess Intra-abdominal abscess Family History Family History Other No family history of coronary artery disease Family history of problems with anesthesia: No Surgical History Surgical History S/P partial resection of colon (08/17/21) History of Problems with Anesthesia: No Social History Social History Household Members: Other Household Members Other:: homeless. staying with family/friends. Housing: Homeless Do you presently have visiting nurse or other home services: No Alcohol intake: current Alcohol intake frequency: 3 or more drinks per day Patient Tobacco Use Status: Current everyday Tobacco user Tobacco use type: Cigarette Cigarette Packs Per Day: 1 Cigarettes Per Day: 20.0 e-Cigarette/Vaping Use: Never Used Second Hand Smoke Exposure: No Substance Use Type: Marijuana Advance Directives Date on File: 08/27/21 service: No Current occupational status: unemployed Cognitive needs: No Hearing needs: No Vision needs: No Meds Allergies Allergy/AdvReac Type Severity Reaction Status Date / Time cranberry Allergy Hives Verified 06/22/22 07:52 Exam Exam Date and Time: June 21, 2022 1017 Pertinent Lab Results Pertinent Lab Results: Laboratory Tests 05/26/22 05/26/22 15:09 15:09 WBC 6.9 Hgb 14.3 Hct 42.9 Plt Count 186 Sodium 136 Potassium 4.5 Chloride 101 Carbon Dioxide 26 BUN 9 Creatinine 0.66 Narrative Narrative: EKG 12/2021 Vent. Rate : 117 BPM ? ? Atrial Rate : 117 BPM ?? P-R Int : 148 ms? QRS Dur : 086 ms ? ? QT Int : 326 ms ? ? ? P-R-T Axes : 071 072 067 degrees ?? QTc Int : 454 ms ? Sinus tachycardia Biatrial enlargement Abnormal ECG When compared with ECG of 27-SEP-2003 15:06, Heart rate has increased Assessment and Plan Assessment Anesthesia Assessment: Chart Reviewed Final Anesthetic Review Family History of Problems with Anesthesia: No History of Problems with Anesthesia: No
[2022-06-22 07:55] VITALS: BMI 22.8
[2022-06-22 08:22] LABS: Amphetamine Screen Urine Not Detected (Not Detect); Barbiturates, Urine Not Detected (Not Detect); Benzodiazepines Screen Urine Not Detected (Not Detect); Cannabinoid Screen Urine POSITIVE (Not Detect); Cocaine Screen Urine POSITIVE (Not Detect); Fentanyl, urine POSITIVE (Not Detect); Opiate Screen Urine Not Detected (Not Detect); Phencyclidine Screen Urine Not Detected (Not Detect)
--- NOTE | 2022-06-22 08:29 | PC.NURSE ---
pt admitted to using cocaine 3 days ago and heroin yesterday am. anesthesia made aware and at bedside. cancelled and pt to reschedule
[2022-06-22 08:35] LABS: COVID-19 Test Negative (Negative); IDNOW Serial# 55D5AD1C
== END ==
PROVIDERS: Nurse Practitioner; PCP Internal Medicine; Visit Provider Urology
DX: R31.0 Gross hematuria (principal); R82.5 Elevated urine levels of drugs, medicaments and biological substances; F11.90 Opioid use, unspecified, uncomplicated; F14.90 Cocaine use, unspecified, uncomplicated; F12.90 Cannabis use, unspecified, uncomplicated; F17.210 Nicotine dependence, cigarettes, uncomplicated; Z20.822 Contact with and (suspected) exposure to COVID-19
CPT/HCPCS: 80307; 87635; J0690; J1956

== ENCOUNTER 2022-07-15 13:48 | Outpatient (REF) | payer OTHER, SELFPAY ==
--- NOTE | ~2022-07-15 | MR_ITS ---
EXAMINATION: MRI ABDOMEN WITH AND WITHOUT CONTRAST CLINICAL INFORMATION: evaluate liver lesion, adenopathy COMPARISON: 06/15/2022 PET/CT scan and CT scan TECHNIQUE: Multiple routine MRI sequences through the abdomen were obtained on a high-field 1.5Tesla MRI. Pre-and postcontrast images with 7 mL of Gadavist intravenous contrast were obtained. This included a dynamic contrast-enhanced technique. FINDINGS: Lung bases: The visualized lung bases are unremarkable. Liver: There is focal fatty infiltration of the liver, more so in segment 4 the liver corresponding with the hypodense region on the prior CT scan. I do not appreciate any suspicious hepatic lesions or abnormal enhancement. No biliary ductal dilatation. Gallbladder: Gallbladder is unremarkable. No suspicious gallstones or filling defects. No gallbladder wall thickening or pericholecystic inflammatory changes. Pancreas: Pancreas is homogeneous in signal. No pancreatic ductal dilatation or obstruction. No peripancreatic inflammatory changes or fluid. Spleen: Unremarkable Adrenals: Unremarkable Kidneys: Kidneys are normal in size, shape, and signal. Tiny T2 bright nonenhancing cortical cyst in the posterior lateral lower pole of the right kidney incidentally noted. No suspicious renal mass lesion seen. No hydronephrosis or perinephric edema. Other: No bulky adenopathy MR/MR abdomen wo/w con IMPRESSION: Focal fatty infiltration of the liver, more prominent in segment 4 of the liver corresponding with the abnormality seen on the prior CT scan. I do not appreciate any suspicious hepatic lesions or abnormal enhancement.
== END 2022-07-15 13:49 | disposition home or self-care (01) ==
LOC: HO.MRI 13:48
PROVIDERS: PCP Internal Medicine; Visit Provider Internal Medicine
DX: C18.7 Malignant neoplasm of sigmoid colon (principal)
CPT/HCPCS: 74183; A9585